=== PATIENT | female | born 1975 | race Caucasian/White ===

== ENCOUNTER 2017-12-08 11:32 | Emergency (ER) | payer MEDICAID ==
[2017-12-08 12:21] LABS: BASOPHILS % (AUTO) 1.2 %; EOSINOPHILS % (AUTO) 0.3 %; HGB - HEMOGLOBIN 8.9 g/dL (12.0-16.0); LYMPHOCYTES % (AUTO) 11.9 %; MEAN CORPUSCULAR HEMOGLOBIN 42.1 pg (27.0-31.0); MEAN CORPUSCULAR HGB CONC 35.1 g/dL (32.0-36.0); MEAN PLATELET VOLUME 8.1 fL (7.9-10.8); MONOCYTES % (AUTO) 4.4 %; NEUTROPHILS % (AUTO) 82.2 %; PLT - PLATELET COUNT 130 10^3/uL (130-450); RED BLOOD COUNT 2.12 10^6/uL (4.20-5.40); RED CELL DISTRIBUTION WIDTH 17.7 % (12.0-15.0); WHITE BLOOD COUNT 9.7 x10^3/uL (4.8-10.8)
[2017-12-08 12:24] LABS: ABNORMAL LYMPHS % (MANUAL) 0 %
[2017-12-08] MEDS ORDERED: MAGNESIUM SULFATE 2 GRAM 2 GM/50 ML BAG IV STA (12:37)
[2017-12-08] MEDS ORDERED: THIAMINE INJ 100 MG, FOLIC ACID INJ 1 MG in SODIUM CHLORIDE 0.9% 100ML 100 ML IV STA (12:37)
[2017-12-08] MEDS ORDERED: MULTIVITAMIN 10 ML in SODIUM CHLORIDE 0.9% 1,000 ML IV STA (12:37)
--- NOTE | 2017-12-08 12:39 | ED Physician Documentation ---
History of Present Illness - Stated complaint Stated Complaint: YELLOW COLORING/ NOT EATING/WEAK - Chief complaint Chief Complaint: General - History obtained from History obtained from: Patient, Friend - History of Present Illness Timing: How many weeks ago (1) Pain level max: 0 Pain level now: 0 Improved by: nothing Worsened by: nothing - Additonal information Additional information: Patient is a 42-year-old female who presents to the emergency department with a complaint of yellowing skin over the past week. She also feels fatigued. States she drinks 1-1/2 glasses of wine a night. States she has been doing this for the last 5 years. She states she is having no pain. States does not see a primary care provider. Denies any history of hepatitis in the past. Denies any abdominal surgeries. Review of Systems Ten Systems: 10 systems reviewed and negative Constitutional: denies: Fever, Chills Ears: denies: Ear pain Nose: denies: Rhinorrhea / runny nose, Congestion Throat: denies: Oral lesions / sores, Sore throat Cardiac: denies: Chest pain / pressure Respiratory: reports: Dyspnea (states is tired easily with walking) GI: denies: Abdominal Pain, Vomiting, Diarrhea Skin: denies: Rash Musculoskeletal: denies: Neck pain, Back pain Neurologic: denies: Headache PD PAST MEDICAL HISTORY - Past Medical History Past Medical History: No - Past Surgical History Past Surgical History: Yes General: Gastric surgery Ortho: Knee replacement - Present Medications Home Medications: Ambulatory Orders Medication Instructions Recorded Confirmed No Known Home Medications [No 12/08/17 12/08/17 Known Home Medications] - Allergies Allergies/Adverse Reactions: Allergies Allergy/AdvReac Type Severity Reaction Status Date / Time amoxicillin Allergy Unknown Verified 12/08/17 11:42 ampicillin Allergy Unknown Verified 12/08/17 11:42 - Social History Does the pt smoke?: Yes Smoking Status: Current every day smoker Does the pt drink ETOH?: Yes ETOH Use: Wine Does the pt have substance abuse?: No - Immunizations Immunizations are current?: Yes PD ED PE NORMAL - Vitals Vital signs reviewed: Yes - General General: Alert and oriented X 3, No acute distress, Other (jaundiced) - HEENT HEENT: Moist mucous membranes - Neck Neck: Supple, no meningeal sign - Cardiac Cardiac: RRR, Strong equal pulses - Respiratory Respiratory: No respiratory distress, Clear bilaterally - Abdomen Abdomen: Other (distended abdomen, soft. ) - Derm Derm: Warm and dry - Extremities Extremities: Other (1+ BLE edema) - Neuro Neuro: Alert and oriented X 3 Results - Vitals Vitals: Vital Signs - 24 hr 12/08/17 12/08/17 12/08/17 11:36 13:07 13:20 Temperature 36 C L Heart Rate 111 H 104 H 108 H Respiratory 20 16 16 Rate Blood Pressure 94/50 L 88/60 L 90/55 L O2 Saturation 95 99 99 12/08/17 12/08/17 13:34 15:11 Temperature Heart Rate 108 H 103 H Respiratory 16 Rate Blood Pressure 95/60 95/51 L O2 Saturation 94 Oxygen O2 Source Room air - Labs Labs: Laboratory Tests 12/08/17 12/08/17 12/08/17 12:10 12:10 12:10 WBC 9.7 RBC 2.12 L Hgb 8.9 L Hct 25.4 L MCV 120.0 H MCH 42.1 H MCHC 35.1 RDW 17.7 H Plt Count 130 MPV 8.1 Neut # (Auto) Not Reportable Lymph # (Auto) Not Reportable Hart # (Auto) Not Reportable Eos # (Auto) Not Reportable Baso # (Auto) Not Reportable Absolute Nucleated RBC Not Reportable Total Counted 100 Band Neuts % (Manual) 3 Reactive Lymphs % (Man) 1 Abnorm Lymph % (Manual) 0 Metamyelocytes % 2 H Myelocytes % 1 H Nucleated RBC % Not Reportable Neutrophils # (Manual) 7.6 H Lymphocytes # (Manual) 1.4 L Monocytes # (Manual) 0.5 Eosinophils # (Manual) 0.0 Basophils # (Manual) 0.0 Platelet Estimate NORMAL (130-450,000) RBC Morph Micro Appear 1+ TARGET CELLS PT INR Sodium 125 L Potassium 3.4 L Chloride 89 L Carbon Dioxide 23 Anion Gap 13.0 BUN 13 Creatinine 0.4 Estimated GFR (MDRD) 173 Glucose 100 Calcium 8.0 L Phosphorus Magnesium Total Bilirubin 24.3 H Direct Bilirubin 9.1 H AST 172 H ALT 90 H Alkaline Phosphatase 193 H Total Protein 5.8 L Albumin 2.0 L Globulin 3.8 Albumin/Globulin Ratio 0.5 L Lipase 44 Acetaminophen Ethyl Alcohol 12/08/17 12/08/17 12/08/17 12:10 12:10 12:10 WBC RBC Hgb Hct MCV MCH MCHC RDW Plt Count MPV Neut # (Auto) Lymph # (Auto) Hart # (Auto) Eos # (Auto) Baso # (Auto) Absolute Nucleated RBC Total Counted Band Neuts % (Manual) Reactive Lymphs % (Man) Abnorm Lymph % (Manual) Metamyelocytes % Myelocytes % Nucleated RBC % Neutrophils # (Manual) Lymphocytes # (Manual) Monocytes # (Manual) Eosinophils # (Manual) Basophils # (Manual) Platelet Estimate RBC Morph Micro Appear PT 17.8 H INR 1.6 H Sodium Potassium Chloride Carbon Dioxide Anion Gap BUN Creatinine Estimated GFR (MDRD) Glucose Calcium Phosphorus 1.6 L Magnesium 2.5 Total Bilirubin Direct Bilirubin AST ALT Alkaline Phosphatase Total Protein Albumin Globulin Albumin/Globulin Ratio Lipase Acetaminophen < 10 L Ethyl Alcohol < 5.0 - Rads (name of study) CT abd/pelvis Radiology: Prelim report reviewed, EMP read contemporaneously, See rad report ( Enlarged, fatty liver. Small to moderate volume ascites. Portal veins are patent. 2. Apparent diffuse colonic wall thickening may reflect nonspecific colitis versus nondistention. 3. Mild peripancreatic stranding could reflect acute pancreatitis or may relate to generalized edema. 4. Nonspecific mild splenomegaly. 5. Other findings as noted above. ) RUQ US Radiology: Prelim report reviewed, EMP read contemporaneously, See rad report ( Gallbladder sludge without gallstones. Thickened gallbladder wall with a negative ultrasound Guadalupe's sign. The wall thickening is nonspecific and could be related to liver disease, ascites, or cholecystitis. 2. Hepatomegaly with steatosis and evidence of chronic liver disease. 3. Ascites. 4. Common bile duct is enlarged at 8.7 mm. ) PD MEDICAL DECISION MAKING - ED course Complexity details: reviewed results, re-evaluated patient, considered differential, d/w patient, d/w quality compliance consultant ED course: 1530 - Dr. Walker ([facility]). Recommends admission, steroids and supportive care. 1548 - D/w hospitalist here, Dr. Casey, who is uncomfortable caring for her in a critical access hospital and recommends transfer to [facility] in [place]. 1600 - Dr. Harris Schmidt, graciously accepts in transfer. (hospitalist at [facility]). Patient is a 42-year-old female with a long history of alcoholism who presents to the emergency department with what appears to be alcoholic hepatitis complicated by hyponatremia and severe jaundice. Her meld score is approximately 30. I discussed the case with GI who recommends admission for steroids and further monitoring. I then discussed the case with our hospitalist who feels that the patient is too complicated for a critical Access Hospital. The patient was then discussed with the hospitalist at [facility] who graciously accepts in transfer. She was given a banana bag and IV fluids in the emergency department. She is stable in the emergency department. Will be transferred to [facility]. This document was made in part using voice recognition software. While efforts are made to proofread this document, sound alike and grammatical errors may occur. - Sepsis Event Vital Signs: Vital Signs - 24 hr 12/08/17 12/08/17 12/08/17 11:36 13:07 13:20 Temperature 36 C L Heart Rate 111 H 104 H 108 H Respiratory 20 16 16 Rate Blood Pressure 94/50 L 88/60 L 90/55 L O2 Saturation 95 99 99 12/08/17 12/08/17 13:34 15:11 Temperature Heart Rate 108 H 103 H Respiratory 16 Rate Blood Pressure 95/60 95/51 L O2 Saturation 94 Oxygen O2 Source Room air Departure - Departure Disposition: 02 Transfer Acute Care Hosp Clinical Impression: Jaundice, Alcoholic cirrhosis of liver with ascites, Hyponatremia, Hyperbilirubinemia Liver failure Qualifiers: Liver failure chronicity: unspecified chronicity Hepatic coma status: without hepatic coma Qualified Code(s): K72.90 - Hepatic failure, unspecified without coma Condition: Stable Discharge Date/Time: 12/08/17 17:54
[2017-12-08 12:41] LABS: ALBUMIN/GLOBULIN RATIO 0.5 (1.0-2.2); BILIRUBIN,TOTAL 24.3 mg/dL (0.2-1.0); CREATININE 0.4 mg/dL (0.4-1.0); TOTAL PROTEIN 5.8 g/dL (6.7-8.2)
[2017-12-08 12:50] LABS: MAGNESIUM 2.5 mg/dL (1.7-2.8); PHOSPHORUS 1.6 mg/dL (2.5-4.6)
[2017-12-08 13:00] LABS: INR 1.6 (0.8-1.2); PT - PROTHROMBIN TIME 17.8 secs (9.9-12.6)
[2017-12-08 13:12] LABS: BAND NEUTROPHILS % (MANUAL) 3 %; LYMPHOCYTES # (MANUAL) 1.4 10^3/uL (1.5-3.5); LYMPHOCYTES % (MANUAL) 13 %; METAMYELOCYTES % (MANUAL) 2 %; MONOCYTES # (MANUAL) 0.5 10^3/uL (0.0-1.0); MYELOCYTES % (MANUAL) 1 %; NEUTROPHILS # (MANUAL) 7.6 10^3/uL (1.5-6.6); NEUTROPHILS % (MANUAL) 75 %
[2017-12-08 13:20] LABS: PLATELET ESTIMATE, MANUAL NORMAL (130-450,000) (NORMAL)
--- NOTE | 2017-12-08 13:37 | Ultrasound Report ---
EXAM: ABDOMEN ULTRASOUND LIMITED, RUQ EXAM DATE: 12/08/2017 01:17 PM. CLINICAL HISTORY: New onset jaundice, RUQ scan please. COMPARISON: None. TECHNIQUE: Real-time scanning was performed with static images obtained. FINDINGS: Liver: The liver parenchyma is diffusely echogenic and dense. The liver is enlarged and measures 28.4 cm in length. The portal vein is not seen. The liver has a lobulated contour. Gallbladder: There is non-shadowing sludge within the gallbladder. The gallbladder wall is thickened at 8 mm. Negative ultrasound Guadalupe's sign. Biliary System: CBD measures 8.7 mm. No intrahepatic or extrahepatic ductal dilatation. Other: There is upper abdominal ascites. The right kidney measures 11.3 cm in length with no hydronep hrosis. IMPRESSION: 1. Gallbladder sludge without gallstones. Thickened gallbladder wall with a negative ultrasound Tunde y's sign. The wall thickening is nonspecific and could be related to liver disease, ascites, or maria elena cystitis. 2. Hepatomegaly with steatosis and evidence of chronic liver disease. 3. Ascites. 4. Common bile duct is enlarged at 8.7 mm. [facility] Referring Provider Line: [phone] SITE ID: [id number]
--- NOTE | 2017-12-08 13:37 | Ultrasound Preliminary Report ---
Exam: US ABDOMEN LIMITED IMPRESSION: 1. Gallbladder sludge without gallstones. Thickened gallbladder wall with a negative ultrasound Tunde y's sign. The wall thickening is nonspecific and could be related to liver disease, ascites, or maria elena cystitis. 2. Hepatomegaly with steatosis and evidence of chronic liver disease. 3. Ascites. 4. Common bile duct is enlarged at 8.7 mm. [facility] SITE ID: [id number]
[2017-12-08] MEDS ORDERED: IOPAMIDOL-300 100 ML VIAL ONE (14:13)
[2017-12-08] MEDS ORDERED: IOPAMIDOL-300 100 ML VIAL IVP ONE (14:52)
--- NOTE | 2017-12-08 15:10 | CT Report ---
EXAM: CT ABDOMEN AND PELVIS EXAM DATE: 12/08/2017 02:53 PM. CLINICAL HISTORY: New onset jaundice, ascites, ? Portal vein flow?. COMPARISONS: Ultrasound abdomen 12/08/2017. TECHNIQUE: Routine helical CT imaging was performed through the abdomen and pelvis. IV contrast: 100 mL Isovue 300. Enteric contrast: No. Reconstructions: Coronal and sagittal. In accordance with CT protocol optimization, one or more of the following dose reduction techniques w ere utilized for this exam: automated exposure control, adjustment of mA and/or KV based on patient s ize, or use of iterative reconstructive technique. FINDINGS: Lung Bases: Small left pleural effusion. Passive left lower lobe atelectasis. Linear scarring or atel ectasis in the lingula. Liver: Moderate hepatomegaly. Diffuse fatty infiltration. No focal liver lesion is identified. Gallbladder/Bile Ducts: Moderate gallbladder distention. No convincing secondary signs of inflammatio n. No gross ductal enlargement. Spleen: Nonspecific mild splenomegaly. There appears to be a conspicuous splenic cleft. Pancreas: No mass or ductal enlargement. There is mild hazy peripancreatic stranding which could refl ect acute pancreatitis. No organized fluid collection. Adrenal Glands: Normal. Kidneys: Normal. No masses or hydronephrosis. Peritoneal Cavity/Bowel: There is small to moderate volume ascites. No free air. Evidence of gastric bypass surgery. No obstruction. There is apparent diffuse colonic wall thickening that may reflect no nspecific colitis versus nondistention. Pelvic Organs: Normal. The bladder and visualized pelvic organs are within normal limits. Vasculature: No aneurysms or other significant abnormality. Celiac artery, SMA, SARAH, mesenteric veins , SMV, portal vein, hepatic veins are patent. No portal venous gas. Bones: No significant abnormality. Other: There is generalized subcutaneous edema. IMPRESSION: 1. Enlarged, fatty liver. Small to moderate volume ascites. Portal veins are patent. 2. Apparent diffuse colonic wall thickening may reflect nonspecific colitis versus nondistention. 3. Mild peripancreatic stranding could reflect acute pancreatitis or may relate to generalized edema. 4. Nonspecific mild splenomegaly. 5. Other findings as noted above. [facility] Referring Provider Line: [phone] SITE ID: [id number]
[2017-12-08 15:12] VITALS: BP 95/51
[2017-12-08] MEDS ORDERED: SODIUM CHLORIDE 0.9% 1,000 ML IV ONE (16:19)
[2017-12-10 15:21] LABS: HEPATITIS A IGM NON-REACTIVE (NON-REACTIVE); HEPATITIS B CORE ANTIBODY IGM NON-REACTIVE (NON-REACTIVE); HEPATITIS B SURFACE ANTIGEN NON-REACTIVE (NON-REACTIVE); HEPATITIS C ANTIBODY NON-REACTIVE (NON-REACTIVE)
== END 2017-12-08 17:54 | disposition short-term general hospital (02) ==
LOC: ED 11:32
DX: R17 Unspecified jaundice (principal); K70.31 Alcoholic cirrhosis of liver with ascites; K72.90 Hepatic failure, unspecified without coma; E87.1 Hypo-osmolality and hyponatremia; E80.6 Other disorders of bilirubin metabolism; Z98.84 Bariatric surgery status; F17.200 Nicotine dependence, unspecified, uncomplicated
CPT/HCPCS: 36415; 74177; 76705; 80053; 80074; 80307; 80320; 82248; 83690; 83735; 84100; 85025; 85610; 96365; 96367; 96368; 99284; 99285; J3411; Q9967; 82247

== ENCOUNTER 2017-12-08 17:28 | Outpatient (CLI) | payer MEDICAID | END 2017-12-08 17:29 | disposition short-term general hospital (02) | LOC: EMS 17:28 | PROVIDERS: ATTEND Surgery | DX: K70.10 Alcoholic hepatitis without ascites (principal); I95.9 Hypotension, unspecified | CPT/HCPCS: A0425; A0426 ==

== ENCOUNTER 2018-01-02 10:12 | Outpatient (CLI) | payer MEDICAID | END 2018-01-02 10:13 | disposition critical access hospital (66) | LOC: EMS 10:12 | PROVIDERS: ATTEND Surgery | DX: R10.9 Unspecified abdominal pain (principal); K92.1 Melena | CPT/HCPCS: A0425; A0427; A0999 ==

== ENCOUNTER 2018-01-02 10:38 | Emergency (ER) | payer MEDICAID ==
--- NOTE | 2018-01-02 11:51 | ED Physician Documentation ---
PD HPI GI BLEED - Stated complaint Stated Complaint: PAIN, BLOOD IN STOOL - Chief complaint Chief Complaint: Abd Pain - History obtained from History obtained from: Patient - History of Present Illness Associated symptoms: BRBPR, Near syncope / syncope, Loss of appetite Contributing factors: Other (alcoholic hepatitis) Similar symptoms before: Diagnosis (hemmorrhoid bleeding) Recently seen: Admitted - Additional information Additional information: 42-year-old female with a recent history of alcoholic hepatitis has been admitted at [facility] in [place] last month after a visit to the emergency department here. She has a very high bilirubin was significantly anemic and she did not require transfusion while she was in the hospital and she did not have scoping done when she was in the hospital. She remains jaundiced she does have significant ascites and lower extremity swelling which she states have worsened in the last week. She is not currently on a diuretic. She is on some lactulose and she has run out of lactulose. She has some fogging of her sensorium. She is living in a home with her 2 sisters and her brother is attempting to put her into a rehab facility. They are all concerned that she will begin drinking again. The patient herself states that she is not drinking at all. Review of Systems Constitutional: denies: Fever Eyes: denies: Decreased vision Ears: denies: Ear pain Nose: denies: Congestion Throat: denies: Sore throat Cardiac: denies: Chest pain / pressure, Palpitations Respiratory: denies: Dyspnea, Cough GI: reports: Abdominal Pain, Nausea, Diarrhea, Bloody / black stool : denies: Dysuria, Frequency Skin: denies: Rash Musculoskeletal: reports: Extremity swelling. denies: Neck pain, Back pain, Extremity pain Neurologic: reports: Generalized weakness, Confused, Altered mental status. denies: Focal weakness, Numbness, Headache, Head injury PD PAST MEDICAL HISTORY - Past Medical History Past Medical History: Yes GI: Hepatitis Other Past Medical History: Liver failure, alcoholic hepatitis. - Past Surgical History Past Surgical History: Yes General: Gastric surgery Ortho: Knee replacement - Present Medications Home Medications: Ambulatory Orders Medication Instructions Recorded Confirmed No Known Home Medications [No 12/08/17 12/08/17 Known Home Medications] - Allergies Allergies/Adverse Reactions: Allergies Allergy/AdvReac Type Severity Reaction Status Date / Time amoxicillin Allergy Unknown Verified 12/08/17 11:42 ampicillin Allergy Unknown Verified 12/08/17 11:42 - Social History Does the pt smoke?: Yes Smoking Status: Current every day smoker Does the pt drink ETOH?: Yes Does the pt have substance abuse?: No - Immunizations Immunizations are current?: Yes PD ED PE NORMAL - Vitals Vital signs reviewed: Yes (tachy) - General General: No acute distress, Other (gaunt appearing jaundiced female who is slow to repond with speech latency and delayed execution of motor commnads. ) - HEENT HEENT: Atraumatic, PERRL, EOMI, Other (marked iterus) - Neck Neck: Supple, no meningeal sign, No bony TTP - Cardiac Cardiac: No murmur, Other (tachy to 110) - Respiratory Respiratory: No respiratory distress, Clear bilaterally - Abdomen Abdomen: Soft, Other (distended and not tender. + fluid wave with ascites that is not tense.) - Rectal Rectal: Other (with Darlene as a manager style the rectal exam reveals inflammed hemmorhoids cream colored stool that is guiac +. ) - Back Back: No CVA TTP, No spinal TTP - Derm Derm: Other (jaundice is significant) - Extremities Extremities: No deformity, Other (bilateral LE edema pitting. ) - Neuro Neuro: physical science professor 2-12 intact, No motor deficit, No sensory deficit, Normal speech Eye Opening: Spontaneous Motor: Obeys Commands Verbal: Confused GCS Score: 14 - Psych Psych: Normal mood, Normal affect Results - Vitals Vitals: Vital Signs - 24 hr 01/02/18 01/02/18 10:39 12:10 Temperature 36.0 C L Heart Rate 104 H 103 H Respiratory 16 20 Rate Blood Pressure 105/68 103/66 O2 Saturation 98 96 Oxygen O2 Source Room air - Labs Labs: Laboratory Tests 01/02/18 01/02/18 01/02/18 11:56 11:56 11:56 WBC 16.1 H RBC 2.30 L Hgb 9.1 L Hct 28.1 L MCV 122.4 H MCH 39.8 H MCHC 32.5 RDW 17.3 H Plt Count 169 MPV 6.9 L Neut # (Auto) 14.7 H Lymph # (Auto) 0.9 L [place] # (Auto) 0.3 Eos # (Auto) 0.0 Baso # (Auto) 0.1 Absolute Nucleated RBC 0.00 Nucleated RBC % 0.0 Manual Slide Review Indicated WBC Morphology Platelet Estimate NORMAL (130-450,000) Platelet Morphology NORMAL APPEARANCE RBC Morph Micro Appear 2+ MACROCYTOSIS PT INR Sodium 133 L Potassium 3.5 Chloride 102 Carbon Dioxide 23 Anion Gap 8.0 BUN 15 Creatinine 0.7 Estimated GFR (MDRD) 91 Glucose 107 H Calcium 7.7 L Total Bilirubin 9.6 H AST 186 H ALT 112 H Alkaline Phosphatase 220 H Ammonia Troponin I < 0.04 Total Protein 5.2 L Albumin 1.8 L Globulin 3.4 Albumin/Globulin Ratio 0.5 L Lipase 39 Ethyl Alcohol < 5.0 01/02/18 01/02/18 11:56 11:56 WBC RBC Hgb Hct MCV MCH MCHC RDW Plt Count MPV Neut # (Auto) Lymph # (Auto) [place] # (Auto) Eos # (Auto) Baso # (Auto) Absolute Nucleated RBC Nucleated RBC % Manual Slide Review WBC Morphology Platelet Estimate Platelet Morphology RBC Morph Micro Appear PT 19.7 H INR 1.8 H Sodium Potassium Chloride Carbon Dioxide Anion Gap BUN Creatinine Estimated GFR (MDRD) Glucose Calcium Total Bilirubin AST ALT Alkaline Phosphatase Ammonia 28.8 Troponin I Total Protein Albumin Globulin Albumin/Globulin Ratio Lipase Ethyl Alcohol PD MEDICAL DECISION MAKING - ED course Complexity details: reviewed old records, reviewed results, re-evaluated patient , considered differential, d/w patient ED course: 42 y/o female with a history of acute alcoholic hepatitis has returned from her initial hospitalization about 3 weeks ago and has been on lactulose and multivits and she has developed increased ascites, peripheral edema and blood per rectum. She recounts that the blood has been bright red and started as soon as she was taking lactulose 3 times per day. On exam she has cream colored stool that is guiac + and she has been out of lactulose since yesterday. Her ammonia level is 28 and her H&H are improved from her last ED visit here as are her bili and LFT's. Her INR is increased from prior. She is given a does of vitamin K IV and a second line is placed. The patient's varacial status is unknown and I have sought transfer to a hospital capable of treating varaceal bleeding and out friends at [facility] in [place] were gracious in accepting her in transfer. Dr. Adrian Zhang requests we administer rocephin IV prior to transfer. - Sepsis Event Vital Signs: Vital Signs - 24 hr 01/02/18 01/02/18 10:39 12:10 Temperature 36.0 C L Heart Rate 104 H 103 H Respiratory 16 20 Rate Blood Pressure 105/68 103/66 O2 Saturation 98 96 Oxygen O2 Source Room air Departure - Departure Disposition: 02 Transfer Acute Care Hosp Clinical Impression: Alcoholic cirrhosis of liver with ascites Liver failure Qualifiers: Liver failure chronicity: acute Hepatic coma status: without hepatic coma Qualified Code(s): K72.00 - Acute and subacute hepatic failure without coma GI bleeding Qualifiers: GI bleed type/associated pathology: unspecified gastrointestinal hemorrhage type Qualified Code(s): K92.2 - Gastrointestinal hemorrhage, unspecified
[2018-01-02 12:05] LABS: BASOPHILS # (AUTO) 0.1 10^3/uL (0.0-0.1); BASOPHILS % (AUTO) 0.7 %; EOSINOPHILS % (AUTO) 0.1 %; HGB - HEMOGLOBIN 9.1 g/dL (12.0-16.0); INR 1.8 (0.8-1.2); LYMPHOCYTES # (AUTO) 0.9 10^3/uL (1.5-3.5); LYMPHOCYTES % (AUTO) 5.8 %; MEAN CORPUSCULAR HEMOGLOBIN 39.8 pg (27.0-31.0); MEAN CORPUSCULAR HGB CONC 32.5 g/dL (32.0-36.0); MEAN CORPUSCULAR VOLUME 122.4 fL (81.0-99.0); MEAN PLATELET VOLUME 6.9 fL (7.9-10.8); MONOCYTES # (AUTO) 0.3 10^3/uL (0.0-1.0); MONOCYTES % (AUTO) 1.8 %; NEUTROPHILS # (AUTO) 14.7 10^3/uL (1.5-6.6); NEUTROPHILS % (AUTO) 91.6 %; PLT - PLATELET COUNT 169 10^3/uL (130-450); PT - PROTHROMBIN TIME 19.7 secs (9.9-12.6); RED CELL DISTRIBUTION WIDTH 17.3 % (12.0-15.0); WHITE BLOOD COUNT 16.1 x10^3/uL (4.8-10.8)
[2018-01-02 12:20] LABS: ALBUMIN 1.8 g/dL (3.2-5.5); ALBUMIN/GLOBULIN RATIO 0.5 (1.0-2.2); ALKALINE PHOSPHATASE 220 IU/L (42-121); ALT ALANINE AMINOTRANSFERASE 112 IU/L (10-60); AST ASPARTATE AMINOTRANSFERASE 186 IU/L (10-42); BILIRUBIN,TOTAL 9.6 mg/dL (0.2-1.0); BUN - BLOOD UREA NITROGEN 15 mg/dL (6-20); CALCIUM 7.7 mg/dL (8.5-10.3); CARBON DIOXIDE - CO2 23 mmol/L (21-32); CHLORIDE 102 mmol/L (101-111); CREATININE 0.7 mg/dL (0.4-1.0); GFR - MDRD 91 (>89); GLUCOSE 107 mg/dL (70-100); LIPASE 39 U/L (22-51); SODIUM 133 mmol/L (135-145); TOTAL PROTEIN 5.2 g/dL (6.7-8.2)
[2018-01-02 12:42] LABS: PLATELET ESTIMATE, MANUAL NORMAL (130-450,000) (NORMAL); PLATELET MORPHOLOGY NORMAL APPEARANCE (NORMAL); RBC MORPHOLOGY (MULTIPLE) 2+ MACROCYTOSIS (NORMAL)
[2018-01-02] MEDS ORDERED: PHYTONADIONE 10 MG/ML AMP IVP STA (12:44)
[2018-01-02] MEDS ORDERED: cefTRIAXone 1 GM in SODIUM CHLORIDE 0.9% MINIBAG 100 ML IV STA (13:01)
[2018-01-02 14:46] VITALS: BP 105/74
== END 2018-01-02 14:39 | disposition short-term general hospital (02) ==
LOC: EDUNIT# → ED 10:38
DX: K70.31 Alcoholic cirrhosis of liver with ascites (principal); K72.00 Acute and subacute hepatic failure without coma; K92.2 Gastrointestinal hemorrhage, unspecified; K70.11 Alcoholic hepatitis with ascites; Z96.659 Presence of unspecified artificial knee joint; F17.200 Nicotine dependence, unspecified, uncomplicated
CPT/HCPCS: 36415; 80053; 80320; 82140; 83690; 84484; 85025; 85610; 96365; 96375; 99284; 99285

== ENCOUNTER 2018-01-08 08:14 | Outpatient (CLI) | payer MEDICAID | END 2018-01-08 08:15 | disposition critical access hospital (66) | LOC: EMS 08:14 | PROVIDERS: ATTEND Surgery | DX: R06.02 Shortness of breath (principal); R14.0 Abdominal distension (gaseous) | CPT/HCPCS: A0425; A0427; A0999 ==

== ENCOUNTER 2018-01-08 08:41 | Inpatient (IN) | payer MEDICAID ==
--- NOTE | 2018-01-08 09:28 | ED Physician Documentation ---
PD HPI DYSPNEA - Stated complaint Stated Complaint: SOA - Chief complaint Chief Complaint: Resp - History obtained from History obtained from: Patient, EMS - History of Present Illness Timing - onset: How many days ago (2) Timing - onset during: Rest Timing - duration: Days (2) Timing - details: Gradual onset, Still present Inciting event(s): Other (has ascities and this has increased in size) Improved by: Rest, Sitting up Worsened by: Exertion, Coughing Associated symptoms: Cough, Bilateral edema Similar symptoms before: Diagnosis (ascities) Recently seen: Admitted - Additional information Additional information: 42-year-old female with a recent diagnosis of alcoholic hepatitis has had acute liver failure and has ascites and jaundice. She was recently seen here in the emergency department diagnosed with a GI bleed and sent to [facility] in [place] for admission. She was released from there 2 days ago. Review of Systems Constitutional: reports: Fatigue, Sweats. denies: Fever Eyes: denies: Decreased vision Ears: denies: Ear pain Nose: denies: Rhinorrhea / runny nose, Congestion Throat: denies: Sore throat Cardiac: denies: Chest pain / pressure, Palpitations Respiratory: reports: Dyspnea, Cough GI: reports: Abdominal Pain, Abdominal Swelling. denies: Constipation, Diarrhea : denies: Dysuria, Frequency Skin: denies: Rash Musculoskeletal: denies: Neck pain, Back pain, Extremity pain Neurologic: reports: Generalized weakness. 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 HEENT: Myringotomy (tubes) - Present Medications Home Medications: Ambulatory Orders Medication Instructions Recorded Confirmed Cholecalciferol (Vitamin D3) 2,000 units PO DAILY 01/08/18 01/08/18 [Vitamin D3] Lactulose 20 gm PO TID 01/08/18 01/08/18 Multivit with Calcium,Iron,Min 01/08/18 [Multiple Vitamins For Women] Pantoprazole [Protonix] 40 mg PO DAILY 01/08/18 01/08/18 - Allergies Allergies/Adverse Reactions: Allergies Allergy/AdvReac Type Severity Reaction Status Date / Time amoxicillin Allergy Unknown Verified 12/08/17 11:42 ampicillin Allergy Unknown Verified 12/08/17 11:42 - Social History Does the pt smoke?: No Smoking Status: Former smoker Does the pt drink ETOH?: Yes Does the pt have substance abuse?: No - Immunizations Immunizations are current?: Yes PD ED PE NORMAL - Vitals Vital signs reviewed: Yes (hypotensive and hypoxic) - General General: Alert and oriented X 3, Well developed/nourished - HEENT HEENT: Atraumatic, PERRL, EOMI, Other (icteric improved from prior exam) - Neck Neck: Supple, no meningeal sign, No bony TTP - Cardiac Cardiac: RRR, No murmur - Respiratory Respiratory: Other (tachy) - Abdomen Abdomen: Soft, Other (There is a fluid wave and the abdomen is not tense. It is distended with ascites. There is a puncture magan on the right lower abdominal wall that is no longer draining. ) - Back Back: No CVA TTP, No spinal TTP - Derm Derm: Normal color, Warm and dry, No rash - Extremities Extremities: No deformity, Other (pitting edema bilaterally ) - Neuro Neuro: Alert and oriented X 3, shot coat tender 2-12 intact, No motor deficit, No sensory deficit, Normal speech Eye Opening: Spontaneous Motor: Obeys Commands Verbal: Oriented GCS Score: 15 - Psych Psych: Normal mood, Normal affect Results - Vitals Vitals: Vital Signs - 24 hr 01/08/18 01/08/18 01/08/18 08:41 08:47 09:33 Temperature 36.0 C L Heart Rate 81 107 H 104 H Respiratory 24 22 23 Rate Blood Pressure 90/49 L 107/63 104/70 O2 Saturation 91 L 97 97 01/08/18 01/08/18 01/08/18 10:00 11:00 11:49 Temperature Heart Rate 109 H 106 H 103 H Respiratory 26 H 26 H 23 Rate Blood Pressure 113/73 126/79 106/75 O2 Saturation 97 98 99 Oxygen O2 Source Room air Oxygen Flow Rate 6 - Labs Labs: Laboratory Tests 01/08/18 01/08/18 01/08/18 09:33 09:33 09:33 WBC 12.0 H RBC 2.27 L Hgb 8.9 L Hct 26.9 L MCV 118.6 H MCH 39.0 H MCHC 32.9 RDW 16.0 H Plt Count 158 MPV 6.9 L Neut # (Auto) 10.7 H Lymph # (Auto) 1.0 L [place] # (Auto) 0.3 Eos # (Auto) 0.0 Baso # (Auto) 0.0 Absolute Nucleated RBC 0.00 Nucleated RBC % 0.0 Manual Slide Review Indicated WBC Morphology NORMAL APPEARANCE Platelet Estimate NORMAL (130-450,000) Platelet Morphology NORMAL APPEARANCE RBC Morph Micro Appear 1+ TARGET CELLS Sodium 131 L Potassium 3.3 L Chloride 98 L Carbon Dioxide 25 Anion Gap 8.0 BUN 12 Creatinine 0.5 Estimated GFR (MDRD) 134 Glucose 98 Calcium 7.7 L Total Bilirubin 6.1 H AST 317 H ALT 127 H Alkaline Phosphatase 293 H B-Natriuretic Peptide 92 Total Protein 4.8 L Albumin 1.8 L Globulin 3.0 Albumin/Globulin Ratio 0.6 L Lipase 95 H - Rads (name of study) 2 veiw chest Radiology: Prelim report reviewed (Impression: Left basilar opacity and probable small left pleural effusion. Infection is not excluded.), EMP read indepedently, See rad report PD MEDICAL DECISION MAKING - ED course Complexity details: reviewed old records, reviewed results, re-evaluated patient , considered differential, d/w patient ED course: 42-year-old female with a recent history of alcoholic hepatitis with liver failure has been hospitalized at [facility] in [place] for a GI bleed which resolved. She is on furosemide and spironolactone as well as lactulose and has improved somewhat from her original presentation. She did have 5 L of ascites drained 2 days ago. She continues to have cough and shortness of breath and on examination today she has rhonchi bibasilar bibasilar and chest x-ray shows infiltrate in the left base. I believe this patient is sick to start and has pneumonia and should be treated as an inpatient in the hospital. - Sepsis Event Vital Signs: Vital Signs - 24 hr 01/08/18 01/08/18 01/08/18 08:41 08:47 09:33 Temperature 36.0 C L Heart Rate 81 107 H 104 H Respiratory 24 22 23 Rate Blood Pressure 90/49 L 107/63 104/70 O2 Saturation 91 L 97 97 01/08/18 01/08/18 01/08/18 10:00 11:00 11:49 Temperature Heart Rate 109 H 106 H 103 H Respiratory 26 H 26 H 23 Rate Blood Pressure 113/73 126/79 106/75 O2 Saturation 97 98 99 Oxygen O2 Source Room air Oxygen Flow Rate 6 Departure - Departure Disposition: 66 [facility] DC/Xfer Clinical Impression: Alcoholic cirrhosis of liver with ascites Pneumonia Qualifiers: Pneumonia type: due to unspecified organism Laterality: left Lung location: lower lobe of lung Qualified Code(s): J18.1 - Lobar pneumonia, unspecified organism
[2018-01-08 09:41] LABS: BASOPHILS % (AUTO) 0.2 %; EOSINOPHILS % (AUTO) 0.3 %; HGB - HEMOGLOBIN 8.9 g/dL (12.0-16.0); MEAN CORPUSCULAR HGB CONC 32.9 g/dL (32.0-36.0); MEAN CORPUSCULAR VOLUME 118.6 fL (81.0-99.0); MEAN PLATELET VOLUME 6.9 fL (7.9-10.8); MONOCYTES # (AUTO) 0.3 10^3/uL (0.0-1.0); MONOCYTES % (AUTO) 2.7 %; NEUTROPHILS # (AUTO) 10.7 10^3/uL (1.5-6.6); NEUTROPHILS % (AUTO) 88.8 %; PLT - PLATELET COUNT 158 10^3/uL (130-450); RED BLOOD COUNT 2.27 10^6/uL (4.20-5.40)
[2018-01-08 09:53] LABS: ALBUMIN 1.8 g/dL (3.2-5.5); ALBUMIN/GLOBULIN RATIO 0.6 (1.0-2.2); BILIRUBIN,TOTAL 6.1 mg/dL (0.2-1.0); CALCIUM 7.7 mg/dL (8.5-10.3); CREATININE 0.5 mg/dL (0.4-1.0); TOTAL PROTEIN 4.8 g/dL (6.7-8.2)
[2018-01-08 10:20] LABS: PLATELET ESTIMATE, MANUAL NORMAL (130-450,000) (NORMAL); PLATELET MORPHOLOGY NORMAL APPEARANCE (NORMAL)
--- NOTE | 2018-01-08 10:37 | XRAY Report ---
Procedure Date: 01/08/2018 Accession Number: [id number] / [id number] Procedure: XR - Chest 2 View X-Ray CPT Code: 90724 FULL RESULT: EXAM: CHEST RADIOGRAPHY EXAM DATE: 01/08/2018 10:26 AM. CLINICAL HISTORY: Bilat rhonchi. COMPARISON: None. TECHNIQUE: 2 views. FINDINGS: Lungs/Pleura: Hazy left basilar opacity. Mild bilateral central reticular opacities. No focal consolidation on the right. No pneumothorax. Probable small left pleural effusion. Mediastinum: Heart and mediastinal contours are unremarkable. Other: None. IMPRESSION: Left basilar opacity and probable small left pleural effusion. Infection is not excluded. RADIA
[2018-01-08] MEDS ORDERED: oxyCODONE 5 MG TABLET PO PRN ×2 (12:33)
[2018-01-08] MEDS ORDERED: MAGNESIUM SULFATE 2 GRAM 2 GM/50 ML BAG IV ONE (12:33)
[2018-01-08] MEDS ORDERED: PROMETHAZINE 25 MG/1 ML VIAL IM PRN (12:33)
[2018-01-08] MEDS ORDERED: PROCHLORPERAZINE 10 MG/2 ML VIAL IVP PRN (12:33)
[2018-01-08] MEDS ORDERED: ZOLPIDEM 5 MG TABLET PO PRN (12:33)
[2018-01-08] MEDS ORDERED: LORazepam 2 MG/ML VIAL IVP PRN (12:33)
[2018-01-08] MEDS ORDERED: THIAMINE INJ 100 MG, FOLIC ACID INJ 1 MG in SODIUM CHLORIDE 0.9% 100ML 100 ML IV SCH (13:00)
[2018-01-08] MEDS ORDERED: MULTIVITAMIN 10 ML in SODIUM CHLORIDE 0.9% 1,000 ML IV SCH (13:00)
[2018-01-08] MEDS: BENZONATATE 100 MG CAPSULE PO PRN ×2 (14:31→20:35)
[2018-01-08] MEDS: guaiFENesin/CODEINE 5 ML UDC PO PRN ×2 (14:31→20:28)
[2018-01-08] MEDS: levoFLOXacin 750 MG/150 ML 750 MG/150 ML BAG IV SCH (14:33)
[2018-01-08] MEDS: ALBUTEROL NEB 2.5 MG/3 ML INH PRN ×2 (14:54→18:40)
[2018-01-08] MEDS ORDERED: POTASSIUM CHLORIDE 20 MEQ TABLET PO ONE (15:18)
--- NOTE | 2018-01-08 15:36 | HISTORY & PHYSICAL EXAMINATION ---
Chief Complaint - Chief Complaint Chief Complaint: Shortness of breath and cough History of Present Illness - Admitted From Admitted From:: Emergency Department - History Obtained From Records Reviewed: Yes History obtained from: Patient and medical records Exam Limitations: None - History of Present Illness HPI Comment/Other: Patient is a 42-year-old female with a past medical history significant for obesity status post gastric bypass surgery, alcohol abuse with recent diagnosis of alcoholic liver cirrhosis with ascites who presented to the emergency department with a chief complaint of shortness of breath and cough. According to the patient she was in her normal state of health until 1 month ago on December 07 when her family noticed that she was jaundiced. She states that she had been drinking pretty heavily for about 15 years although she states that she was only drinking about a box of wine a week. She states that her family forced her to come into the emergency room at that point and she was brought to [facility]. From there she was transferred to [facility] as she had acute liver failure with a bilirubin that was elevated up to 24.7 and ascites on examination. The patient states that she was hospitalized at [facility] from December 07 till December 15 and underwent a paracentesis where she had 5.3 L of fluid removed. She was started on medications including lactulose, Lasix and spironolactone then discharged home. She states that her liver function was improving and therefore they felt she was stable enough to go home. The plan was for her to follow-up with her primary care physician for further referrals and workup. The patient however has been unable to get in with her primary care physician and has not had any referrals to this point. She states that she has been weak and having trouble at home but was otherwise doing better. She states that she stopped drinking and smoking since November. She states that she returned to the emergency room on January 02, 2018 as she was having blood in her stools. She was seen again at [facility] emergency department and given the possibility of possible variceal bleed the patient was again sent to [facility]. There she states that she stopped having any further blood in her stools and was washed till 01/06/2018 but never did she undergo endoscopy or colonoscopy. She states that she was discharged home with Protonix. She states that while she was at [facility] she began developing a cough which continued to worsen over the last week. She states she is also had worsening shortness of breath which initially was occurring with exertion but now is occurring with rest. She denies any chest pain, she denies any fevers or chills. She also admits that she has had increasing distention of her abdomen and increasing lower extremity swelling. She states that she has been compliant with her medications at home. She presented to the emergency room today with worsening shortness of breath and cough. She states the cough is nonproductive. The patient also admits to some nausea last night. Patient denies any headaches, blurred vision, runny nose, sore throat, nasal ingestion, difficulty swallowing, orthopnea, PND, abdominal pain, vomiting, diarrhea, constipation, urinary urgency, urinary frequency, dysuria, joint pain , muscle aches, back pain, neck stiffness, recent unintentional weight loss, changes in her appetite, new skin rashes, hair loss, polydipsia, polyuria, night sweats or any focal neurologic deficits. On presentation to the emergency department the patient was afebrile however she was tachycardic with heart rate in the low 100s. The patient was also borderline hypotensive, tachypneic with respiratory rate of 24 and had an oxygen saturation of 91% on room air. The patient had conversational dyspnea and appeared to be in some respiratory distress. The patient underwent imaging with a chest x-ray which revealed a left basilar opacity with probable small left pleural effusion. The patient's WBC was elevated at 12.0. The patient's hemoglobin was stable at 8.9. The patient's bilirubin was significantly improved from previous at 6.1 and her LFTs were stable. Given the patient's mild hypoxia and significant symptoms of coughing and shortness of breath the patient was admitted to the hospital for healthcare associated pneumonia and given IV antibiotics. 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 She was born in [place] but has moved all over due to her 's job in the [employer]. She lived for some time in [place] than in [place] and then in [place]. She is now from her and is battling him for custody of their children. She was a heavy drinker for at least the past 15 years. She states that she only drank about a box of wine every week but given the severity of her liver failure it was likely more than that. She quit smoking on December 07 along with quitting drinking. She states that she had been smoking about a pack a day for the last 15 years since 2002. She denies any marijuana use or any other illicit drug use. - POLST Patient has POLST: No POLST Status: Full Code Meds/Allgy - Home Medications Home Medications: Ambulatory Orders Medication Instructions Recorded Confirmed Cholecalciferol (Vitamin D3) 2,000 units PO DAILY 01/08/18 01/08/18 [Vitamin D3] Cyanocobalamin (Vitamin B-12) 500 mcg PO DAILY 01/08/18 01/08/18 [Vitamin B-12 (100mcg tab)] Furosemide 20 mg PO DAILY 01/08/18 01/08/18 Lactulose 20 gm PO TID 01/08/18 01/08/18 Multivit with Calcium,Iron,Min 1 tab PO DAILY 01/08/18 01/08/18 [Multiple Vitamins For Women] Pantoprazole [Protonix] 40 mg PO DAILY 01/08/18 01/08/18 Spironolactone 25 mg PO DAILY 01/08/18 01/08/18 - Allergies Allergies/Adverse Reactions: Allergies Allergy/AdvReac Type Severity Reaction Status Date / Time amoxicillin Allergy Unknown Verified 12/08/17 11:42 ampicillin Allergy Unknown Verified 12/08/17 11:42 Review of Systems - Other Findings Other Findings: A comprehensive review of systems was performed the pertinent positives and negatives are stated above in the HPI and the remainder of the review of systems is negative. Exam - Vital Signs Reviewed Vital Signs: Yes Vital Signs: Vital Signs x48h Temp Pulse Pulse Resp BP Pulse Ox 01/08/18 15:27 36.7 C 99 16 96/50 L 96 07/10/18 14:45 109 H 22 01/08/18 13:49 37.1 C 111 H 20 125/56 L 100 - Physical Exam General Appearance: positive: Alert, Mild distress (Tachypnic with conversational dyspnea), Other (Jaundiced appearing) Eyes Bilateral: positive: Normal inspection, PERRL, EOMI, No lid inflammation, Conjunctivae nml, Other (Scleral icterus) ENT: positive: ENT inspection nml, Pharynx nml, Dry mucous membranes. negative : Purulent nasal drainage, Pharyngeal erythema, Oral lesions Neck: positive: Nml inspection, Thyroid nml, No JVD, Trachea midline. negative : Thyromegaly, Lymphadenopathy (R), Lymphadenopathy (L), Stiff neck, Carotid bruit, Tracheal deviation Respiratory: positive: Chest non-tender, Wheezes (Diffuse, scattered), Rhonchi ( Left base and scattered on left side of lung) Cardiovascular: positive: No murmur, No gallop, Tachycardia Peripheral Pulses: positive: 2+ Abdomen: positive: Non-tender, Other (Distented abodomen with positive fluid wave test). negative: Guarding, Rebound Back: positive: Nml inspection. negative: CVA tenderness (R), CVA tenderness (L ) Skin: positive: Warm, Dry, Other (Jaundiced). negative: Cyanosis, Diaphoresis, Pallor, Skin rash Extremities: positive: Non-tender, Full ROM, Nml appearance, Pedal edema (4+ edema) Neurologic/Psychiatric: positive: Oriented x3, CN's nml (2-12), Motor nml, Sensation nml, Mood/affect nml Conclusion/Plan - Problem List (1) HCAP (healthcare-associated pneumonia) Conclusion/Plan: Patient presented with mild hypoxia, shortness of breath, conversational dyspnea , leukocytosis and tachycardia. She has been having dry cough and shortness of breath for the last 3-4 days that has been worsening and now has shortness of breath at rest. Chest x-ray revealed a left base pneumonia. Patient has been hospitalized twice in the last month at [facility] for greater than 48 hours. Therefore she will be treated for a healthcare associated pneumonia. Plan: IV cefepime and Levaquin for coverage of healthcare associated pneumonia IV fluids Supplemental oxygen Albuterol nebs as needed Guaifenesin with codeine as needed for cough Natalysalon Gary (2) Alcoholic cirrhosis of liver with ascites Conclusion/Plan: Patient has a meld score of 24 which is down from 27 when she first presented in November 2017 with alcoholic liver cirrhosis with ascites. The patient's 3 month mortality is 14.6%. She quit drinking alcohol 1 month ago but has not been able to get into her primary care to get any further referrals. According to the patient she has not had an EGD for evaluation for esophageal varices. She did have a recent GI bleed for which she did not undergo any scoping. Patient did have paracentesis done a month ago with 5.3 L removed and now again has developed significant ascites despite being on Lasix and Aldactone at home. Plan: Patient will be continued on home dose of lactulose Patient will be continued on Lasix and Aldactone but we will increase the dose to 40 mg and 50 mg respectively Multivitamin, folate, B12, thiamine daily If patient continues to develop ascites and is having a racing shortness of breath we will need to consider paracentesis while she is hospitalized for therapeutic purposes. Patient will need outpatient referral to gastroenterology and possibly hepatology as she may need a liver transplant in the future when she is 6 months alcohol free. Monitor CMP and INR daily (3) Hypokalemia Conclusion/Plan: Patient does have hypokalemia on presentation with a potassium of 3.3 this is likely secondary to her use of Lasix. We will replace potassium and continue to monitor while patient is hospitalized. (4) Hyponatremia Conclusion/Plan: The patient is hyponatremic with a sodium of 131 on presentation. Likely the patient has hypovolemic hyponatremia as she does appear to be fluid overloaded on examination. Patient will be given Lasix and Aldactone but she will also be given IV fluids and we will continue to monitor for sodium. - Lab Results Lab results reviewed: Yes Fish Bones: 01/08/18 09:33 01/08/18 09:33 Other Lab Results: Laboratory Results WBC 12.0 x10^3/uL (4.8-10.8) H 01/08/18 09:33 RBC 2.27 10^6/uL (4.20-5.40) L 01/08/18 09:33 Hgb 8.9 g/dL (12.0-16.0) L 01/08/18 09:33 Hct 26.9 % (37.0-47.0) L 01/08/18 09:33 MCV 118.6 fL (81.0-99.0) H 01/08/18 09:33 MCH 39.0 pg (27.0-31.0) H 01/08/18 09:33 MCHC 32.9 g/dL (32.0-36.0) 01/08/18 09: RDW 16.0 % (12.0-15.0) H 01/08/18 09:33 Plt Count 158 10^3/uL (130-450) 01/08/18 09: MPV 6.9 fL (7.9-10.8) L 01/08/18 09:33 Neut # (Auto) 10.7 10^3/uL (1.5-6.6) H 01/08/18 09: Lymph # (Auto) 1.0 10^3/uL (1.5-3.5) L 01/08/18 09:33 [place] # (Auto) 0.3 10^3/uL (0.0-1.0) 01/08/18 09: Eos # (Auto) 0.0 10^3/uL (0.0-0.7) 01/08/18 09: Baso # (Auto) 0.0 10^3/uL (0.0-0.1) 01/08/18 09:33 Absolute Nucleated RBC 0.00 x10^3/uL 01/08/18: Nucleated RBC % 0.0 /100WBC 01/08/18 09:33 Manual Slide Review Indicated 01/08/18 09:33 WBC Morphology NORMAL APPEARANCE (NORMAL) 01/08/18 09: Platelet Estimate NORMAL (130-450,000) (NORMAL) 01/08/18 09: Platelet Morphology NORMAL APPEARANCE (NORMAL) 01/08/18 09: RBC Morph Micro Appear 2+ ANISOCYTOSIS (NORMAL) 1+ POIKILOCYTOSIS (NORMAL) 1 + HYPOCHROMASIA (NORMAL) 1+ TARGET CELLS (NORMAL) 01/08/18 09: RBC Morph Micro Appear 2+ ANISOCYTOSIS (NORMAL) 1+ POIKILOCYTOSIS (NORMAL) 1 + HYPOCHROMASIA (NORMAL) 1+ TARGET CELLS (NORMAL) 01/08/18 09:33 RBC Morph Micro Appear 2+ ANISOCYTOSIS (NORMAL) 1+ POIKILOCYTOSIS (NORMAL) 1 + HYPOCHROMASIA (NORMAL) 1+ TARGET CELLS (NORMAL) 01/08/18 09:33 RBC Morph Micro Appear 2+ ANISOCYTOSIS (NORMAL) 1+ POIKILOCYTOSIS (NORMAL) 1 + HYPOCHROMASIA (NORMAL) 1+ TARGET CELLS (NORMAL) 01/08/18 09:33 Sodium 131 mmol/L (135-145) L 01/08/18 09:33 Potassium 3.3 mmol/L (3.5-5.0) L 01/08/18 09:33 Chloride 98 mmol/L (101-111) L 01/08/18 09:33 Carbon Dioxide 25 mmol/L (21-32) 01/08/18 09:33 Anion Gap 8.0 (6-13) 01/08/18 09:33 BUN 12 mg/dL (6-20) 01/08/18 09:33 Creatinine 0.5 mg/dL (0.4-1.0) 01/08/18 09:33 Estimated GFR (MDRD) 134 (>89) 01/08/18 09:33 Glucose 98 mg/dL (70-100) 01/08/18 09:33 Calcium 7.7 mg/dL (8.5-10.3) L 01/08/18 09:33 Total Bilirubin 6.1 mg/dL (0.2-1.0) H 01/08/18 09:33 AST 317 IU/L (10-42) H 01/08/18 09:33 ALT 127 IU/L (10-60) H 01/08/18 09:33 Alkaline Phosphatase 293 IU/L (42-121) H 01/08/18 09:33 B-Natriuretic Peptide 92 pg/mL (5-100) 01/08/18 09:33 Total Protein 4.8 g/dL (6.7-8.2) L 01/08/18 09:33 Albumin 1.8 g/dL (3.2-5.5) L 01/08/18 09:33 Globulin 3.0 g/dL (2.1-4.2) 01/08/18 09:33 Albumin/Globulin Ratio 0.6 (1.0-2.2) L 01/08/18 09:33 Lipase 95 U/L (22-51) H 01/08/18 09:33 Ethyl Alcohol < 5.0 mg/dL 01/08/18 09:33 - Diagnostic Imaging Results Diagnostic Imaging Results: positive: Final report reviewed Core Measures - Anticipated LOS I expect patient to be DC'd or transferred within 96 hours.: Yes - DVT/VTE - Prophylaxis VTE/DVT Prophylaxis med ordered at admit?: Yes
[2018-01-08] MEDS: CEFEPIME 2 GM in SODIUM CHLORIDE 0.9% MINIBAG 100 ML IV SCH ×2 (15:45→21:42)
[2018-01-08] MEDS: SODIUM CHLORIDE FLUSH 0.9% 10 ML SYRINGE IVP SCH (17:11)
[2018-01-08] MEDS: SACCHAROMYCES BOULARDII 250 MG CAPSULE PO SCH (17:11)
[2018-01-08] MEDS: LACTULOSE 10 GM /15 ML UDC PO SCH ×2 (17:11→22:05)
[2018-01-08] MEDS: PANTOPRAZOLE 40 MG TABLET PO SCH (17:11)
[2018-01-08 17:25] LABS: MUDS CUTOFF CONCENTRATIONS CUTOFF CONC BELOW:
[2018-01-08 17:47] LABS: GLUCOSE, URINE (UA) NEGATIVE (NEGATIVE); KETONES,URINE (UA) NEGATIVE (NEGATIVE); LEUKOCYTE ESTERASE, URINE NEGATIVE (NEGATIVE); NITRITE,URINE NEGATIVE (NEGATIVE); OCCULT BLOOD,URINE NEGATIVE (NEGATIVE); PROTEIN,URINE NEGATIVE (NEGATIVE); UROBILINOGEN,URINE 0.2 (NORMAL) E.U./dL (NORMAL)
[2018-01-08 17:49] LABS: BILIRUBIN,URINE MODERATE (NEGATIVE); CLARITY,URINE CLOUDY (CLEAR); ICTOTEST,URINE POSITIVE
[2018-01-08 17:54] LABS: COCAINE SCREEN URINE NEGATIVE (NEGATIVE); METHAMPHETAMINES SCREEN, URINE NEGATIVE (NEGATIVE)
[2018-01-08 17:55] LABS: AMPHETAMINE SCREEN,URINE NEGATIVE (NEGATIVE); BENZODIAZEPINES SCREEN, URINE NEGATIVE (NEGATIVE); METHADONE SCREEN, URINE NEGATIVE (NEGATIVE); OPIATE SCREEN, URINE POSITIVE (NEGATIVE); OXYCODONE SCREEN, URINE NEGATIVE (NEGATIVE); PROPOXYPHENE SCREEN, URINE NEGATIVE (NEGATIVE); TRICYCLIC ANTIDEPRESSANT,URINE NEGATIVE (NEGATIVE)
[2018-01-08] MEDS: predniSONE 20 MG TABLET PO SCH (17:59)
[2018-01-08 18:06] LABS: AMORPHOUS SEDIMENT,UR Few /LPF; BACTERIA,URINE Rare /HPF (None Seen); EPITHELIAL CELLS,UR RARE Transitional /HPF (<= Few); MUCUS,URINE Few Strands; RBC,URINE 0-5 /HPF (0-5); SQUAMOUS EPITHELIAL CELL,UR RARE Squamous (<= Few)
[2018-01-09] MEDS: SODIUM CHLORIDE FLUSH 0.9% 10 ML SYRINGE IVP SCH ×3 (00:03→16:08)
[2018-01-09] MEDS: LEVALBUTEROL 1.25 MG/3 ML NEB INH PRN ×6 (00:30→23:55)
[2018-01-09] MEDS: guaiFENesin/CODEINE 5 ML UDC PO PRN ×2 (02:30→20:26)
[2018-01-09 06:18] LABS: BASOPHILS # (AUTO) 0.1 10^3/uL (0.0-0.1); HGB - HEMOGLOBIN 8.4 g/dL (12.0-16.0); LYMPHOCYTES # (AUTO) 0.7 10^3/uL (1.5-3.5); LYMPHOCYTES % (AUTO) 5.4 %; MEAN CORPUSCULAR HEMOGLOBIN 38.9 pg (27.0-31.0); MEAN CORPUSCULAR HGB CONC 32.6 g/dL (32.0-36.0); MEAN CORPUSCULAR VOLUME 119.4 fL (81.0-99.0); MONOCYTES # (AUTO) 0.3 10^3/uL (0.0-1.0); MONOCYTES % (AUTO) 2.2 %; NEUTROPHILS # (AUTO) 11.1 10^3/uL (1.5-6.6); NEUTROPHILS % (AUTO) 91.4 %; PLT - PLATELET COUNT 155 10^3/uL (130-450); RED BLOOD COUNT 2.17 10^6/uL (4.20-5.40); RED CELL DISTRIBUTION WIDTH 16.1 % (12.0-15.0); WHITE BLOOD COUNT 12.2 x10^3/uL (4.8-10.8)
[2018-01-09 06:27] LABS: ALBUMIN 1.8 g/dL (3.2-5.5); ALBUMIN/GLOBULIN RATIO 0.6 (1.0-2.2); BILIRUBIN,TOTAL 5.1 mg/dL (0.2-1.0); CALCIUM 7.3 mg/dL (8.5-10.3); CREATININE 0.3 mg/dL (0.4-1.0); MAGNESIUM 2.2 mg/dL (1.7-2.8); PHOSPHORUS 2.7 mg/dL (2.5-4.6); TOTAL PROTEIN 4.7 g/dL (6.7-8.2)
[2018-01-09 06:31] LABS: INR 1.8 (0.8-1.2); PT - PROTHROMBIN TIME 19.9 secs (9.9-12.6)
[2018-01-09] MEDS: LACTULOSE 10 GM /15 ML UDC PO SCH (06:31)
[2018-01-09] MEDS: PANTOPRAZOLE 40 MG TABLET PO SCH ×2 (06:32→16:07)
[2018-01-09 06:53] LABS: PLATELET MORPHOLOGY NORMAL APPEARANCE (NORMAL)
[2018-01-09] MEDS: POLYETHYLENE GLYCOL 3350 17 GM PACKET PO SCH (07:20)
[2018-01-09] MEDS: SACCHAROMYCES BOULARDII 250 MG CAPSULE PO SCH ×2 (09:09→16:07)
[2018-01-09] MEDS: THIAMINE 100 MG TABLET PO SCH (09:09)
[2018-01-09] MEDS: PRENATAL VITAMIN TABLET PO SCH (09:09)
[2018-01-09] MEDS: CHOLECALCIFEROL 1,000 UNIT TABLET PO SCH (09:09)
[2018-01-09] MEDS: predniSONE 20 MG TABLET PO SCH (09:09)
[2018-01-09] MEDS: CYANOCOBALAMIN 500 MCG TABLET PO SCH (09:09)
[2018-01-09] MEDS: CEFEPIME 2 GM in SODIUM CHLORIDE 0.9% MINIBAG 100 ML IV SCH ×2 (09:09→20:27)
[2018-01-09] MEDS: POTASSIUM CHLORIDE 20 MEQ TABLET PO SCH (09:09)
[2018-01-09] MEDS: FUROSEMIDE 20 MG TABLET PO SCH (09:09)
[2018-01-09] MEDS: ENOXAPARIN 40 MG/0.4 ML SYRINGE SUBQ SCH (09:10)
[2018-01-09] MEDS: SPIRONOLACTONE 25 MG TABLET PO SCH (09:10)
[2018-01-09] MEDS ORDERED: LACTULOSE 10 GM /15 ML UDC PO PRN (12:47)
[2018-01-09] MEDS: MULTIVITAMIN TABLET PO SCH (13:57)
[2018-01-09] MEDS: levoFLOXacin 750 MG/150 ML 750 MG/150 ML BAG IV SCH (13:57)
--- NOTE | 2018-01-09 16:07 | PROVIDER PROGRESS NOTE ---
Assessment/Plan - Problem List (1) HCAP (healthcare-associated pneumonia) Assessment/Plan: Patient presented with mild hypoxia, shortness of breath, conversational dyspnea , leukocytosis and tachycardia. She has been having dry cough and shortness of breath for the last 3-4 days that has been worsening and now has shortness of breath at rest. Chest x-ray revealed a left base pneumonia. Patient has been hospitalized twice in the last month at [facility] for greater than 48 hours. Therefore she will be treated for a healthcare associated pneumonia. Mild improvement today with decreased cough but patient continues to have hypoxia and shortness of breath with minimal exertion Patient also very weak Plan: Continue IV cefepime and Levaquin for coverage of healthcare associated pneumonia day 2 IV fluids Supplemental oxygen Albuterol nebs as needed Guaifenesin with codeine as needed for cough Azeb Vega (2) Alcoholic cirrhosis of liver with ascites Conclusion/Plan: Patient has a meld score of 25 today which is down from 27 when she first presented in November 2017 with alcoholic liver cirrhosis with ascites. The patient' s 3 month mortality is 19.6%. She quit drinking alcohol 1 month ago but has not been able to get into her primary care to get any further referrals. According to the patient she has not had an EGD for evaluation for esophageal varices. She did have a recent GI bleed for which she did not undergo any scoping. Patient did have paracentesis done a month ago with 5.3 L removed and now again has developed significant ascites despite being on Lasix and Aldactone at home. Plan: Patient will be continued on home dose of lactulose and titrate for 3 BMs Patient will be continued on Lasix and Aldactone at increased dose of 40 mg and 50 mg respectively Patient was placed on steroid taper in November after presenting with alcoholic hepatitis Continue steroid taper with prednisone 30 mg daily for 4 days then prednisone 20 mg daily Multivitamin, folate, B12, thiamine daily PO Will consider paracentesis in the morning given patients persistent ascites and continued SOB as it may give her some relief Patient will need outpatient referral to gastroenterology and possibly hepatology as she may need a liver transplant in the future when she is 6 months alcohol free. Monitor CMP and INR daily (3) Hypokalemia Conclusion/Plan: Resolved with replacement Monitor COntinue daily potassium replacement given patient is on lasix (4) Hyponatremia Conclusion/Plan: The patient is hyponatremic with a sodium of 129 today. Likely the patient has hypervolemic hyponatremia as she does appear to be fluid overloaded on examination. Patient will be given Lasix and Aldactone as she did not improved with IVFs - Current Meds Current Meds: Current Medications Generic Name Dose Route Start Last Admin Trade Name Freq PRN Reason Stop Dose Admin Benzonatate 100 mg 01/08/18 14:16 01/08/18 20:35 Tessalon PO 100 mg TID PRN Administration Cough Cholecalciferol 2,000 unit 01/09/18 09:00 01/09/18 09:09 Vitamin D3 PO 2,000 unit DAILY PERICO Administration Cyanocobalamin 500 mcg 01/09/18 09:00 01/09/18 09:09 Vitamin B-12 PO 500 mcg DAILY PERICO Administration Enoxaparin Sodium 40 mg 01/09/18 09:00 01/09/18 09:10 Lovenox SUBQ 40 mg DAILY PERICO Administration Furosemide 40 mg 01/09/18 09:00 01/09/18 09:09 Lasix PO 40 mg DAILY PERICO Administration Guaifenesin/Codeine Phosphate 5 ml 01/08/18 14:15 01/09/18 02:30 Robitussin Ac PO 5 ml Q6HR PRN Administration Cough Levofloxacin 750 mg in 150 mls @ 100 mls/hr 01/08/18 13:00 01/09/18 13:57 Levaquin 750 Mg/150 Ml IV 100 mls/hr Q24H PERICO Administration Cefepime HCl 2 gm/ Sodium 100 mls @ 200 mls/hr 01/08/18 13:00 01/09/18 11:06 Chloride IV Infused BID PERICO Infusion Levalbuterol HCl 1.25 mg 01/08/18 20:54 01/09/18 12:56 Xopenex INH 1.25 mg Q2H PRN Administration Shortness of Air/Wheezing Multivitamins 1 tab 01/09/18 12:00 01/09/18 13:57 Theragran PO 1 tab DAILYWM PERICO Administration Pantoprazole Sodium 40 mg 01/08/18 16:00 01/09/18 06:32 Protonix PO 40 mg BIDAC PERICO Administration Polyethylene Glycol 17 gm 01/09/18 09:00 01/09/18 07:20 Miralax PO Not Given DAILY PERICO Potassium Chloride 20 meq 01/09/18 08:00 01/09/18 09:09 K-Dur PO 20 meq DAILYWM PERICO Administration Prednisone 30 mg 01/08/18 18:00 01/09/18 09:09 Deltasone PO 30 mg DAILYWM PERICO Administration Multivit/Folic Acid/Iron 1 tab 01/09/18 09:00 01/09/18 09:09 Trinatal Rx 1 PO 1 tab DAILY PERICO Administration Saccharomyces Boulardii 250 mg 01/08/18 17:00 01/09/18 09:09 Florastor PO 250 mg BIDWM PERICO Administration Sodium Chloride 10 ml 01/08/18 17:00 01/09/18 09:10 Normal Saline Flush 0.9% IVP 10 ml 0100,[id number],1700 PERICO Administration Spironolactone 50 mg 01/09/18 09:00 01/09/18 09:10 Aldactone PO 50 mg DAILY PERICO Administration Thiamine HCl 100 mg 01/09/18 09:00 01/09/18 09:09 Vitamin B-1 PO 100 mg DAILY PERICO Administration - Lab Result Lab results reviewed: Yes Fish Bone Diagrams: 01/09/18 06:05 01/09/18 06:05 - Additional Planning Condition/Complexity: Guarded My Orders: My Active Orders 01/08/18 15:13 RT [Nebulizer/MDI Tx.] [RC] .Q4HPRN 01/08/18 18:00 predniSONE [Deltasone] 30 mg PO DAILYWM 01/08/18 20:37 Benzocaine/Menthol [Cepacol] 1 lozenge MM Q2HR PRN 01/09/18 08:00 Potassium Chloride [K-Dur] 20 meq PO DAILYWM 01/09/18 09:00 Cholecalciferol [Vitamin D3] 2,000 unit PO DAILY Cyanocobalamin [Vitamin B-12] 500 mcg PO DAILY Furosemide [Lasix] 40 mg PO DAILY Spironolactone [Aldactone] 50 mg PO DAILY 01/09/18 12:00 Multivitamin [Theragran] 1 tab PO DAILYWM 01/09/18 12:47 Lactulose [Enulose] 20 gm PO TID PRN Plan Discussed with:: Patient Time Spent: 31-60 minutes Subjective - Subjective Patient Reports: Cough, Shortness of Breath, Other (Increasing abdominal distension) Nursing Reports: No Complaints Objective Vital Signs: Vital Signs - 24 hr 01/08/18 01/08/18 01/08/18 15:27 18:40 22:18 Temperature 36.7 C Heart Rate 126 H Heart Rate [ 99 106 H Brachial] Respiratory 16 21 22 Rate Blood Pressure 96/50 L [Right Brachial artery] O2 Saturation 96 100 01/08/18 01/09/18 01/09/18 23:55 00:30 07:49 Temperature 36.7 C 36.6 C Heart Rate 92 Heart Rate [ 96 89 Brachial] Respiratory 16 16 22 Rate Blood Pressure 106/61 110/63 [Right Brachial artery] O2 Saturation 100 97 01/09/18 01/09/18 08:24 12:57 Temperature Heart Rate 95 95 Heart Rate [ Brachial] Respiratory 22 22 Rate Blood Pressure [Right Brachial artery] O2 Saturation Oxygen O2 Source Nasal cannula I&O (Last 24 Hrs): Intake and Output Totals x24h 01/07/18 01/08/18 01/09/18 23:59 23:59 23:59 Intake Total 826.2 0 Output Total 220 Balance 606.2 2069 General: Alert, Oriented x3, Cooperative, Mild distress (coughing, and short of breath) HEENT: Atraumatic, PERRLA, EOMI, Mucous membr. moist/pink Neck: Supple, No JVD, No thyromegaly, +2 carotid pulse wo bruit, No LAD Lymphatic: no adenopathy Neuro: Alert, Non Focal, CN 2-12 Grossly Intact, Oriented Times 3 Cardiovascular: Regular rate, Normal S1, Normal S2, No murmurs Respiratory: Chest non-tender, Wheezes (diffuse, expiratory), Rhonchi (Left base ) Abdomen: Normal bowel sounds, No hepatospenomegaly, Other (Distended with positive fluid wave test) Extremities: No clubbing, No cyanosis, Normal pulses, Other (Bilateral 4+ pitting edema) Skin: No rashes, No breakdown - Results Results: Laboratory Results WBC 12.2 x10^3/uL (4.8-10.8) H 01/09/18 06:05 RBC 2.17 10^6/uL (4.20-5.40) L 01/09/18 06:05 Hgb 8.4 g/dL (12.0-16.0) L 01/09/18 06:05 Hct 25.9 % (37.0-47.0) L 01/09/18 06:05 MCV 119.4 fL (81.0-99.0) H 01/09/18 06:05 MCH 38.9 pg (27.0-31.0) H 01/09/18 06:05 MCHC 32.6 g/dL (32.0-36.0) 01/09/18 06:05 RDW 16.1 % (12.0-15.0) H 01/09/18 06:05 Plt Count 155 10^3/uL (130-450) 01/09/18 06:05 MPV 7.0 fL (7.9-10.8) L 01/09/18 06:05 Neut # (Auto) 11.1 10^3/uL (1.5-6.6) H 01/09/18 06:05 Lymph # (Auto) 0.7 10^3/uL (1.5-3.5) L 01/09/18 06:05 [place] # (Auto) 0.3 10^3/uL (0.0-1.0) 01/09/18 06:05 Eos # (Auto) 0.0 10^3/uL (0.0-0.7) 01/09/18 06:05 Baso # (Auto) 0.1 10^3/uL (0.0-0.1) 01/09/18 06:05 Absolute Nucleated RBC 0.00 x10^3/uL 01/09/18 06:05 Nucleated RBC % 0.0 /100WBC 01/09/18 06:05 Manual Slide Review Indicated 01/09/18 06:05 WBC Morphology NORMAL APPEARANCE (NORMAL) 01/08/18 09:33 Platelet Estimate NORMAL (130-450,000) (NORMAL) 01/08/18 09:33 Platelet Morphology NORMAL APPEARANCE (NORMAL) 01/09/18 06:05 RBC Morph Micro Appear 2+ ANISOCYTOSIS (NORMAL) 1+ POIKILOCYTOSIS (NORMAL) 1 + HYPOCHROMASIA (NORMAL) 1+ TARGET CELLS (NORMAL) 01/08/18 09:33 RBC Morph Micro Appear 2+ ANISOCYTOSIS (NORMAL) 1+ POIKILOCYTOSIS (NORMAL) 1 + HYPOCHROMASIA (NORMAL) 1+ TARGET CELLS (NORMAL) 01/08/18 09:33 RBC Morph Micro Appear 2+ ANISOCYTOSIS (NORMAL) 1+ POIKILOCYTOSIS (NORMAL) 1 + HYPOCHROMASIA (NORMAL) 1+ TARGET CELLS (NORMAL) 01/08/18 09:33 RBC Morph Micro Appear 1+ ANISOCYTOSIS (NORMAL) 3+ MACROCYTOSIS (NORMAL) 1+ HYPOCHROMASIA (NORMAL) 1+ OVALOCYTES (NORMAL) 1+ TEARDROP CELLS (NORMAL) 06:05 RBC Morph Micro Appear 1+ ANISOCYTOSIS (NORMAL) 3+ MACROCYTOSIS (NORMAL) 1+ HYPOCHROMASIA (NORMAL) 1+ OVALOCYTES (NORMAL) 1+ TEARDROP CELLS (NORMAL) 06:05 RBC Morph Micro Appear 1+ ANISOCYTOSIS (NORMAL) 3+ MACROCYTOSIS (NORMAL) 1+ HYPOCHROMASIA (NORMAL) 1+ OVALOCYTES (NORMAL) 1+ TEARDROP CELLS (NORMAL) 06:05 RBC Morph Micro Appear 1+ ANISOCYTOSIS (NORMAL) 3+ MACROCYTOSIS (NORMAL) 1+ HYPOCHROMASIA (NORMAL) 1+ OVALOCYTES (NORMAL) 1+ TEARDROP CELLS (NORMAL) 06:05 RBC Morph Micro Appear 1+ ANISOCYTOSIS (NORMAL) 3+ MACROCYTOSIS (NORMAL) 1+ HYPOCHROMASIA (NORMAL) 1+ OVALOCYTES (NORMAL) 1+ TEARDROP CELLS (NORMAL) 06:05 PT 19.9 secs (9.9-12.6) H 01/09/18 06:05 INR 1.8 (0.8-1.2) H 01/09/18 06:05 Sodium 129 mmol/L (135-145) L 01/09/18 06:05 Potassium 4.1 mmol/L (3.5-5.0) 01/09/18 06:05 Chloride 100 mmol/L (101-111) L 01/09/18 06:05 Carbon Dioxide 22 mmol/L (21-32) 01/09/18 06:05 Anion Gap 7.0 (6-13) 01/09/18 06:05 BUN 13 mg/dL (6-20) 01/09/18 06:05 Creatinine 0.3 mg/dL (0.4-1.0) L 01/09/18 06:05 Estimated GFR (MDRD) 242 (>89) 01/09/18 06:05 Glucose 155 mg/dL (70-100) H 01/09/18 06:05 Calcium 7.3 mg/dL (8.5-10.3) L 01/09/18 06:05 Phosphorus 2.7 mg/dL (2.5-4.6) 01/09/18 06:05 Magnesium 2.2 mg/dL (1.7-2.8) 01/09/18 06:05 Total Bilirubin 5.1 mg/dL (0.2-1.0) H 01/09/18 06:05 AST 225 IU/L (10-42) H 01/09/18 06:05 ALT 113 IU/L (10-60) H 01/09/18 06:05 Alkaline Phosphatase 274 IU/L (42-121) H 01/09/18 06:05 B-Natriuretic Peptide 92 pg/mL (5-100) 01/08/18 09:33 Total Protein 4.7 g/dL (6.7-8.2) L 01/09/18 06:05 Albumin 1.8 g/dL (3.2-5.5) L 01/09/18 06:05 Globulin 2.9 g/dL (2.1-4.2) 01/09/18 06:05 Albumin/Globulin Ratio 0.6 (1.0-2.2) L 01/09/18 06:05 Lipase 95 U/L (22-51) H 01/08/18 09:33 Urine Color BROWN 01/08/18 17:04 Urine Clarity CLOUDY (CLEAR) 01/08/18 17:04 Urine pH 6.0 PH (5.0-7.5) 01/08/18 17:04 Ur Specific [place] >=1.030 (1.002-1.030) H 01/08/18 17:04 Urine Protein NEGATIVE mg/dL (NEGATIVE) 01/08/18 17:04 Urine Glucose (UA) NEGATIVE mg/dL (NEGATIVE) 01/08/18 17:04 Urine Ketones NEGATIVE mg/dL (NEGATIVE) 01/08/18 17:04 Urine Occult Blood NEGATIVE (NEGATIVE) 01/08/18 17:04 Urine Nitrite NEGATIVE (NEGATIVE) 01/08/18 17:04 Urine Bilirubin MODERATE (NEGATIVE) H 01/08/18 17:04 Urine Urobilinogen 0.2 (NORMAL) E.U./dL (NORMAL) 01/08/18 17:04 Ur Leukocyte Esterase NEGATIVE (NEGATIVE) 01/08/18 17:04 Urine RBC 0-5 /HPF (0-5) 01/08/18 17:04 Urine WBC 4-5 /HPF (0-5) 01/08/18 17:04 Ur Epithelial Cells RARE Transitional /HPF (<= Few) 01/08/18 17:04 Ur Squamous Epith Cells RARE Squamous (<= Few) 01/08/18 17:04 Amorphous Sediment Few /LPF 01/08/18 17:04 Urine Bacteria Rare /HPF (None Seen) 01/08/18 17:04 Urine Mucus Few Strands 01/08/18 17:04 Ur Microscopic Review INDICATED 01/08/18 17:04 Urine Culture Comments NOT INDICATED 01/08/18 17:04 Urine Opiates Screen POSITIVE (NEGATIVE) H 01/08/18 17:04 Ur Oxycodone Screen NEGATIVE (NEGATIVE) 01/08/18 17:04 Urine Methadone Screen NEGATIVE (NEGATIVE) 01/08/18 17:04 Ur Propoxyphene Screen NEGATIVE (NEGATIVE) 01/08/18 17:04 Ur Barbiturates Screen NEGATIVE (NEGATIVE) 01/08/18 17:04 Ur Tricyclics Screen NEGATIVE (NEGATIVE) 01/08/18 17:04 Ur Phencyclidine Scrn NEGATIVE (NEGATIVE) 01/08/18 17:04 Ur Amphetamine Screen NEGATIVE (NEGATIVE) 01/08/18 17:04 U Methamphetamines Scrn NEGATIVE (NEGATIVE) 01/08/18 17:04 U Benzodiazepines Scrn NEGATIVE (NEGATIVE) 01/08/18 17:04 Urine Cocaine Screen NEGATIVE (NEGATIVE) 01/08/18 17:04 U Cannabinoids Screen NEGATIVE (NEGATIVE) 01/08/18 17:04 Ethyl Alcohol < 5.0 mg/dL 01/08/18 09:33 ABX Reporting Has patient been on IV antibiotics over the past 48 hours?: No Current Medications - Current Medications Current Medications: Laboratory Results WBC 12.2 x10^3/uL (4.8-10.8) H 01/09/18 06:05 RBC 2.17 10^6/uL (4.20-5.40) L 01/09/18 06:05 Hgb 8.4 g/dL (12.0-16.0) L 01/09/18 06:05 Hct 25.9 % (37.0-47.0) L 01/09/18 06:05 MCV 119.4 fL (81.0-99.0) H 01/09/18 06:05 MCH 38.9 pg (27.0-31.0) H 01/09/18 06:05 MCHC 32.6 g/dL (32.0-36.0) 01/09/18 06:05 RDW 16.1 % (12.0-15.0) H 01/09/18 06:05 Plt Count 155 10^3/uL (130-450) 01/09/18 06:05 MPV 7.0 fL (7.9-10.8) L 01/09/18 06:05 Neut # (Auto) 11.1 10^3/uL (1.5-6.6) H 01/09/18 06:05 Lymph # (Auto) 0.7 10^3/uL (1.5-3.5) L 01/09/18 06:05 [place] # (Auto) 0.3 10^3/uL (0.0-1.0) 01/09/18 06:05 Eos # (Auto) 0.0 10^3/uL (0.0-0.7) 01/09/18 06:05 Baso # (Auto) 0.1 10^3/uL (0.0-0.1) 01/09/18 06:05 Absolute Nucleated RBC 0.00 x10^3/uL 01/09/18 06:05 Nucleated RBC % 0.0 /100WBC 01/09/18 06:05 Manual Slide Review Indicated 01/09/18 06:05 WBC Morphology NORMAL APPEARANCE (NORMAL) 01/08/18 09:33 Platelet Estimate NORMAL (130-450,000) (NORMAL) 01/08/18 09:33 Platelet Morphology NORMAL APPEARANCE (NORMAL) 01/09/18 06:05 RBC Morph Micro Appear 2+ ANISOCYTOSIS (NORMAL) 1+ POIKILOCYTOSIS (NORMAL) 1 + HYPOCHROMASIA (NORMAL) 1+ TARGET CELLS (NORMAL) 01/08/18 09:33 RBC Morph Micro Appear 2+ ANISOCYTOSIS (NORMAL) 1+ POIKILOCYTOSIS (NORMAL) 1 + HYPOCHROMASIA (NORMAL) 1+ TARGET CELLS (NORMAL) 01/08/18 09:33 RBC Morph Micro Appear 2+ ANISOCYTOSIS (NORMAL) 1+ POIKILOCYTOSIS (NORMAL) 1 + HYPOCHROMASIA (NORMAL) 1+ TARGET CELLS (NORMAL) 01/08/18 09:33 RBC Morph Micro Appear 1+ ANISOCYTOSIS (NORMAL) 3+ MACROCYTOSIS (NORMAL) 1+ HYPOCHROMASIA (NORMAL) 1+ OVALOCYTES (NORMAL) 1+ TEARDROP CELLS (NORMAL) 06:05 RBC Morph Micro Appear 1+ ANISOCYTOSIS (NORMAL) 3+ MACROCYTOSIS (NORMAL) 1+ HYPOCHROMASIA (NORMAL) 1+ OVALOCYTES (NORMAL) 1+ TEARDROP CELLS (NORMAL) 06:05 RBC Morph Micro Appear 1+ ANISOCYTOSIS (NORMAL) 3+ MACROCYTOSIS (NORMAL) 1+ HYPOCHROMASIA (NORMAL) 1+ OVALOCYTES (NORMAL) 1+ TEARDROP CELLS (NORMAL) 06:05 RBC Morph Micro Appear 1+ ANISOCYTOSIS (NORMAL) 3+ MACROCYTOSIS (NORMAL) 1+ HYPOCHROMASIA (NORMAL) 1+ OVALOCYTES (NORMAL) 1+ TEARDROP CELLS (NORMAL) 06:05 RBC Morph Micro Appear 1+ ANISOCYTOSIS (NORMAL) 3+ MACROCYTOSIS (NORMAL) 1+ HYPOCHROMASIA (NORMAL) 1+ OVALOCYTES (NORMAL) 1+ TEARDROP CELLS (NORMAL) 06:05 PT 19.9 secs (9.9-12.6) H 01/09/18 06:05 INR 1.8 (0.8-1.2) H 01/09/18 06:05 Sodium 129 mmol/L (135-145) L 01/09/18 06:05 Potassium 4.1 mmol/L (3.5-5.0) 01/09/18 06:05 Chloride 100 mmol/L (101-111) L 01/09/18 06:05 Carbon Dioxide 22 mmol/L (21-32) 01/09/18 06:05 Anion Gap 7.0 (6-13) 01/09/18 06:05 BUN 13 mg/dL (6-20) 01/09/18 06:05 Creatinine 0.3 mg/dL (0.4-1.0) L 01/09/18 06:05 Estimated GFR (MDRD) 242 (>89) 01/09/18 06:05 Glucose 155 mg/dL (70-100) H 01/09/18 06:05 Calcium 7.3 mg/dL (8.5-10.3) L 01/09/18 06:05 Phosphorus 2.7 mg/dL (2.5-4.6) 01/09/18 06:05 Magnesium 2.2 mg/dL (1.7-2.8) 01/09/18 06:05 Total Bilirubin 5.1 mg/dL (0.2-1.0) H 01/09/18 06:05 AST 225 IU/L (10-42) H 01/09/18 06:05 ALT 113 IU/L (10-60) H 01/09/18 06:05 Alkaline Phosphatase 274 IU/L (42-121) H 01/09/18 06:05 B-Natriuretic Peptide 92 pg/mL (5-100) 01/08/18 09:33 Total Protein 4.7 g/dL (6.7-8.2) L 01/09/18 06:05 Albumin 1.8 g/dL (3.2-5.5) L 01/09/18 06:05 Globulin 2.9 g/dL (2.1-4.2) 01/09/18 06:05 Albumin/Globulin Ratio 0.6 (1.0-2.2) L 01/09/18 06:05 Lipase 95 U/L (22-51) H 01/08/18 09:33 Urine Color BROWN 01/08/18 17:04 Urine Clarity CLOUDY (CLEAR) 01/08/18 17:04 Urine pH 6.0 PH (5.0-7.5) 01/08/18 17:04 Ur Specific [place] >=1.030 (1.002-1.030) H 01/08/18 17:04 Urine Protein NEGATIVE mg/dL (NEGATIVE) 01/08/18 17:04 Urine Glucose (UA) NEGATIVE mg/dL (NEGATIVE) 01/08/18 17:04 Urine Ketones NEGATIVE mg/dL (NEGATIVE) 01/08/18 17:04 Urine Occult Blood NEGATIVE (NEGATIVE) 01/08/18 17:04 Urine Nitrite NEGATIVE (NEGATIVE) 01/08/18 17:04 Urine Bilirubin MODERATE (NEGATIVE) H 01/08/18 17:04 Urine Urobilinogen 0.2 (NORMAL) E.U./dL (NORMAL) 01/08/18 17:04 Ur Leukocyte Esterase NEGATIVE (NEGATIVE) 01/08/18 17:04 Urine RBC 0-5 /HPF (0-5) 01/08/18 17:04 Urine WBC 4-5 /HPF (0-5) 01/08/18 17:04 Ur Epithelial Cells RARE Transitional /HPF (<= Few) 01/08/18 17:04 Ur Squamous Epith Cells RARE Squamous (<= Few) 01/08/18 17:04 Amorphous Sediment Few /LPF 01/08/18 17:04 Urine Bacteria Rare /HPF (None Seen) 01/08/18 17:04 Urine Mucus Few Strands 01/08/18 17:04 Ur Microscopic Review INDICATED 01/08/18 17:04 Urine Culture Comments NOT INDICATED 01/08/18 17:04 Urine Opiates Screen POSITIVE (NEGATIVE) H 01/08/18 17:04 Ur Oxycodone Screen NEGATIVE (NEGATIVE) 01/08/18 17:04 Urine Methadone Screen NEGATIVE (NEGATIVE) 01/08/18 17:04 Ur Propoxyphene Screen NEGATIVE (NEGATIVE) 01/08/18 17:04 Ur Barbiturates Screen NEGATIVE (NEGATIVE) 01/08/18 17:04 Ur Tricyclics Screen NEGATIVE (NEGATIVE) 01/08/18 17:04 Ur Phencyclidine Scrn NEGATIVE (NEGATIVE) 01/08/18 17:04 Ur Amphetamine Screen NEGATIVE (NEGATIVE) 01/08/18 17:04 U Methamphetamines Scrn NEGATIVE (NEGATIVE) 01/08/18 17:04 U Benzodiazepines Scrn NEGATIVE (NEGATIVE) 01/08/18 17:04 Urine Cocaine Screen NEGATIVE (NEGATIVE) 01/08/18 17:04 U Cannabinoids Screen NEGATIVE (NEGATIVE) 01/08/18 17:04 Ethyl Alcohol < 5.0 mg/dL 01/08/18 09:33
[2018-01-09] MEDS: BENZONATATE 100 MG CAPSULE PO PRN (22:19)
[2018-01-09] MEDS: BENZOCAINE/MENTHOL LOZENGE MM PRN (22:54)
[2018-01-10] MEDS: SODIUM CHLORIDE FLUSH 0.9% 10 ML SYRINGE IVP SCH ×3 (00:02→16:32)
[2018-01-10] MEDS: SODIUM CHLORIDE FLUSH 0.9% 10 ML SYRINGE IVP PRN (00:02)
[2018-01-10 05:41] LABS: INR 1.7 (0.8-1.2); PT - PROTHROMBIN TIME 18.3 secs (9.9-12.6)
[2018-01-10 05:45] LABS: BASOPHILS % (AUTO) 0.2 %; EOSINOPHILS % (AUTO) 0.1 %; HGB - HEMOGLOBIN 8.2 g/dL (12.0-16.0); LYMPHOCYTES % (AUTO) 7.7 %; MEAN CORPUSCULAR HEMOGLOBIN 38.4 pg (27.0-31.0); MEAN CORPUSCULAR HGB CONC 32.9 g/dL (32.0-36.0); MEAN CORPUSCULAR VOLUME 116.8 fL (81.0-99.0); MEAN PLATELET VOLUME 7.2 fL (7.9-10.8); MONOCYTES % (AUTO) 2.2 %; NEUTROPHILS % (AUTO) 89.8 %; PLT - PLATELET COUNT 160 10^3/uL (130-450); RED BLOOD COUNT 2.15 10^6/uL (4.20-5.40); RED CELL DISTRIBUTION WIDTH 16.4 % (12.0-15.0); WHITE BLOOD COUNT 15.3 x10^3/uL (4.8-10.8)
[2018-01-10 05:46] LABS: LYMPHOCYTES # (AUTO) 1.2 10^3/uL (1.5-3.5); MONOCYTES # (AUTO) 0.3 10^3/uL (0.0-1.0); NEUTROPHILS # (AUTO) 13.8 10^3/uL (1.5-6.6)
[2018-01-10 05:52] LABS: CREATININE 0.5 mg/dL (0.4-1.0)
[2018-01-10 05:53] LABS: ALBUMIN 1.7 g/dL (3.2-5.5); ALBUMIN/GLOBULIN RATIO 0.6 (1.0-2.2); BILIRUBIN,TOTAL 4.4 mg/dL (0.2-1.0); CALCIUM 7.3 mg/dL (8.5-10.3); PHOSPHORUS 2.4 mg/dL (2.5-4.6); TOTAL PROTEIN 4.6 g/dL (6.7-8.2)
[2018-01-10 06:04] LABS: PLATELET ESTIMATE, MANUAL NORMAL (130-450,000) (NORMAL)
[2018-01-10] MEDS: PANTOPRAZOLE 40 MG TABLET PO SCH ×2 (07:27→16:16)
[2018-01-10] MEDS: POTASSIUM CHLORIDE 20 MEQ TABLET PO SCH (08:29)
[2018-01-10] MEDS: predniSONE 20 MG TABLET PO SCH (08:29)
[2018-01-10] MEDS: MULTIVITAMIN TABLET PO SCH (08:29)
[2018-01-10] MEDS: SACCHAROMYCES BOULARDII 250 MG CAPSULE PO SCH ×2 (08:29→16:31)
[2018-01-10] MEDS: NEUTRA-PHOS 250 MG TABLET PO SCH ×3 (08:43→16:31)
[2018-01-10] MEDS: POLYETHYLENE GLYCOL 3350 17 GM PACKET PO SCH (08:46)
[2018-01-10] MEDS ORDERED: LACTULOSE 10 GM /15 ML UDC PO ONE (09:00)
[2018-01-10] MEDS: CHOLECALCIFEROL 1,000 UNIT TABLET PO SCH (10:50)
[2018-01-10] MEDS: SPIRONOLACTONE 25 MG TABLET PO SCH (10:51)
[2018-01-10] MEDS: CYANOCOBALAMIN 500 MCG TABLET PO SCH (10:51)
[2018-01-10] MEDS: FUROSEMIDE 20 MG TABLET PO SCH (10:51)
[2018-01-10] MEDS: PRENATAL VITAMIN TABLET PO SCH (10:52)
[2018-01-10] MEDS: ENOXAPARIN 40 MG/0.4 ML SYRINGE SUBQ SCH (10:52)
[2018-01-10] MEDS: THIAMINE 100 MG TABLET PO SCH (10:52)
[2018-01-10] MEDS: CEFEPIME 2 GM in SODIUM CHLORIDE 0.9% MINIBAG 100 ML IV SCH ×2 (10:57→22:04)
[2018-01-10] MEDS: BENZONATATE 100 MG CAPSULE PO PRN (11:05)
[2018-01-10] MEDS: guaiFENesin/CODEINE 5 ML UDC PO PRN ×3 (11:05→22:46)
--- NOTE | 2018-01-10 11:28 | Ultrasound Report ---
Procedure Date: 01/10/2018 Accession Number: [id number] / [id number] Procedure: US - Abdominal Paracentesis CPT Code: FULL RESULT: EXAM: Abdominal Paracentesis DATE: 01/10/2018 11:05 AM CLINICAL HISTORY: Ascites removal for therapuetic purposes COMPARISON: CT 12/08/2017 FINDINGS: Following obtaining informed consent, a suitable site in the patient's right abdomen was selected with ultrasound. The skin was prepped and draped in the usual sterile fashion. The skin and soft tissues were anesthetized with buffered lidocaine. A Safetycentesis catheter was inserted into the peritoneal cavity, and approximately 3900 mL of fluid was removed without difficulty. The patient tolerated the procedure well. No immediate complications. IMPRESSION: Successful ultrasound-guided paracentesis, yielding approximately 3900 mL of fluid.
[2018-01-10] MEDS: levoFLOXacin 750 MG/150 ML 750 MG/150 ML BAG IV SCH (13:10)
[2018-01-10] MEDS: LACTULOSE 10 GM /15 ML UDC PO SCH ×2 (14:26→22:05)
--- NOTE | 2018-01-10 15:46 | PROVIDER PROGRESS NOTE ---
Assessment/Plan - Problem List (1) HCAP (healthcare-associated pneumonia) Assessment/Plan: Patient presented with mild hypoxia, shortness of breath, conversational dyspnea , leukocytosis and tachycardia. She has been having dry cough and shortness of breath for the last 3-4 days that has been worsening and now has shortness of breath at rest. Chest x-ray revealed a left base pneumonia. Patient has been hospitalized twice in the last month at [facility] for greater than 48 hours. Therefore she will be treated for a healthcare associated pneumonia. Significantly better today Cough and SOB appear to be much improved but she is still very weak On RA WBC did go up to 15.3 but likely secondary to steroids Plan: Continue IV cefepime and Levaquin for coverage of healthcare associated pneumonia day 3 Supplemental oxygen prn Albuterol nebs as needed Guaifenesin with codeine as needed for cough Azeb Vega (2) Alcoholic cirrhosis of liver with ascites Conclusion/Plan: Patient has a meld score of 23 today which is down from 27 when she first presented in November 2017 with alcoholic liver cirrhosis with ascites. The patient' s 3 month mortality is 19.6%. She quit drinking alcohol 1 month ago but has not been able to get into her primary care to get any further referrals. According to the patient she has not had an EGD for evaluation for esophageal varices. She did have a recent GI bleed for which she did not undergo any scoping. Patient did have paracentesis done a month ago with 5.3 L removed and now again has developed significant ascites despite being on Lasix and Aldactone at home. Plan: Patient will be continued on home dose of lactulose and titrate for 3 BMs Patient will be continued on Lasix and Aldactone at increased dose of 40 mg and 50 mg respectively Patient was placed on steroid taper in November after presenting with alcoholic hepatitis Continue steroid taper with prednisone 30 mg daily for 4 days then prednisone 20 mg daily Multivitamin, folate, B12, thiamine daily PO Paracentesis done today with 3.9L removed Patient will need outpatient referral to gastroenterology and possibly hepatology as she may need a liver transplant in the future when she is 6 months alcohol free. Monitor CMP and INR daily (3) Hypokalemia Conclusion/Plan: Resolved with replacement Monitor COntinue daily potassium replacement given patient is on lasix (4) Hyponatremia Conclusion/Plan: The patient is hyponatremic with a sodium of 130 today. Likely the patient has hypervolemic hyponatremia as she does appear to be fluid overloaded on examination. Continue Lasix and Aldactone Improving Dispo: Patient will likely be discharged home tomorrow if she continues to improve - Current Meds Current Meds: Current Medications Generic Name Dose Route Start Last Admin Trade Name Freq PRN Reason Stop Dose Admin Benzonatate 100 mg 01/08/18 14:16 01/10/18 11:05 Tessalon PO 100 mg TID PRN Administration Cough Cholecalciferol 2,000 unit 01/09/18 09:00 01/10/18 10:50 Vitamin D3 PO 2,000 unit DAILY PERICO Administration Cyanocobalamin 500 mcg 01/09/18 09:00 01/10/18 10:51 Vitamin B-12 PO 500 mcg DAILY PERICO Administration Enoxaparin Sodium 40 mg 01/09/18 09:00 01/10/18 10:52 Lovenox SUBQ 40 mg DAILY PERICO Administration Furosemide 40 mg 01/09/18 09:00 01/10/18 10:51 Lasix PO 40 mg DAILY PERICO Administration Guaifenesin/Codeine Phosphate 5 ml 01/08/18 14:15 01/10/18 11:05 Robitussin Ac PO 5 ml Q6HR PRN Administration Cough Levofloxacin 750 mg in 150 mls @ 100 mls/hr 01/08/18 13:00 01/10/18 14:42 Levaquin 750 Mg/150 Ml IV Infused Q24H PERICO Infusion Cefepime HCl 2 gm/ Sodium 100 mls @ 200 mls/hr 01/08/18 13:00 01/10/18 11:33 Chloride IV Infused BID PERICO Infusion Lactulose 20 gm 01/10/18 08:06 01/10/18 14:26 Enulose PO 20 gm TID PERICO Administration Levalbuterol HCl 1.25 mg 01/08/18 20:54 01/09/18 23:55 Xopenex INH 1.25 mg Q2H PRN Administration Shortness of Air/Wheezing Oxycodone HCl 5 mg 01/08/18 12:33 01/10/18 00:02 Roxicodone PO 5 mg Q4HR PRN Administration Pain 5 to 7 Pantoprazole Sodium 40 mg 01/08/18 16:00 01/10/18 07:27 Protonix PO 40 mg BIDAC PERICO Administration Polyethylene Glycol 17 gm 01/09/18 09:00 01/10/18 08:46 Miralax PO Not Given DAILY PERICO Potassium Chloride 20 meq 01/09/18 08:00 01/10/18 08:29 K-Dur PO 20 meq DAILYWM PERICO Administration Prednisone 30 mg 01/08/18 18:00 01/10/18 08:29 Deltasone PO 30 mg DAILYWM PERICO Administration Multivit/Folic Acid/Iron 1 tab 01/09/18 09:00 01/10/18 10:52 Trinatal Rx 1 PO 1 tab DAILY PERICO Administration Saccharomyces Boulardii 250 mg 01/08/18 17:00 01/10/18 08:29 Florastor PO 250 mg BIDWM PERICO Administration Sodium Chloride 10 ml 01/08/18 12:28 01/10/18 00:02 Normal Saline Flush 0.9% IVP 10 ml PRN PRN Administration NEEDED PER PROVIDER ORDERS Sodium Chloride 10 ml 01/08/18 17:00 01/10/18 10:52 Normal Saline Flush 0.9% IVP 10 ml 0100,[id number],1700 PERICO Administration Sodium Phosphate 250 mg 01/10/18 08:00 01/10/18 13:07 K-Phos Neutral PO 250 mg TIDWM PERICO Administration Spironolactone 50 mg 01/09/18 09:00 01/10/18 10:51 Aldactone PO 50 mg DAILY PERICO Administration Thiamine HCl 100 mg 01/09/18 09:00 01/10/18 10:52 Vitamin B-1 PO 100 mg DAILY PERICO Administration Throat Lozenges 1 lozenge 01/08/18 20:37 01/09/18 22:54 Cepacol MM 1 lozenge Q2HR PRN Administration Throat pain - Lab Result Lab results reviewed: Yes Fish Bone Diagrams: 01/10/18 05:15 01/10/18 05:15 - Diagnostic Imaging Results Diagnostic Imaging Results: Final report reviewed - Additional Planning Condition/Complexity: Improved My Orders: My Active Orders 01/10/18 CELL COUNT, BF [BF] Routine CUL, ANAEROBIC (QUEST) [REFLAB] Routine 01/10/18 08:00 Neutra-Phos [K-Phos Neutral] 250 mg PO TIDWM 01/10/18 08:06 Lactulose [Enulose] 20 gm PO TID Plan Discussed with:: Patient Time Spent: 31-60 minutes Subjective - Subjective Patient Reports: Feeling Better, Cough (Improving), Shortness of Breath ( Improving), Other (She underwent paracentesis and feels much more comfortable with her breathing after para) Nursing Reports: No Complaints Objective Vital Signs: Vital Signs - 24 hr 01/09/18 01/09/18 01/09/18 15:57 17:53 20:31 Temperature 36.8 C Heart Rate 94 99 Heart Rate [ 103 H Brachial] Respiratory 18 22 18 Rate Blood Pressure 106/59 L [Right Brachial artery] O2 Saturation 94 01/09/18 01/09/18 01/10/18 23:35 23:55 07:28 Temperature 36.5 C 36.7 C Heart Rate 86 Heart Rate [ 94 96 Brachial] Respiratory 18 18 18 Rate Blood Pressure 113/67 94/58 L [Right Brachial artery] O2 Saturation 96 96 01/10/18 01/10/18 14:00 14:45 Temperature Heart Rate 92 Heart Rate [ 89 Brachial] Respiratory 16 Rate Blood Pressure 94/59 L [Right Brachial artery] O2 Saturation Oxygen O2 Source Room air I&O (Last 24 Hrs): Intake and Output Totals x24h 01/08/18 01/09/18 01/10/18 23:59 23:59 23:59 Intake Total 826.2 2420 950 Output Total 789 749 5379 Balance 606.2 2220 -825 General: Alert, Oriented x3, Cooperative, No acute distress HEENT: Atraumatic, PERRLA, EOMI, Mucous membr. moist/pink Neck: Supple, No JVD, No thyromegaly, +2 carotid pulse wo bruit, No LAD Lymphatic: no adenopathy Neuro: Alert, Non Focal, CN 2-12 Grossly Intact, Oriented Times 3 Cardiovascular: Regular rate, Normal S1, Normal S2, No murmurs Respiratory: Chest non-tender, No respiratory distress, Wheezes, Rales, Rhonchi Abdomen: Normal bowel sounds, Soft, No tenderness, No hepatospenomegaly, Other ( Abdominal distention decreased) Extremities: No clubbing, No cyanosis, Normal pulses, Other (Bilateral 3+ pitting edema improving) Skin: No rashes, No breakdown - Results Results: Laboratory Results WBC 15.3 x10^3/uL (4.8-10.8) H 01/10/18 05:15 RBC 2.15 10^6/uL (4.20-5.40) L 01/10/18 05:15 Hgb 8.2 g/dL (12.0-16.0) L 01/10/18 05:15 Hct 25.1 % (37.0-47.0) L 01/10/18 05:15 MCV 116.8 fL (81.0-99.0) H 01/10/18 05:15 MCH 38.4 pg (27.0-31.0) H 01/10/18 05:15 MCHC 32.9 g/dL (32.0-36.0) 01/10/18 05:15 RDW 16.4 % (12.0-15.0) H 01/10/18 05:15 Plt Count 160 10^3/uL (130-450) 01/10/18 05:15 MPV 7.2 fL (7.9-10.8) L 01/10/18 05:15 Neut # (Auto) 13.8 10^3/uL (1.5-6.6) H 01/10/18 05:15 Lymph # (Auto) 1.2 10^3/uL (1.5-3.5) L 01/10/18 05:15 [place] # (Auto) 0.3 10^3/uL (0.0-1.0) 01/10/18 05:15 Eos # (Auto) 0.0 10^3/uL (0.0-0.7) 01/10/18 05:15 Baso # (Auto) 0.0 10^3/uL (0.0-0.1) 01/10/18 05:15 Absolute Nucleated RBC 0.00 x10^3/uL 01/10/18 05:15 Nucleated RBC % 0.0 /100WBC 01/10/18 05:15 Manual Slide Review Indicated 01/10/18 05:15 WBC Morphology NORMAL APPEARANCE (NORMAL) 01/08/18 09:33 Platelet Estimate NORMAL (130-450,000) (NORMAL) 01/10/18 05:15 Platelet Morphology NORMAL APPEARANCE (NORMAL) 01/09/18 06:05 RBC Morph Micro Appear 2+ ANISOCYTOSIS (NORMAL) 1+ POIKILOCYTOSIS (NORMAL) 1 + HYPOCHROMASIA (NORMAL) 1+ TARGET CELLS (NORMAL) 01/08/18 09:33 RBC Morph Micro Appear 2+ ANISOCYTOSIS (NORMAL) 1+ POIKILOCYTOSIS (NORMAL) 1 + HYPOCHROMASIA (NORMAL) 1+ TARGET CELLS (NORMAL) 01/08/18 09:33 RBC Morph Micro Appear 1+ ANISOCYTOSIS (NORMAL) 3+ MACROCYTOSIS (NORMAL) 1+ HYPOCHROMASIA (NORMAL) 1+ OVALOCYTES (NORMAL) 1+ TEARDROP CELLS (NORMAL) 06:05 RBC Morph Micro Appear 1+ ANISOCYTOSIS (NORMAL) 3+ MACROCYTOSIS (NORMAL) 1+ HYPOCHROMASIA (NORMAL) 1+ OVALOCYTES (NORMAL) 1+ TEARDROP CELLS (NORMAL) 06:05 RBC Morph Micro Appear 1+ ANISOCYTOSIS (NORMAL) 3+ MACROCYTOSIS (NORMAL) 1+ HYPOCHROMASIA (NORMAL) 1+ OVALOCYTES (NORMAL) 1+ TEARDROP CELLS (NORMAL) 06:05 RBC Morph Micro Appear 1+ ANISOCYTOSIS (NORMAL) 3+ MACROCYTOSIS (NORMAL) 1+ HYPOCHROMASIA (NORMAL) 1+ OVALOCYTES (NORMAL) 1+ TEARDROP CELLS (NORMAL) 06:05 RBC Morph Micro Appear 1+ ANISOCYTOSIS (NORMAL) 3+ MACROCYTOSIS (NORMAL) 1+ HYPOCHROMASIA (NORMAL) 1+ OVALOCYTES (NORMAL) 1+ TEARDROP CELLS (NORMAL) 06:05 RBC Morph Micro Appear 1+ ANISOCYTOSIS (NORMAL) 2+ MACROCYTOSIS (NORMAL) 1+ HYPOCHROMASIA (NORMAL) 1+ POLYCHROMASIA (NORMAL) 1+ TEARDROP CELLS (NORMAL) 1 + OVALOCYTES (NORMAL) 01/10/18 05:15 RBC Morph Micro Appear 1+ ANISOCYTOSIS (NORMAL) 2+ MACROCYTOSIS (NORMAL) 1+ HYPOCHROMASIA (NORMAL) 1+ POLYCHROMASIA (NORMAL) 1+ TEARDROP CELLS (NORMAL) 1 + OVALOCYTES (NORMAL) 01/10/18 05:15 RBC Morph Micro Appear 1+ ANISOCYTOSIS (NORMAL) 2+ MACROCYTOSIS (NORMAL) 1+ HYPOCHROMASIA (NORMAL) 1+ POLYCHROMASIA (NORMAL) 1+ TEARDROP CELLS (NORMAL) 1 + OVALOCYTES (NORMAL) 01/10/18 05:15 RBC Morph Micro Appear 1+ ANISOCYTOSIS (NORMAL) 2+ MACROCYTOSIS (NORMAL) 1+ HYPOCHROMASIA (NORMAL) 1+ POLYCHROMASIA (NORMAL) 1+ TEARDROP CELLS (NORMAL) 1 + OVALOCYTES (NORMAL) 01/10/18 05:15 RBC Morph Micro Appear 1+ ANISOCYTOSIS (NORMAL) 2+ MACROCYTOSIS (NORMAL) 1+ HYPOCHROMASIA (NORMAL) 1+ POLYCHROMASIA (NORMAL) 1+ TEARDROP CELLS (NORMAL) 1 + OVALOCYTES (NORMAL) 01/10/18 05:15 RBC Morph Micro Appear 1+ ANISOCYTOSIS (NORMAL) 2+ MACROCYTOSIS (NORMAL) 1+ HYPOCHROMASIA (NORMAL) 1+ POLYCHROMASIA (NORMAL) 1+ TEARDROP CELLS (NORMAL) 1 + OVALOCYTES (NORMAL) 01/10/18 05:15 PT 18.3 secs (9.9-12.6) H 01/10/18 05:15 INR 1.7 (0.8-1.2) H 01/10/18 05:15 Sodium 130 mmol/L (135-145) L 01/10/18 05:15 Potassium 4.1 mmol/L (3.5-5.0) 01/10/18 05:15 Chloride 101 mmol/L (101-111) 01/10/18 05:15 Carbon Dioxide 23 mmol/L (21-32) 01/10/18 05:15 Anion Gap 6.0 (6-13) 01/10/18 05:15 BUN 15 mg/dL (6-20) 01/10/18 05:15 Creatinine 0.5 mg/dL (0.4-1.0) 01/10/18 05:15 Estimated GFR (MDRD) 134 (>89) 01/10/18 05:15 Glucose 126 mg/dL (70-100) H 01/10/18 05:15 Calcium 7.3 mg/dL (8.5-10.3) L 01/10/18 05:15 Phosphorus 2.4 mg/dL (2.5-4.6) L 01/10/18 05:15 Magnesium 2.0 mg/dL (1.7-2.8) 01/10/18 05:15 Total Bilirubin 4.4 mg/dL (0.2-1.0) H 01/10/18 05:15 AST 152 IU/L (10-42) H 01/10/18 05:15 ALT 94 IU/L (10-60) H 01/10/18 05:15 Alkaline Phosphatase 254 IU/L (42-121) H 01/10/18 05:15 B-Natriuretic Peptide 92 pg/mL (5-100) 01/08/18 09:33 Total Protein 4.6 g/dL (6.7-8.2) L 01/10/18 05:15 Albumin 1.7 g/dL (3.2-5.5) L 01/10/18 05:15 Globulin 2.9 g/dL (2.1-4.2) 01/10/18 05:15 Albumin/Globulin Ratio 0.6 (1.0-2.2) L 01/10/18 05:15 Lipase 95 U/L (22-51) H 01/08/18 09:33 Urine Color BROWN 01/08/18 17:04 Urine Clarity CLOUDY (CLEAR) 01/08/18 17:04 Urine pH 6.0 PH (5.0-7.5) 01/08/18 17:04 Ur Specific [place] >=1.030 (1.002-1.030) H 01/08/18 17:04 Urine Protein NEGATIVE mg/dL (NEGATIVE) 01/08/18 17:04 Urine Glucose (UA) NEGATIVE mg/dL (NEGATIVE) 01/08/18 17:04 Urine Ketones NEGATIVE mg/dL (NEGATIVE) 01/08/18 17:04 Urine Occult Blood NEGATIVE (NEGATIVE) 01/08/18 17:04 Urine Nitrite NEGATIVE (NEGATIVE) 01/08/18 17:04 Urine Bilirubin MODERATE (NEGATIVE) H 01/08/18 17:04 Urine Urobilinogen 0.2 (NORMAL) E.U./dL (NORMAL) 01/08/18 17:04 Ur Leukocyte Esterase NEGATIVE (NEGATIVE) 01/08/18 17:04 Urine RBC 0-5 /HPF (0-5) 01/08/18 17:04 Urine WBC 4-5 /HPF (0-5) 01/08/18 17:04 Ur Epithelial Cells RARE Transitional /HPF (<= Few) 01/08/18 17:04 Ur Squamous Epith Cells RARE Squamous (<= Few) 01/08/18 17:04 Amorphous Sediment Few /LPF 01/08/18 17:04 Urine Bacteria Rare /HPF (None Seen) 01/08/18 17:04 Urine Mucus Few Strands 01/08/18 17:04 Ur Microscopic Review INDICATED 01/08/18 17:04 Urine Culture Comments NOT INDICATED 01/08/18 17:04 Urine Opiates Screen POSITIVE (NEGATIVE) H 01/08/18 17:04 Ur Oxycodone Screen NEGATIVE (NEGATIVE) 01/08/18 17:04 Urine Methadone Screen NEGATIVE (NEGATIVE) 01/08/18 17:04 Ur Propoxyphene Screen NEGATIVE (NEGATIVE) 01/08/18 17:04 Ur Barbiturates Screen NEGATIVE (NEGATIVE) 01/08/18 17:04 Ur Tricyclics Screen NEGATIVE (NEGATIVE) 01/08/18 17:04 Ur Phencyclidine Scrn NEGATIVE (NEGATIVE) 01/08/18 17:04 Ur Amphetamine Screen NEGATIVE (NEGATIVE) 01/08/18 17:04 U Methamphetamines Scrn NEGATIVE (NEGATIVE) 01/08/18 17:04 U Benzodiazepines Scrn NEGATIVE (NEGATIVE) 01/08/18 17:04 Urine Cocaine Screen NEGATIVE (NEGATIVE) 01/08/18 17:04 U Cannabinoids Screen NEGATIVE (NEGATIVE) 01/08/18 17:04 Ethyl Alcohol < 5.0 mg/dL 01/08/18 09:33 ABX Reporting Has patient been on IV antibiotics over the past 48 hours?: Yes Current Medications - Current Medications Current Medications: Laboratory Results WBC 15.3 x10^3/uL (4.8-10.8) H 01/10/18 05:15 RBC 2.15 10^6/uL (4.20-5.40) L 01/10/18 05:15 Hgb 8.2 g/dL (12.0-16.0) L 01/10/18 05:15 Hct 25.1 % (37.0-47.0) L 01/10/18 05:15 MCV 116.8 fL (81.0-99.0) H 01/10/18 05:15 MCH 38.4 pg (27.0-31.0) H 01/10/18 05:15 MCHC 32.9 g/dL (32.0-36.0) 01/10/18 05:15 RDW 16.4 % (12.0-15.0) H 01/10/18 05:15 Plt Count 160 10^3/uL (130-450) 01/10/18 05:15 MPV 7.2 fL (7.9-10.8) L 01/10/18 05:15 Neut # (Auto) 13.8 10^3/uL (1.5-6.6) H 01/10/18 05:15 Lymph # (Auto) 1.2 10^3/uL (1.5-3.5) L 01/10/18 05:15 [place] # (Auto) 0.3 10^3/uL (0.0-1.0) 01/10/18 05:15 Eos # (Auto) 0.0 10^3/uL (0.0-0.7) 01/10/18 05:15 Baso # (Auto) 0.0 10^3/uL (0.0-0.1) 01/10/18 05:15 Absolute Nucleated RBC 0.00 x10^3/uL 01/10/18 05:15 Nucleated RBC % 0.0 /100WBC 01/10/18 05:15 Manual Slide Review Indicated 01/10/18 05:15 WBC Morphology NORMAL APPEARANCE (NORMAL) 01/08/18 09:33 Platelet Estimate NORMAL (130-450,000) (NORMAL) 01/10/18 05:15 Platelet Morphology NORMAL APPEARANCE (NORMAL) 01/09/18 06:05 RBC Morph Micro Appear 2+ ANISOCYTOSIS (NORMAL) 1+ POIKILOCYTOSIS (NORMAL) 1 + HYPOCHROMASIA (NORMAL) 1+ TARGET CELLS (NORMAL) 01/08/18 09:33 RBC Morph Micro Appear 2+ ANISOCYTOSIS (NORMAL) 1+ POIKILOCYTOSIS (NORMAL) 1 + HYPOCHROMASIA (NORMAL) 1+ TARGET CELLS (NORMAL) 01/08/18 09:33 RBC Morph Micro Appear 1+ ANISOCYTOSIS (NORMAL) 3+ MACROCYTOSIS (NORMAL) 1+ HYPOCHROMASIA (NORMAL) 1+ OVALOCYTES (NORMAL) 1+ TEARDROP CELLS (NORMAL) 06:05 RBC Morph Micro Appear 1+ ANISOCYTOSIS (NORMAL) 3+ MACROCYTOSIS (NORMAL) 1+ HYPOCHROMASIA (NORMAL) 1+ OVALOCYTES (NORMAL) 1+ TEARDROP CELLS (NORMAL) 06:05 RBC Morph Micro Appear 1+ ANISOCYTOSIS (NORMAL) 3+ MACROCYTOSIS (NORMAL) 1+ HYPOCHROMASIA (NORMAL) 1+ OVALOCYTES (NORMAL) 1+ TEARDROP CELLS (NORMAL) 06:05 RBC Morph Micro Appear 1+ ANISOCYTOSIS (NORMAL) 3+ MACROCYTOSIS (NORMAL) 1+ HYPOCHROMASIA (NORMAL) 1+ OVALOCYTES (NORMAL) 1+ TEARDROP CELLS (NORMAL) 06:05 RBC Morph Micro Appear 1+ ANISOCYTOSIS (NORMAL) 3+ MACROCYTOSIS (NORMAL) 1+ HYPOCHROMASIA (NORMAL) 1+ OVALOCYTES (NORMAL) 1+ TEARDROP CELLS (NORMAL) 06:05 RBC Morph Micro Appear 1+ ANISOCYTOSIS (NORMAL) 2+ MACROCYTOSIS (NORMAL) 1+ HYPOCHROMASIA (NORMAL) 1+ POLYCHROMASIA (NORMAL) 1+ TEARDROP CELLS (NORMAL) 1 + OVALOCYTES (NORMAL) 01/10/18 05:15 RBC Morph Micro Appear 1+ ANISOCYTOSIS (NORMAL) 2+ MACROCYTOSIS (NORMAL) 1+ HYPOCHROMASIA (NORMAL) 1+ POLYCHROMASIA (NORMAL) 1+ TEARDROP CELLS (NORMAL) 1 + OVALOCYTES (NORMAL) 01/10/18 05:15 RBC Morph Micro Appear 1+ ANISOCYTOSIS (NORMAL) 2+ MACROCYTOSIS (NORMAL) 1+ HYPOCHROMASIA (NORMAL) 1+ POLYCHROMASIA (NORMAL) 1+ TEARDROP CELLS (NORMAL) 1 + OVALOCYTES (NORMAL) 01/10/18 05:15 RBC Morph Micro Appear 1+ ANISOCYTOSIS (NORMAL) 2+ MACROCYTOSIS (NORMAL) 1+ HYPOCHROMASIA (NORMAL) 1+ POLYCHROMASIA (NORMAL) 1+ TEARDROP CELLS (NORMAL) 1 + OVALOCYTES (NORMAL) 01/10/18 05:15 RBC Morph Micro Appear 1+ ANISOCYTOSIS (NORMAL) 2+ MACROCYTOSIS (NORMAL) 1+ HYPOCHROMASIA (NORMAL) 1+ POLYCHROMASIA (NORMAL) 1+ TEARDROP CELLS (NORMAL) 1 + OVALOCYTES (NORMAL) 01/10/18 05:15 RBC Morph Micro Appear 1+ ANISOCYTOSIS (NORMAL) 2+ MACROCYTOSIS (NORMAL) 1+ HYPOCHROMASIA (NORMAL) 1+ POLYCHROMASIA (NORMAL) 1+ TEARDROP CELLS (NORMAL) 1 + OVALOCYTES (NORMAL) 01/10/18 05:15 PT 18.3 secs (9.9-12.6) H 01/10/18 05:15 INR 1.7 (0.8-1.2) H 01/10/18 05:15 Sodium 130 mmol/L (135-145) L 01/10/18 05:15 Potassium 4.1 mmol/L (3.5-5.0) 01/10/18 05:15 Chloride 101 mmol/L (101-111) 01/10/18 05:15 Carbon Dioxide 23 mmol/L (21-32) 01/10/18 05:15 Anion Gap 6.0 (6-13) 01/10/18 05:15 BUN 15 mg/dL (6-20) 01/10/18 05:15 Creatinine 0.5 mg/dL (0.4-1.0) 01/10/18 05:15 Estimated GFR (MDRD) 134 (>89) 01/10/18 05:15 Glucose 126 mg/dL (70-100) H 01/10/18 05:15 Calcium 7.3 mg/dL (8.5-10.3) L 01/10/18 05:15 Phosphorus 2.4 mg/dL (2.5-4.6) L 01/10/18 05:15 Magnesium 2.0 mg/dL (1.7-2.8) 01/10/18 05:15 Total Bilirubin 4.4 mg/dL (0.2-1.0) H 01/10/18 05:15 AST 152 IU/L (10-42) H 01/10/18 05:15 ALT 94 IU/L (10-60) H 01/10/18 05:15 Alkaline Phosphatase 254 IU/L (42-121) H 01/10/18 05:15 B-Natriuretic Peptide 92 pg/mL (5-100) 01/08/18 09:33 Total Protein 4.6 g/dL (6.7-8.2) L 01/10/18 05:15 Albumin 1.7 g/dL (3.2-5.5) L 01/10/18 05:15 Globulin 2.9 g/dL (2.1-4.2) 01/10/18 05:15 Albumin/Globulin Ratio 0.6 (1.0-2.2) L 01/10/18 05:15 Lipase 95 U/L (22-51) H 01/08/18 09:33 Urine Color BROWN 01/08/18 17:04 Urine Clarity CLOUDY (CLEAR) 01/08/18 17:04 Urine pH 6.0 PH (5.0-7.5) 01/08/18 17:04 Ur Specific [place] >=1.030 (1.002-1.030) H 01/08/18 17:04 Urine Protein NEGATIVE mg/dL (NEGATIVE) 01/08/18 17:04 Urine Glucose (UA) NEGATIVE mg/dL (NEGATIVE) 01/08/18 17:04 Urine Ketones NEGATIVE mg/dL (NEGATIVE) 01/08/18 17:04 Urine Occult Blood NEGATIVE (NEGATIVE) 01/08/18 17:04 Urine Nitrite NEGATIVE (NEGATIVE) 01/08/18 17:04 Urine Bilirubin MODERATE (NEGATIVE) H 01/08/18 17:04 Urine Urobilinogen 0.2 (NORMAL) E.U./dL (NORMAL) 01/08/18 17:04 Ur Leukocyte Esterase NEGATIVE (NEGATIVE) 01/08/18 17:04 Urine RBC 0-5 /HPF (0-5) 01/08/18 17:04 Urine WBC 4-5 /HPF (0-5) 01/08/18 17:04 Ur Epithelial Cells RARE Transitional /HPF (<= Few) 01/08/18 17:04 Ur Squamous Epith Cells RARE Squamous (<= Few) 01/08/18 17:04 Amorphous Sediment Few /LPF 01/08/18 17:04 Urine Bacteria Rare /HPF (None Seen) 01/08/18 17:04 Urine Mucus Few Strands 01/08/18 17:04 Ur Microscopic Review INDICATED 01/08/18 17:04 Urine Culture Comments NOT INDICATED 01/08/18 17:04 Urine Opiates Screen POSITIVE (NEGATIVE) H 01/08/18 17:04 Ur Oxycodone Screen NEGATIVE (NEGATIVE) 01/08/18 17:04 Urine Methadone Screen NEGATIVE (NEGATIVE) 01/08/18 17:04 Ur Propoxyphene Screen NEGATIVE (NEGATIVE) 01/08/18 17:04 Ur Barbiturates Screen NEGATIVE (NEGATIVE) 01/08/18 17:04 Ur Tricyclics Screen NEGATIVE (NEGATIVE) 01/08/18 17:04 Ur Phencyclidine Scrn NEGATIVE (NEGATIVE) 01/08/18 17:04 Ur Amphetamine Screen NEGATIVE (NEGATIVE) 01/08/18 17:04 U Methamphetamines Scrn NEGATIVE (NEGATIVE) 01/08/18 17:04 U Benzodiazepines Scrn NEGATIVE (NEGATIVE) 01/08/18 17:04 Urine Cocaine Screen NEGATIVE (NEGATIVE) 01/08/18 17:04 U Cannabinoids Screen NEGATIVE (NEGATIVE) 01/08/18 17:04 Ethyl Alcohol < 5.0 mg/dL 01/08/18 09:33
[2018-01-10] MEDS ORDERED: BUFFERED LIDOCAINE 10 ML SYRINGE IU ONE (16:15)
[2018-01-10] MEDS: BENZOCAINE/MENTHOL LOZENGE MM PRN (16:16)
[2018-01-11] MEDS: SODIUM CHLORIDE FLUSH 0.9% 10 ML SYRINGE IVP SCH ×4 (00:27→16:01)
[2018-01-11] MEDS: guaiFENesin/CODEINE 5 ML UDC PO PRN (04:44)
[2018-01-11 05:27] LABS: INR 1.6 (0.8-1.2); PT - PROTHROMBIN TIME 17.3 secs (9.9-12.6)
[2018-01-11 05:29] LABS: BASOPHILS # (AUTO) 0.1 10^3/uL (0.0-0.1); BASOPHILS % (AUTO) 0.5 %; EOSINOPHILS % (AUTO) 0.1 %; LYMPHOCYTES # (AUTO) 1.8 10^3/uL (1.5-3.5); LYMPHOCYTES % (AUTO) 11.4 %; MEAN CORPUSCULAR HEMOGLOBIN 38.8 pg (27.0-31.0); MEAN CORPUSCULAR HGB CONC 33.8 g/dL (32.0-36.0); MEAN CORPUSCULAR VOLUME 114.8 fL (81.0-99.0); MEAN PLATELET VOLUME 7.2 fL (7.9-10.8); MONOCYTES # (AUTO) 0.8 10^3/uL (0.0-1.0); MONOCYTES % (AUTO) 4.8 %; NEUTROPHILS # (AUTO) 13.3 10^3/uL (1.5-6.6); NEUTROPHILS % (AUTO) 83.2 %; PLT - PLATELET COUNT 176 10^3/uL (130-450); RED BLOOD COUNT 2.32 10^6/uL (4.20-5.40); RED CELL DISTRIBUTION WIDTH 16.3 % (12.0-15.0); WHITE BLOOD COUNT 15.9 x10^3/uL (4.8-10.8)
[2018-01-11 05:30] LABS: ALBUMIN 1.9 g/dL (3.2-5.5); ALBUMIN/GLOBULIN RATIO 0.7 (1.0-2.2); BILIRUBIN,TOTAL 4.4 mg/dL (0.2-1.0); CALCIUM 7.5 mg/dL (8.5-10.3); CREATININE 0.4 mg/dL (0.4-1.0); PHOSPHORUS 2.4 mg/dL (2.5-4.6); TOTAL PROTEIN 4.7 g/dL (6.7-8.2)
[2018-01-11] MEDS: LACTULOSE 10 GM /15 ML UDC PO SCH ×3 (06:03→21:17)
[2018-01-11] MEDS: BENZONATATE 100 MG CAPSULE PO PRN ×2 (06:09→19:09)
[2018-01-11] MEDS: PANTOPRAZOLE 40 MG TABLET PO SCH ×2 (06:09→16:01)
[2018-01-11 06:12] LABS: PLATELET ESTIMATE, MANUAL NORMAL (130-450,000) (NORMAL)
[2018-01-11] MEDS: POTASSIUM CHLORIDE 20 MEQ TABLET PO SCH ×2 (08:41→09:33)
[2018-01-11] MEDS: SACCHAROMYCES BOULARDII 250 MG CAPSULE PO SCH ×2 (08:41→17:30)
[2018-01-11] MEDS: CHOLECALCIFEROL 1,000 UNIT TABLET PO SCH (08:41)
[2018-01-11] MEDS: THIAMINE 100 MG TABLET PO SCH (08:41)
[2018-01-11] MEDS: predniSONE 20 MG TABLET PO SCH (08:42)
[2018-01-11] MEDS: FUROSEMIDE 20 MG TABLET PO SCH (08:44)
[2018-01-11] MEDS: SPIRONOLACTONE 25 MG TABLET PO SCH (08:44)
[2018-01-11] MEDS: PRENATAL VITAMIN TABLET PO SCH (08:45)
[2018-01-11] MEDS: CYANOCOBALAMIN 500 MCG TABLET PO SCH (08:45)
[2018-01-11] MEDS: NEUTRA-PHOS 250 MG TABLET PO SCH ×3 (08:45→17:30)
[2018-01-11] MEDS: CEFEPIME 2 GM in SODIUM CHLORIDE 0.9% MINIBAG 100 ML IV SCH ×2 (08:46→20:27)
[2018-01-11] MEDS: ENOXAPARIN 40 MG/0.4 ML SYRINGE SUBQ SCH (09:21)
[2018-01-11] MEDS: POLYETHYLENE GLYCOL 3350 17 GM PACKET PO SCH (09:21)
[2018-01-11] MEDS: guaiFENesin 600 MG TABLET PO SCH ×2 (11:10→20:26)
[2018-01-11] MEDS: levoFLOXacin 750 MG/150 ML 750 MG/150 ML BAG IV SCH (13:33)
--- NOTE | 2018-01-11 17:07 | PROVIDER PROGRESS NOTE ---
Assessment/Plan - Problem List (1) HCAP (healthcare-associated pneumonia) Assessment/Plan: Patient presented with mild hypoxia, shortness of breath, conversational dyspnea , leukocytosis and tachycardia. She has been having dry cough and shortness of breath for the last 3-4 days that has been worsening and now has shortness of breath at rest. Chest x-ray revealed a left base pneumonia. Patient has been hospitalized twice in the last month at [facility] for greater than 48 hours. Therefore she will be treated for a healthcare associated pneumonia. Not feeling as well today as she has worsening cough overnight She is on RA but says her cough and breathing are worse this am WBC continues to go up to 15.9 Plan: Continue IV cefepime and Levaquin for coverage of healthcare associated pneumonia day 4 Supplemental oxygen prn Albuterol nebs as needed Changed to Mucinex BID Azeb Vega Likely needs one more day of IV abx (2) Alcoholic cirrhosis of liver with ascites Conclusion/Plan: Patient has a meld score of 22 today which is down from 27 when she first presented in November 2017 with alcoholic liver cirrhosis with ascites. The patient' s 3 month mortality is 19.6%. She quit drinking alcohol 1 month ago but has not been able to get into her primary care to get any further referrals. According to the patient she has not had an EGD for evaluation for esophageal varices. She did have a recent GI bleed for which she did not undergo any scoping. Patient did have paracentesis done a month ago with 5.3 L removed and now again has developed significant ascites despite being on Lasix and Aldactone at home. Plan: Patient will be continued on home dose of lactulose and titrate for 3 BMs Patient will be continued on Lasix and Aldactone at increased dose of 40 mg and 50 mg respectively Patient was placed on steroid taper in November after presenting with alcoholic hepatitis Continue steroid taper with prednisone 30 mg daily for 4 days then prednisone 20 mg daily Multivitamin, folate, B12, thiamine daily PO Paracentesis done with 3.9L removed Patient will need outpatient referral to gastroenterology and possibly hepatology as she may need a liver transplant in the future when she is 6 months alcohol free. Monitor CMP and INR daily they are stable (3) Hypokalemia Conclusion/Plan: Resolved with replacement Monitor COntinue daily potassium replacement given patient is on lasix (4) Hyponatremia Conclusion/Plan: The patient is hyponatremic with a sodium of 131 today. Likely the patient has hypervolemic hyponatremia as she does appear to be fluid overloaded on examination. Continue Lasix and Aldactone Improving Dispo: Patient will likely be discharged home tomorrow as she worsened today but hopefully with one more day of abx she will be better - Current Meds Current Meds: Current Medications Generic Name Dose Route Start Last Admin Trade Name Freq PRN Reason Stop Dose Admin Benzonatate 100 mg 01/08/18 14:16 01/11/18 06:09 Tessalon PO 100 mg TID PRN Administration Cough Cholecalciferol 2,000 unit 01/09/18 09:00 01/11/18 08:41 Vitamin D3 PO 2,000 unit DAILY PERICO Administration Cyanocobalamin 500 mcg 01/09/18 09:00 01/11/18 08:45 Vitamin B-12 PO 500 mcg DAILY PERICO Administration Enoxaparin Sodium 40 mg 01/09/18 09:00 01/11/18 09:21 Lovenox SUBQ 40 mg DAILY PERICO Administration Furosemide 40 mg 01/09/18 09:00 01/11/18 08:44 Lasix PO 40 mg DAILY PERICO Administration Guaifenesin 600 mg 01/11/18 11:00 01/11/18 11:10 Mucinex PO 600 mg BID PERICO Administration Levofloxacin 750 mg in 150 mls @ 100 mls/hr 01/08/18 13:00 01/11/18 15:04 Levaquin 750 Mg/150 Ml IV Infused Q24H PERICO Infusion Cefepime HCl 2 gm/ Sodium 100 mls @ 200 mls/hr 01/08/18 13:00 01/11/18 09:22 Chloride IV Infused BID PERICO Infusion Lactulose 20 gm 01/10/18 08:06 01/11/18 13:37 Enulose PO 20 gm TID PERICO Administration Levalbuterol HCl 1.25 mg 01/08/18 20:54 01/09/18 23:55 Xopenex INH 1.25 mg Q2H PRN Administration Shortness of Air/Wheezing Oxycodone HCl 5 mg 01/08/18 12:33 01/10/18 00:02 Roxicodone PO 5 mg Q4HR PRN Administration Pain 5 to 7 Pantoprazole Sodium 40 mg 01/08/18 16:00 01/11/18 16:01 Protonix PO 40 mg BIDAC PERICO Administration Polyethylene Glycol 17 gm 01/09/18 09:00 01/11/18 09:21 Miralax PO Not Given DAILY PERICO Potassium Chloride 20 meq 01/09/18 08:00 01/11/18 09:33 K-Dur PO Not Given DAILYWM PERICO Prednisone 30 mg 01/08/18 18:00 01/11/18 08:42 Deltasone PO 30 mg DAILYWM PERICO Administration Multivit/Folic Acid/Iron 1 tab 01/09/18 09:00 01/11/18 08:45 Trinatal Rx 1 PO 1 tab DAILY PERICO Administration Saccharomyces Boulardii 250 mg 01/08/18 17:00 01/11/18 08:41 Florastor PO 250 mg BIDWM PERICO Administration Sodium Chloride 10 ml 01/08/18 12:28 01/10/18 00:02 Normal Saline Flush 0.9% IVP 10 ml PRN PRN Administration NEEDED PER PROVIDER ORDERS Sodium Chloride 10 ml 01/08/18 17:00 01/11/18 16:01 Normal Saline Flush 0.9% IVP 10 ml 0100,0900,1700 PERICO Administration Sodium Phosphate 250 mg 01/10/18 08:00 01/11/18 11:10 K-Phos Neutral PO 250 mg TIDWM PERICO Administration Spironolactone 50 mg 01/09/18 09:00 01/11/18 08:44 Aldactone PO 50 mg DAILY PERICO Administration Thiamine HCl 100 mg 01/09/18 09:00 01/11/18 08:41 Vitamin B-1 PO 100 mg DAILY PERICO Administration Throat Lozenges 1 lozenge 01/08/18 20:37 01/10/18 16:16 Cepacol MM 1 lozenge Q2HR PRN Administration Throat pain - Lab Result Lab results reviewed: Yes Fish Bone Diagrams: 01/11/18 04:50 01/11/18 04:50 - Diagnostic Imaging Results Diagnostic Imaging Results: Final report reviewed - Additional Planning Condition/Complexity: Guarded My Orders: My Active Orders 01/11/18 11:00 guaiFENesin [Mucinex] 600 mg PO BID 01/12/18 09:00 Chest 1 View X-Ray [XR] DAILY Plan Discussed with:: Patient Time Spent: 31-60 minutes Subjective - Subjective Patient Reports: Cough (coughing all night could not sleep), Shortness of Breath (with exertion), Other (No fevers. She had drainage from the paracentesis site throughout the night.) Nursing Reports: No Complaints Objective Vital Signs: Vital Signs - 24 hr 01/10/18 01/10/18 01/11/18 22:30 23:56 04:37 Temperature 36.5 C 36.4 C L Heart Rate 92 Heart Rate [ 87 91 Brachial] Respiratory 20 18 18 Rate Blood Pressure 102/58 L 101/58 L [Right Brachial artery] O2 Saturation 95 93 01/11/18 01/11/18 01/11/18 04:39 08:00 08:05 Temperature 36.7 C Heart Rate 96 108 H Heart Rate [ 102 H Brachial] Respiratory 18 18 20 Rate Blood Pressure 111/64 [Right Brachial artery] O2 Saturation 94 01/11/18 15:17 Temperature 36.7 C Heart Rate Heart Rate [ 74 Brachial] Respiratory 18 Rate Blood Pressure 99/61 [Right Brachial artery] O2 Saturation 97 Oxygen O2 Source Room air I&O (Last 24 Hrs): Intake and Output Totals x24h 01/09/18 01/10/18 01/11/18 23:59 23:59 23:59 Intake Total 2420 1150 1010 Output Total 200 2275 800 Balance 2220 -1125 210 General: Alert, Oriented x3, Cooperative, Other (jaundiced) HEENT: Atraumatic, PERRLA, EOMI, Mucous membr. moist/pink Neck: Supple, No JVD, No thyromegaly, +2 carotid pulse wo bruit, No LAD Lymphatic: no adenopathy Neuro: Alert, Non Focal, CN 2-12 Grossly Intact, Oriented Times 3 Cardiovascular: Regular rate, Normal S1, Normal S2, No murmurs Respiratory: Chest non-tender, Rales (bases), Rhonchi Abdomen: Soft, No tenderness, No hepatospenomegaly, Other (Distended abdomen improved) Extremities: No clubbing, No cyanosis, Normal pulses, Other Skin: No rashes, No breakdown Comments/Notes: jaundiced - Results Results: Laboratory Results WBC 15.9 x10^3/uL (4.8-10.8) H 01/11/18 04:50 RBC 2.32 10^6/uL (4.20-5.40) L 01/11/18 04:50 Hgb 9.0 g/dL (12.0-16.0) L 01/11/18 04:50 Hct 26.6 % (37.0-47.0) L 01/11/18 04:50 MCV 114.8 fL (81.0-99.0) H 01/11/18 04:50 MCH 38.8 pg (27.0-31.0) H 01/11/18 04:50 MCHC 33.8 g/dL (32.0-36.0) 01/11/18 04:50 RDW 16.3 % (12.0-15.0) H 01/11/18 04:50 Plt Count 176 10^3/uL (130-450) 01/11/18 04:50 MPV 7.2 fL (7.9-10.8) L 01/11/18 04:50 Neut # (Auto) 13.3 10^3/uL (1.5-6.6) H 01/11/18 04:50 Lymph # (Auto) 1.8 10^3/uL (1.5-3.5) 01/11/18 04:50 [place] # (Auto) 0.8 10^3/uL (0.0-1.0) 01/11/18 04:50 Eos # (Auto) 0.0 10^3/uL (0.0-0.7) 01/11/18 04:50 Baso # (Auto) 0.1 10^3/uL (0.0-0.1) 01/11/18 04:50 Absolute Nucleated RBC 0.00 x10^3/uL 01/11/18 04:50 Nucleated RBC % 0.0 /100WBC 01/11/18 04:50 Manual Slide Review Indicated 01/11/18 04:50 WBC Morphology NORMAL APPEARANCE (NORMAL) 01/08/18 09:33 Platelet Estimate NORMAL (130-450,000) (NORMAL) 01/11/18 04:50 Platelet Morphology NORMAL APPEARANCE (NORMAL) 01/09/18 06:05 RBC Morph Micro Appear 2+ ANISOCYTOSIS (NORMAL) 1+ POIKILOCYTOSIS (NORMAL) 1 + HYPOCHROMASIA (NORMAL) 1+ TARGET CELLS (NORMAL) 01/08/18 09:33 RBC Morph Micro Appear 1+ ANISOCYTOSIS (NORMAL) 3+ MACROCYTOSIS (NORMAL) 1+ HYPOCHROMASIA (NORMAL) 1+ OVALOCYTES (NORMAL) 1+ TEARDROP CELLS (NORMAL) 06:05 RBC Morph Micro Appear 1+ ANISOCYTOSIS (NORMAL) 3+ MACROCYTOSIS (NORMAL) 1+ HYPOCHROMASIA (NORMAL) 1+ OVALOCYTES (NORMAL) 1+ TEARDROP CELLS (NORMAL) 06:05 RBC Morph Micro Appear 1+ ANISOCYTOSIS (NORMAL) 3+ MACROCYTOSIS (NORMAL) 1+ HYPOCHROMASIA (NORMAL) 1+ OVALOCYTES (NORMAL) 1+ TEARDROP CELLS (NORMAL) 06:05 RBC Morph Micro Appear 1+ ANISOCYTOSIS (NORMAL) 3+ MACROCYTOSIS (NORMAL) 1+ HYPOCHROMASIA (NORMAL) 1+ OVALOCYTES (NORMAL) 1+ TEARDROP CELLS (NORMAL) 06:05 RBC Morph Micro Appear 1+ ANISOCYTOSIS (NORMAL) 3+ MACROCYTOSIS (NORMAL) 1+ HYPOCHROMASIA (NORMAL) 1+ OVALOCYTES (NORMAL) 1+ TEARDROP CELLS (NORMAL) 06:05 RBC Morph Micro Appear 1+ ANISOCYTOSIS (NORMAL) 2+ MACROCYTOSIS (NORMAL) 1+ HYPOCHROMASIA (NORMAL) 1+ POLYCHROMASIA (NORMAL) 1+ TEARDROP CELLS (NORMAL) 1 + OVALOCYTES (NORMAL) 01/10/18 05:15 RBC Morph Micro Appear 1+ ANISOCYTOSIS (NORMAL) 2+ MACROCYTOSIS (NORMAL) 1+ HYPOCHROMASIA (NORMAL) 1+ POLYCHROMASIA (NORMAL) 1+ TEARDROP CELLS (NORMAL) 1 + OVALOCYTES (NORMAL) 01/10/18 05:15 RBC Morph Micro Appear 1+ ANISOCYTOSIS (NORMAL) 2+ MACROCYTOSIS (NORMAL) 1+ HYPOCHROMASIA (NORMAL) 1+ POLYCHROMASIA (NORMAL) 1+ TEARDROP CELLS (NORMAL) 1 + OVALOCYTES (NORMAL) 01/10/18 05:15 RBC Morph Micro Appear 1+ ANISOCYTOSIS (NORMAL) 2+ MACROCYTOSIS (NORMAL) 1+ HYPOCHROMASIA (NORMAL) 1+ POLYCHROMASIA (NORMAL) 1+ TEARDROP CELLS (NORMAL) 1 + OVALOCYTES (NORMAL) 01/10/18 05:15 RBC Morph Micro Appear 1+ ANISOCYTOSIS (NORMAL) 2+ MACROCYTOSIS (NORMAL) 1+ HYPOCHROMASIA (NORMAL) 1+ POLYCHROMASIA (NORMAL) 1+ TEARDROP CELLS (NORMAL) 1 + OVALOCYTES (NORMAL) 01/10/18 05:15 RBC Morph Micro Appear 1+ ANISOCYTOSIS (NORMAL) 2+ MACROCYTOSIS (NORMAL) 1+ HYPOCHROMASIA (NORMAL) 1+ POLYCHROMASIA (NORMAL) 1+ TEARDROP CELLS (NORMAL) 1 + OVALOCYTES (NORMAL) 01/10/18 05:15 RBC Morph Micro Appear 2+ MACROCYTOSIS (NORMAL) 1+ HYPOCHROMASIA (NORMAL) 1+ POLYCHROMASIA (NORMAL) 01/11/18 04:50 RBC Morph Micro Appear 2+ MACROCYTOSIS (NORMAL) 1+ HYPOCHROMASIA (NORMAL) 1+ POLYCHROMASIA (NORMAL) 01/11/18 04:50 RBC Morph Micro Appear 2+ MACROCYTOSIS (NORMAL) 1+ HYPOCHROMASIA (NORMAL) 1+ POLYCHROMASIA (NORMAL) 01/11/18 04:50 PT 17.3 secs (9.9-12.6) H 01/11/18 04:50 INR 1.6 (0.8-1.2) H 01/11/18 04:50 Sodium 131 mmol/L (135-145) L 01/11/18 04:50 Potassium 3.5 mmol/L (3.5-5.0) 01/11/18 04:50 Chloride 100 mmol/L (101-111) L 01/11/18 04:50 Carbon Dioxide 23 mmol/L (21-32) 01/11/18 04:50 Anion Gap 8.0 (6-13) 01/11/18 04:50 BUN 14 mg/dL (6-20) 01/11/18 04:50 Creatinine 0.4 mg/dL (0.4-1.0) 01/11/18 04:50 Estimated GFR (MDRD) 173 (>89) 01/11/18 04:50 Glucose 86 mg/dL (70-100) 01/11/18 04:50 Calcium 7.5 mg/dL (8.5-10.3) L 01/11/18 04:50 Phosphorus 2.4 mg/dL (2.5-4.6) L 01/11/18 04:50 Magnesium 2.0 mg/dL (1.7-2.8) 01/11/18 04:50 Total Bilirubin 4.4 mg/dL (0.2-1.0) H 01/11/18 04:50 AST 190 IU/L (10-42) H 01/11/18 04:50 ALT 100 IU/L (10-60) H 01/11/18 04:50 Alkaline Phosphatase 252 IU/L (42-121) H 01/11/18 04:50 B-Natriuretic Peptide 92 pg/mL (5-100) 01/08/18 09:33 Total Protein 4.7 g/dL (6.7-8.2) L 01/11/18 04:50 Albumin 1.9 g/dL (3.2-5.5) L 01/11/18 04:50 Globulin 2.8 g/dL (2.1-4.2) 01/11/18 04:50 Albumin/Globulin Ratio 0.7 (1.0-2.2) L 01/11/18 04:50 Lipase 95 U/L (22-51) H 01/08/18 09:33 Urine Color BROWN 01/08/18 17:04 Urine Clarity CLOUDY (CLEAR) 01/08/18 17:04 Urine pH 6.0 PH (5.0-7.5) 01/08/18 17:04 Ur Specific [place] >=1.030 (1.002-1.030) H 01/08/18 17:04 Urine Protein NEGATIVE mg/dL (NEGATIVE) 01/08/18 17:04 Urine Glucose (UA) NEGATIVE mg/dL (NEGATIVE) 01/08/18 17:04 Urine Ketones NEGATIVE mg/dL (NEGATIVE) 01/08/18 17:04 Urine Occult Blood NEGATIVE (NEGATIVE) 01/08/18 17:04 Urine Nitrite NEGATIVE (NEGATIVE) 01/08/18 17:04 Urine Bilirubin MODERATE (NEGATIVE) H 01/08/18 17:04 Urine Urobilinogen 0.2 (NORMAL) E.U./dL (NORMAL) 01/08/18 17:04 Ur Leukocyte Esterase NEGATIVE (NEGATIVE) 01/08/18 17:04 Urine RBC 0-5 /HPF (0-5) 01/08/18 17:04 Urine WBC 4-5 /HPF (0-5) 01/08/18 17:04 Ur Epithelial Cells RARE Transitional /HPF (<= Few) 01/08/18 17:04 Ur Squamous Epith Cells RARE Squamous (<= Few) 01/08/18 17:04 Amorphous Sediment Few /LPF 01/08/18 17:04 Urine Bacteria Rare /HPF (None Seen) 01/08/18 17:04 Urine Mucus Few Strands 01/08/18 17:04 Ur Microscopic Review INDICATED 01/08/18 17:04 Urine Culture Comments NOT INDICATED 01/08/18 17:04 Urine Opiates Screen POSITIVE (NEGATIVE) H 01/08/18 17:04 Ur Oxycodone Screen NEGATIVE (NEGATIVE) 01/08/18 17:04 Urine Methadone Screen NEGATIVE (NEGATIVE) 01/08/18 17:04 Ur Propoxyphene Screen NEGATIVE (NEGATIVE) 01/08/18 17:04 Ur Barbiturates Screen NEGATIVE (NEGATIVE) 01/08/18 17:04 Ur Tricyclics Screen NEGATIVE (NEGATIVE) 01/08/18 17:04 Ur Phencyclidine Scrn NEGATIVE (NEGATIVE) 01/08/18 17:04 Ur Amphetamine Screen NEGATIVE (NEGATIVE) 01/08/18 17:04 U Methamphetamines Scrn NEGATIVE (NEGATIVE) 01/08/18 17:04 U Benzodiazepines Scrn NEGATIVE (NEGATIVE) 01/08/18 17:04 Urine Cocaine Screen NEGATIVE (NEGATIVE) 01/08/18 17:04 U Cannabinoids Screen NEGATIVE (NEGATIVE) 01/08/18 17:04 Ethyl Alcohol < 5.0 mg/dL 01/08/18 09:33 ABX Reporting Has patient been on IV antibiotics over the past 48 hours?: Yes Current Medications - Current Medications Current Medications: Active Medications Generic Name Dose Route Start Last Admin Trade Name Freq PRN Reason Stop Dose Admin Benzonatate 100 mg 01/08/18 14:16 01/11/18 06:09 Tessalon PO 100 mg TID PRN Administration Cough Cholecalciferol 2,000 unit 01/09/18 09:00 01/11/18 08:41 Vitamin D3 PO 2,000 unit DAILY PERICO Administration Cyanocobalamin 500 mcg 01/09/18 09:00 01/11/18 08:45 Vitamin B-12 PO 500 mcg DAILY PERICO Administration Enoxaparin Sodium 40 mg 01/09/18 09:00 07/13/18 09:21 Lovenox SUBQ 40 mg DAILY PERICO Administration Furosemide 40 mg 01/09/18 09:00 01/11/18 08:44 Lasix PO 40 mg DAILY PERICO Administration Guaifenesin 600 mg 01/11/18 11:00 01/11/18 11:10 Mucinex PO 600 mg BID PERICO Administration Levofloxacin 750 mg in 150 mls @ 100 mls/hr 01/08/18 13:00 01/11/18 15:04 Levaquin 750 Mg/150 Ml IV Infused Q24H PERICO Infusion Cefepime HCl 2 gm/ Sodium 100 mls @ 200 mls/hr 01/08/18 13:00 01/11/18 09:22 Chloride IV Infused BID PERICO Infusion Lactulose 20 gm 01/10/18 08:06 01/11/18 13:37 Enulose PO 20 gm TID PERICO Administration Levalbuterol HCl 1.25 mg 01/08/18 20:54 01/09/18 23:55 Xopenex INH 1.25 mg Q2H PRN Administration Shortness of Air/Wheezing Ondansetron HCl 4 mg 01/08/18 12:33 Zofran Inj IVP Q6HR PRN Nausea / Vomiting Oxycodone HCl 5 mg 01/08/18 12:33 01/10/18 00:02 Roxicodone PO 5 mg Q4HR PRN Administration Pain 5 to 7 Oxycodone HCl 10 mg 01/08/18 12:33 Roxicodone PO Q4HR PRN Pain 8 to 10 Pantoprazole Sodium 40 mg 01/08/18 16:00 01/11/18 16:01 Protonix PO 40 mg BIDAC [facility] Administration Polyethylene Glycol 17 gm 01/09/18 09:00 01/11/18 09:21 Miralax PO Not Given DAILY [facility] Potassium Chloride 20 meq 01/09/18 08:00 01/11/18 09:33 K-Dur PO Not Given DAILYWM PERICO Prednisone 30 mg 01/08/18 18:00 01/11/18 08:42 Deltasone PO 30 mg DAILYWM [facility] Administration Multivit/Folic Acid/Iron 1 tab 01/09/18 09:00 01/11/18 08:45 Trinatal Rx 1 PO 1 tab DAILY [facility] Administration Prochlorperazine Edisylate 10 mg 01/08/18 12:33 Compazine Inj IVP Q6HR PRN Nausea / Vomiting Promethazine HCl 25 mg 01/08/18 12:33 Phenergan Inj IM Q6HR PRN Nausea / Vomiting Saccharomyces Boulardii 250 mg 01/08/18 17:00 01/11/18 08:41 Florastor PO 250 mg BIDWM PERICO Administration Sodium Chloride 10 ml 01/08/18 12:28 01/10/18 00:02 Normal Saline Flush 0.9% IVP 10 ml PRN PRN Administration NEEDED PER PROVIDER ORDERS Sodium Chloride 10 ml 01/08/18 17:00 01/11/18 16:01 Normal Saline Flush 0.9% IVP 10 ml 0100,0900,1700 PERICO Administration Sodium Phosphate 250 mg 01/10/18 08:00 01/11/18 11:10 K-Phos Neutral PO 250 mg TIDWM PERICO Administration Spironolactone 50 mg 01/09/18 09:00 01/11/18 08:44 Aldactone PO 50 mg DAILY PERICO Administration Thiamine HCl 100 mg 01/09/18 09:00 01/11/18 08:41 Vitamin B-1 PO 100 mg DAILY PERICO Administration Throat Lozenges 1 lozenge 01/08/18 20:37 01/10/18 16:16 Cepacol MM 1 lozenge Q2HR PRN Administration Throat pain Zolpidem Tartrate 5 mg 01/08/18 12:33 Ambien PO QPM PRN Insomnia Cholecalciferol (Vitamin D3) [Vitamin D3] 2,000 units PO DAILY 01/08/18 Cyanocobalamin (Vitamin B-12) [Vitamin B-12 (100mcg tab)] 500 mcg PO DAILY 01/08 Furosemide 20 mg PO DAILY 01/08/18 Lactulose 20 gm PO TID 01/08/18 Multivit with Calcium,Iron,Min [Multiple Vitamins For Women] 1 tab PO DAILY 04/18 Pantoprazole [Protonix] 40 mg PO DAILY 01/08/18 Spironolactone 25 mg PO DAILY 01/08/18
[2018-01-11] MEDS: BENZOCAINE/MENTHOL LOZENGE MM PRN (19:09)
[2018-01-11] MEDS: SODIUM CHLORIDE FLUSH 0.9% 10 ML SYRINGE IVP PRN ×2 (20:27→20:33)
[2018-01-12] MEDS: SODIUM CHLORIDE FLUSH 0.9% 10 ML SYRINGE IVP SCH ×2 (02:01→08:04)
[2018-01-12] MEDS: BENZOCAINE/MENTHOL LOZENGE MM PRN ×2 (02:02→06:47)
[2018-01-12 05:32] LABS: INR 1.6 (0.8-1.2); PT - PROTHROMBIN TIME 17.4 secs (9.9-12.6)
[2018-01-12 05:36] LABS: BASOPHILS % (AUTO) 0.3 %; EOSINOPHILS % (AUTO) 0.1 %; HGB - HEMOGLOBIN 9.6 g/dL (12.0-16.0); LYMPHOCYTES # (AUTO) 1.6 10^3/uL (1.5-3.5); LYMPHOCYTES % (AUTO) 10.1 %; MEAN CORPUSCULAR HEMOGLOBIN 38.5 pg (27.0-31.0); MEAN CORPUSCULAR HGB CONC 33.5 g/dL (32.0-36.0); MEAN PLATELET VOLUME 7.2 fL (7.9-10.8); MONOCYTES # (AUTO) 0.6 10^3/uL (0.0-1.0); MONOCYTES % (AUTO) 3.9 %; NEUTROPHILS # (AUTO) 13.3 10^3/uL (1.5-6.6); NEUTROPHILS % (AUTO) 85.6 %; PLT - PLATELET COUNT 167 10^3/uL (130-450); RED CELL DISTRIBUTION WIDTH 16.6 % (12.0-15.0); WHITE BLOOD COUNT 15.6 x10^3/uL (4.8-10.8)
[2018-01-12 05:41] LABS: ALBUMIN 1.9 g/dL (3.2-5.5); ALBUMIN/GLOBULIN RATIO 0.6 (1.0-2.2); BILIRUBIN,TOTAL 4.6 mg/dL (0.2-1.0); CALCIUM 7.6 mg/dL (8.5-10.3); CREATININE 0.5 mg/dL (0.4-1.0); MAGNESIUM 1.9 mg/dL (1.7-2.8)
[2018-01-12] MEDS: LACTULOSE 10 GM /15 ML UDC PO SCH ×2 (06:44→13:54)
[2018-01-12] MEDS: ONDANSETRON 4 MG/2 ML VIAL IVP PRN ×2 (06:47→13:15)
[2018-01-12] MEDS: SODIUM CHLORIDE FLUSH 0.9% 10 ML SYRINGE IVP PRN (06:47)
[2018-01-12] MEDS: PANTOPRAZOLE 40 MG TABLET PO SCH (06:47)
[2018-01-12 07:00] LABS: PLATELET ESTIMATE, MANUAL NORMAL (130-450,000) (NORMAL)
[2018-01-12] MEDS: CEFEPIME 2 GM in SODIUM CHLORIDE 0.9% MINIBAG 100 ML IV SCH (08:04)
[2018-01-12] MEDS: POTASSIUM CHLOR 10 MEQ/100 ML 10 MEQ/100 ML BAG IV SCH ×5 (08:07→12:07)
[2018-01-12] MEDS ORDERED: SODIUM CHLORIDE 0.9% 1,000 ML IV ONE (08:08)
[2018-01-12] MEDS: SACCHAROMYCES BOULARDII 250 MG CAPSULE PO SCH (08:50)
[2018-01-12] MEDS: PRENATAL VITAMIN TABLET PO SCH (08:51)
[2018-01-12] MEDS: CHOLECALCIFEROL 1,000 UNIT TABLET PO SCH (08:51)
[2018-01-12] MEDS: guaiFENesin 600 MG TABLET PO SCH (08:51)
[2018-01-12] MEDS: POTASSIUM CHLORIDE 20 MEQ TABLET PO SCH (08:51)
[2018-01-12] MEDS: SPIRONOLACTONE 25 MG TABLET PO SCH (08:51)
[2018-01-12] MEDS: CYANOCOBALAMIN 500 MCG TABLET PO SCH (08:51)
[2018-01-12] MEDS: predniSONE 20 MG TABLET PO SCH (08:51)
[2018-01-12] MEDS: POLYETHYLENE GLYCOL 3350 17 GM PACKET PO SCH (08:51)
[2018-01-12] MEDS: NEUTRA-PHOS 250 MG TABLET PO SCH ×2 (08:51→11:49)
[2018-01-12] MEDS: THIAMINE 100 MG TABLET PO SCH (08:51)
[2018-01-12] MEDS: FUROSEMIDE 20 MG TABLET PO SCH (08:57)
[2018-01-12] MEDS: ENOXAPARIN 40 MG/0.4 ML SYRINGE SUBQ SCH (10:10)
--- NOTE | 2018-01-12 11:26 | Discharge Plan ---
Discharge Plan Disposition: Home, Self Care Condition: Fair Prescriptions: Benzonatate [Tessalon] 100 mg PO TID PRN #15 capsule PRN Reason: Cough guaiFENesin [Mucinex] 600 mg PO BID #10 tablet Levofloxacin [Levaquin] 500 mg PO DAILY #7 tablet predniSONE [Deltasone] 20 mg PO DAILYWM #8 tablet Diet: Low Sodium Activity Restrictions: Activity as Tolerated Shower Restrictions: No Driving Restrictions: No Assistance Devices: Walker Weight Bearing: Full Weight Additional Instructions or Follow Up instructions: You presented to emergency department with cough and shortness of breath and was found to have a pneumonia. You were treated with IV antibiotics and appear to have improved. Your repeat chest x-ray shows that your pneumonia has improved and you are no longer requiring any oxygen. In order to complete treatment for your pneumonia we have prescribed you an oral antibiotic that he will take for an additional 7 days. While you were here we also increased her doses of Lasix from 20-40 mg and spironolactone from 25-50 mg please take the higher doses when he returned home. We have also prescribed you prednisone to continue your prednisone taper for your alcoholic hepatitis. You will take 20 mg for the next 5 days and then 10 mg for 6 days to complete her taper. It is extremely important that you get an appointment with your primary care doctor and get a referral for gastroenterology as you do have signs of liver cirrhosis and will likely need a liver transplant in the future. No Smoking: If you smoke, Please STOP! Call for help. Follow-up with: Raquel Garcia ARNP [Credentialed Staff Provider] -
--- NOTE | 2018-01-12 11:33 | XRAY Report ---
Procedure Date: 01/12/2018 Accession Number: [id number] / [id number] Procedure: XR - Chest 1 View X-Ray CPT Code: 40052 FULL RESULT: EXAM: CHEST RADIOGRAPHY EXAM DATE: 01/12/2018 11:23 AM. CLINICAL HISTORY: Follow up on pneumonia. COMPARISON: CHEST 2 VIEW 01/08/2018. TECHNIQUE: 1 view. FINDINGS: Lungs/Pleura: Retrocardiac opacity and small to moderate left pleural effusion appear increased compared to prior. No focal consolidation on the right. No pneumothorax or right pleural effusion. Mediastinum: Borderline enlargement of the cardiac silhouette. Other: None. IMPRESSION: Small to moderate left pleural effusion with associated basilar opacity have radiographically increased compared to prior. No new consolidation. RADIA
--- NOTE | 2018-01-12 11:33 | DISCHARGE SUMMARY ---
Discharge Summary Admit Date: 01/08/18 Discharge Date: 01/12/18 Discharging Provider: Asher Harding MD Primary Care Provider: Raquel Garcia [facility] Code Status: Attempt Resuscitation Condition at Discharge: Fair Discharge Disposition: 01 Home, Self Care - DIAGNOSES Admission Diagnoses: 1. Healthcare associated pneumonia 2. Alcoholic cirrhosis of liver with ascites 3. Hypokalemia 4. Hyponatremia Discharge Diagnoses with Status of Each Condition: 1. Healthcare associated pneumonia: Improving 2. Alcoholic cirrhosis of liver with ascites: Stable 3. Hypokalemia: Stable 4. Hyponatremia: Stable - HPI History of Present Illness: Patient is a 42-year-old female with a past medical history significant for obesity status post gastric bypass surgery, alcohol abuse with recent diagnosis of alcoholic liver cirrhosis with ascites who presented to the emergency department with a chief complaint of shortness of breath and cough. According to the patient she was in her normal state of health until 1 month ago on December 07 when her family noticed that she was jaundiced. She states that she had been drinking pretty heavily for about 15 years although she states that she was only drinking about a box of wine a week. She states that her family forced her to come into the emergency room at that point and she was brought to [facility]. From there she was transferred to [facility] as she had acute liver failure with a bilirubin that was elevated up to 24.7 and ascites on examination. The patient states that she was hospitalized at [facility] from December 07 till December 15 and underwent a paracentesis where she had 5.3 L of fluid removed. She was started on medications including lactulose, Lasix and spironolactone then discharged home. She states that her liver function was improving and therefore they felt she was stable enough to go home. The plan was for her to follow-up with her primary care physician for further referrals and workup. The patient however has been unable to get in with her primary care physician and has not had any referrals to this point. She states that she has been weak and having trouble at home but was otherwise doing better. She states that she stopped drinking and smoking since November. She states that she returned to the emergency room on January 02, 2018 as she was having blood in her stools. She was seen again at [facility] emergency department and given the possibility of possible variceal bleed the patient was again sent to [facility]. There she states that she stopped having any further blood in her stools and was washed till 01/06/2018 but never did she undergo endoscopy or colonoscopy. She states that she was discharged home with Protonix. She states that while she was at [facility] she began developing a cough which continued to worsen over the last week. She states she is also had worsening shortness of breath which initially was occurring with exertion but now is occurring with rest. She denies any chest pain, she denies any fevers or chills. She also admits that she has had increasing distention of her abdomen and increasing lower extremity swelling. She states that she has been compliant with her medications at home. She presented to the emergency room today with worsening shortness of breath and cough. She states the cough is nonproductive. The patient also admits to some nausea last night. Patient denies any headaches, blurred vision, runny nose, sore throat, nasal ingestion, difficulty swallowing, orthopnea, PND, abdominal pain, vomiting, diarrhea, constipation, urinary urgency, urinary frequency, dysuria, joint pain , muscle aches, back pain, neck stiffness, recent unintentional weight loss, changes in her appetite, new skin rashes, hair loss, polydipsia, polyuria, night sweats or any focal neurologic deficits. On presentation to the emergency department the patient was afebrile however she was tachycardic with heart rate in the low 100s. The patient was also borderline hypotensive, tachypneic with respiratory rate of 24 and had an oxygen saturation of 91% on room air. The patient had conversational dyspnea and appeared to be in some respiratory distress. The patient underwent imaging with a chest x-ray which revealed a left basilar opacity with probable small left pleural effusion. The patient's WBC was elevated at 12.0. The patient's hemoglobin was stable at 8.9. The patient's bilirubin was significantly improved from previous at 6.1 and her LFTs were stable. Given the patient's mild hypoxia and significant symptoms of coughing and shortness of breath the patient was admitted to the hospital for healthcare associated pneumonia and given IV antibiotics. - HOSPITAL COURSE Hospital Course: The patient was hospitalized and treated for healthcare associated pneumonia with cefepime and Levaquin IV. She initially required oxygen and was having significant respiratory distress and coughing. The patient was weaned off of oxygen during her hospitalization and had significant improvement in her respiratory distress. By the time of discharge the patient was able to walk in her room without any significant shortness of breath. She also appeared to be comfortable at rest. She did continue to have a hacking cough but otherwise was afebrile with stable vital signs at the time of discharge. During the hospitalization the patient did receive a therapeutic paracentesis and 3.9 L were removed. The patient's Lasix and Aldactone doses were increased to 40 mg and 50 mg respectively. The patient however continued to have lower extremity swelling and appears to be reaccumulating ascites again. 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 The patient's leukocytosis remained stable for 3 days and likely there is some contribution of her steroids to the leukocytosis. The patient's repeat chest x-ray was read by radiologist as being worse however it appears to be stable and given that the patient has clinically improved she is being discharged home. She will be continued on oral antibiotics for 7 additional days with Levaquin. The patient was also given a prescription for Tessalon Perles and for Mucinex to help with her cough. It was stressed to the patient many times during the hospitalization that it is extremely important that she see her primary care physician and get a referral for gastroenterology. It was also explained to her that her mortality is very very high at this time because of her liver disease. At the time of discharge the patient's meld score was 22 giving her a 19.6% chance of mortality in the next 3 months. Although the patient's bilirubin did improve during the hospitalization it seems to have flattened out. The patient will continue a taper of steroids which were started at [facility] and will be taking 20 mg of prednisone for the next 5 days and then 10 mg of prednisone for 6 days before completing the taper. - ALLERGIES Allergies/Adverse Reactions: Allergies Allergy/AdvReac Type Severity Reaction Status Date / Time amoxicillin Allergy Unknown Verified 12/08/17 11:42 ampicillin Allergy Unknown Verified 12/08/17 11:42 - MEDICATIONS Home Medications: Ambulatory Orders Medication Instructions Recorded Confirmed Cholecalciferol (Vitamin D3) 2,000 units PO DAILY 01/08/18 01/08/18 [Vitamin D3] Cyanocobalamin (Vitamin B-12) 500 mcg PO DAILY 01/08/18 01/08/18 [Vitamin B-12 (100mcg tab)] Lactulose 20 gm PO TID 01/08/18 01/08/18 Multivit with Calcium,Iron,Min 1 tab PO DAILY 01/08/18 01/08/18 [Multiple Vitamins For Women] Pantoprazole [Protonix] 40 mg PO DAILY 01/08/18 01/08/18 Benzonatate [Tessalon] 100 mg PO TID PRN #15 capsule 01/12/18 Furosemide 40 mg PO DAILY #0 01/12/18 01/08/18 Levofloxacin [Levaquin] 500 mg PO DAILY #7 tablet 01/12/18 Spironolactone 50 mg PO DAILY #0 01/12/18 01/08/18 guaiFENesin [Mucinex] 600 mg PO BID #10 tablet 01/12/18 predniSONE [Deltasone] 20 mg PO DAILYWM #8 tablet 01/12/18 - PHYSICAL EXAM AT DISCHARGE General Appearance: positive: No acute distress, Alert, Other (Jaundiced) Eyes Bilateral: positive: Normal inspection, PERRL, EOMI, No lid inflammation, Conjunctivae nml, Other (Scleral icterus) ENT: positive: ENT inspection nml, Pharynx nml, Dry mucous membranes. negative : Purulent nasal drainage, Pharyngeal erythema, Oral lesions Neck: positive: Nml inspection, Thyroid nml, No JVD, Trachea midline. negative : Thyromegaly, Lymphadenopathy (R), Lymphadenopathy (L), Stiff neck, Carotid bruit, Tracheal deviation Respiratory: positive: Chest non-tender, No respiratory distress, Rales (bases) , Rhonchi (improving) Cardiovascular: positive: Regular rate & rhythm, No murmur, No gallop Peripheral Pulses: positive: 2+ Abdomen: positive: Non-tender, No organomegaly, Nml bowel sounds, No distention. negative: Guarding, Rebound, Hepatomegaly Back: positive: Nml inspection. negative: CVA tenderness (R), CVA tenderness (L ) Skin: positive: Warm, Other (jaundiced). negative: Diaphoresis, Pallor Extremities: positive: Non-tender, Full ROM, Nml appearance, Pedal edema (4+ bilateral LE edema) Neurologic/Psychiatric: positive: Oriented x3, CN's nml (2-12), Motor nml, Sensation nml, Mood/affect nml - LABS Result Diagrams: 01/12/18 05:05 01/12/18 05:05 Other Lab Results: Laboratory Results WBC 15.6 x10^3/uL (4.8-10.8) H 01/12/18 05:05 RBC 2.50 10^6/uL (4.20-5.40) L 01/12/18 05:05 Hgb 9.6 g/dL (12.0-16.0) L 01/12/18 05:05 Hct 28.8 % (37.0-47.0) L 01/12/18 05:05 MCV 115.0 fL (81.0-99.0) H 01/12/18 05:05 MCH 38.5 pg (27.0-31.0) H 01/12/18 05:05 MCHC 33.5 g/dL (32.0-36.0) 01/12/18 05:05 RDW 16.6 % (12.0-15.0) H 01/12/18 05:05 Plt Count 167 10^3/uL (130-450) 01/12/18 05:05 MPV 7.2 fL (7.9-10.8) L 01/12/18 05:05 Neut # (Auto) 13.3 10^3/uL (1.5-6.6) H 01/12/18 05:05 Lymph # (Auto) 1.6 10^3/uL (1.5-3.5) 01/12/18 05:05 Sac # (Auto) 0.6 10^3/uL (0.0-1.0) 01/12/18 05:05 Eos # (Auto) 0.0 10^3/uL (0.0-0.7) 01/12/18 05:05 Baso # (Auto) 0.0 10^3/uL (0.0-0.1) 01/12/18 05:05 Absolute Nucleated RBC 0.00 x10^3/uL 01/12/18 05:05 Nucleated RBC % 0.0 /100WBC 01/12/18 05:05 Manual Slide Review Indicated 01/12/18 05:05 WBC Morphology NORMAL APPEARANCE (NORMAL) 01/08/18 09:33 Platelet Estimate NORMAL (130-450,000) (NORMAL) 01/12/18 05:05 Platelet Morphology NORMAL APPEARANCE (NORMAL) 01/09/18 06:05 RBC Morph Micro Appear 1+ ANISOCYTOSIS (NORMAL) 3+ MACROCYTOSIS (NORMAL) 1+ HYPOCHROMASIA (NORMAL) 1+ OVALOCYTES (NORMAL) 1+ TEARDROP CELLS (NORMAL) 06:05 RBC Morph Micro Appear 1+ ANISOCYTOSIS (NORMAL) 3+ MACROCYTOSIS (NORMAL) 1+ HYPOCHROMASIA (NORMAL) 1+ OVALOCYTES (NORMAL) 1+ TEARDROP CELLS (NORMAL) 06:05 RBC Morph Micro Appear 1+ ANISOCYTOSIS (NORMAL) 3+ MACROCYTOSIS (NORMAL) 1+ HYPOCHROMASIA (NORMAL) 1+ OVALOCYTES (NORMAL) 1+ TEARDROP CELLS (NORMAL) 06:05 RBC Morph Micro Appear 1+ ANISOCYTOSIS (NORMAL) 3+ MACROCYTOSIS (NORMAL) 1+ HYPOCHROMASIA (NORMAL) 1+ OVALOCYTES (NORMAL) 1+ TEARDROP CELLS (NORMAL) 06:05 RBC Morph Micro Appear 1+ ANISOCYTOSIS (NORMAL) 3+ MACROCYTOSIS (NORMAL) 1+ HYPOCHROMASIA (NORMAL) 1+ OVALOCYTES (NORMAL) 1+ TEARDROP CELLS (NORMAL) 06:05 RBC Morph Micro Appear 1+ ANISOCYTOSIS (NORMAL) 2+ MACROCYTOSIS (NORMAL) 1+ HYPOCHROMASIA (NORMAL) 1+ POLYCHROMASIA (NORMAL) 1+ TEARDROP CELLS (NORMAL) 1 + OVALOCYTES (NORMAL) 01/10/18 05:15 RBC Morph Micro Appear 1+ ANISOCYTOSIS (NORMAL) 2+ MACROCYTOSIS (NORMAL) 1+ HYPOCHROMASIA (NORMAL) 1+ POLYCHROMASIA (NORMAL) 1+ TEARDROP CELLS (NORMAL) 1 + OVALOCYTES (NORMAL) 01/10/18 05:15 RBC Morph Micro Appear 1+ ANISOCYTOSIS (NORMAL) 2+ MACROCYTOSIS (NORMAL) 1+ HYPOCHROMASIA (NORMAL) 1+ POLYCHROMASIA (NORMAL) 1+ TEARDROP CELLS (NORMAL) 1 + OVALOCYTES (NORMAL) 01/10/18 05:15 RBC Morph Micro Appear 1+ ANISOCYTOSIS (NORMAL) 2+ MACROCYTOSIS (NORMAL) 1+ HYPOCHROMASIA (NORMAL) 1+ POLYCHROMASIA (NORMAL) 1+ TEARDROP CELLS (NORMAL) 1 + OVALOCYTES (NORMAL) 01/10/18 05:15 RBC Morph Micro Appear 1+ ANISOCYTOSIS (NORMAL) 2+ MACROCYTOSIS (NORMAL) 1+ HYPOCHROMASIA (NORMAL) 1+ POLYCHROMASIA (NORMAL) 1+ TEARDROP CELLS (NORMAL) 1 + OVALOCYTES (NORMAL) 01/10/18 05:15 RBC Morph Micro Appear 1+ ANISOCYTOSIS (NORMAL) 2+ MACROCYTOSIS (NORMAL) 1+ HYPOCHROMASIA (NORMAL) 1+ POLYCHROMASIA (NORMAL) 1+ TEARDROP CELLS (NORMAL) 1 + OVALOCYTES (NORMAL) 01/10/18 05:15 RBC Morph Micro Appear 2+ MACROCYTOSIS (NORMAL) 1+ HYPOCHROMASIA (NORMAL) 1+ POLYCHROMASIA (NORMAL) 01/11/18 04:50 RBC Morph Micro Appear 2+ MACROCYTOSIS (NORMAL) 1+ HYPOCHROMASIA (NORMAL) 1+ POLYCHROMASIA (NORMAL) 01/11/18 04:50 RBC Morph Micro Appear 2+ MACROCYTOSIS (NORMAL) 1+ HYPOCHROMASIA (NORMAL) 1+ POLYCHROMASIA (NORMAL) 01/11/18 04:50 RBC Morph Micro Appear 2+ MACROCYTOSIS (NORMAL) 1+ HYPOCHROMASIA (NORMAL) 1+ POLYCHROMASIA (NORMAL) 01/12/18 05:05 RBC Morph Micro Appear 2+ MACROCYTOSIS (NORMAL) 1+ HYPOCHROMASIA (NORMAL) 1+ POLYCHROMASIA (NORMAL) 01/12/18 05:05 RBC Morph Micro Appear 2+ MACROCYTOSIS (NORMAL) 1+ HYPOCHROMASIA (NORMAL) 1+ POLYCHROMASIA (NORMAL) 01/12/18 05:05 PT 17.4 secs (9.9-12.6) H 01/12/18 05:05 INR 1.6 (0.8-1.2) H 01/12/18 05:05 Sodium 130 mmol/L (135-145) L 01/12/18 05:05 Potassium 2.8 mmol/L (3.5-5.0) L 01/12/18 05:05 Chloride 98 mmol/L (101-111) L 01/12/18 05:05 Carbon Dioxide 24 mmol/L (21-32) 01/12/18 05:05 Anion Gap 8.0 (6-13) 01/12/18 05:05 BUN 14 mg/dL (6-20) 01/12/18 05:05 Creatinine 0.5 mg/dL (0.4-1.0) 01/12/18 05:05 Estimated GFR (MDRD) 134 (>89) 01/12/18 05:05 Glucose 99 mg/dL (70-100) 01/12/18 05:05 Calcium 7.6 mg/dL (8.5-10.3) L 01/12/18 05:05 Phosphorus 3.0 mg/dL (2.5-4.6) 01/12/18 05:05 Magnesium 1.9 mg/dL (1.7-2.8) 01/12/18 05:05 Total Bilirubin 4.6 mg/dL (0.2-1.0) H 01/12/18 05:05 AST 235 IU/L (10-42) H 01/12/18 05:05 ALT 115 IU/L (10-60) H 01/12/18 05:05 Alkaline Phosphatase 260 IU/L (42-121) H 01/12/18 05:05 B-Natriuretic Peptide 92 pg/mL (5-100) 01/08/18 09:33 Total Protein 5.0 g/dL (6.7-8.2) L 01/12/18 05:05 Albumin 1.9 g/dL (3.2-5.5) L 01/12/18 05:05 Globulin 3.1 g/dL (2.1-4.2) 01/12/18 05:05 Albumin/Globulin Ratio 0.6 (1.0-2.2) L 01/12/18 05:05 Lipase 95 U/L (22-51) H 01/08/18 09:33 Urine Color BROWN 01/08/18 17:04 Urine Clarity CLOUDY (CLEAR) 01/08/18 17:04 Urine pH 6.0 PH (5.0-7.5) 01/08/18 17:04 Ur Specific [place] >=1.030 (1.002-1.030) H 01/08/18 17:04 Urine Protein NEGATIVE mg/dL (NEGATIVE) 01/08/18 17:04 Urine Glucose (UA) NEGATIVE mg/dL (NEGATIVE) 01/08/18 17:04 Urine Ketones NEGATIVE mg/dL (NEGATIVE) 01/08/18 17:04 Urine Occult Blood NEGATIVE (NEGATIVE) 01/08/18 17:04 Urine Nitrite NEGATIVE (NEGATIVE) 01/08/18 17:04 Urine Bilirubin MODERATE (NEGATIVE) H 01/08/18 17:04 Urine Urobilinogen 0.2 (NORMAL) E.U./dL (NORMAL) 01/08/18 17:04 Ur Leukocyte Esterase NEGATIVE (NEGATIVE) 01/08/18 17:04 Urine RBC 0-5 /HPF (0-5) 01/08/18 17:04 Urine WBC 4-5 /HPF (0-5) 01/08/18 17:04 Ur Epithelial Cells RARE Transitional /HPF (<= Few) 01/08/18 17:04 Ur Squamous Epith Cells RARE Squamous (<= Few) 01/08/18 17:04 Amorphous Sediment Few /LPF 01/08/18 17:04 Urine Bacteria Rare /HPF (None Seen) 01/08/18 17:04 Urine Mucus Few Strands 01/08/18 17:04 Ur Microscopic Review INDICATED 01/08/18 17:04 Urine Culture Comments NOT INDICATED 01/08/18 17:04 Urine Opiates Screen POSITIVE (NEGATIVE) H 01/08/18 17:04 Ur Oxycodone Screen NEGATIVE (NEGATIVE) 01/08/18 17:04 Urine Methadone Screen NEGATIVE (NEGATIVE) 01/08/18 17:04 Ur Propoxyphene Screen NEGATIVE (NEGATIVE) 01/08/18 17:04 Ur Barbiturates Screen NEGATIVE (NEGATIVE) 01/08/18 17:04 Ur Tricyclics Screen NEGATIVE (NEGATIVE) 01/08/18 17:04 Ur Phencyclidine Scrn NEGATIVE (NEGATIVE) 01/08/18 17:04 Ur Amphetamine Screen NEGATIVE (NEGATIVE) 01/08/18 17:04 U Methamphetamines Scrn NEGATIVE (NEGATIVE) 01/08/18 17:04 U Benzodiazepines Scrn NEGATIVE (NEGATIVE) 01/08/18 17:04 Urine Cocaine Screen NEGATIVE (NEGATIVE) 01/08/18 17:04 U Cannabinoids Screen NEGATIVE (NEGATIVE) 01/08/18 17:04 Ethyl Alcohol < 5.0 mg/dL 07/10/18 09:33 - DIAGNOSTIC IMAGING Diagnostic Imaging Results: Final report reviewed Diagnostic Imaging Results Comments: Chest x-ray 01/08/2018 Impression: Left basilar opacity and probable small left pleural effusion. Infection is not excluded Chest x-ray 01/12/2018 Impression: Small to moderate left pleural effusion with associated basilar opacity have radiographically increased compared to prior. No new consolidation. Paracentesis ultrasound Impression: Successful ultrasound-guided paracentesis, yielding approximately 3900 mL of fluid - FOLLOW UP Follow Up: The patient was discharged home after being treated for healthcare associated pneumonia with IV antibiotics for 4 days. She is to continue on oral antibiotics with Levaquin for an additional 7 days. She was also prescribed a cough suppressant with Mucinex and Tessalon Perles. The patient will need close follow-up with her primary care physician and a referral to gastroenterology as she has alcoholic hepatitis that appears to have led to liver failure with ascites. The patient will likely need further adjustments on her Lasix and Aldactone doses and will need a surveillance EGD to look for esophageal varices. She was continued on lactulose. The patient will likely need a transplant in the future. - TIME SPENT Time Spent in Discharge (Minutes): 45
[2018-01-12] MEDS: levoFLOXacin 750 MG/150 ML 750 MG/150 ML BAG IV SCH (13:54)
[2018-01-12 15:26] VITALS: BP 123/83
== END 2018-01-12 15:20 | disposition home or self-care (01) | DRG 194 ==
LOC: EDUNIT# → ED 08:41 → MS2 12:33
PROVIDERS: ADMIT Internal Medicine; ATTEND Internal Medicine
PROC: 0W9G3ZZ Drainage of Peritoneal Cavity, Percutaneous Approach (ICD-10-PCS; principal; 2018-01-10)
DX: J18.9 Pneumonia, unspecified organism (principal); E87.1 Hypo-osmolality and hyponatremia; Y95 Nosocomial condition; K70.31 Alcoholic cirrhosis of liver with ascites; F10.11 Alcohol abuse, in remission; E87.6 Hypokalemia; Z98.84 Bariatric surgery status; Z79.52 Long term (current) use of systemic steroids; Z87.891 Personal history of nicotine dependence
CPT/HCPCS: 36415; 49083; 71045; 71046; 80053; 80306; 80320; 81001; 81003; 83690; 83735; 83880; 84100; 85025; 85610; 87086; 94640; 94667; 94668; 99284; 99285

== ENCOUNTER 2018-01-14 21:30 | Outpatient (CLI) | payer MEDICAID | END 2018-01-14 21:31 | disposition short-term general hospital (02) | LOC: EMS 21:30 | PROVIDERS: ATTEND Surgery | DX: R06.00 Dyspnea, unspecified (principal); R60.9 Edema, unspecified | CPT/HCPCS: A0425; A0427; A0999 ==

== ENCOUNTER 2018-01-16 21:36 | Outpatient (CLI) | payer MEDICAID | END 2018-01-16 21:37 | disposition critical access hospital (66) | LOC: EMS 21:36 | PROVIDERS: ATTEND Surgery | DX: R06.02 Shortness of breath (principal); R05 Cough | CPT/HCPCS: A0425; A0427; A0999 ==

== ENCOUNTER 2018-01-16 22:00 | Emergency (ER) | payer MEDICAID ==
[2018-01-16 22:27] LABS: BASOPHILS % (AUTO) 0.4 %; EOSINOPHILS % (AUTO) 0.3 %; HGB - HEMOGLOBIN 9.7 g/dL (12.0-16.0); LYMPHOCYTES % (AUTO) 6.7 %; MEAN CORPUSCULAR HEMOGLOBIN 37.5 pg (27.0-31.0); MEAN CORPUSCULAR HGB CONC 33.3 g/dL (32.0-36.0); MEAN CORPUSCULAR VOLUME 112.7 fL (81.0-99.0); MEAN PLATELET VOLUME 7.4 fL (7.9-10.8); MONOCYTES % (AUTO) 4.9 %; NEUTROPHILS % (AUTO) 87.7 %; PLT - PLATELET COUNT 179 10^3/uL (130-450); RED CELL DISTRIBUTION WIDTH 16.2 % (12.0-15.0)
[2018-01-16 22:28] LABS: INR 1.5 (0.8-1.2); PT - PROTHROMBIN TIME 16.7 secs (9.9-12.6)
[2018-01-16 22:33] LABS: ABNORMAL LYMPHS % (MANUAL) 0 %
[2018-01-16 22:35] LABS: ALBUMIN 2.1 g/dL (3.2-5.5); ALBUMIN/GLOBULIN RATIO 0.6 (1.0-2.2); BILIRUBIN,TOTAL 5.4 mg/dL (0.2-1.0); CREATININE 0.4 mg/dL (0.4-1.0); TOTAL PROTEIN 5.6 g/dL (6.7-8.2)
[2018-01-16 22:44] LABS: BAND NEUTROPHILS % (MANUAL) 3 %; DIFFERENTIAL COMMENT MANUAL DIFFERENTIAL; LYMPHOCYTES # (MANUAL) 0.8 10^3/uL (1.5-3.5); LYMPHOCYTES % (MANUAL) 5 %; MONOCYTES # (MANUAL) 0.2 10^3/uL (0.0-1.0); NEUTROPHILS # (MANUAL) 14.1 10^3/uL (1.5-6.6); NEUTROPHILS % (MANUAL) 91 %; PLATELET ESTIMATE, MANUAL NORMAL (130-450,000) (NORMAL); PLATELET MORPHOLOGY NORMAL APPEARANCE (NORMAL); RBC MORPHOLOGY (MULTIPLE) 4+ MACROCYTOSIS (NORMAL)
--- NOTE | 2018-01-16 23:03 | XRAY Report ---
Procedure Date: 01/16/2018 Accession Number: [id number] / [id number] Procedure: XR - Chest 1 View X-Ray CPT Code: 16362 FULL RESULT: EXAM: CHEST RADIOGRAPHY EXAM DATE: 01/16/2018 10:30 PM. CLINICAL HISTORY: Cough and shortness of breath. COMPARISON: CHEST 1 VIEW 01/12/2018 11:07 AM. TECHNIQUE: 1 view. FINDINGS: Lungs/Pleura: Small lung volumes. Focal left basilar airspace opacity is improved. Trace left pleural effusion. Mediastinum: Rotated. Within exam limitations, heart size is upper normal. Other: None. IMPRESSION: 1. Rotated exam with small lung volumes and borderline heart size. 2. Improved airspace opacity at the left base with trace residual left pleural effusion. RADIA
--- NOTE | 2018-01-16 23:40 | ED Physician Documentation ---
PD HPI DYSPNEA - Stated complaint Stated Complaint: SOA, COUGH - Chief complaint Chief Complaint: Resp - History obtained from History obtained from: Patient, EMS - History of Present Illness Timing - onset: Chronic Timing - onset during: Rest Timing - details: Gradual onset, Now resolved Worsened by: Exertion Similar symptoms before: Work up / diagnostics, Treatment Recently seen: Emergency Dept - Additional information Additional information: Patient is a 42 year old female with a history of cirrhosis secondary to alcohol abuse who called ems for shortness of breath. Patient states that she had the same symptoms yesterday and went to [facility]. A paracentisis was performed and showed no acute infection. patient also has a follow up appointment with her doctor. Upon initial evaluation in the emergency department patient reports that she was starting to feel a bit better already. patient denies fever or chills. Review of Systems Constitutional: denies: Fever, Chills Cardiac: reports: Pedal edema. denies: Chest pain / pressure, Palpitations Respiratory: reports: Dyspnea. denies: Cough, Wheezing GI: reports: Abdominal Pain, Abdominal Swelling. denies: Nausea, Vomiting Skin: denies: Rash Neurologic: denies: Generalized weakness, Focal weakness PD PAST MEDICAL HISTORY - Past Medical History Past Medical History: Yes Respiratory: Pneumonia, Shortness of breath Endocrine/Autoimmune: HyPOthyroidism GI: Hepatitis, Cirrhosis : None HEENT: Chronic vision loss Psych: None Musculoskeletal: None - Past Surgical History Past Surgical History: Yes General: Gastric surgery Ortho: Arthroscopic surgery /SPEECH CORRECTION CONSULTANT: section HEENT: Myringotomy (tubes) - Present Medications Home Medications: Ambulatory Orders Medication Instructions Recorded Confirmed Cholecalciferol (Vitamin D3) 2,000 units PO DAILY 01/08/18 01/08/18 [Vitamin D3] Cyanocobalamin (Vitamin B-12) 500 mcg PO DAILY 01/08/18 01/08/18 [Vitamin B-12 (100mcg tab)] Lactulose 20 gm PO TID 01/08/18 01/08/18 Multivit with Calcium,Iron,Min 1 tab PO DAILY 01/08/18 01/08/18 [Multiple Vitamins For Women] Pantoprazole [Protonix] 40 mg PO DAILY 01/08/18 01/08/18 Benzonatate [Tessalon] 100 mg PO TID PRN #15 capsule 01/12/18 Furosemide 40 mg PO DAILY #0 01/12/18 01/08/18 Levofloxacin [Levaquin] 500 mg PO DAILY #7 tablet 01/12/18 Spironolactone 50 mg PO DAILY #0 01/12/18 01/08/18 guaiFENesin [Mucinex] 600 mg PO BID #10 tablet 01/12/18 predniSONE [Deltasone] 20 mg PO DAILYWM #8 tablet 01/12/18 - Allergies Allergies/Adverse Reactions: Allergies Allergy/AdvReac Type Severity Reaction Status Date / Time amoxicillin Allergy Unknown Verified 01/16/18 22:05 ampicillin Allergy Unknown Verified 01/16/18 22:05 - Social History Does the pt smoke?: No Smoking Status: Never smoker Does the pt drink ETOH?: No Does the pt have substance abuse?: No - Immunizations Immunizations are current?: Yes - POLST Patient has POLST: No POLST Status: Full Code PD ED PE NORMAL - Vitals Vital signs reviewed: Yes - General General: Alert and oriented X 3 - HEENT HEENT: Atraumatic - Cardiac Cardiac: RRR - Abdomen Abdomen: Non distended PD ED PE EXPANDED - HEENT HEENT: Scleral icterus, Dry mucous membranes - Eyes Eyes: Scleral icterus - Derm Derm: Jaundiced - Extremities Extremities: Pedal edema bilateral Results - Vitals Vitals: Vital Signs - 24 hr 01/16/18 01/17/18 22:01 00:07 Temperature 36.1 C L 36.8 C Heart Rate 103 H 106 H Respiratory 20 18 Rate Blood Pressure 119/69 102/64 O2 Saturation 97 97 Oxygen O2 Source Room air - Labs Labs: Laboratory Tests 01/16/18 01/16/18 01/16/18 22:18 22:18 22:18 WBC 15.0 H RBC 2.60 L Hgb 9.7 L Hct 29.3 L MCV 112.7 H MCH 37.5 H MCHC 33.3 RDW 16.2 H Plt Count 179 MPV 7.4 L Neut # (Auto) Not Reportable Lymph # (Auto) Not Reportable [place] # (Auto) Not Reportable Eos # (Auto) Not Reportable Baso # (Auto) Not Reportable Absolute Nucleated RBC Not Reportable Total Counted 100 Band Neuts % (Manual) 3 Abnorm Lymph % (Manual) 0 Nucleated RBC % Not Reportable Neutrophils # (Manual) 14.1 H Lymphocytes # (Manual) 0.8 L Monocytes # (Manual) 0.2 Eosinophils # (Manual) 0.0 Basophils # (Manual) 0.0 Differential Comment MANUAL DIFFERENTIAL Manual Slide Review Indicated WBC Morphology NORMAL APPEARANCE Platelet Estimate NORMAL (130-450,000) Platelet Morphology NORMAL APPEARANCE RBC Morph Micro Appear 4+ MACROCYTOSIS PT 16.7 H INR 1.5 H APTT 29.4 Sodium 129 L Potassium 3.4 L Chloride 96 L Carbon Dioxide 26 Anion Gap 7.0 BUN 14 Creatinine 0.4 Estimated GFR (MDRD) 173 Glucose 129 H Calcium 8.0 L Total Bilirubin 5.4 H AST 172 H ALT 99 H Alkaline Phosphatase 267 H Total Protein 5.6 L Albumin 2.1 L Globulin 3.5 Albumin/Globulin Ratio 0.6 L Lipase 79 H - Rads (name of study) chest x-ray Radiology: Final report received (resolution of infiltrate, small pleural effusion) PD MEDICAL DECISION MAKING - ED course Complexity details: reviewed old records, reviewed results, re-evaluated patient , considered differential, d/w patient ED course: patient was seen and examined at bedside. IV access was gained and labs were drawn. chest x-ray was performed. While the patient is a relatively ill women with liver failure there were no acute worsening or her symptoms. Her blood work and x-ray were actually improved from patient's baseline. Patient had outpatient follow up in the morning. Patient was not hypoxic or septic. Patient required no further inpatient work up and was stable for discharge with outpatient follow up. - Sepsis Event Vital Signs: Vital Signs - 24 hr 01/16/18 01/17/18 22:01 00:07 Temperature 36.1 C L 36.8 C Heart Rate 103 H 106 H Respiratory 20 18 Rate Blood Pressure 119/69 102/64 O2 Saturation 97 97 Oxygen O2 Source Room air Departure - Departure Disposition: Home, Self Care Clinical Impression: Liver failure Condition: Good Instructions: ED Cirrhosis Liver Follow-Up: primary,care tomorrow [Other] - Tomorrow Comments: Your diagnostics today were unchanged from your previous lab values. You are still in liver failure but no acute exacerbations. you should follow up at your appointment tomorrow for further evaluation and care. you may return to the emergency department at any time for new worsening or uncontrollable symptoms. Discharge Date/Time: 01/17/18 00:09
[2018-01-17 00:09] VITALS: BP 102/64
== END 2018-01-17 00:09 | disposition home or self-care (01) ==
LOC: EDUNIT# → ED 22:00
DX: K72.90 Hepatic failure, unspecified without coma (principal); K75.9 Inflammatory liver disease, unspecified; E03.9 Hypothyroidism, unspecified
CPT/HCPCS: 36415; 71045; 80053; 83690; 85025; 85610; 85730; 99282; 99283

== ENCOUNTER 2018-01-21 04:43 | Outpatient (CLI) | payer MEDICAID | END 2018-01-21 04:44 | disposition critical access hospital (66) | LOC: EMS 04:43 | PROVIDERS: ATTEND Surgery | DX: R06.00 Dyspnea, unspecified (principal); R05 Cough | CPT/HCPCS: A0425; A0427; A0999 ==

== ENCOUNTER 2018-01-21 05:06 | Emergency (ER) | payer MEDICAID ==
--- NOTE | 2018-01-21 05:36 | ED Physician Documentation ---
History of Present Illness - Stated complaint Stated Complaint: SOA - Chief complaint Chief Complaint: Resp - History obtained from History obtained from: Patient - Additonal information Additional information: 42-year-old female presents to the emergency department for evaluation of shortness of breath. The patient woke up feeling short of breath, then the patient called EMS. The patient reports having cough associated with the shortness of breath. The patient was given a breathing treatment in route and now feels improved. The patient denies fever, chills or chest pain. The patient was recently diagnosed with liver failure. The patientDenies any specific triggering factor. Symptoms are described as moderate. Review of Systems Constitutional: denies: Fever, Chills Eyes: denies: Discharge Ears: denies: Loss of hearing Nose: denies: Congestion Throat: denies: Dental pain / toothache Cardiac: denies: Chest pain / pressure Respiratory: reports: Dyspnea GI: denies: Nausea, Vomiting : denies: Dysuria Skin: denies: Rash Musculoskeletal: denies: Neck pain Neurologic: denies: Generalized weakness Immunocompromised: denies: Chemotherapy PD PAST MEDICAL HISTORY - Past Medical History Respiratory: Pneumonia, Shortness of breath Endocrine/Autoimmune: HyPOthyroidism GI: Hepatitis, Cirrhosis : None HEENT: Chronic vision loss Psych: None Musculoskeletal: None - Past Surgical History Past Surgical History: Yes General: Gastric surgery Ortho: 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 HEENT: Myringotomy (tubes) - Present Medications Home Medications: Ambulatory Orders Medication Instructions Recorded Confirmed Cholecalciferol (Vitamin D3) 2,000 units PO DAILY 01/08/18 01/08/18 [Vitamin D3] Cyanocobalamin (Vitamin B-12) 500 mcg PO DAILY 01/08/18 01/08/18 [Vitamin B-12 (100mcg tab)] Lactulose 20 gm PO TID 01/08/18 01/08/18 Multivit with Calcium,Iron,Min 1 tab PO DAILY 01/08/18 01/08/18 [Multiple Vitamins For Women] Pantoprazole [Protonix] 40 mg PO DAILY 01/08/18 01/08/18 Benzonatate [Tessalon] 100 mg PO TID PRN #15 capsule 01/12/18 Furosemide 40 mg PO DAILY #0 01/12/18 01/08/18 Levofloxacin [Levaquin] 500 mg PO DAILY #7 tablet 01/12/18 Spironolactone 50 mg PO DAILY #0 01/12/18 01/08/18 guaiFENesin [Mucinex] 600 mg PO BID #10 tablet 01/12/18 predniSONE [Deltasone] 20 mg PO DAILYWM #8 tablet 01/12/18 - Allergies Allergies/Adverse Reactions: Allergies Allergy/AdvReac Type Severity Reaction Status Date / Time amoxicillin Allergy Unknown Verified 01/16/18 22:05 ampicillin Allergy Unknown Verified 01/16/18 22:05 - Social History Does the pt smoke?: No Smoking Status: Never smoker Does the pt drink ETOH?: No Does the pt have substance abuse?: No - Immunizations Immunizations are current?: Yes - POLST Patient has POLST: No POLST Status: Full Code PD ED PE NORMAL - General General: Other (42-year-old female who appears chronically ill and is in a poor state of health. The patient appears to be in no significant distress) - HEENT HEENT: Atraumatic, PERRL, Ears normal - Cardiac Cardiac: RRR - Respiratory Respiratory: No respiratory distress - Abdomen Abdomen: Soft - Derm Derm: Normal color - Neuro Neuro: Alert and oriented X 3, Normal speech - Psych Psych: Normal mood PD ED PE EXPANDED - Cardiac Cardiac: Tachy, Regular Rhythm - Respiratory Respiratory: Rhonchi - Abdomen Abdomen: Other (The patient's abdomen is soft, distended from ascites, no rebound or peritoneal signs) - Extremities Extremities: Pedal edema bilateral Results - Vitals Vitals: Vital Signs - 24 hr 01/21/18 01/21/18 05:12 05:41 Temperature 36.8 C Heart Rate 104 H 90 Respiratory 20 18 Rate Blood Pressure 101/63 O2 Saturation 96 Oxygen O2 Source Room air - EKG (time done) 05:39 Rate: Rate (enter#) Rhythm: NSR Intervals: Normal MN, QRS normal Ischemia: Non specific changes Other comments: Other comments (Sinus rhythm with no acute ischemic changes) Compare to prior EKG: Old EKG unavailable - Labs Labs: Laboratory Tests 01/21/18 01/21/18 01/21/18 05:35 05:35 05:35 WBC 12.5 H RBC 2.53 L Hgb 9.4 L Hct 27.9 L MCV 110.4 H MCH 37.1 H MCHC 33.6 RDW 15.9 H Plt Count 194 MPV 7.4 L Neut # (Auto) 10.0 H Lymph # (Auto) 1.8 [place] # (Auto) 0.5 Eos # (Auto) 0.1 Baso # (Auto) 0.0 Absolute Nucleated RBC 0.00 Nucleated RBC % 0.0 PT INR APTT Sodium 133 L Potassium 3.4 L Chloride 97 L Carbon Dioxide 27 Anion Gap 9.0 BUN 12 Creatinine 0.5 Estimated GFR (MDRD) 134 Glucose 95 Calcium 7.8 L Magnesium 1.6 L Total Bilirubin 4.3 H AST 144 H ALT 82 H Alkaline Phosphatase 228 H Ammonia B-Natriuretic Peptide 62 Total Protein 5.3 L Albumin 2.2 L Globulin 3.1 Albumin/Globulin Ratio 0.7 L Lipase 79 H 01/21/18 01/21/18 05:56 05:56 WBC RBC Hgb Hct MCV MCH MCHC RDW Plt Count MPV Neut # (Auto) Lymph # (Auto) [place] # (Auto) Eos # (Auto) Baso # (Auto) Absolute Nucleated RBC Nucleated RBC % PT 17.3 H INR 1.6 H APTT 28.7 Sodium Potassium Chloride Carbon Dioxide Anion Gap BUN Creatinine Estimated GFR (MDRD) Glucose Calcium Magnesium Total Bilirubin AST ALT Alkaline Phosphatase Ammonia 20.9 B-Natriuretic Peptide Total Protein Albumin Globulin Albumin/Globulin Ratio Lipase - Rads (name of study) CXR Radiology: Final report received, Other (Impression: 1. Borderline heart size with mild pulmonary vascular congestion 2. Mild lateral basilar atelectasis or infiltrate or small pleural effusion) PD MEDICAL DECISION MAKING - ED course ED course: The patient appears much improved on reevaluation, her symptoms are secondary to a combination of excess fluid and reactive airway disease. The patient appears appropriate for discharge home after an increased dose of Lasix. I have advised doubling up her Lasix dose for the next 3 days. The patient is scheduled to see her primary care tomorrow. The patient appears appropriate at this time for discharge and ongoing outpatient management. The patient's lab work appears to be along her baseline levels. There is been no significant changes in her lab work today. I discussed with the patient warning signs and recommended returning to the emergency department immediately for worsening or any concerns - Sepsis Event Vital Signs: Vital Signs - 24 hr 01/21/18 01/21/18 05:12 05:41 Temperature 36.8 C Heart Rate 104 H 90 Respiratory 20 18 Rate Blood Pressure 101/63 O2 Saturation 96 Oxygen O2 Source Room air Departure - Departure Disposition: 01 Home, Self Care Clinical Impression: Volume overload Qualifiers: Hypervolemia type: unspecified Qualified Code(s): E87.70 - Fluid overload, unspecified Dyspnea Qualifiers: Dyspnea type: unspecified Qualified Code(s): R06.00 - Dyspnea, unspecified Condition: Good Instructions: ED Dyspnea Shortness of Breath Follow-Up: Raquel Garcia ARNP [Primary Care Provider] - Tomorrow Comments: Please increase your Lasix to 40 mg twice a day for the next 3 days. Please talk with your primary care physician's cafeteria assistant about increasing your Lasix dose regularly to help Keep your fluid levels down. Please return to the emergency department immediately for worsening or any concerns
[2018-01-21] MEDS: IPRATROPIUM/ALBUTEROL 3 ML NEB INH STA (05:41)
[2018-01-21 05:52] LABS: BASOPHILS % (AUTO) 0.2 %; EOSINOPHILS # (AUTO) 0.1 10^3/uL (0.0-0.7); EOSINOPHILS % (AUTO) 0.8 %; HGB - HEMOGLOBIN 9.4 g/dL (12.0-16.0); LYMPHOCYTES # (AUTO) 1.8 10^3/uL (1.5-3.5); LYMPHOCYTES % (AUTO) 14.6 %; MEAN CORPUSCULAR HEMOGLOBIN 37.1 pg (27.0-31.0); MEAN CORPUSCULAR HGB CONC 33.6 g/dL (32.0-36.0); MEAN CORPUSCULAR VOLUME 110.4 fL (81.0-99.0); MEAN PLATELET VOLUME 7.4 fL (7.9-10.8); MONOCYTES # (AUTO) 0.5 10^3/uL (0.0-1.0); MONOCYTES % (AUTO) 3.9 %; NEUTROPHILS % (AUTO) 80.5 %; PLT - PLATELET COUNT 194 10^3/uL (130-450); RED BLOOD COUNT 2.53 10^6/uL (4.20-5.40); RED CELL DISTRIBUTION WIDTH 15.9 % (12.0-15.0); WHITE BLOOD COUNT 12.5 x10^3/uL (4.8-10.8)
[2018-01-21 05:57] LABS: ALBUMIN 2.2 g/dL (3.2-5.5); ALBUMIN/GLOBULIN RATIO 0.7 (1.0-2.2); BILIRUBIN,TOTAL 4.3 mg/dL (0.2-1.0); CALCIUM 7.8 mg/dL (8.5-10.3); CREATININE 0.5 mg/dL (0.4-1.0); MAGNESIUM 1.6 mg/dL (1.7-2.8); TOTAL PROTEIN 5.3 g/dL (6.7-8.2)
[2018-01-21 06:15] LABS: INR 1.6 (0.8-1.2); PT - PROTHROMBIN TIME 17.3 secs (9.9-12.6)
--- NOTE | 2018-01-21 06:26 | XRAY Report ---
Procedure Date: 01/21/2018 Accession Number: [id number] / [id number] Procedure: XR - Chest 2 View X-Ray CPT Code: 08085 FULL RESULT: EXAM: CHEST RADIOGRAPHY EXAM DATE: 01/21/2018 06:19 AM. CLINICAL HISTORY: Shortness of breath. COMPARISON: 01/16/2018. TECHNIQUE: 2 views. FINDINGS: Lungs/Pleura: Mild pulmonary vascular congestion. Mild left basilar atelectasis or infiltrate and small pleural effusion. No pneumothorax. Mediastinum: Within exam limitations, heart size is upper normal. Other: None. IMPRESSION: 1. Borderline heart size with mild pulmonary vascular congestion. 2. Mild left basilar atelectasis or infiltrate and small left pleural effusion. RADIA
[2018-01-21] MEDS: FUROSEMIDE 40 MG/4 ML VIAL IVP STA (06:33)
[2018-01-21 06:53] VITALS: BP 100/60
== END 2018-01-21 06:56 | disposition home or self-care (01) ==
LOC: EDUNIT# → SUPCPDRO 05:06 → ED 05:06
DX: E87.70 Fluid overload, unspecified (principal); J45.909 Unspecified asthma, uncomplicated; R18.8 Other ascites; K74.60 Unspecified cirrhosis of liver
CPT/HCPCS: 36415; 71046; 80053; 82140; 83690; 83735; 83880; 85025; 85610; 85730; 93005; 94640; 96374; 99283

== ENCOUNTER 2018-01-24 00:38 | Outpatient (CLI) | payer MEDICAID | END 2018-01-24 00:39 | disposition critical access hospital (66) | LOC: EMS 00:38 | PROVIDERS: ATTEND Surgery | DX: R06.00 Dyspnea, unspecified (principal); R05 Cough | CPT/HCPCS: A0425; A0427; A0999 ==

== ENCOUNTER 2018-01-24 01:00 | Emergency (ER) | payer MEDICAID ==
[2018-01-24] MEDS ORDERED: SPIRONOLACTONE 25 MG TABLET PO STA (01:19)
--- NOTE | 2018-01-24 01:21 | ED Physician Documentation ---
History of Present Illness - Stated complaint Stated Complaint: SOA, PEDAL EDEMA - Chief complaint Chief Complaint: Resp - History obtained from History obtained from: Patient, EMS - History of Present Illness Timing: How many days ago (several) Pain level max: 3 Pain level now: 2 - Additonal information Additional information: Patient is a 42-year-old female who presents to the emergency department with increasing shortness of breath for the past several days. States her albuterol inhaler only has 4 puffs left on it. Feels better after nebulizer treatment with EMS. She also has ascites and alcoholic liver disease. Ran out of her Spironolactone a few days ago. States increased swelling to the bilateral lower extremities. No fevers. No vomiting. The shortness of breath is worse with exertion and better with rest. Review of Systems Ten Systems: 10 systems reviewed and negative Constitutional: denies: Fever, Chills Nose: reports: Rhinorrhea / runny nose, Congestion Throat: denies: Sore throat Cardiac: denies: Chest pain / pressure Respiratory: denies: Hemoptysis GI: denies: Vomiting, Diarrhea Skin: denies: Rash Musculoskeletal: denies: Neck pain, Back pain Neurologic: denies: Focal weakness, Numbness, Headache PD PAST MEDICAL HISTORY - Past Medical History Past Medical History: Yes Respiratory: Pneumonia, Shortness of breath Endocrine/Autoimmune: HyPOthyroidism GI: Hepatitis, Cirrhosis : None HEENT: Chronic vision loss Psych: None Musculoskeletal: None - Past Surgical History Past Surgical History: Yes General: Gastric surgery Ortho: 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 HEENT: Myringotomy (tubes) - Present Medications Home Medications: Ambulatory Orders Medication Instructions Recorded Confirmed Cholecalciferol (Vitamin D3) 2,000 units PO DAILY 01/08/18 01/08/18 [Vitamin D3] Cyanocobalamin (Vitamin B-12) 500 mcg PO DAILY 01/08/18 01/08/18 [Vitamin B-12 (100mcg tab)] Lactulose 20 gm PO TID 01/08/18 01/08/18 Multivit with Calcium,Iron,Min 1 tab PO DAILY 01/08/18 01/08/18 [Multiple Vitamins For Women] Pantoprazole [Protonix] 40 mg PO DAILY 01/08/18 01/08/18 Benzonatate [Tessalon] 100 mg PO TID PRN #15 capsule 01/12/18 Furosemide 40 mg PO DAILY #0 01/12/18 01/08/18 Levofloxacin [Levaquin] 500 mg PO DAILY #7 tablet 01/12/18 Spironolactone 50 mg PO DAILY #0 01/12/18 01/08/18 guaiFENesin [Mucinex] 600 mg PO BID #10 tablet 01/12/18 predniSONE [Deltasone] 20 mg PO DAILYWM #8 tablet 01/12/18 Albuterol Sulf [Ventolin Hfa 1 - 2 puffs INH Q4HR PRN #1 inhaler 01/24/18 Inhaler] Spironolactone [Aldactone] 25 mg PO DAILY #30 tablet 01/24/18 predniSONE [Prednisone] 40 mg PO DAILY #10 tablet 01/24/18 - Allergies Allergies/Adverse Reactions: Allergies Allergy/AdvReac Type Severity Reaction Status Date / Time amoxicillin Allergy Unknown Verified 01/24/18 01:11 ampicillin Allergy Unknown Verified 01/24/18 01:11 - Social History Does the pt smoke?: No Smoking Status: Never smoker Does the pt drink ETOH?: Yes Does the pt have substance abuse?: No - Immunizations Immunizations are current?: Yes - POLST Patient has POLST: No POLST Status: Full Code PD ED PE NORMAL - Vitals Vital signs reviewed: Yes - General General: Alert and oriented X 3, No acute distress - HEENT HEENT: PERRL, Ears normal, Moist mucous membranes, Pharynx benign - Neck Neck: Supple, no meningeal sign - Cardiac Cardiac: RRR, Strong equal pulses - Respiratory Respiratory: No respiratory distress, Other (Diminished breath sounds bilaterally) - Abdomen Abdomen: Soft, Non tender, Other (Mild distention, not tense) - Derm Derm: Warm and dry, No rash - Extremities Extremities: Other (1+ bilateral lower extremity edema) - Neuro Neuro: Alert and oriented X 3 - Psych Psych: Normal mood, Normal affect Results - Vitals Vitals: Vital Signs - 24 hr 01/24/18 01/24/18 01/24/18 01:02 02:30 03:20 Temperature 36.4 C L Heart Rate 117 H 123 H 71 Respiratory 20 22 18 Rate Blood Pressure 117/73 116/66 O2 Saturation 100 98 Oxygen O2 Source Room air - Labs Labs: Laboratory Tests 01/24/18 01/24/18 01:50 01:50 WBC 12.0 H RBC 2.55 L Hgb 9.3 L Hct 28.5 L MCV 111.7 H MCH 36.3 H MCHC 32.5 RDW 16.6 H Plt Count 238 MPV 7.0 L Neut # (Auto) 9.1 H Lymph # (Auto) 1.9 [place] # (Auto) 0.5 Eos # (Auto) 0.1 Baso # (Auto) 0.3 H Absolute Nucleated RBC 0.01 Nucleated RBC % 0.1 Manual Slide Review Indicated Platelet Estimate NORMAL (130-450,000) RBC Morph Micro Appear 1+ POLYCHROMASIA Sodium 137 Potassium 3.1 L Chloride 98 L Carbon Dioxide 28 Anion Gap 11.0 BUN 14 Creatinine 0.5 Estimated GFR (MDRD) 134 Glucose 114 H Calcium 8.2 L Total Bilirubin 4.5 H AST 107 H ALT 68 H Alkaline Phosphatase 232 H Total Protein 5.3 L Albumin 2.3 L Globulin 3.0 Albumin/Globulin Ratio 0.8 L Lipase 85 H - Rads (name of study) cxr Radiology: Prelim report reviewed, EMP read contemporaneously, See rad report ( Small lung volumes with borderline heart size and pulmonary vascularity) PD MEDICAL DECISION MAKING - ED course Complexity details: reviewed old records, reviewed results, re-evaluated patient , considered differential, d/w patient ED course: Patient is a 42-year-old female with cirrhosis and ascites. Feels better after nebulizer treatment. Also has COPD. Will place on steroids and refill her inhaler for home. Also given spironolactone here and will refill this for her as well. She is well-appearing, nontoxic. No hypoxia. No respiratory distress. Ambulating well. No evidence of spontaneous bacterial peritonitis. We will have her follow-up with her doctor for scheduled paracentesis. Patient counseled regarding signs and symptoms for which I believe and urgent re- evaluation would be necessary. Patient with good understanding of and agreement to plan and is comfortable going home at this time This document was made in part using voice recognition software. While efforts are made to proofread this document, sound alike and grammatical errors may occur. - Sepsis Event Vital Signs: Vital Signs - 24 hr 01/24/18 01/24/18 01/24/18 01:02 02:30 03:20 Temperature 36.4 C L Heart Rate 117 H 123 H 71 Respiratory 20 22 18 Rate Blood Pressure 117/73 116/66 O2 Saturation 100 98 Oxygen O2 Source Room air Departure - Departure Disposition: 01 Home, Self Care Clinical Impression: COPD with exacerbation Condition: Good Instructions: ED COPD Flare Follow-Up: Raquel Garcia ARNP [Primary Care Provider] - Within 1 week Prescriptions: Albuterol Sulf [Ventolin Hfa Inhaler] 1 - 2 puffs INH Q4HR PRN #1 inhaler PRN Reason: Shortness Of Air/Wheezing predniSONE [Prednisone] 40 mg PO DAILY #10 tablet Spironolactone [Aldactone] 25 mg PO DAILY #30 tablet Comments: Take all medications as prescribed. Return if you worsen. Discharge Date/Time: 01/24/18 04:12
--- NOTE | 2018-01-24 01:53 | XRAY Report ---
Procedure Date: 01/24/2018 Accession Number: [id number] / [id number] Procedure: XR - Chest 2 View X-Ray CPT Code: 80851 FULL RESULT: EXAM: CHEST RADIOGRAPHY EXAM DATE: 01/24/2018 01:45 AM. CLINICAL HISTORY: Cough. COMPARISON: CHEST 2 VIEW 01/21/2018. TECHNIQUE: 2 views. FINDINGS: Lungs/Pleura: Small lung volumes. No alveolar consolidation or pleural effusion seen. Pulmonary vascularity upper normal. No pneumothorax. Mediastinum: Borderline heart size. Other: None. IMPRESSION: 1. Small lung volumes with borderline heart size and pulmonary vascularity. RADIA
[2018-01-24 02:08] LABS: BASOPHILS # (AUTO) 0.3 10^3/uL (0.0-0.1); BASOPHILS % (AUTO) 2.7 %; EOSINOPHILS # (AUTO) 0.1 10^3/uL (0.0-0.7); EOSINOPHILS % (AUTO) 1.1 %; HGB - HEMOGLOBIN 9.3 g/dL (12.0-16.0); LYMPHOCYTES # (AUTO) 1.9 10^3/uL (1.5-3.5); LYMPHOCYTES % (AUTO) 16.1 %; MEAN CORPUSCULAR HEMOGLOBIN 36.3 pg (27.0-31.0); MEAN CORPUSCULAR HGB CONC 32.5 g/dL (32.0-36.0); MEAN CORPUSCULAR VOLUME 111.7 fL (81.0-99.0); MONOCYTES # (AUTO) 0.5 10^3/uL (0.0-1.0); MONOCYTES % (AUTO) 4.5 %; NEUTROPHILS # (AUTO) 9.1 10^3/uL (1.5-6.6); NEUTROPHILS % (AUTO) 75.6 %; PLT - PLATELET COUNT 238 10^3/uL (130-450); RED BLOOD COUNT 2.55 10^6/uL (4.20-5.40); RED CELL DISTRIBUTION WIDTH 16.6 % (12.0-15.0)
[2018-01-24 02:13] LABS: ALBUMIN 2.3 g/dL (3.2-5.5); ALBUMIN/GLOBULIN RATIO 0.8 (1.0-2.2); BILIRUBIN,TOTAL 4.5 mg/dL (0.2-1.0); CALCIUM 8.2 mg/dL (8.5-10.3); CREATININE 0.5 mg/dL (0.4-1.0); TOTAL PROTEIN 5.3 g/dL (6.7-8.2)
[2018-01-24] MEDS ORDERED: IPRATROPIUM/ALBUTEROL 3 ML NEB INH STA (02:21)
[2018-01-24] MEDS ORDERED: DEXAMETHASONE 10 MG/ML VIAL IVP STA (02:21)
[2018-01-24 03:15] LABS: PLATELET ESTIMATE, MANUAL NORMAL (130-450,000) (NORMAL)
[2018-01-24 03:23] VITALS: BP 116/66
== END 2018-01-24 04:12 | disposition home or self-care (01) ==
LOC: EDUNIT# → ED 01:00
DX: J44.1 Chronic obstructive pulmonary disease with (acute) exacerbation (principal); E03.9 Hypothyroidism, unspecified; K70.31 Alcoholic cirrhosis of liver with ascites
CPT/HCPCS: 36415; 71046; 80053; 83690; 85025; 94640; 96374; 99283; 99284; A9270

== ENCOUNTER 2018-01-25 20:06 | Outpatient (CLI) | payer MEDICAID | END 2018-01-25 20:07 | disposition critical access hospital (66) | LOC: EMS 20:06 | PROVIDERS: ATTEND Surgery | DX: R06.02 Shortness of breath (principal); R14.0 Abdominal distension (gaseous) | CPT/HCPCS: A0425; A0429; A0999 ==

== ENCOUNTER 2018-01-25 20:30 | Emergency (ER) | payer MEDICAID ==
--- NOTE | 2018-01-25 20:42 | ED Physician Documentation ---
PD HPI DYSPNEA - Stated complaint Stated Complaint: SOA - History obtained from History obtained from: Patient, EMS - History of Present Illness Timing - onset: Other (42-year-old woman with COPD and alcoholic liver disease presents with shortness of breath and hacking cough is worsening. She was seen yesterday and a chest x-ray was done and clear. Her labs were at her baseline. She feels like is a combination of her ascites pressing up and cough.) Review of Systems Constitutional: denies: Fever, Chills Cardiac: denies: Chest pain / pressure, Palpitations Respiratory: reports: Dyspnea, Cough GI: reports: Abdominal Swelling. 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 HEENT: Myringotomy (tubes) - Present Medications Home Medications: Ambulatory Orders Medication Instructions Recorded Confirmed Cholecalciferol (Vitamin D3) 2,000 units PO DAILY 01/08/18 01/08/18 [Vitamin D3] Cyanocobalamin (Vitamin B-12) 500 mcg PO DAILY 01/08/18 01/08/18 [Vitamin B-12 (100mcg tab)] Lactulose 20 gm PO TID 01/08/18 01/08/18 Multivit with Calcium,Iron,Min 1 tab PO DAILY 01/08/18 01/08/18 [Multiple Vitamins For Women] Pantoprazole [Protonix] 40 mg PO DAILY 01/08/18 01/08/18 Benzonatate [Tessalon] 100 mg PO TID PRN #15 capsule 01/12/18 Furosemide 40 mg PO DAILY #0 01/12/18 01/08/18 Levofloxacin [Levaquin] 500 mg PO DAILY #7 tablet 01/12/18 Spironolactone 50 mg PO DAILY #0 01/12/18 01/08/18 guaiFENesin [Mucinex] 600 mg PO BID #10 tablet 01/12/18 predniSONE [Deltasone] 20 mg PO DAILYWM #8 tablet 01/12/18 Albuterol Sulf [Ventolin Hfa 1 - 2 puffs INH Q4HR PRN #1 inhaler 01/24/18 Inhaler] Spironolactone [Aldactone] 25 mg PO DAILY #30 tablet 01/24/18 predniSONE [Prednisone] 40 mg PO DAILY #10 tablet 01/24/18 Levofloxacin [Levaquin] 500 mg PO DAILY #7 tablet 01/25/18 oxyCODONE [Roxicodone] 5 mg PO Q4-6H PRN #15 tablet 01/25/18 - Allergies Allergies/Adverse Reactions: Allergies Allergy/AdvReac Type Severity Reaction Status Date / Time amoxicillin Allergy Unknown Verified 01/25/18 20:43 ampicillin Allergy Unknown Verified 01/25/18 20:43 - Social History Does the pt smoke?: No Smoking Status: Never smoker Does the pt drink ETOH?: Yes Does the pt have substance abuse?: No - Immunizations Immunizations are current?: Yes - POLST Patient has POLST: No POLST Status: Full Code PD ED PE NORMAL - Vitals Vital signs reviewed: Yes - General General: Alert and oriented X 3, No acute distress, Other (She is tachypneic with a frequent dry cough. Facial muscular wasting.) - HEENT HEENT: PERRL (She is jaundiced) - Neck Neck: Supple, no meningeal sign, No bony TTP - Cardiac Cardiac: RRR, No murmur - Respiratory Respiratory: Other (Tachypneic but relatively clear lung sounds) - Abdomen Abdomen: Non tender, Other (She has tense ascites) - Derm Derm: Normal color, Warm and dry - Extremities Extremities: Other (Significant symmetric pedal edema which she says is at her baseline.) - Neuro Neuro: Alert and oriented X 3, Normal speech Results - Vitals Vitals: Vital Signs - 24 hr 01/25/18 01/25/18 01/25/18 20:41 21:01 21:39 Temperature 37.2 C Heart Rate 113 H 109 H 99 Respiratory 28 H 30 H 21 Rate Blood Pressure 114/75 126/72 O2 Saturation 97 97 01/25/18 21:56 Temperature Heart Rate 103 H Respiratory 17 Rate Blood Pressure O2 Saturation 95 Oxygen O2 Source Room air - Labs Labs: Microbiology 01/25/18 21:05 Body Fluid Culture - Preliminary Ascities Fluid Laboratory Tests 01/25/18 01/25/18 01/25/18 21:05 21:30 21:30 WBC 15.3 H RBC 2.79 L Hgb 10.0 L Hct 30.4 L MCV 108.9 H MCH 35.7 H MCHC 32.8 RDW 16.0 H Plt Count 264 MPV 7.6 L Neut # (Auto) 12.6 H Lymph # (Auto) 1.5 [place] # (Auto) 1.1 H Eos # (Auto) 0.1 Baso # (Auto) 0.1 Absolute Nucleated RBC 0.01 Nucleated RBC % 0.0 PT 16.0 H INR 1.4 H Sodium Potassium Chloride Carbon Dioxide Anion Gap BUN Creatinine Estimated GFR (MDRD) Glucose Calcium Total Bilirubin AST ALT Alkaline Phosphatase Total Protein Albumin Globulin Albumin/Globulin Ratio Lipase Fluid Source PERITONEAL Fluid Color YELLOW Fluid Clarity CLEAR Fluid WBC 35 Fluid RBC < 1000 01/25/18 21:30 WBC RBC Hgb Hct MCV MCH MCHC RDW Plt Count MPV Neut # (Auto) Lymph # (Auto) [place] # (Auto) Eos # (Auto) Baso # (Auto) Absolute Nucleated RBC Nucleated RBC % PT INR Sodium 131 L Potassium 3.7 Chloride 95 L Carbon Dioxide 27 Anion Gap 9.0 BUN 15 Creatinine 0.6 Estimated GFR (MDRD) 109 Glucose 118 H Calcium 8.2 L Total Bilirubin 4.7 H AST 99 H ALT 69 H Alkaline Phosphatase 220 H Total Protein 5.7 L Albumin 2.3 L Globulin 3.4 Albumin/Globulin Ratio 0.7 L Lipase 68 H Fluid Source Fluid Color Fluid Clarity Fluid WBC Fluid RBC Procedures - Paracentesis Preparation: Consent obtained, Ultrasound guidance, Sterile prep and drape, Local anesthesia (10ml lidocaine 1%with epi) Location: RLQ Technique: Z-tract, Catheter over needle Fluid: Cloudy, Sent for gram stain, Sent for culture, Volume - enter cc (3000ml) Aftercare: Fluid leak - comment, Other (She was having a lot of pain and spasming, she was also still coughing a lot and she did not tolerate it very well and it was aborted after 3 L.) PD MEDICAL DECISION MAKING - ED course ED course: This is a 42-year-old woman with alcoholic liver disease and ascites and also COPD presents with frequent cough and shortness of breath which is probably multifactorial from the ascites which is tense and COPD exacerbation. She had a chest x-ray negative yesterday. After the administration of some pain medication and her breathing treatment and a paracentesis which was without evidence of SBP she was feeling much better and much more comfortable. We will add antibiotics to her regimen as well as some oxycodone. Note that antibiotic choices difficult between beta-lactam allergy, the contraindication between liver disease and Zithromax and doxycycline and levofloxacin is what is left. - Sepsis Event Vital Signs: Vital Signs - 24 hr 01/25/18 01/25/18 01/25/18 20:41 21:01 21:39 Temperature 37.2 C Heart Rate 113 H 109 H 99 Respiratory 28 H 30 H 21 Rate Blood Pressure 114/75 126/72 O2 Saturation 97 97 01/25/18 21:56 Temperature Heart Rate 103 H Respiratory 17 Rate Blood Pressure O2 Saturation 95 Oxygen O2 Source Room air Departure - Departure Disposition: 01 Home, Self Care Clinical Impression: Bronchitis, COPD with exacerbation, Dyspnea, Alcoholic cirrhosis of liver with ascites Condition: Good Record reviewed to determine appropriate education?: Yes Instructions: COPD Dc, Cirrhosis Liver Dc Prescriptions: Levofloxacin [Levaquin] 500 mg PO DAILY #7 tablet oxyCODONE [Roxicodone] 5 mg PO Q4-6H PRN #15 tablet PRN Reason: Pain Comments: Continue the steroids the Dr. aVlverde prescribed yesterday and we are adding antibiotics and pain medication which should help with the cough as well. Return if worse or if new symptoms develop, follow-up with your physician early next week.
[2018-01-25] MEDS ORDERED: LIDOCAINE 1%-EPI 1:100000 30 ML MDV ONE (21:02)
[2018-01-25] MEDS ORDERED: IPRATROPIUM/ALBUTEROL 3 ML NEB INH STA (21:13)
[2018-01-25] MEDS ORDERED: HYDROmorphone 2 MG/ML VIAL IVP STA (21:13)
[2018-01-25 21:35] LABS: BASOPHILS # (AUTO) 0.1 10^3/uL (0.0-0.1); BASOPHILS % (AUTO) 0.4 %; EOSINOPHILS # (AUTO) 0.1 10^3/uL (0.0-0.7); EOSINOPHILS % (AUTO) 0.4 %; LYMPHOCYTES # (AUTO) 1.5 10^3/uL (1.5-3.5); LYMPHOCYTES % (AUTO) 9.9 %; MEAN CORPUSCULAR HEMOGLOBIN 35.7 pg (27.0-31.0); MEAN CORPUSCULAR HGB CONC 32.8 g/dL (32.0-36.0); MEAN CORPUSCULAR VOLUME 108.9 fL (81.0-99.0); MEAN PLATELET VOLUME 7.6 fL (7.9-10.8); MONOCYTES # (AUTO) 1.1 10^3/uL (0.0-1.0); MONOCYTES % (AUTO) 7.1 %; NEUTROPHILS # (AUTO) 12.6 10^3/uL (1.5-6.6); NEUTROPHILS % (AUTO) 82.2 %; PLT - PLATELET COUNT 264 10^3/uL (130-450); RED BLOOD COUNT 2.79 10^6/uL (4.20-5.40); WHITE BLOOD COUNT 15.3 x10^3/uL (4.8-10.8)
[2018-01-25 21:41] LABS: INR 1.4 (0.8-1.2)
[2018-01-25 21:46] LABS: BF COLOR YELLOW; BF SOURCE PERITONEAL; CC,BF RBC < 1000 /mm^3
[2018-01-25 21:58] LABS: ALBUMIN 2.3 g/dL (3.2-5.5); ALBUMIN/GLOBULIN RATIO 0.7 (1.0-2.2); BILIRUBIN,TOTAL 4.7 mg/dL (0.2-1.0); CALCIUM 8.2 mg/dL (8.5-10.3); CREATININE 0.6 mg/dL (0.4-1.0); TOTAL PROTEIN 5.7 g/dL (6.7-8.2)
[2018-01-25] MEDS ORDERED: ONDANSETRON 4 MG/2 ML VIAL IVP STA (21:58)
[2018-01-25] MEDS ORDERED: levoFLOXacin 250 MG TABLET PO STA (22:00)
[2018-01-25] MEDS ORDERED: oxyCODONE 5 MG TABLET PO STA (22:03)
[2018-01-25 22:10] LABS: LYMPHOCYTES %,BODY FLUID 6
[2018-01-25 22:11] LABS: MACROPHAGES %,BODY FLUID 24 %; MESOTHELIAL %, BF 23 %; MONOCYTES %,BODY FLUID 44 %
[2018-01-26 06:14] VITALS: BP 96/67
== END 2018-01-26 06:14 | disposition home or self-care (01) ==
LOC: EDUNIT# → ED 20:30
DX: J44.1 Chronic obstructive pulmonary disease with (acute) exacerbation (principal); J40 Bronchitis, not specified as acute or chronic; K70.31 Alcoholic cirrhosis of liver with ascites; E03.9 Hypothyroidism, unspecified
CPT/HCPCS: 36415; 49082; 80053; 83690; 85025; 85610; 87070; 87205; 89051; 94640; 96374; 96375; 99284; A9270; J1170

== ENCOUNTER 2018-01-29 15:02 | Outpatient (CLI) | payer MEDICAID ==
[2018-01-29 19:12] LABS: ALBUMIN 2.3 g/dL (3.2-5.5); CALCIUM 8.1 mg/dL (8.5-10.3); CREATININE 0.6 mg/dL (0.4-1.0); PHOSPHORUS 3.8 mg/dL (2.5-4.6)
== END 2018-01-29 15:03 | disposition home or self-care (01) ==
LOC: LAB.N 15:02
PROVIDERS: ATTEND Internal Medicine Gastroenterology
DX: K70.31 Alcoholic cirrhosis of liver with ascites (principal)
CPT/HCPCS: 36415; 80069

== ENCOUNTER 2018-02-02 23:46 | Outpatient (CLI) | payer MEDICAID | END 2018-02-02 23:47 | disposition critical access hospital (66) | LOC: EMS 23:46 | PROVIDERS: ATTEND Surgery | DX: R53.1 Weakness (principal); R11.2 Nausea with vomiting, unspecified; R21 Rash and other nonspecific skin eruption | CPT/HCPCS: A0425; A0427; A0999 ==

== ENCOUNTER 2018-02-03 00:10 | Inpatient (IN) | payer MEDICAID ==
[2018-02-03 00:36] LABS: BASOPHILS # (AUTO) 0.1 10^3/uL (0.0-0.1); BASOPHILS % (AUTO) 0.6 %; EOSINOPHILS # (AUTO) 0.1 10^3/uL (0.0-0.7); HGB - HEMOGLOBIN 10.1 g/dL (12.0-16.0); LYMPHOCYTES # (AUTO) 1.2 10^3/uL (1.5-3.5); LYMPHOCYTES % (AUTO) 10.4 %; MEAN CORPUSCULAR HEMOGLOBIN 35.9 pg (27.0-31.0); MEAN CORPUSCULAR HGB CONC 34.3 g/dL (32.0-36.0); MEAN CORPUSCULAR VOLUME 104.6 fL (81.0-99.0); MEAN PLATELET VOLUME 6.8 fL (7.9-10.8); MONOCYTES # (AUTO) 0.7 10^3/uL (0.0-1.0); MONOCYTES % (AUTO) 5.9 %; NEUTROPHILS # (AUTO) 9.4 10^3/uL (1.5-6.6); NEUTROPHILS % (AUTO) 82.1 %; PLT - PLATELET COUNT 163 10^3/uL (130-450); RED BLOOD COUNT 2.81 10^6/uL (4.20-5.40); RED CELL DISTRIBUTION WIDTH 16.6 % (12.0-15.0); WHITE BLOOD COUNT 11.5 x10^3/uL (4.8-10.8)
--- NOTE | 2018-02-03 00:36 | ED Physician Documentation ---
History of Present Illness - Stated complaint Stated Complaint: WEAKNESS - Chief complaint Chief Complaint: Wound - History obtained from History obtained from: Patient - Additonal information Additional information: 42-year-old female with multiple medical problems presents the emergency department with generalized weakness and feeling generally unwell. The patient' s symptoms have progressively worsened. Tonight the patient fell much worse than normal. Symptoms are described as moderate. No triggering factors. The patient reports taking all her medications as prescribed. The patient denies fever, cough, shortness of breath, abdominal pain or chest pain. No triggering factors. No relieving factors. No other associated symptoms. Review of Systems Constitutional: reports: Fatigue. denies: Fever Eyes: denies: Discharge Ears: denies: Ear pain Nose: denies: Congestion Throat: denies: Sore throat Cardiac: denies: Chest pain / pressure Respiratory: denies: Dyspnea GI: denies: Abdominal Pain Skin: denies: Laceration (s) Musculoskeletal: denies: Back pain Neurologic: reports: Generalized weakness. 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 HEENT: Myringotomy (tubes) - Present Medications Home Medications: Ambulatory Orders Medication Instructions Recorded Confirmed Cholecalciferol (Vitamin D3) 2,000 units PO DAILY 01/08/18 01/08/18 [Vitamin D3] Cyanocobalamin (Vitamin B-12) 500 mcg PO DAILY 01/08/18 01/08/18 [Vitamin B-12 (100mcg tab)] Lactulose 20 gm PO TID 01/08/18 01/08/18 Multivit with Calcium,Iron,Min 1 tab PO DAILY 01/08/18 01/08/18 [Multiple Vitamins For Women] Pantoprazole [Protonix] 40 mg PO DAILY 01/08/18 01/08/18 Benzonatate [Tessalon] 100 mg PO TID PRN #15 capsule 01/12/18 Furosemide 40 mg PO DAILY #0 01/12/18 01/08/18 Levofloxacin [Levaquin] 500 mg PO DAILY #7 tablet 01/12/18 Spironolactone 50 mg PO DAILY #0 18 01/08/18 guaiFENesin [Mucinex] 600 mg PO BID #10 tablet 01/12/18 predniSONE [Deltasone] 20 mg PO DAILYWM #8 tablet 01/12/18 Albuterol Sulf [Ventolin Hfa 1 - 2 puffs INH Q4HR PRN #1 inhaler 01/24/18 Inhaler] Spironolactone [Aldactone] 25 mg PO DAILY #30 tablet 01/24/18 predniSONE [Prednisone] 40 mg PO DAILY #10 tablet 01/24/18 Levofloxacin [Levaquin] 500 mg PO DAILY #7 tablet 01/25/18 oxyCODONE [Roxicodone] 5 mg PO Q4-6H PRN #15 tablet 01/25/18 - Allergies Allergies/Adverse Reactions: Allergies Allergy/AdvReac Type Severity Reaction Status Date / Time amoxicillin Allergy Unknown Verified 02/03/18 00:25 ampicillin Allergy Unknown Verified 02/03/18 00:25 - Social History Does the pt smoke?: No Smoking Status: Never smoker Does the pt drink ETOH?: Yes Does the pt have substance abuse?: No - Immunizations Immunizations are current?: Yes - POLST Patient has POLST: No POLST Status: Full Code PD ED PE NORMAL - General General: Other (42-year-old chronically ill-appearing female who appears to be in no significant distress) - HEENT HEENT: Atraumatic, PERRL, EOMI, Other (The patient has scleral icterus) - Neck Neck: Supple, no meningeal sign - Cardiac Cardiac: Strong equal pulses, Other (The patient has tachycardia with a regular rhythm) - Respiratory Respiratory: No respiratory distress - Abdomen Abdomen: Soft, Non tender, Other (The patient has abdominal distention from ascites but her abdomen is soft and nontender without rebound tenderness) - Extremities Extremities: No deformity, Other (Bilateral edema in the lower extremities) - Neuro Neuro: Alert and oriented X 3, Normal speech - Psych Psych: Normal affect Results - Vitals Vitals: Vital Signs - 24 hr 02/03/18 02/03/18 00:10 01:31 Temperature 36.8 C Heart Rate 112 H 112 H Respiratory 19 23 Rate Blood Pressure 99/58 L 99/66 O2 Saturation 97 97 Oxygen O2 Source Room air - EKG (time done) 00:31 Rate: Rate (enter#) Rhythm: Sinus tachycardia Intervals: Normal DE, QRS normal Ischemia: Non specific changes - Labs Labs: Laboratory Tests 02/03/18 02/03/18 02/03/18 00:29 00:29 00:29 WBC 11.5 H RBC 2.81 L Hgb 10.1 L Hct 29.4 L MCV 104.6 H MCH 35.9 H MCHC 34.3 RDW 16.6 H Plt Count 163 MPV 6.8 L Neut # (Auto) 9.4 H Lymph # (Auto) 1.2 L [place] # (Auto) 0.7 Eos # (Auto) 0.1 Baso # (Auto) 0.1 Absolute Nucleated RBC 0.00 Nucleated RBC % 0.0 PT 20.9 H INR 1.9 H APTT 31.3 Sodium 129 L Potassium 2.3 L* Chloride 90 L Carbon Dioxide 29 Anion Gap 10.0 BUN 11 Creatinine 0.5 Estimated GFR (MDRD) 134 Glucose 103 H Calcium 7.4 L Magnesium 1.9 Total Bilirubin 4.8 H AST 82 H ALT 50 Alkaline Phosphatase 183 H Ammonia Total Creatine Kinase 15 L Troponin I B-Natriuretic Peptide Total Protein 4.8 L Albumin 2.0 L Globulin 2.8 Albumin/Globulin Ratio 0.7 L Lipase 42 Salicylates Acetaminophen Ethyl Alcohol < 5.0 02/03/18 02/03/18 02/03/18 00:29 00:29 00:29 WBC RBC Hgb Hct MCV MCH MCHC RDW Plt Count MPV Neut # (Auto) Lymph # (Auto) [place] # (Auto) Eos # (Auto) Baso # (Auto) Absolute Nucleated RBC Nucleated RBC % PT INR APTT Sodium Potassium Chloride Carbon Dioxide Anion Gap BUN Creatinine Estimated GFR (MDRD) Glucose Calcium Magnesium Total Bilirubin AST ALT Alkaline Phosphatase Ammonia 20.0 Total Creatine Kinase Troponin I < 0.04 B-Natriuretic Peptide 38 Total Protein Albumin Globulin Albumin/Globulin Ratio Lipase Salicylates Acetaminophen Ethyl Alcohol 02/03/18 00:29 WBC RBC Hgb Hct MCV MCH MCHC RDW Plt Count MPV Neut # (Auto) Lymph # (Auto) [place] # (Auto) Eos # (Auto) Baso # (Auto) Absolute Nucleated RBC Nucleated RBC % PT INR APTT Sodium Potassium Chloride Carbon Dioxide Anion Gap BUN Creatinine Estimated GFR (MDRD) Glucose Calcium Magnesium Total Bilirubin AST ALT Alkaline Phosphatase Ammonia Total Creatine Kinase Troponin I B-Natriuretic Peptide Total Protein Albumin Globulin Albumin/Globulin Ratio Lipase Salicylates < 6.0 Acetaminophen < 10 L Ethyl Alcohol PD MEDICAL DECISION MAKING - ED course ED course: The patient has acute hypokalemia which appears to be secondary from her normal medications. The patient will require admission to the hospital for ongoing management. The findings and plan were discussed the patient who understands and agrees to the plan. The case was discussed with the hospitalist Dr. Dotosn who accepts the patient onto her service - Sepsis Event Vital Signs: Vital Signs - 24 hr 02/03/18 02/03/18 00:10 01:31 Temperature 36.8 C Heart Rate 112 H 112 H Respiratory 19 23 Rate Blood Pressure 99/58 L 99/66 O2 Saturation 97 97 Oxygen O2 Source Room air Departure - Departure Disposition: [facility] DC/Xfer Clinical Impression: Hypokalemia, Hyponatremia, Weakness Cirrhosis of liver Qualifiers: Hepatic cirrhosis type: alcoholic cirrhosis Ascites presence: with ascites Qualified Code(s): K70.31 - Alcoholic cirrhosis of liver with ascites Condition: Good
[2018-02-03 00:41] LABS: INR 1.9 (0.8-1.2); PT - PROTHROMBIN TIME 20.9 secs (9.9-12.6)
[2018-02-03 00:56] LABS: SALICYLATE < 6.0 mg/dL
[2018-02-03 00:58] LABS: ACETAMINOPHEN < 10 ug/mL (10-30); ALBUMIN/GLOBULIN RATIO 0.7 (1.0-2.2); ALKALINE PHOSPHATASE 183 IU/L (42-121); ALT ALANINE AMINOTRANSFERASE 50 IU/L (10-60); AST ASPARTATE AMINOTRANSFERASE 82 IU/L (10-42); BILIRUBIN,TOTAL 4.8 mg/dL (0.2-1.0); BUN - BLOOD UREA NITROGEN 11 mg/dL (6-20); CALCIUM 7.4 mg/dL (8.5-10.3); CARBON DIOXIDE - CO2 29 mmol/L (21-32); CHLORIDE 90 mmol/L (101-111); CK- CREATINE KINASE 15 IU/L (22-269); CREATININE 0.5 mg/dL (0.4-1.0); GFR - MDRD 134 (>89); GLUCOSE 103 mg/dL (70-100); LIPASE 42 U/L (22-51); MAGNESIUM 1.9 mg/dL (1.7-2.8); SODIUM 129 mmol/L (135-145); TOTAL PROTEIN 4.8 g/dL (6.7-8.2)
[2018-02-03] MEDS ORDERED: POTASSIUM CHLOR 20 MEQ/100 ML 20 MEQ/100 ML BAG IV ONE (01:04)
[2018-02-03] MEDS ORDERED: POTASSIUM CHLORIDE 20 MEQ TABLET PO STA (01:04)
[2018-02-03] MEDS ORDERED: POTASSIUM CHLOR 10 MEQ/100 ML 10 MEQ/100 ML BAG IV ONE (01:18)
--- NOTE | 2018-02-03 01:31 | XRAY Report ---
Procedure Date: 02/03/2018 Accession Number: [id number] / [id number] Procedure: XR - Chest 2 View X-Ray CPT Code: 17754 FULL RESULT: EXAM: CHEST RADIOGRAPHY EXAM DATE: 02/03/2018 01:14 AM. CLINICAL HISTORY: Weakness. COMPARISON: CHEST 2 VIEW 01/24/2018. TECHNIQUE: 2 views. FINDINGS: Lungs/Pleura: Pulmonary vascular congestion. No focal infiltrate, effusion, or pneumothorax. Mediastinum: Borderline cardiomegaly. Other: None. IMPRESSION: New pulmonary vascular congestion, compatible with mild congestive failure. No focal infiltrate. RADIA
[2018-02-03] MEDS ORDERED: SODIUM CHLORIDE FLUSH 0.9% 10 ML SYRINGE IVP PRN ×2 (01:40→02:57)
[2018-02-03] MEDS ORDERED: ONDANSETRON 4 MG/2 ML VIAL IVP PRN (02:57)
[2018-02-03] MEDS ORDERED: ALBUTEROL SULF INH PRN (03:01)
[2018-02-03] MEDS ORDERED: ALBUTEROL 6.7 GM INHALER INH PRN (03:21)
[2018-02-03] MEDS: diphenhydrAMINE 25 MG CAPSULE PO PRN ×2 (03:25→16:27)
[2018-02-03] MEDS: BENZONATATE 100 MG CAPSULE PO PRN ×3 (03:25→21:16)
[2018-02-03] MEDS: SODIUM CHLORIDE 0.9% 1,000 ML IV SCH ×2 (04:50→14:30)
[2018-02-03] MEDS: POTASSIUM CHLOR 10 MEQ/100 ML 10 MEQ/100 ML BAG IV SCH ×4 (04:50→11:15)
[2018-02-03 04:59] LABS: BASOPHILS # (AUTO) 0.2 10^3/uL (0.0-0.1); BASOPHILS % (AUTO) 1.1 %; EOSINOPHILS # (AUTO) 0.1 10^3/uL (0.0-0.7); EOSINOPHILS % (AUTO) 1.1 %; HGB - HEMOGLOBIN 9.5 g/dL (12.0-16.0); LYMPHOCYTES # (AUTO) 1.4 10^3/uL (1.5-3.5); LYMPHOCYTES % (AUTO) 9.9 %; MEAN CORPUSCULAR HEMOGLOBIN 34.6 pg (27.0-31.0); MEAN CORPUSCULAR HGB CONC 32.8 g/dL (32.0-36.0); MEAN CORPUSCULAR VOLUME 105.6 fL (81.0-99.0); MEAN PLATELET VOLUME 7.1 fL (7.9-10.8); MONOCYTES # (AUTO) 0.6 10^3/uL (0.0-1.0); MONOCYTES % (AUTO) 4.5 %; NEUTROPHILS # (AUTO) 11.6 10^3/uL (1.5-6.6); NEUTROPHILS % (AUTO) 83.4 %; PLT - PLATELET COUNT 153 10^3/uL (130-450); RED BLOOD COUNT 2.74 10^6/uL (4.20-5.40); RED CELL DISTRIBUTION WIDTH 16.4 % (12.0-15.0); WHITE BLOOD COUNT 13.9 x10^3/uL (4.8-10.8)
[2018-02-03 05:10] LABS: ALBUMIN/GLOBULIN RATIO 0.8 (1.0-2.2); BILIRUBIN,TOTAL 4.5 mg/dL (0.2-1.0); CALCIUM 7.2 mg/dL (8.5-10.3); CREATININE 0.6 mg/dL (0.4-1.0); MAGNESIUM 1.7 mg/dL (1.7-2.8); TOTAL PROTEIN 4.4 g/dL (6.7-8.2)
[2018-02-03] MEDS ORDERED: LACTULOSE 10 GM/15 ML BOTTLE PO SCH (06:00)
[2018-02-03] MEDS: guaiFENesin 600 MG TABLET PO PRN ×2 (07:33→21:16)
[2018-02-03] MEDS ORDERED: ALBUTEROL NEB 2.5 MG/3 ML INH PRN (08:01)
--- NOTE | 2018-02-03 08:39 | HISTORY & PHYSICAL EXAMINATION ---
DATE OF SERVICE: 02/03/2018 Physician: Francy Dotson MD HISTORY OF PRESENT ILLNESS: This is a 42-year-old white female with a history of alcoholic cirrhosis, admission here 3 weeks ago for healthcare-associated pneumonia and she was sent home with Levaquin and prednisone. History of hypokalemia at that admission. She was to be followed up with a staff combat information center officer and states that she has called to make an appointment, but there has been no return call yet. The patient has been abstinent from alcohol since that time and compliant with her medications including Lasix and spironolactone. The patient states that for about a week she has had a pruritic rash that her 9-year-old daughter was putting [id number] lotion on, and in the last 2 days, she has gotten very weak and feels "crummy". For these complaints, she came to the emergency room. She was found to have a potassium of 2.3 and is being admitted for telemetry and potassium replacement and treatment of the diffuse pruritic rash. PAST MEDICAL HISTORY: Alcoholic cirrhosis; alcohol abuse but recent abstinence since the last admission 3 weeks ago; healthcare-associated pneumonia admission 3 weeks ago. ALLERGIES 1. AMOXICILLIN. 2. AMPICILLIN. 3. She thinks she is now also allergic to either the LEVAQUIN or the OXYCODONE with this new rash. MEDICATIONS 1. Prednisone 40 mg or 20 mg daily, not clear which dose 2. Oxycodone p.r.n. pain. 3. Mucinex 600 mg b.i.d. p.r.n. cough. 4. Aldactone 50 mg daily. 5. Protonix 40 mg daily. 6. Multivitamin daily. 7. Lactulose 20 mg t.i.d. 8. Lasix 40 mg daily. 9. B12 daily. 10. Vitamin D3 daily. 11. Tessalon Perles b.i.d. 12. Ventolin inhaler p.r.n. SOCIAL HISTORY: The patient is a smoker. She is a recent ex-alcohol abuser. No illicit drug use. FAMILY HISTORY: No inherited diseases. REVIEW OF SYSTEMS: Comprehensive review of systems was performed and any pertinent positives are above, the rest are negative. PHYSICAL EXAMINATION GENERAL: White female who is in no distress. VITAL SIGNS: Blood pressure 100/60, heart rate 112 in sinus tachycardia, afebrile, room air saturation 97%. HEENT: Exam reveals mild scleral icterus. Oral mucosa moist. NECK: Without JVD or carotid bruits. CHEST: Clear, increased AP diameter. HEART: Sounds normal. No murmur. ABDOMEN: Distended, but soft. Positive fluid wave. Liver edge is not palpable. Decreased bowel sounds. Non-tender. SKIN: Extremities and skin of the abdomen have a maculopapular red rash that is pruritic. EXTREMITIES: There is no edema of the legs. NEUROLOGIC: Intact. No asterixis. No nystagmus. LABORATORY DATA: Sodium 129, potassium 2.3, BUN 11, creatinine 0.5, calcium 7.4 , magnesium 1.9, bilirubin 4.8, AST 82, ALT 50. Ammonia level normal at 20. Troponin not detectable. BNP normal at 38. Albumin low at 2. INR elevated at 1.9. White blood count 11.5 with a left shift, hemoglobin 10.1 with MCV elevated at 104, platelet count normal at 163. Serum toxicology showed no salicylates, no Tylenol and no alcohol in her blood stream. EKG: Sinus tachycardia, long QT interval. CHEST X-RAY: No active disease. IMPRESSION/DIAGNOSES 1. Hypokalemia, severe, likely from her Lasix and spironolactone use. 2. Alcoholic cirrhosis with ascites, and evidence of liver dysfunction with high MCV, high INR. 3. Hyponatremia. 4. Rash, possible drug allergy. PLAN Admit the patient on telemetry. Replace potassium orally and IV. Follow her potassium closely every 6 or 12 hours. Also, start an IV of normal saline for the low sodium, at rate TKO because of the need for continued diuresis of the ascites. Obtain daily weights. Follow her electrolytes. Follow her I's and O' s. Continue her prednisone, lactulose, vitamins and continue the oral doses of her spironolactone and Lasix. Start Benadryl p.o. and calamine lotion topically for the rash. No oxycodone will be used and currently she has completed her course of the antibiotics. Deep venous thrombosis prophylaxis: Sequential compression devices; however, she is also "auto-anticoagulated" from the liver disease and high INR. CODE STATUS: FULL CODE. ATTESTATION: The patient is expected to be discharged or transferred to another facility within 96 hours: Yes. TD: 02/03/2018 03:26 BARBY
[2018-02-03] MEDS ORDERED: SPIRONOLACTONE 25 MG TABLET PO SCH (09:00)
[2018-02-03] MEDS ORDERED: CYANOCOBALAMIN PO SCH (09:00)
[2018-02-03] MEDS ORDERED: POTASSIUM CHLORIDE 20 MEQ TABLET PO SCH (09:00)
[2018-02-03] MEDS ORDERED: NON FORMULARY MED (Cholecalciferol (Vitamin D3) [Vitamin D3] 2,000 UNITS) PO SCH (09:00)
[2018-02-03] MEDS ORDERED: MULTIVIT WITH CALCIUM IRON MIN PO SCH (09:00)
[2018-02-03] MEDS: SODIUM CHLORIDE FLUSH 0.9% 10 ML SYRINGE IVP SCH ×4 (09:17→16:27)
[2018-02-03] MEDS: CHOLECALCIFEROL 1,000 UNIT TABLET PO SCH (10:11)
[2018-02-03] MEDS: POTASSIUM CHLORIDE 20 MEQ TABLET PO SCH ×3 (10:12→21:16)
[2018-02-03] MEDS: CYANOCOBALAMIN 500 MCG TABLET PO SCH (10:14)
[2018-02-03] MEDS: FAMOTIDINE 20 MG TABLET PO SCH ×2 (10:14→21:16)
[2018-02-03] MEDS: MULTIVITAMIN W/MINERALS TABLET PO SCH ×2 (10:14→10:35)
[2018-02-03] MEDS: predniSONE 20 MG TABLET PO SCH (10:14)
[2018-02-03] MEDS: FUROSEMIDE 20 MG TABLET PO SCH (10:14)
[2018-02-03] MEDS: POLYETHYLENE GLYCOL 3350 17 GM PACKET PO SCH (10:24)
[2018-02-03 10:51] LABS: MUDS CUTOFF CONCENTRATIONS CUTOFF CONC BELOW:
[2018-02-03 10:56] LABS: GLUCOSE, URINE (UA) NEGATIVE (NEGATIVE); KETONES,URINE (UA) NEGATIVE (NEGATIVE); LEUKOCYTE ESTERASE, URINE NEGATIVE (NEGATIVE); NITRITE,URINE NEGATIVE (NEGATIVE); OCCULT BLOOD,URINE NEGATIVE (NEGATIVE); PROTEIN,URINE NEGATIVE (NEGATIVE); UROBILINOGEN,URINE 2 E.U./dL (NORMAL)
[2018-02-03 10:59] LABS: BILIRUBIN,URINE MODERATE (NEGATIVE); CLARITY,URINE HAZY (CLEAR); ICTOTEST,URINE POSITIVE
[2018-02-03 11:12] LABS: RBC,URINE 0-5 /HPF (0-5); SQUAMOUS EPITHELIAL CELL,UR MANY Squamous (<= Few)
[2018-02-03 11:13] LABS: AMPHETAMINE SCREEN,URINE NEGATIVE (NEGATIVE); BACTERIA,URINE Few /HPF (None Seen); BENZODIAZEPINES SCREEN, URINE NEGATIVE (NEGATIVE); CASTS, URINE 0-2 Hyaline Casts /LPF; COCAINE SCREEN URINE NEGATIVE (NEGATIVE); METHADONE SCREEN, URINE NEGATIVE (NEGATIVE); METHAMPHETAMINES SCREEN, URINE NEGATIVE (NEGATIVE); MUCUS,URINE Marked Strands; OPIATE SCREEN, URINE NEGATIVE (NEGATIVE); TRICYCLIC ANTIDEPRESSANT,URINE NEGATIVE (NEGATIVE)
[2018-02-03 11:14] LABS: OXYCODONE SCREEN, URINE POSITIVE (NEGATIVE); PROPOXYPHENE SCREEN, URINE NEGATIVE (NEGATIVE)
[2018-02-03] MEDS: LACTULOSE 10 GM /15 ML UDC PO SCH ×2 (13:36→18:02)
[2018-02-03] MEDS: LEVOTHYROXINE 112 MCG TABLET PO SCH (14:21)
[2018-02-03] MEDS: CALAMINE/ZINC OXIDE 177 ML BOTTLE TOP PRN (16:27)
[2018-02-03] MEDS ORDERED: BENZOCAINE/MENTHOL LOZENGE MM PRN (16:28)
[2018-02-03 17:18] LABS: CREATININE 0.5 mg/dL (0.4-1.0)
[2018-02-03] MEDS: SPIRONOLACTONE 25 MG TABLET PO SCH (21:16)
[2018-02-04] MEDS: diphenhydrAMINE 25 MG CAPSULE PO PRN ×2 (00:36→08:09)
[2018-02-04] MEDS: guaiFENesin/CODEINE 5 ML UDC PO SCH ×3 (00:36→12:55)
[2018-02-04] MEDS: SODIUM CHLORIDE FLUSH 0.9% 10 ML SYRINGE IVP SCH ×4 (00:36→10:05)
[2018-02-04 06:20] LABS: BASOPHILS # (AUTO) 0.1 10^3/uL (0.0-0.1); BASOPHILS % (AUTO) 0.9 %; EOSINOPHILS # (AUTO) 0.2 10^3/uL (0.0-0.7); EOSINOPHILS % (AUTO) 1.3 %; HGB - HEMOGLOBIN 8.7 g/dL (12.0-16.0); LYMPHOCYTES # (AUTO) 1.6 10^3/uL (1.5-3.5); LYMPHOCYTES % (AUTO) 11.4 %; MEAN CORPUSCULAR HEMOGLOBIN 34.9 pg (27.0-31.0); MEAN CORPUSCULAR HGB CONC 33.4 g/dL (32.0-36.0); MEAN CORPUSCULAR VOLUME 104.3 fL (81.0-99.0); MONOCYTES # (AUTO) 0.7 10^3/uL (0.0-1.0); MONOCYTES % (AUTO) 5.1 %; NEUTROPHILS # (AUTO) 11.1 10^3/uL (1.5-6.6); NEUTROPHILS % (AUTO) 81.3 %; PLT - PLATELET COUNT 150 10^3/uL (130-450); RED CELL DISTRIBUTION WIDTH 16.8 % (12.0-15.0); WHITE BLOOD COUNT 13.7 x10^3/uL (4.8-10.8)
[2018-02-04 06:34] LABS: ALBUMIN/GLOBULIN RATIO 0.8 (1.0-2.2); BILIRUBIN,TOTAL 3.4 mg/dL (0.2-1.0); CALCIUM 7.3 mg/dL (8.5-10.3); CREATININE 0.5 mg/dL (0.4-1.0); TOTAL PROTEIN 4.4 g/dL (6.7-8.2)
[2018-02-04] MEDS: LEVOTHYROXINE 112 MCG TABLET PO SCH (06:52)
[2018-02-04] MEDS: LACTULOSE 10 GM /15 ML UDC PO SCH ×2 (06:52→07:02)
[2018-02-04] MEDS: POTASSIUM CHLORIDE 20 MEQ TABLET PO SCH (06:52)
[2018-02-04] MEDS: FAMOTIDINE 20 MG TABLET PO SCH (08:07)
[2018-02-04] MEDS: CYANOCOBALAMIN 500 MCG TABLET PO SCH ×2 (08:07→08:08)
[2018-02-04] MEDS: FUROSEMIDE 20 MG TABLET PO SCH (08:08)
[2018-02-04] MEDS: CHOLECALCIFEROL 1,000 UNIT TABLET PO SCH (08:09)
[2018-02-04] MEDS: predniSONE 20 MG TABLET PO SCH (08:09)
[2018-02-04] MEDS ORDERED: ALBUTEROL 6.7 GM INHALER INH PRN (09:00)
[2018-02-04] MEDS: POLYETHYLENE GLYCOL 3350 17 GM PACKET PO SCH (10:04)
[2018-02-04] MEDS: MULTIVITAMIN W/MINERALS TABLET PO SCH (10:04)
[2018-02-04] MEDS: SPIRONOLACTONE 25 MG TABLET PO SCH (10:05)
[2018-02-04] MEDS: BENZONATATE 100 MG CAPSULE PO PRN (10:11)
[2018-02-04 12:25] VITALS: BP 104/65
--- NOTE | 2018-02-04 12:35 | Discharge Plan ---
Discharge Plan Disposition: 01 Home, Self Care Condition: Good Diet: Low Sodium Activity Restrictions: Activity as Tolerated Shower Restrictions: No Driving Restrictions: No Weight Bearing: Full Weight Instruction Topics: Hypokalemia Dc Additional Instructions or Follow Up instructions: You were admitted with low blood potassium levels. You were given replacement, and this normalized nicely. Your ammonia blood levels became more elevated, and this is likely due to you not taking your lactulose. Please continue to take your lactulose and your spironolactone, since this will further prevent your potassium from going too low. Please go to your scheduled appointment tomorrow, Sunday. No Smoking: If you smoke, Please STOP! Call for help. Follow-up with: Raquel Garcia ARNP [Primary Care Provider] -
--- NOTE | 2018-02-04 12:36 | DISCHARGE SUMMARY ---
Discharge Summary Admit Date: 02/03/18 Discharge Date: 02/04/18 Discharging Provider: BENTLEY Peralta Primary Care Provider: Raquel Kahn Code Status: Attempt Resuscitation Condition at Discharge: Good Discharge Disposition: 01 Home, Self Care - DIAGNOSES Admission Diagnoses: Hypokalemia (E87.6) Alcoholic cirrhosis of liver with ascites (K70.31) Hypo-osmolality and hyponatremia (E87.1) Rash and other nonspecific skin eruption (R21) Discharge Diagnoses with Status of Each Condition: Hypokalemia (E87.6) resolved, K+ blood serum level was 4.2 upon discharge. Alcoholic cirrhosis of liver with ascites (K70.31) amonia levels were ok on admit at 20, peaked at 84.8, and was 39.7 at discharge. Hyponatremia (E87.1) improved, with a sodium level of 129 upon discharge. Rash (R21) improved, care to continue. - HPI History of Present Illness: Alix Joseph is an ill appearing 42-year old jaundice female with a past medical history of liver cirrhosis, recurrent pneumonia, and a chronic cough. She is thought to be abstinent from alcohol for the past 3 months, and is compliant with her lasix and spironolactone. She states that for about a week she has been suffering from a full body puritic rash that her 9-year old daughter has been rubbing over the counter cream a few times per day. She states that in the past 2 days, she has been feeling "crummy" with complaints of generalized weakness and has body aches. The patient denies fever, cough, shortness of breath, abdominal pain or chest pain. No triggering factors. No relieving factors. No other associated symptoms. Lab results show severe hypokalemia, with a potassium of 2.3. She is also found to be tachycardic with a heart rate of 112. She will be admitted for potassium replacement, lab monitoring, telemetry, and symptom relief for her rash. - HOSPITAL COURSE Hospital Course: The patient had her primary problem of hypokalemia resolve and was noted to have a blood serum potassium of 4.2 upon discharge. Disposition: The patient was anxious to return home and was medically stable at the time of discharge. She was taken via private car. - ALLERGIES Allergies/Adverse Reactions: Allergies Allergy/AdvReac Type Severity Reaction Status Date / Time amoxicillin Allergy Unknown Verified 02/05/18 23:52 ampicillin Allergy Unknown Verified 02/05/18 23:52 oxycodone Allergy Rash Verified 02/06/18 22:14 - MEDICATIONS Home Medications: Ambulatory Orders Medication Instructions Recorded Confirmed Cyanocobalamin (Vitamin B-12) 500 mcg PO DAILY 01/08/18 02/06/18 [Vitamin B-12 (100mcg tab)] Pantoprazole [Protonix] 40 mg PO QDAC 01/08/18 02/06/18 Furosemide 40 mg PO DAILY #0 01/12/18 02/06/18 Benzonatate 100 - 200 mg PO TID PRN 02/03/18 02/06/18 Levothyroxine Sodium 112 mcg PO QDAC 02/03/18 02/06/18 Multivitamin W/Minerals [Theragran 1 tab PO DAILY 02/03/18 02/06/18 M] Spironolactone 50 mg PO BID MDD 3 refills 02/03/18 02/06/18 Albuterol Sulf [Ventolin Hfa 1 - 2 puffs INH Q6HR PRN 02/06/18 02/06/18 Inhaler] hydrOXYzine PAMOATE [Vistaril] 25 mg PO Q8HR PRN #10 capsule MDD 02/06/18 10 tablets only predniSONE [Prednisone] 40 mg PO DAILY #10 tablet MDD 10 02/06/18 02/06/18 tablets only Lactulose 30 ml PO TID MDD hold 3rd dose if 02/07/18 02/07/18 >3 BMs - PHYSICAL EXAM AT DISCHARGE General Appearance: positive: No acute distress, Alert Eyes Bilateral: positive: Other (scleral icterus, dry bilaterally) ENT: positive: Pharyngeal erythema, Dry mucous membranes Neck: positive: Thyroid nml, Trachea midline, Lymphadenopathy (R), Lymphadenopathy (L) Respiratory: positive: Chest non-tender, Wheezes, Rhonchi Cardiovascular: positive: Regular rate & rhythm, No gallop, Systolic murmur, Decreased pulse(s) Peripheral Pulses: positive: 1+ Abdomen: positive: Tenderness, Guarding, Rebound, Hepatomegaly, Abnml bowel sounds, Other (firm) Back: positive: Nml inspection Skin: positive: Dry, Diaphoresis, Pallor, Skin rash, Other (jaundice,mild) Extremities: positive: Pedal edema, Joint swelling Neurologic/Psychiatric: positive: Oriented x3, CN's nml (2-12), Motor nml, Weakness, Sensory loss, Depressed mood/affect Reflexes: Bicep (R): 2+, Bicep (L): 2+ - LABS Result Diagrams: 02/04/18 05:53 02/04/18 05:53 - FOLLOW UP Follow Up: Disposition: Home, Self Care Condition: Good Diet: Low Sodium Activity Restrictions: Activity as Tolerated Shower Restrictions: No Driving Restrictions: No Weight Bearing: Full Weight Instruction Topics: Hypokalemia Dc Additional Instructions or Follow Up instructions: You were admitted with low blood potassium levels. You were given replacement, and this normalized nicely. Your ammonia blood levels became more elevated, and this is likely due to you not taking your lactulose. Please continue to take your lactulose and your spironolactone, since this will further prevent your potassium from going too low. Please go to your scheduled appointment tomorrow, Sunday. - TIME SPENT Time Spent in Discharge (Minutes): 50
[2018-02-04] MEDS: CALAMINE/ZINC OXIDE 177 ML BOTTLE TOP PRN (13:13)
== END 2018-02-04 14:20 | disposition home or self-care (01) | DRG 641 ==
LOC: EDUNIT# → ED 00:10 → SUPCPDRO 00:10 → MS3 01:40
PROVIDERS: ADMIT Internal Medicine; ATTEND Nurse Practitioner
DX: E87.6 Hypokalemia (principal); R21 Rash and other nonspecific skin eruption; Z72.0 Tobacco use; E87.1 Hypo-osmolality and hyponatremia; K70.31 Alcoholic cirrhosis of liver with ascites
CPT/HCPCS: 36415; 71046; 80048; 80053; 80306; 80307; 80320; 80329; 81001; 81003; 82140; 82150; 82550; 83690; 83735; 83880; 84132; 84484; 85025; 85610; 85730; 87086; 93005; 93306; 96374; 99284; 99285

== ENCOUNTER 2018-02-05 23:15 | Outpatient (CLI) | payer MEDICAID | END 2018-02-05 23:16 | disposition critical access hospital (66) | LOC: EMS 23:15 | PROVIDERS: ATTEND Surgery | DX: R05 Cough (principal); R06.00 Dyspnea, unspecified; R53.1 Weakness | CPT/HCPCS: A0425; A0429; A0999 ==

== ENCOUNTER 2018-02-05 23:36 | Emergency (ER) | payer MEDICAID ==
[2018-02-06] MEDS ORDERED: SODIUM CHLORIDE 0.9% 1,000 ML IV ONE (00:37)
[2018-02-06 00:53] LABS: BASOPHILS % (AUTO) 0.4 %; EOSINOPHILS # (AUTO) 0.1 10^3/uL (0.0-0.7); HGB - HEMOGLOBIN 9.1 g/dL (12.0-16.0); LYMPHOCYTES # (AUTO) 1.1 10^3/uL (1.5-3.5); LYMPHOCYTES % (AUTO) 8.4 %; MEAN CORPUSCULAR HEMOGLOBIN 34.5 pg (27.0-31.0); MEAN CORPUSCULAR HGB CONC 33.2 g/dL (32.0-36.0); MEAN CORPUSCULAR VOLUME 103.8 fL (81.0-99.0); MEAN PLATELET VOLUME 7.1 fL (7.9-10.8); MONOCYTES # (AUTO) 0.6 10^3/uL (0.0-1.0); MONOCYTES % (AUTO) 4.7 %; NEUTROPHILS # (AUTO) 10.7 10^3/uL (1.5-6.6); NEUTROPHILS % (AUTO) 85.5 %; PLT - PLATELET COUNT 167 10^3/uL (130-450); RED BLOOD COUNT 2.64 10^6/uL (4.20-5.40); RED CELL DISTRIBUTION WIDTH 17.1 % (12.0-15.0); WHITE BLOOD COUNT 12.5 x10^3/uL (4.8-10.8)
[2018-02-06 00:55] LABS: ALBUMIN 1.9 g/dL (3.2-5.5); ALBUMIN/GLOBULIN RATIO 0.7 (1.0-2.2); BILIRUBIN,TOTAL 3.8 mg/dL (0.2-1.0); CALCIUM 7.7 mg/dL (8.5-10.3); CREATININE 0.6 mg/dL (0.4-1.0); TOTAL PROTEIN 4.6 g/dL (6.7-8.2)
--- NOTE | 2018-02-06 02:58 | ED Physician Documentation ---
PD HPI DYSPNEA - Stated complaint Stated Complaint: SOA WITH COUGH - Chief complaint Chief Complaint: Resp - History obtained from History obtained from: Patient - History of Present Illness Timing - onset: Enter time (22:00), Today Timing - onset during: Rest Timing - details: Gradual onset Pain level max: 0 Pain level now: 0 Improved by: O2 Worsened by: Exertion Associated symptoms: Cough, Wheezing, Bilateral edema. No: Fever, Chest pain / discomfort Similar symptoms before: Diagnosis (COPD) Recently seen: Emergency Dept, Admitted - Additional information Additional information: multiple ED visits past few weeks including admission to hospital, discharged less than 36 hours ago. she presents to ED at this time c/o dyspnea and cough, worsening since 10 PM. Review of Systems Constitutional: reports: Reviewed and negative Cardiac: reports: Reviewed and negative Respiratory: reports: Dyspnea, Cough, Wheezing. denies: Hemoptysis GI: reports: Abdominal Swelling. denies: Abdominal Pain, Nausea, Vomiting : denies: Dysuria, Frequency Skin: reports: Rash (face, BLE, chest) Neurologic: reports: Generalized weakness. denies: Focal weakness, Numbness, Headache PD PAST MEDICAL HISTORY - Past Medical History Respiratory: COPD, Pneumonia, Shortness of breath Neuro: None Endocrine/Autoimmune: HyPOthyroidism GI: Hepatitis, Cirrhosis : None HEENT: Chronic vision loss Psych: None Musculoskeletal: None - Past Surgical History Past Surgical History: Yes General: Gastric surgery Ortho: Arthroscopic surgery /HORTICULTURAL SPECIALTY GROWER INSIDE: section HEENT: Myringotomy (tubes) - Present Medications Home Medications: Ambulatory Orders Medication Instructions Recorded Confirmed Cyanocobalamin (Vitamin B-12) 500 mcg PO DAILY 01/08/18 02/06/18 [Vitamin B-12 (100mcg tab)] Pantoprazole [Protonix] 40 mg PO QDAC 01/08/18 02/06/18 Furosemide 40 mg PO DAILY #0 01/12/18 02/06/18 Benzonatate 100 - 200 mg PO TID PRN 02/03/18 02/06/18 Levothyroxine Sodium 112 mcg PO QDAC 02/03/18 02/06/18 Multivitamin W/Minerals [Theragran 1 tab PO DAILY 02/03/18 02/06/18 M] Spironolactone 50 mg PO BID MDD 3 refills 02/03/18 02/06/18 Albuterol Sulf [Ventolin Hfa 1 - 2 puffs INH Q6HR PRN 02/06/18 02/06/18 Inhaler] hydrOXYzine PAMOATE [Vistaril] 25 mg PO Q8HR PRN #10 capsule MDD 02/06/18 10 tablets only predniSONE [Prednisone] 40 mg PO DAILY #10 tablet MDD 10 02/06/18 02/06/18 tablets only - Allergies Allergies/Adverse Reactions: Allergies Allergy/AdvReac Type Severity Reaction Status Date / Time amoxicillin Allergy Unknown Verified 02/05/18 23:52 ampicillin Allergy Unknown Verified 02/05/18 23:52 oxycodone Allergy Rash Verified 02/06/18 22:14 - Social History Does the pt smoke?: No Smoking Status: Never smoker Does the pt drink ETOH?: Yes Does the pt have substance abuse?: No - Immunizations Immunizations are current?: Yes - POLST Patient has POLST: No POLST Status: Full Code PD ED PE NORMAL - Vitals Vital signs reviewed: Yes - General General: Alert and oriented X 3, No acute distress, Well developed/nourished - HEENT HEENT: PERRL, EOMI, Moist mucous membranes, Other (icteric sclera) - Neck Neck: Supple, no meningeal sign - Cardiac Cardiac: RRR, No murmur - Respiratory Respiratory: No respiratory distress, Other (bilateral rhonchi, significantly worse on right ) - Abdomen Abdomen: Soft, Non tender - Back Back: No CVA TTP - Neuro Neuro: Alert and oriented X 3 PD ED PE EXPANDED - Abdomen Abdomen: Distended - Derm Derm: Jaundiced, Rash (erythematous maculopapular exanthem face, BLE, upper chest) - Extremities Extremities: Pedal edema bilateral Results - Vitals Vitals: Vital Signs - 24 hr 02/06/18 08:00 Heart Rate 106 H Respiratory 14 Rate Blood Pressure 91/70 O2 Saturation 99 Oxygen O2 Source Room air - Labs Labs: Laboratory Tests 02/06/18 02/06/18 02/06/18 00:30 00:30 03:45 WBC 12.5 H RBC 2.64 L Hgb 9.1 L Hct 27.4 L MCV 103.8 H MCH 34.5 H MCHC 33.2 RDW 17.1 H Plt Count 167 MPV 7.1 L Neut # (Auto) 10.7 H Lymph # (Auto) 1.1 L Weber # (Auto) 0.6 Eos # (Auto) 0.1 Baso # (Auto) 0.0 Absolute Nucleated RBC 0.00 Nucleated RBC % 0.0 Sodium 131 L Potassium 3.4 L Chloride 96 L Carbon Dioxide 27 Anion Gap 8.0 BUN 16 Creatinine 0.6 Estimated GFR (MDRD) 109 Glucose 96 Calcium 7.7 L Total Bilirubin 3.8 H AST 80 H ALT 44 Alkaline Phosphatase 184 H Ammonia 26.8 B-Natriuretic Peptide Total Protein 4.6 L Albumin 1.9 L Globulin 2.7 Albumin/Globulin Ratio 0.7 L Lipase 82 H 02/06/18 03:45 WBC RBC Hgb Hct MCV MCH MCHC RDW Plt Count MPV Neut # (Auto) Lymph # (Auto) Weber # (Auto) Eos # (Auto) Baso # (Auto) Absolute Nucleated RBC Nucleated RBC % Sodium Potassium Chloride Carbon Dioxide Anion Gap BUN Creatinine Estimated GFR (MDRD) Glucose Calcium Total Bilirubin AST ALT Alkaline Phosphatase Ammonia B-Natriuretic Peptide 62 Total Protein Albumin Globulin Albumin/Globulin Ratio Lipase - Rads (name of study) chest xray Radiology: Prelim report reviewed, See rad report PD MEDICAL DECISION MAKING - ED course Complexity details: reviewed results, re-evaluated patient, considered differential, d/w patient ED course: reevaluation after duoneb ans decadron IV, patient is asleep and in NAD, easily awoken, reports feeling much better and lung auscultation reveals good breath sounds equal bilaterally with resolution of rhonchi. - Sepsis Event Vital Signs: Vital Signs - 24 hr 02/06/18 08:00 Heart Rate 106 H Respiratory 14 Rate Blood Pressure 91/70 O2 Saturation 99 Oxygen O2 Source Room air Departure - Departure Disposition: 01 Home, Self Care Clinical Impression: Moderate COPD (chronic obstructive pulmonary disease), COPD with exacerbation Condition: Good Instructions: ED COPD Flare Follow-Up: Raquel Garcia ARNP [Primary Care Provider] - Prescriptions: hydrOXYzine PAMOATE [Vistaril] 25 mg PO Q8HR PRN #10 capsule MDD 10 tablets only PRN Reason: Itching predniSONE [Prednisone] 40 mg PO DAILY #10 tablet MDD 10 tablets only Discharge Date/Time: 02/06/18 08:15
[2018-02-06] MEDS ORDERED: DEXAMETHASONE 10 MG/ML VIAL IVP STA (03:36)
[2018-02-06] MEDS ORDERED: IPRATROPIUM/ALBUTEROL 3 ML NEB INH STA (03:36)
[2018-02-06] MEDS ORDERED: CHERRY SYRUP 10 ML UDC PO ONE (03:42)
--- NOTE | 2018-02-06 04:51 | XRAY Report ---
Procedure Date: 02/06/2018 Accession Number: [id number] / [id number] Procedure: XR - Chest 2 View X-Ray CPT Code: 10283 FULL RESULT: EXAM: CHEST RADIOGRAPHY EXAM DATE: 02/06/2018 04:29 AM. CLINICAL HISTORY: Dyspnea. COMPARISON: CHEST 2 VIEW 02/03/2018. TECHNIQUE: 2 views. FINDINGS: Lungs/Pleura: Small lung volumes. Increased hazy bilateral pulmonary opacities. Possible small left pleural effusion. No pneumothorax. Mediastinum: Heart size upper normal. Other: None. IMPRESSION: 1. Borderline cardiomegaly with worsening bilateral pulmonary edema or infiltrate. 2. Possible small left pleural effusion. RADIA
[2018-02-06 08:02] VITALS: BP 91/70
== END 2018-02-06 08:15 | disposition home or self-care (01) ==
LOC: EDUNIT# → SUPCPDRO 23:36 → ED 23:36
DX: J44.1 Chronic obstructive pulmonary disease with (acute) exacerbation (principal); E03.9 Hypothyroidism, unspecified
CPT/HCPCS: 36415; 71046; 80053; 82140; 83690; 83880; 85025; 94640; 94664; 96361; 96374; 99284; A9270

== ENCOUNTER 2018-02-06 14:30 | Outpatient (CLI) | payer MEDICAID ==
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
== END 2018-02-06 14:31 | disposition home or self-care (01) ==
LOC: PC 14:30
PROVIDERS: ATTEND Nurse Practitioner
DX: Z51.5 Encounter for palliative care (principal); K70.30 Alcoholic cirrhosis of liver without ascites; K72.90 Hepatic failure, unspecified without coma; E87.6 Hypokalemia; Z87.891 Personal history of nicotine dependence; K70.10 Alcoholic hepatitis without ascites; R05 Cough; Z91.14 Patient's other noncompliance with medication regimen
CPT/HCPCS: 99345

== ENCOUNTER 2018-02-15 11:15 | Outpatient (CLI) | payer MEDICAID ==
[2018-02-15 10:48] LABS: BASOPHILS % (AUTO) 0.4 %; EOSINOPHILS # (AUTO) 0.1 10^3/uL (0.0-0.7); EOSINOPHILS % (AUTO) 1.1 %; HGB - HEMOGLOBIN 9.6 g/dL (12.0-16.0); LYMPHOCYTES # (AUTO) 1.2 10^3/uL (1.5-3.5); LYMPHOCYTES % (AUTO) 12.6 %; MEAN CORPUSCULAR HEMOGLOBIN 33.4 pg (27.0-31.0); MEAN CORPUSCULAR HGB CONC 33.6 g/dL (32.0-36.0); MEAN CORPUSCULAR VOLUME 99.2 fL (81.0-99.0); MEAN PLATELET VOLUME 7.1 fL (7.9-10.8); MONOCYTES # (AUTO) 0.5 10^3/uL (0.0-1.0); MONOCYTES % (AUTO) 5.4 %; NEUTROPHILS # (AUTO) 7.6 10^3/uL (1.5-6.6); NEUTROPHILS % (AUTO) 80.5 %; PLT - PLATELET COUNT 196 10^3/uL (130-450); RED BLOOD COUNT 2.87 10^6/uL (4.20-5.40); RED CELL DISTRIBUTION WIDTH 17.3 % (12.0-15.0); WHITE BLOOD COUNT 9.5 x10^3/uL (4.8-10.8)
[2018-02-15 14:11] LABS: ALBUMIN/GLOBULIN RATIO 0.8 (1.0-2.2); BILIRUBIN,TOTAL 2.8 mg/dL (0.2-1.0); CALCIUM 7.6 mg/dL (8.5-10.3); CREATININE 0.7 mg/dL (0.4-1.0); TOTAL PROTEIN 4.6 g/dL (6.7-8.2)
== END 2018-02-15 11:16 | disposition home or self-care (01) ==
LOC: LAB.R 11:15
PROVIDERS: ATTEND Family Medicine
DX: K72.90 Hepatic failure, unspecified without coma (principal); E03.9 Hypothyroidism, unspecified
CPT/HCPCS: 80053; 82140; 84443; 85025

== ENCOUNTER 2018-02-16 00:05 | Outpatient (CLI) | payer MEDICAID | END 2018-02-16 00:06 | disposition critical access hospital (66) | LOC: EMS 00:05 | PROVIDERS: ATTEND Surgery | DX: R06.02 Shortness of breath (principal); R51 Headache | CPT/HCPCS: A0425; A0429; A0999 ==

== ENCOUNTER 2018-02-16 00:29 | Emergency (ER) | payer MEDICAID ==
[2018-02-16 01:02] LABS: INR 1.7 (0.8-1.2); PT - PROTHROMBIN TIME 19.1 secs (9.9-12.6)
[2018-02-16 01:06] LABS: BASOPHILS # (AUTO) 0.1 10^3/uL (0.0-0.1); BASOPHILS % (AUTO) 0.7 %; EOSINOPHILS # (AUTO) 0.2 10^3/uL (0.0-0.7); EOSINOPHILS % (AUTO) 1.7 %; HGB - HEMOGLOBIN 9.4 g/dL (12.0-16.0); LYMPHOCYTES # (AUTO) 1.2 10^3/uL (1.5-3.5); LYMPHOCYTES % (AUTO) 11.7 %; MEAN CORPUSCULAR HEMOGLOBIN 33.8 pg (27.0-31.0); MEAN CORPUSCULAR HGB CONC 34.2 g/dL (32.0-36.0); MEAN CORPUSCULAR VOLUME 98.8 fL (81.0-99.0); MEAN PLATELET VOLUME 6.5 fL (7.9-10.8); MONOCYTES # (AUTO) 0.5 10^3/uL (0.0-1.0); MONOCYTES % (AUTO) 4.3 %; NEUTROPHILS # (AUTO) 8.7 10^3/uL (1.5-6.6); NEUTROPHILS % (AUTO) 81.6 %; PLT - PLATELET COUNT 200 10^3/uL (130-450); RED BLOOD COUNT 2.78 10^6/uL (4.20-5.40); RED CELL DISTRIBUTION WIDTH 17.6 % (12.0-15.0); WHITE BLOOD COUNT 10.6 x10^3/uL (4.8-10.8)
[2018-02-16] MEDS ORDERED: SODIUM CHLORIDE 0.9% 500 ML IV ONE (01:10)
[2018-02-16 01:11] LABS: ALBUMIN 2.2 g/dL (3.2-5.5); ALBUMIN/GLOBULIN RATIO 0.9 (1.0-2.2); BILIRUBIN,TOTAL 2.6 mg/dL (0.2-1.0); CALCIUM 7.7 mg/dL (8.5-10.3); CREATININE 0.7 mg/dL (0.4-1.0); TOTAL PROTEIN 4.7 g/dL (6.7-8.2)
--- NOTE | 2018-02-16 02:20 | ED Physician Documentation ---
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 patient states that it has been going on for a number of days but seemed even worse tonight. patient was admitted about a month ago with pneumonia and hypokalemia. During that admission patient was found to have an EF of about 65-70 percent. Patient is on fluid restriction. Patient is not on a transplant list at this point but does have a follow up appointment on sunday or sunday Review of Systems Constitutional: reports: Chills, Fatigue. denies: Fever Eyes: denies: Decreased vision Ears: denies: Ear pain Cardiac: denies: Chest pain / pressure Respiratory: denies: Dyspnea, Cough GI: reports: Abdominal Pain, Abdominal Swelling. denies: Nausea, Vomiting, Constipation, Diarrhea : denies: Dysuria, Frequency Skin: denies: Rash, Lesions Musculoskeletal: reports: Extremity pain, Extremity swelling Neurologic: reports: Generalized weakness. 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 HEENT: Myringotomy (tubes) - Present Medications Home Medications: Ambulatory Orders Medication Instructions Recorded Confirmed Cyanocobalamin (Vitamin B-12) 500 mcg PO DAILY 01/08/18 02/06/18 [Vitamin B-12 (100mcg tab)] Pantoprazole [Protonix] 40 mg PO QDAC 01/08/18 02/06/18 Furosemide 40 mg PO DAILY #0 01/12/18 02/06/18 Benzonatate 100 - 200 mg PO TID PRN 02/03/18 02/06/18 Levothyroxine Sodium 112 mcg PO QDAC 02/03/18 02/06/18 Multivitamin W/Minerals [Theragran 1 tab PO DAILY 02/03/18 02/06/18 M] Spironolactone 50 mg PO BID MDD 3 refills 02/03/18 02/06/18 Albuterol Sulf [Ventolin Hfa 1 - 2 puffs INH Q6HR PRN 02/06/18 02/06/18 Inhaler] hydrOXYzine PAMOATE [Vistaril] 25 mg PO Q8HR PRN #10 capsule MDD 02/06/18 10 tablets only predniSONE [Prednisone] 40 mg PO DAILY #10 tablet MDD 10 02/06/18 02/06/18 tablets only Lactulose 30 ml PO TID MDD hold 3rd dose if 02/07/18 02/07/18 >3 BMs - Allergies Allergies/Adverse Reactions: Allergies Allergy/AdvReac Type Severity Reaction Status Date / Time amoxicillin Allergy Unknown Verified 02/16/18 00:43 ampicillin Allergy Unknown Verified 02/16/18 00:43 oxycodone Allergy Rash Verified 02/16/18 00:43 - Social History Does the pt smoke?: No Smoking Status: Never smoker Does the pt drink ETOH?: Yes Does the pt have substance abuse?: No - Immunizations Immunizations are current?: Yes - POLST Patient has POLST: Yes POLST Status: Full Code PD ED PE NORMAL - Vitals Vital signs reviewed: Yes - General General: Alert and oriented X 3 - HEENT HEENT: Atraumatic - Neck Neck: No JVD - Respiratory Respiratory: No respiratory distress - Neuro Neuro: Alert and oriented X 3, No motor deficit, Normal speech Eye Opening: Spontaneous Motor: Obeys Commands Verbal: Oriented GCS Score: 15 PD ED PE EXPANDED - HEENT HEENT: Dry mucous membranes - Cardiac Cardiac: Tachy - Abdomen Abdomen: Hyperactive BS, Distended, Tender to palpation - Extremities Extremities: Pedal edema bilateral (plus IV bilateral pitting edema) Results - Vitals Vitals: Vital Signs - 24 hr 02/16/18 02/16/18 02/16/18 00:30 02:09 02:49 Temperature 37.3 C 37.1 C Heart Rate 123 H 117 H 119 H Respiratory 14 29 H Rate Blood Pressure 107/73 106/63 99/71 O2 Saturation 98 94 91 L 02/16/18 02/16/18 02/16/18 04:37 04:38 05:12 Temperature Heart Rate 114 H 112 H 110 H Respiratory 30 H 34 H 30 H Rate Blood Pressure 102/67 102/67 102/69 O2 Saturation 93 92 94 02/16/18 02/16/18 02/16/18 06:05 06:10 06:14 Temperature Heart Rate 110 H Respiratory 30 H Rate Blood Pressure 100/64 O2 Saturation 94 90 L 97 02/16/18 07:11 Temperature 36.6 C Heart Rate 110 H Respiratory 36 H Rate Blood Pressure 107/72 O2 Saturation 97 Oxygen O2 Source Nasal cannula Oxygen Flow Rate 2 - EKG (time done) 0045 Rate: Rate (enter#) (119) Rhythm: Sinus tachycardia [place]: Normal Intervals: Normal ND QRS: Normal - Labs Labs: Laboratory Tests 02/16/18 02/16/18 02/16/18 00:50 00:50 00:50 WBC 10.6 RBC 2.78 L Hgb 9.4 L Hct 27.5 L MCV 98.8 MCH 33.8 H MCHC 34.2 RDW 17.6 H Plt Count 200 MPV 6.5 L Neut # (Auto) 8.7 H Lymph # (Auto) 1.2 L [place] # (Auto) 0.5 Eos # (Auto) 0.2 Baso # (Auto) 0.1 Absolute Nucleated RBC 0.00 Nucleated RBC % 0.0 PT 19.1 H INR 1.7 H APTT 29.3 Sodium 131 L Potassium 3.4 L Chloride 99 L Carbon Dioxide 23 Anion Gap 9.0 BUN 14 Creatinine 0.7 Estimated GFR (MDRD) 91 Glucose 108 H Lactic Acid Calcium 7.7 L Total Bilirubin 2.6 H AST 79 H ALT 41 Alkaline Phosphatase 187 H Ammonia Lactate Dehydrogenase Troponin I B-Natriuretic Peptide Total Protein 4.7 L Albumin 2.2 L Globulin 2.5 Albumin/Globulin Ratio 0.9 L Lipase 69 H 02/16/18 02/16/18 02/16/18 00:50 00:50 00:50 WBC RBC Hgb Hct MCV MCH MCHC RDW Plt Count MPV Neut # (Auto) Lymph # (Auto) [place] # (Auto) Eos # (Auto) Baso # (Auto) Absolute Nucleated RBC Nucleated RBC % PT INR APTT Sodium Potassium Chloride Carbon Dioxide Anion Gap BUN Creatinine Estimated GFR (MDRD) Glucose Lactic Acid 2.8 H Calcium Total Bilirubin AST ALT Alkaline Phosphatase Ammonia Lactate Dehydrogenase Troponin I < 0.04 B-Natriuretic Peptide 42 Total Protein Albumin Globulin Albumin/Globulin Ratio Lipase 02/16/18 02/16/18 02/16/18 00:50 01:04 03:58 WBC RBC Hgb Hct MCV MCH MCHC RDW Plt Count MPV Neut # (Auto) Lymph # (Auto) [place] # (Auto) Eos # (Auto) Baso # (Auto) Absolute Nucleated RBC Nucleated RBC % PT INR APTT Sodium Potassium Chloride Carbon Dioxide Anion Gap BUN Creatinine Estimated GFR (MDRD) Glucose Lactic Acid 1.9 Calcium Total Bilirubin AST ALT Alkaline Phosphatase Ammonia 33.1 Lactate Dehydrogenase 260 H Troponin I B-Natriuretic Peptide Total Protein Albumin Globulin Albumin/Globulin Ratio Lipase PD MEDICAL DECISION MAKING - ED course Complexity details: reviewed old records, reviewed results, re-evaluated patient , considered differential, d/w patient ED course: Patient was seen and examined at bedside. IV access was gained and labs were drawn. Patient's previous records were reviewed and patient was found to have normal ejection fracture but did appear dehydrated. patient was treated with 500ml fluid bolus. Patient's abdomen was viewed under ultrasound and while there was significant ascites there was not a large pocket of fluid without bowel nearby. This was discussed with the patient and she stated that she would rather wait until her follow up appointment. Patient's lab values, albeit abnormal were improved compared to her previous visits. patient required no further inpatient work up at this time and was stable for discharge with close outpatient follow up. - Sepsis Event Vital Signs: Vital Signs - 24 hr 02/16/18 02/16/18 02/16/18 00:30 02:09 02:49 Temperature 37.3 C 37.1 C Heart Rate 123 H 117 H 119 H Respiratory 14 29 H Rate Blood Pressure 107/73 106/63 99/71 O2 Saturation 98 94 91 L 02/16/18 02/16/18 02/16/18 04:37 04:38 05:12 Temperature Heart Rate 114 H 112 H 110 H Respiratory 30 H 34 H 30 H Rate Blood Pressure 102/67 102/67 102/69 O2 Saturation 93 92 94 02/16/18 02/16/18 02/16/18 06:05 06:10 06:14 Temperature Heart Rate 110 H Respiratory 30 H Rate Blood Pressure 100/64 O2 Saturation 94 90 L 97 02/16/18 07:11 Temperature 36.6 C Heart Rate 110 H Respiratory 36 H Rate Blood Pressure 107/72 O2 Saturation 97 Oxygen O2 Source Nasal cannula Oxygen Flow Rate 2 Departure - Departure Disposition: 01 Home, Self Care Clinical Impression: Liver failure, Alcoholic cirrhosis of liver with ascites Condition: Good Instructions: Cirrhosis Liver Dc Follow-Up: Raquel Garcia ARNP [Primary Care Provider] - Within 3 Days Comments: Your diagnostics today were actually improved when compared to your previous visit. It is important that you continue with your medications you have been prescribed. you will ultimately need to have your abdomen drained. You should follow up with your doctors on sunday and discuss your transplant status. You may return to the emergency department at any time for new, worsening or uncontrollable symptoms. Discharge Date/Time: 02/16/18 07:47
[2018-02-16 07:12] VITALS: BP 107/72
== END 2018-02-16 07:47 | disposition home or self-care (01) ==
LOC: EDUNIT# → ED 00:29 → SUPCPDRO 00:29 → ED 07:47
DX: K72.90 Hepatic failure, unspecified without coma (principal); K70.31 Alcoholic cirrhosis of liver with ascites; R00.0 Tachycardia, unspecified; E03.9 Hypothyroidism, unspecified
CPT/HCPCS: 36415; 80053; 82140; 83605; 83615; 83690; 83880; 84484; 85025; 85610; 85730; 93005; 96360; 99284; 99285

== ENCOUNTER 2018-02-18 11:56 | Outpatient (CLI) | payer MEDICAID | END 2018-02-18 11:57 | disposition critical access hospital (66) | LOC: EMS 11:56 | PROVIDERS: ATTEND Surgery | DX: R06.00 Dyspnea, unspecified (principal); R14.0 Abdominal distension (gaseous) | CPT/HCPCS: A0425; A0429; A0999 ==

== ENCOUNTER 2018-02-18 12:22 | Inpatient (IN) | payer MEDICAID ==
--- NOTE | 2018-02-18 12:56 | ED Physician Documentation ---
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 HEENT: Myringotomy (tubes) - Present Medications Home Medications: Ambulatory Orders Medication Instructions Recorded Confirmed Cyanocobalamin (Vitamin B-12) 500 mcg PO DAILY 01/08/18 02/06/18 [Vitamin B-12 (100mcg tab)] Pantoprazole [Protonix] 40 mg PO QDAC 01/08/18 02/06/18 Furosemide 40 mg PO DAILY #0 01/12/18 02/06/18 Benzonatate 100 - 200 mg PO TID PRN 02/03/18 02/06/18 Levothyroxine Sodium 112 mcg PO QDAC 02/03/18 02/06/18 Multivitamin W/Minerals [Theragran 1 tab PO DAILY 02/03/18 02/06/18 M] Spironolactone 50 mg PO BID MDD 3 refills 02/03/18 02/06/18 Albuterol Sulf [Ventolin Hfa 1 - 2 puffs INH Q6HR PRN 02/06/18 02/06/18 Inhaler] hydrOXYzine PAMOATE [Vistaril] 25 mg PO Q8HR PRN #10 capsule MDD 02/06/18 10 tablets only predniSONE [Prednisone] 40 mg PO DAILY #10 tablet MDD 10 02/06/18 02/06/18 tablets only Lactulose 30 ml PO TID MDD hold 3rd dose if 02/07/18 02/07/18 >3 BMs Potassium Chloride 20 meq PO DAILY 02/18/18 02/18/18 - Allergies Allergies/Adverse Reactions: Allergies Allergy/AdvReac Type Severity Reaction Status Date / Time amoxicillin Allergy Unknown Verified 02/16/18 00:43 ampicillin Allergy Unknown Verified 02/16/18 00:43 oxycodone Allergy Rash Verified 02/16/18 00:43 - Social History Does the pt smoke?: No Smoking Status: Never smoker Does the pt drink ETOH?: Yes Does the pt have substance abuse?: No - Immunizations Immunizations are current?: Yes - POLST Patient has POLST: Yes POLST Status: Full Code Results - Vitals Vitals: Vital Signs - 24 hr 02/18/18 12:24 Temperature 37.1 C Heart Rate 117 H Respiratory 20 Rate Blood Pressure 94/67 O2 Saturation 88 L Oxygen O2 Source Room air Oxygen Flow Rate 4 PD MEDICAL DECISION MAKING - Sepsis Event Vital Signs: Vital Signs - 24 hr 02/18/18 12:24 Temperature 37.1 C Heart Rate 117 H Respiratory 20 Rate Blood Pressure 94/67 O2 Saturation 88 L Oxygen O2 Source Room air Oxygen Flow Rate 4
[2018-02-18 13:03] LABS: BASOPHILS % (AUTO) 0.3 %; EOSINOPHILS # (AUTO) 0.1 10^3/uL (0.0-0.7); EOSINOPHILS % (AUTO) 0.9 %; HGB - HEMOGLOBIN 10.1 g/dL (12.0-16.0); MEAN CORPUSCULAR HEMOGLOBIN 33.1 pg (27.0-31.0); MEAN CORPUSCULAR HGB CONC 34.7 g/dL (32.0-36.0); MEAN CORPUSCULAR VOLUME 95.6 fL (81.0-99.0); MEAN PLATELET VOLUME 6.5 fL (7.9-10.8); MONOCYTES # (AUTO) 0.4 10^3/uL (0.0-1.0); MONOCYTES % (AUTO) 4.2 %; NEUTROPHILS # (AUTO) 9.1 10^3/uL (1.5-6.6); NEUTROPHILS % (AUTO) 85.6 %; PLT - PLATELET COUNT 224 10^3/uL (130-450); RED BLOOD COUNT 3.04 10^6/uL (4.20-5.40); RED CELL DISTRIBUTION WIDTH 17.5 % (12.0-15.0); WHITE BLOOD COUNT 10.7 x10^3/uL (4.8-10.8)
[2018-02-18 13:08] LABS: INR 1.8 (0.8-1.2); PT - PROTHROMBIN TIME 20.4 secs (9.9-12.6)
[2018-02-18 13:09] LABS: ALBUMIN/GLOBULIN RATIO 0.7 (1.0-2.2); BILIRUBIN,TOTAL 4.3 mg/dL (0.2-1.0); CALCIUM 7.6 mg/dL (8.5-10.3); CREATININE 0.6 mg/dL (0.4-1.0); TOTAL PROTEIN 4.7 g/dL (6.7-8.2)
[2018-02-18] MEDS ORDERED: ONDANSETRON 4 MG/2 ML VIAL IVP STA (13:23)
[2018-02-18] MEDS ORDERED: FUROSEMIDE 40 MG/4 ML VIAL IVP STA (13:23)
--- NOTE | 2018-02-18 13:30 | ED Physician Documentation ---
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 She states she ran out of her medications at home has been having increasing dyspnea over the past few days. She states she started feeling unwell last night and had trouble getting out of bed this morning. She does use oxygen at home. She sees her fire patroller next month. Denies any fevers. Has had nausea but no vomiting. Also states that she has a headache. States she feels very thirsty. Review of Systems Ten Systems: 10 systems reviewed and negative Constitutional: denies: Fever, Chills Ears: denies: Ear pain Nose: denies: Rhinorrhea / runny nose, Congestion Throat: denies: Sore throat Cardiac: denies: Chest pain / pressure Respiratory: reports: Dyspnea. 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 HEENT: Myringotomy (tubes) - Present Medications Home Medications: Ambulatory Orders Medication Instructions Recorded Confirmed Cyanocobalamin (Vitamin B-12) 500 mcg PO DAILY 01/08/18 02/18/18 [Vitamin B-12 (100mcg tab)] Pantoprazole [Protonix] 40 mg PO QDAC 01/08/18 02/18/18 Furosemide 40 mg PO DAILY #0 01/12/18 02/18/18 Benzonatate 100 - 200 mg PO TID PRN 02/03/18 02/18/18 Levothyroxine Sodium 112 mcg PO QDAC 02/03/18 02/18/18 Multivitamin W/Minerals [Theragran 1 tab PO DAILY 02/03/18 02/18/18 M] Spironolactone 50 mg PO BID 02/03/18 02/18/18 Albuterol Sulf [Ventolin Hfa 1 - 2 puffs INH Q6HR PRN 02/06/18 02/18/18 Inhaler] Lactulose 30 ml PO TID MDD hold 3rd dose if 02/07/18 02/18/18 >3 BMs Cholecalciferol (Vitamin D3) 2,000 unit PO DAILY 02/18/18 02/18/18 [Vitamin D] Potassium Chloride 20 meq PO DAILY 02/18/18 02/18/18 - Allergies Allergies/Adverse Reactions: Allergies Allergy/AdvReac Type Severity Reaction Status Date / Time amoxicillin Allergy Unknown Verified 02/16/18 00:43 ampicillin Allergy Unknown Verified 02/16/18 00:43 oxycodone Allergy Rash Verified 02/16/18 00:43 - Social History Does the pt smoke?: No Smoking Status: Never smoker Does the pt drink ETOH?: Yes Does the pt have substance abuse?: No - Immunizations Immunizations are current?: Yes - POLST Patient has POLST: Yes POLST Status: Full Code PD ED PE NORMAL - Vitals Vital signs reviewed: Yes - General General: Alert and oriented X 3, Other (patient is in no distress) - HEENT HEENT: PERRL, Moist mucous membranes, Other (mild jaundice) - Neck Neck: Supple, no meningeal sign - Cardiac Cardiac: RRR - Respiratory Respiratory: No respiratory distress, Clear bilaterally - Abdomen Abdomen: Soft, Non tender, Other (moderate distention, soft. no tenderness. no peritoneal signs) - Derm Derm: Warm and dry - Extremities Extremities: Other (3+ B pitting edema) - Neuro Neuro: Alert and oriented X 3 - Psych Psych: Normal mood, Normal affect Results - Vitals Vitals: Vital Signs - 24 hr 02/18/18 02/18/18 12:24 13:30 Temperature 37.1 C Heart Rate 117 H 112 H Respiratory 20 31 H Rate Blood Pressure 94/67 106/72 O2 Saturation 88 L 97 Oxygen O2 Source Nasal cannula Oxygen Flow Rate 4 - Labs Labs: Laboratory Tests 02/18/18 02/18/18 02/18/18 12:45 12:45 12:45 WBC 10.7 RBC 3.04 L Hgb 10.1 L Hct 29.0 L MCV 95.6 MCH 33.1 H MCHC 34.7 RDW 17.5 H Plt Count 224 MPV 6.5 L Neut # (Auto) 9.1 H Lymph # (Auto) 1.0 L [place] # (Auto) 0.4 Eos # (Auto) 0.1 Baso # (Auto) 0.0 Absolute Nucleated RBC 0.00 Nucleated RBC % 0.0 PT 20.4 H INR 1.8 H APTT 30.1 Sodium 131 L Potassium 3.3 L Chloride 96 L Carbon Dioxide 26 Anion Gap 9.0 BUN 16 Creatinine 0.6 Estimated GFR (MDRD) 109 Glucose 78 Calcium 7.6 L Magnesium Total Bilirubin 4.3 H AST 80 H ALT 30 Alkaline Phosphatase 189 H Total Protein 4.7 L Albumin 2.0 L Globulin 2.7 Albumin/Globulin Ratio 0.7 L Lipase 49 02/18/18 12:45 WBC RBC Hgb Hct MCV MCH MCHC RDW Plt Count MPV Neut # (Auto) Lymph # (Auto) [place] # (Auto) Eos # (Auto) Baso # (Auto) Absolute Nucleated RBC Nucleated RBC % PT INR APTT Sodium Potassium Chloride Carbon Dioxide Anion Gap BUN Creatinine Estimated GFR (MDRD) Glucose Calcium Magnesium 1.8 Total Bilirubin AST ALT Alkaline Phosphatase Total Protein Albumin Globulin Albumin/Globulin Ratio Lipase - Rads (name of study) cxr Radiology: Prelim report reviewed, EMP read contemporaneously, See rad report ( Patchy increased density diffusely throughout both lungs with left pleural effusion and basilar airspace disease. Findings may be on the basis of fluid overload/congestive heart failure and/or infection. ) PD MEDICAL DECISION MAKING - ED course Complexity details: reviewed old records, reviewed results, re-evaluated patient , considered differential, d/w patient, d/w medical record consultant ED course: Patient is a 42-year-old female with end-stage liver disease who has not been taking her diuretics as prescribed. Now has generalized anasarca, diffuse pulmonary edema and hypoxia. Will restart on diuretics. We will see how she diuresis and then it will need to be determined if she needs a paracentesis or not. No evidence of infection at this time. Discussed the case with Dr. Traylor, hospitalist who accepts. This document was made in part using voice recognition software. While efforts are made to proofread this document, sound alike and grammatical errors may occur. - Sepsis Event Vital Signs: Vital Signs - 24 hr 02/18/18 02/18/18 12:24 13:30 Temperature 37.1 C Heart Rate 117 H 112 H Respiratory 20 31 H Rate Blood Pressure 94/67 106/72 O2 Saturation 88 L 97 Oxygen O2 Source Nasal cannula Oxygen Flow Rate 4 Departure - Departure Disposition: 66 [facility] DC/Xfer Clinical Impression: Hypoxia, Anasarca Pulmonary edema Qualifiers: Chronicity: acute Qualified Code(s): J81.0 - Acute pulmonary edema Condition: Stable Discharge Date/Time: 02/18/18 15:04
--- NOTE | 2018-02-18 13:50 | XRAY Report ---
Procedure Date: 02/18/2018 Accession Number: [id number] / [id number] Procedure: XR - Chest 1 View X-Ray CPT Code: 76800 FULL RESULT: EXAM: CHEST RADIOGRAPHY EXAM DATE: 02/18/2018 01:41 PM. CLINICAL HISTORY: Dyspnea. COMPARISON: 02/06/2018 TECHNIQUE: 1 view. FINDINGS: Lungs/Pleura: Left pleural effusion and basilar airspace disease. Patchy increased density diffusely throughout both lungs. Findings may be on the basis of fluid overload/congestive heart failure and/or infection. No pneumothorax. Mediastinum: Heart size accentuated by the AP portable technique. Other: None. IMPRESSION: Patchy increased density diffusely throughout both lungs with left pleural effusion and basilar airspace disease. Findings may be on the basis of fluid overload/congestive heart failure and/or infection. RADIA
[2018-02-18] MEDS ORDERED: BENZONATATE 100 MG CAPSULE PO PRN (14:26)
[2018-02-18] MEDS ORDERED: THIAMINE 100 MG TABLET PO STA (14:30)
[2018-02-18] MEDS ORDERED: ALBUTEROL NEB 2.5 MG/3 ML INH PRN (14:59)
[2018-02-18] MEDS ORDERED: HYDROmorphone 2 MG/ML VIAL IVP PRN (15:08)
[2018-02-18] MEDS ORDERED: LACTULOSE 10 GM/15 ML BOTTLE PO SCH (17:00)
[2018-02-18] MEDS: ALBUTEROL NEB 2.5 MG/3 ML INH PRN (18:30)
--- NOTE | 2018-02-18 18:54 | HISTORY & PHYSICAL EXAMINATION ---
DATE OF SERVICE: 02/18/2018 Physician: Francy Dotson MD HISTORY OF PRESENT ILLNESS: This is a 42-year-old white female with a history of COPD, hypothyroidism on Synthroid, and chronic alcoholic cirrhosis of the liver with ascites, hyperbilirubinemia, need for prior paracentesis. She also had a community-acquired pneumonia several months ago. The patient presents with shortness of breath and severe swelling, which started after running out of her medications 3 days ago. She states that the "pharmacy did not have them prepared" for her after she had "run out." In the emergency room, she was found to have anasarca, pulmonary edema, elevated bilirubin, and is being admitted for restarting of medications and needing significant diuresis. PAST MEDICAL HISTORY: End-stage liver disease with alcoholic cirrhosis, hypothyroidism, COPD and recent ex-smoker, prior alcohol abuse, recent ex- alcoholic. ALLERGIES 1. AMOXICILLIN. 2. AMPICILLIN. 3. OXYCODONE. MEDICATIONS Currently none but she was supposed to be on: 1. Vitamin D3 2000 units daily. 2. Vitamin B12 500 mcg daily. 3. Lactulose 30 mg t.i.d. or at least b.i.d. 4. Ventolin inhaler 2 puffs every 6 hours p.r.n. 5. Tessalon Perles p.r.n. cough. 6. Lasix 40 mg daily. 7. Levothyroxine 112 mcg daily. 8. Multivitamin daily. 9. Protonix 40 mg daily. 10. Spironolactone 50 mg b.i.d. 11. Potassium 20 mEq daily. FAMILY HISTORY: No inherited diseases. SOCIAL HISTORY: She is an ex-alcoholic who quit drinking alcohol 2 months ago and smoking cigarettes 2 months ago. She lives with 9-year-old daughter and a teenage son. There is no history of illicit drug use. REVIEW OF SYSTEMS: A comprehensive review of systems was performed and the pertinent positives are in the HPI. The rest is negative. PHYSICAL EXAMINATION GENERAL: Middle-aged white female who appears in no distress. She is smiling. VITAL SIGNS: Blood pressure 96/64, pulse of 110 in sinus tachycardia, afebrile , room air saturation 88%, and on O2 at 4 liters it is 97%. HEENT: Positive edema of the skin over the lower mandible. She has scleral icterus. Her oral mucosa is moist. She has good dentition versus dentures in place. NECK: Without JVD in the vertical position. No carotid bruits. CHEST: Diminished breath sounds at both bases. No rales. No wheezes are heard. HEART: Heart sounds normal. No murmur. PMI not palpable. No gallop. ABDOMEN: Distended, soft, nontender. There is a fluid wave. There is palpable liver tip 2 fingers below the right costal margin. EXTREMITIES: Legs show 4+ edema to the thighs. She has varicose veins and mottling of both legs versus spider veins. NEUROLOGIC: Intact. Oriented to person, place, and time. There is no asterixis. LABORATORY DATA: Sodium 131, potassium 3.3, BUN 16, creatinine 0.6, magnesium 1.8, AST 80, ALT 30, bilirubin 4.3, alkaline phosphatase 189. Ammonia level 17.5 (normal is 7-35). Albumin level 2.0. INR 1.8. Normal white count at 10.7 with a left shift of 9.1 neutrophils, hemoglobin 10.1 with an MCV of 95, platelet count normal at 224. Chest x-ray: Patchy density diffusely consistent with pulmonary edema and there is a left pleural effusion. No EKG was done. IMPRESSION/DIAGNOSES 1. Anasarca. 2. Pulmonary edema with desaturation. 3. Noncompliance with medications. 4. Hyponatremia. 5. Hypokalemia. 6. Alcoholic cirrhosis of the liver with ascites. 7. Hypothyroidism. 8. Chronic obstructive pulmonary disease with desaturation but no wheezing. PLAN: Admit the patient on telemetry because of the tachycardia. Start IV Lasix plus start her oral spironolactone, oral potassium replacement. Begin fluid restriction to treat the volume overload and hyponatremia. She tells me that her produce manager put her on a very strict fluid restriction of 1000 mL per day. Continue with her hypothyroidism medicine. Continue with her inhaler. Xopenex should be used to cause less tachycardia. Follow daily weights, I's and O's, daily electrolytes, magnesium, BUN, creatinine, liver tests, bilirubin, and CBC. CODE STATUS: FULL CODE. DEEP VENOUS THROMBOSIS PROPHYLAXIS: Foot pumps. She is already "auto anticoagulated" with the high INR because of her liver dysfunction. ATTESTATION: The patient is expected to be discharged or transferred to another facility within 96 hours: Yes. TD: 02/18/2018 17:20 BARBY
[2018-02-18] MEDS: SODIUM CHLORIDE FLUSH 0.9% 10 ML SYRINGE IVP SCH ×2 (20:26→23:41)
[2018-02-18] MEDS: ONDANSETRON 4 MG/2 ML VIAL IVP PRN (20:26)
[2018-02-18] MEDS: KETOROLAC 15 MG/ML VIAL IVP PRN (20:26)
[2018-02-18] MEDS: SPIRONOLACTONE 25 MG TABLET PO SCH (20:27)
[2018-02-18 20:33] LABS: MUDS CUTOFF CONCENTRATIONS CUTOFF CONC BELOW:
[2018-02-18 20:51] LABS: AMPHETAMINE SCREEN,URINE NEGATIVE (NEGATIVE); BENZODIAZEPINES SCREEN, URINE NEGATIVE (NEGATIVE); COCAINE SCREEN URINE NEGATIVE (NEGATIVE); METHADONE SCREEN, URINE NEGATIVE (NEGATIVE); METHAMPHETAMINES SCREEN, URINE NEGATIVE (NEGATIVE); OPIATE SCREEN, URINE NEGATIVE (NEGATIVE); OXYCODONE SCREEN, URINE NEGATIVE (NEGATIVE); PROPOXYPHENE SCREEN, URINE NEGATIVE (NEGATIVE); TRICYCLIC ANTIDEPRESSANT,URINE NEGATIVE (NEGATIVE)
[2018-02-19] MEDS: diphenhydrAMINE 25 MG CAPSULE PO PRN ×2 (00:56→14:42)
[2018-02-19 05:41] LABS: BASOPHILS # (AUTO) 0.1 10^3/uL (0.0-0.1); BASOPHILS % (AUTO) 1.1 %; EOSINOPHILS # (AUTO) 0.2 10^3/uL (0.0-0.7); HGB - HEMOGLOBIN 9.9 g/dL (12.0-16.0); LYMPHOCYTES # (AUTO) 0.9 10^3/uL (1.5-3.5); LYMPHOCYTES % (AUTO) 7.8 %; MEAN CORPUSCULAR HEMOGLOBIN 32.6 pg (27.0-31.0); MEAN CORPUSCULAR HGB CONC 33.1 g/dL (32.0-36.0); MEAN CORPUSCULAR VOLUME 98.5 fL (81.0-99.0); MEAN PLATELET VOLUME 6.7 fL (7.9-10.8); MONOCYTES # (AUTO) 0.3 10^3/uL (0.0-1.0); MONOCYTES % (AUTO) 2.4 %; NEUTROPHILS # (AUTO) 9.6 10^3/uL (1.5-6.6); NEUTROPHILS % (AUTO) 86.7 %; PLT - PLATELET COUNT 201 10^3/uL (130-450); RED BLOOD COUNT 3.05 10^6/uL (4.20-5.40); RED CELL DISTRIBUTION WIDTH 17.7 % (12.0-15.0); WHITE BLOOD COUNT 11.1 x10^3/uL (4.8-10.8)
[2018-02-19 05:51] LABS: ALBUMIN 1.9 g/dL (3.2-5.5); ALBUMIN/GLOBULIN RATIO 0.8 (1.0-2.2); BILIRUBIN,TOTAL 3.2 mg/dL (0.2-1.0); CALCIUM 7.5 mg/dL (8.5-10.3); CREATININE 0.7 mg/dL (0.4-1.0); TOTAL PROTEIN 4.3 g/dL (6.7-8.2)
[2018-02-19 06:03] LABS: % IRON SATURATION 13 % (20-50); IRON 22 ug/dL (28-170); TOTAL IRON BINDING CAPACITY 164 ug/dL (250-450); TRANSFERRIN 117 mg/dL (192-382)
[2018-02-19] MEDS: LEVOTHYROXINE 112 MCG TABLET PO SCH (06:08)
[2018-02-19] MEDS: ALBUTEROL NEB 2.5 MG/3 ML INH PRN ×2 (06:52→21:00)
[2018-02-19] MEDS ORDERED: FUROSEMIDE 40 MG/4 ML VIAL IVP SCH (08:00)
[2018-02-19] MEDS ORDERED: FUROSEMIDE 20 MG TABLET PO SCH (09:00)
[2018-02-19] MEDS ORDERED: POTASSIUM CHLORIDE 20 MEQ TABLET PO SCH (09:00)
--- NOTE | 2018-02-19 09:35 | XRAY Report ---
Procedure Date: 02/19/2018 Accession Number: [id number] / [id number] Procedure: XR - Chest 1 View X-Ray CPT Code: 08563 FULL RESULT: EXAM: CHEST RADIOGRAPHY EXAM DATE: 02/19/2018 07:54 AM. CLINICAL HISTORY: Presented with fluid overload v pneumonia. Short of breath COMPARISON: 02/18/2018. TECHNIQUE: 1 view. FINDINGS: Lungs/Pleura: Patchy bilateral diffuse airspace disease persists. Decreased left CP angle fluid without obvious residual effusion. No pneumothorax. Mediastinum: Heart size accentuated by the AP portable technique. Other: None. IMPRESSION: Bilateral diffuse infiltrates similar to the preceding day. Resolved left pleural effusion. RADIA
[2018-02-19] MEDS: FUROSEMIDE 40 MG/4 ML VIAL IVP SCH ×2 (09:50→14:40)
[2018-02-19] MEDS: LACTULOSE 10 GM /15 ML UDC PO SCH ×2 (09:50→19:18)
[2018-02-19] MEDS: SODIUM CHLORIDE FLUSH 0.9% 10 ML SYRINGE IVP SCH ×3 (09:50→23:55)
[2018-02-19] MEDS: FERROUS SULFATE 325 MG TABLET PO SCH (09:51)
[2018-02-19] MEDS: rifAXIMin 550 MG TABLET PO SCH ×3 (10:35→22:07)
[2018-02-19] MEDS: CHOLECALCIFEROL 1,000 UNIT TABLET PO SCH (10:36)
[2018-02-19] MEDS: MULTIVITAMIN W/MINERALS TABLET PO SCH (10:36)
[2018-02-19] MEDS: CYANOCOBALAMIN 500 MCG TABLET PO SCH (10:36)
[2018-02-19] MEDS: SPIRONOLACTONE 25 MG TABLET PO SCH ×2 (10:37→22:06)
[2018-02-19] MEDS: POLYETHYLENE GLYCOL 3350 17 GM PACKET PO SCH (10:37)
[2018-02-19] MEDS: FAMOTIDINE 20 MG TABLET PO SCH (10:37)
[2018-02-19] MEDS: KETOROLAC 15 MG/ML VIAL IVP PRN ×2 (10:48→22:15)
--- NOTE | 2018-02-19 12:21 | PROVIDER PROGRESS NOTE ---
Assessment/Plan - Problem List (1) Anasarca Assessment/Plan: Secondary to non compliance with medication as patient stopped taking her lasix and aldactone Restarted aldactone and started on IV lasix with fluid restriction Improving Continues to have edema but improved Will get paracentesis today (2) Pulmonary edema Qualifiers: Chronicity: acute Qualified Code(s): J81.0 - Acute pulmonary edema Assessment/Plan: Secondary to non compliance with medication and fluid overload secondary to liver failure with cirrhosis Patient has increased hypoxia on presentation CXR shows pulm edema Given IV lasix IMproving CXR this am Continue IV lasix (3) Non compliance w medication regimen Assessment/Plan: Patient counselled about need for compliance with medications She seems to understand and is willing to take lasix and aldactone She needs to show ability to be complaint in order to get transplant of her liver (4) Hypoxia Assessment/Plan: Secondary to pulmonary edema in setting of long standing COPD Patient requiring 4L of O2 Patient given IV lasix with improvement in CXR this am Wean O2 Continue IV lasix and PO aldactone (5) Hypokalemia Assessment/Plan: Improving with K replacement COntinue daily K as patient is on lasix K is 3.4 today MOnitor daily (6) Hyponatremia Assessment/Plan: Patient has hypervolemic hyponatremia Na improved from 131 to 133 today Improving with IV lasix and fluid restriction Continue treatment and monitor Na (7) Alcoholic cirrhosis of liver with ascites Assessment/Plan: Patients MELD score is 20 which gives her a 3 month mortality of 19.6% She has history of ascites and encephalopathy Continue lactulose and start rifaximin for encephalopathy Continue lasix and aldactone for ascites Paracentesis today Patient needs further outpatient follow up and eventual transplant (8) Moderate COPD (chronic obstructive pulmonary disease) Assessment/Plan: Patient has history of COPD and has quit smoking Does not appear to be in exacerbation Place on duonebs prn Supplemental O2 - Current Meds Current Meds: Current Medications Generic Name Dose Route Start Last Admin Trade Name Freq PRN Reason Stop Dose Admin Albuterol 2.5 mg 02/18/18 18:23 02/19/18 06:52 INH 2.5 mg RTQ4H PRN Administration Shortness of Air/Wheezing Cholecalciferol 2,000 unit 02/19/18 09:00 02/19/18 10:36 Vitamin D3 PO 2,000 unit DAILY PERICO Administration Cyanocobalamin 500 mcg 02/19/18 09:00 02/19/18 10:36 Vitamin B-12 PO 500 mcg DAILY PERICO Administration Diphenhydramine HCl 25 mg 02/19/18 00:46 02/19/18 00:56 Benadryl PO 25 mg Q4HR PRN Administration Allergy Symptoms Famotidine 20 mg 02/19/18 09:00 02/19/18 10:37 Pepcid PO 20 mg DAILY PERICO Administration Ferrous Sulfate 325 mg 02/19/18 08:00 02/19/18 09:51 Feosol PO 325 mg DAILYWM PERICO Administration Furosemide 40 mg 02/19/18 09:00 02/19/18 09:50 Lasix Inj 40 Mg Vial IVP 40 mg 0900,1400 PERICO Administration Ketorolac Tromethamine 15 mg 02/18/18 15:09 02/19/18 10:48 Toradol Inj (15mg) IVP 02/23/18 15:08 15 mg Q6HR PRN Administration PAIN Lactulose 20 gm 02/18/18 17:21 02/19/18 09:50 Enulose PO 20 gm BIDWM PERICO Administration Levothyroxine Sodium 112 mcg 02/19/18 07:00 02/19/18 06:08 Synthroid PO 112 mcg QDAC PERICO Administration Multivitamins/Minerals 1 tab 02/19/18 09:00 02/19/18 10:36 Theragran M PO 1 tab DAILY PERICO Administration Ondansetron HCl 4 mg 02/18/18 14:22 02/18/18 20:26 Zofran Inj IVP 4 mg Q6HR PRN Administration Nausea / Vomiting Polyethylene Glycol 17 gm 02/19/18 09:00 02/19/18 10:37 Miralax PO Not Given DAILY PERICO Potassium Chloride 20 meq 02/19/18 09:00 02/19/18 10:37 K-Dur PO 20 meq DAILY PERICO Administration Rifaximin 550 mg 02/19/18 08:00 02/19/18 10:50 Xifaxan PO Not Given BID PERICO Sodium Chloride 10 ml 02/18/18 17:00 02/19/18 09:50 Normal Saline Flush 0.9% IVP 10 ml 0100,0900,1700 PERICO Administration Spironolactone 50 mg 02/18/18 21:00 02/19/18 10:37 Aldactone PO 50 mg BID PERICO Administration - Lab Result Lab results reviewed: Yes Fish Bone Diagrams: 02/19/18 05:31 02/19/18 05:31 - Diagnostic Imaging Results Diagnostic Imaging Results: Final report reviewed - Additional Planning Condition/Complexity: Guarded My Orders: My Active Orders 02/19/18 CELL COUNT, BF [BF] Urgent CUL, ANAEROBIC (QUEST) [REFLAB] Urgent 02/19/18 08:00 Ferrous Sulfate [Feosol] 325 mg PO DAILYWM rifAXIMin [Xifaxan] 550 mg PO BID 02/19/18 09:00 FUROSEMIDE INJ 40mg VIAL [LASIX INJ 40 mg VIAL] 40 mg IVP 0900,1400 02/19/18 09:11 NPO [DIET] Abdominal Paracentesis [US] Routine 02/20/18 05:00 PT WITH INR [COAG] DAILYLAB 02/21/18 05:00 PT WITH INR [COAG] DAILYLAB 02/22/18 05:00 PT WITH INR [COAG] DAILYLAB Plan Discussed with:: Patient Time Spent: 31-60 minutes Subjective - Subjective Patient Reports: Feeling Better, Fatigue, Shortness of Breath (With exertion), Other (Improved upper and lower extremity swelling, continues to have abdominal distention.) Nursing Reports: No Complaints Objective Vital Signs: Vital Signs - 24 hr 02/18/18 02/18/18 02/18/18 15:25 18:33 19:31 Temperature 37 C 37.0 C Heart Rate 104 H Heart Rate [ 110 H 113 H Monitoring electrodes] Respiratory 20 22 20 Rate Blood Pressure 96/64 91/56 L [Left Brachial artery] Blood Pressure [Right Brachial artery] O2 Saturation 96 96 02/19/18 02/19/18 02/19/18 01:00 05:00 06:55 Temperature 36.8 C 37.6 C H Heart Rate 121 H Heart Rate [ 108 H 109 H Monitoring electrodes] Respiratory 18 18 20 Rate Blood Pressure 90/49 L [Left Brachial artery] Blood Pressure 93/54 L [Right Brachial artery] O2 Saturation 93 94 02/19/18 08:22 Temperature 35.9 C L Heart Rate Heart Rate [ 118 H Monitoring electrodes] Respiratory 38 H Rate Blood Pressure [Left Brachial artery] Blood Pressure 100/59 L [Right Brachial artery] O2 Saturation 94 Oxygen O2 Source Nasal cannula I&O (Last 24 Hrs): Intake and Output Totals x24h 02/17/18 02/18/18 02/19/18 23:59 23:59 23:59 Intake Total 120 Output Total 550 450 Balance -550 -330 General: Alert, Oriented x3, Cooperative, No acute distress HEENT: Atraumatic, PERRLA, EOMI, Mucous membr. moist/pink Neck: Supple, No JVD, No thyromegaly, +2 carotid pulse wo bruit, No LAD Lymphatic: no adenopathy Neuro: Alert, Non Focal, CN 2-12 Grossly Intact, Oriented Times 3 Cardiovascular: Normal S1, Normal S2, Other (tachycardia) Respiratory: Chest non-tender, Wheezes (scattered, scarce), Rales (Bases bilaterally), Other (Decreased breath sounds bilaterally) Abdomen: Normal bowel sounds, Other (Distended with postive fluid wave testing) Extremities: No clubbing, No cyanosis, Normal pulses, Other (Bilateral 4+ pitting edema of LEs) Skin: No rashes, No breakdown Comments/Notes: Mild jaundice - Results Results: Laboratory Results WBC 11.1 x10^3/uL (4.8-10.8) H 02/19/18 05:31 RBC 3.05 10^6/uL (4.20-5.40) L 02/19/18 05:31 Hgb 9.9 g/dL (12.0-16.0) L 02/19/18 05:31 Hct 30.0 % (37.0-47.0) L 02/19/18 05:31 MCV 98.5 fL (81.0-99.0) 02/19/18 05:31 MCH 32.6 pg (27.0-31.0) H 02/19/18 05:31 MCHC 33.1 g/dL (32.0-36.0) 02/19/18 05:31 RDW 17.7 % (12.0-15.0) H 02/19/18 05:31 Plt Count 201 10^3/uL (130-450) 02/19/18 05:31 MPV 6.7 fL (7.9-10.8) L 02/19/18 05:31 Neut # (Auto) 9.6 10^3/uL (1.5-6.6) H 02/19/18 05:31 Lymph # (Auto) 0.9 10^3/uL (1.5-3.5) L 02/19/18 05:31 Cross # (Auto) 0.3 10^3/uL (0.0-1.0) 02/19/18 05:31 Eos # (Auto) 0.2 10^3/uL (0.0-0.7) 02/19/18 05:31 Baso # (Auto) 0.1 10^3/uL (0.0-0.1) 02/19/18 05:31 Absolute Nucleated RBC 0.00 x10^3/uL 02/19/18 05:31 Nucleated RBC % 0.0 /100WBC 02/19/18 05:31 PT 20.4 secs (9.9-12.6) H 02/18/18 12:45 INR 1.8 (0.8-1.2) H 02/18/18 12:45 APTT 30.1 secs (24.9-33.3) 02/18/18 12:45 Sodium 133 mmol/L (135-145) L 02/19/18 05:31 Potassium 3.4 mmol/L (3.5-5.0) L 02/19/18 05:31 Chloride 100 mmol/L (101-111) L 02/19/18 05:31 Carbon Dioxide 27 mmol/L (21-32) 02/19/18 05:31 Anion Gap 6.0 (6-13) 02/19/18 05:31 BUN 18 mg/dL (6-20) 02/19/18 05:31 Creatinine 0.7 mg/dL (0.4-1.0) 02/19/18 05:31 Estimated GFR (MDRD) 91 (>89) 02/19/18 05:31 Glucose 94 mg/dL (70-100) 02/19/18 05:31 Calcium 7.5 mg/dL (8.5-10.3) L 02/19/18 05:31 Magnesium 1.8 mg/dL (1.7-2.8) 02/18/18 12:45 Iron 22 ug/dL (28-170) L 02/19/18 05:31 TIBC 164 ug/dL (250-450) L 02/19/18 05:31 % Saturation 13 % (20-50) L 02/19/18 05:31 Transferrin 117 mg/dL (192-382) L 02/19/18 05:31 Total Bilirubin 3.2 mg/dL (0.2-1.0) H 02/19/18 05:31 AST 79 IU/L (10-42) H 02/19/18 05:31 ALT 27 IU/L (10-60) 02/19/18 05:31 Alkaline Phosphatase 185 IU/L (42-121) H 02/19/18 05:31 Ammonia 35.5 umol/L (7-35) H 02/19/18 05:31 Total Protein 4.3 g/dL (6.7-8.2) L 02/19/18 05:31 Albumin 1.9 g/dL (3.2-5.5) L 02/19/18 05:31 Globulin 2.4 g/dL (2.1-4.2) 02/19/18 05:31 Albumin/Globulin Ratio 0.8 (1.0-2.2) L 02/19/18 05:31 Lipase 49 U/L (22-51) 02/18/18 12:45 TSH 3.03 uIU/mL (0.34-5.60) 02/19/18 05:31 Urine Opiates Screen NEGATIVE (NEGATIVE) 02/18/18 20:25 Ur Oxycodone Screen NEGATIVE (NEGATIVE) 02/18/18 20:25 Urine Methadone Screen NEGATIVE (NEGATIVE) 02/18/18 20:25 Ur Propoxyphene Screen NEGATIVE (NEGATIVE) 02/18/18 20:25 Ur Barbiturates Screen NEGATIVE (NEGATIVE) 02/18/18 20:25 Ur Tricyclics Screen NEGATIVE (NEGATIVE) 02/18/18 20:25 Ur Phencyclidine Scrn NEGATIVE (NEGATIVE) 02/18/18 20:25 Ur Amphetamine Screen NEGATIVE (NEGATIVE) 02/18/18 20:25 U Methamphetamines Scrn NEGATIVE (NEGATIVE) 02/18/18 20:25 U Benzodiazepines Scrn NEGATIVE (NEGATIVE) 02/18/18 20:25 Urine Cocaine Screen NEGATIVE (NEGATIVE) 02/18/18 20:25 U Cannabinoids Screen NEGATIVE (NEGATIVE) 02/18/18 20:25 - Procedures Procedures: Procedures DRAINAGE OF PERITONEAL CAVITY, PERCUTANEOUS APPROACH (01/08/18) ABX Reporting Has patient been on IV antibiotics over the past 48 hours?: No Current Medications - Current Medications Current Medications: Active Medications Generic Name Dose Route Start Last Admin Trade Name Freq PRN Reason Stop Dose Admin Albuterol 2.5 mg 02/18/18 18:23 02/19/18 06:52 INH 2.5 mg RTQ4H PRN Administration Shortness of Air/Wheezing Albuterol/Ipratropium 3 ml 02/19/18 12:31 Duoneb INH RTQID PRN Shortness of Air/Wheezing Benzonatate 100 mg 02/18/18 14:26 Tessalon PO TID PRN Cough Cholecalciferol 2,000 unit 02/19/18 09:00 02/19/18 10:36 Vitamin D3 PO 2,000 unit DAILY PERICO Administration Cyanocobalamin 500 mcg 02/19/18 09:00 02/19/18 10:36 Vitamin B-12 PO 500 mcg DAILY PERICO Administration Diphenhydramine HCl 25 mg 02/19/18 00:46 02/19/18 00:56 Benadryl PO 25 mg Q4HR PRN Administration Allergy Symptoms Famotidine 20 mg 02/19/18 09:00 02/19/18 10:37 Pepcid PO 20 mg DAILY PERICO Administration Ferrous Sulfate 325 mg 02/19/18 08:00 02/19/18 09:51 Feosol PO 325 mg DAILYWM PERICO Administration Furosemide 40 mg 02/19/18 09:00 02/19/18 09:50 Lasix Inj 40 Mg Vial IVP 40 mg 0900,1400 PERICO Administration Ketorolac Tromethamine 15 mg 02/18/18 15:09 02/19/18 10:48 Toradol Inj (15mg) IVP 02/23/18 15:08 15 mg Q6HR PRN Administration PAIN Lactulose 20 gm 02/18/18 17:21 02/19/18 09:50 Enulose PO 20 gm BIDWM PERICO Administration Levothyroxine Sodium 112 mcg 02/19/18 07:00 02/19/18 06:08 Synthroid PO 112 mcg QDAC PERICO Administration Multivitamins/Minerals 1 tab 02/19/18 09:00 02/19/18 10:36 Theragran M PO 1 tab DAILY PERICO Administration Ondansetron HCl 4 mg 02/18/18 14:22 02/18/18 20:26 Zofran Inj IVP 4 mg Q6HR PRN Administration Nausea / Vomiting Polyethylene Glycol 17 gm 02/19/18 09:00 02/19/18 10:37 Miralax PO Not Given DAILY PERICO Potassium Chloride 20 meq 02/19/18 09:00 02/19/18 10:37 K-Dur PO 20 meq DAILY PERICO Administration Rifaximin 550 mg 02/19/18 08:00 02/19/18 10:50 Xifaxan PO Not Given BID PERICO Sodium Chloride 10 ml 02/18/18 14:22 Normal Saline Flush 0.9% IVP PRN PRN NEEDED PER PROVIDER ORDERS Sodium Chloride 10 ml 02/18/18 17:00 02/19/18 09:50 Normal Saline Flush 0.9% IVP 10 ml 0100,0900,1700 PERICO Administration Spironolactone 50 mg 02/18/18 21:00 02/19/18 10:37 Aldactone PO 50 mg BID PERICO Administration Cyanocobalamin (Vitamin B-12) [Vitamin B-12 (100mcg tab)] 500 mcg PO DAILY 01/08 Pantoprazole [Protonix] 40 mg PO QDAC 01/08/18 Benzonatate 100 - 200 mg PO TID PRN 02/03/18 Levothyroxine Sodium 112 mcg PO QDAC 02/03/18 Multivitamin W/Minerals [Theragran M] 1 tab PO DAILY 02/03/18 Spironolactone 50 mg PO BID 02/03/18 Albuterol Sulf [Ventolin Hfa Inhaler] 1 - 2 puffs INH Q6HR PRN 02/06/18 Lactulose 30 ml PO TID MDD hold 3rd dose if >3 BMs 02/07/18 Cholecalciferol (Vitamin D3) [Vitamin D] 2,000 unit PO DAILY 02/18/18 Potassium Chloride 20 meq PO DAILY 02/18/18
[2018-02-19] MEDS ORDERED: IPRATROPIUM/ALBUTEROL 3 ML NEB INH PRN (12:31)
[2018-02-19] MEDS: IPRATROPIUM/ALBUTEROL 3 ML NEB INH PRN (13:23)
[2018-02-19] MEDS: SODIUM CHLORIDE FLUSH 0.9% 10 ML SYRINGE IVP PRN (22:15)
[2018-02-20] MEDS: KETOROLAC 15 MG/ML VIAL IVP PRN ×2 (04:33→13:19)
[2018-02-20] MEDS: SODIUM CHLORIDE FLUSH 0.9% 10 ML SYRINGE IVP PRN ×2 (04:33→04:37)
[2018-02-20 05:25] LABS: BASOPHILS # (AUTO) 0.1 10^3/uL (0.0-0.1); BASOPHILS % (AUTO) 1.3 %; EOSINOPHILS # (AUTO) 0.2 10^3/uL (0.0-0.7); EOSINOPHILS % (AUTO) 1.6 %; HGB - HEMOGLOBIN 9.6 g/dL (12.0-16.0); INR 2.3 (0.8-1.2); LYMPHOCYTES # (AUTO) 1.1 10^3/uL (1.5-3.5); MEAN CORPUSCULAR HEMOGLOBIN 33.1 pg (27.0-31.0); MEAN CORPUSCULAR HGB CONC 33.8 g/dL (32.0-36.0); MEAN CORPUSCULAR VOLUME 97.9 fL (81.0-99.0); MEAN PLATELET VOLUME 6.9 fL (7.9-10.8); MONOCYTES # (AUTO) 0.3 10^3/uL (0.0-1.0); MONOCYTES % (AUTO) 3.2 %; NEUTROPHILS # (AUTO) 8.6 10^3/uL (1.5-6.6); NEUTROPHILS % (AUTO) 82.9 %; PLT - PLATELET COUNT 194 10^3/uL (130-450); PT - PROTHROMBIN TIME 24.7 secs (9.9-12.6); RED CELL DISTRIBUTION WIDTH 17.8 % (12.0-15.0); WHITE BLOOD COUNT 10.3 x10^3/uL (4.8-10.8)
[2018-02-20 05:33] LABS: ALBUMIN 1.8 g/dL (3.2-5.5); ALBUMIN/GLOBULIN RATIO 0.8 (1.0-2.2); BILIRUBIN,TOTAL 2.7 mg/dL (0.2-1.0); CALCIUM 7.5 mg/dL (8.5-10.3); CREATININE 0.6 mg/dL (0.4-1.0); TOTAL PROTEIN 4.2 g/dL (6.7-8.2)
[2018-02-20] MEDS: LEVOTHYROXINE 112 MCG TABLET PO SCH (07:15)
[2018-02-20] MEDS: POLYETHYLENE GLYCOL 3350 17 GM PACKET PO SCH (09:04)
[2018-02-20] MEDS: CHOLECALCIFEROL 1,000 UNIT TABLET PO SCH (10:18)
[2018-02-20] MEDS: POTASSIUM CHLORIDE 20 MEQ TABLET PO SCH ×2 (10:19→21:01)
[2018-02-20] MEDS: FAMOTIDINE 20 MG TABLET PO SCH (10:19)
[2018-02-20] MEDS: FERROUS SULFATE 325 MG TABLET PO SCH (10:20)
[2018-02-20] MEDS: CYANOCOBALAMIN 500 MCG TABLET PO SCH (10:20)
[2018-02-20] MEDS: MULTIVITAMIN W/MINERALS TABLET PO SCH (10:20)
[2018-02-20] MEDS: rifAXIMin 550 MG TABLET PO SCH ×2 (10:21→21:01)
[2018-02-20] MEDS: FUROSEMIDE 40 MG/4 ML VIAL IVP SCH ×2 (10:22→15:04)
[2018-02-20] MEDS: SODIUM CHLORIDE FLUSH 0.9% 10 ML SYRINGE IVP SCH ×2 (10:22→16:44)
[2018-02-20] MEDS: LACTULOSE 10 GM /15 ML UDC PO SCH ×2 (10:25→19:02)
[2018-02-20] MEDS: THIAMINE 100 MG TABLET PO SCH (15:04)
[2018-02-20] MEDS: ONDANSETRON 4 MG/2 ML VIAL IVP PRN (16:43)
--- NOTE | 2018-02-20 17:15 | Ultrasound Report ---
Procedure Date: 02/20/2018 Accession Number: [id number] / [id number] Procedure: US - Abdominal Paracentesis CPT Code: FULL RESULT: EXAM: ULTRASOUND-GUIDED PARACENTESIS EXAM DATE: 02/20/2018 04:51 PM. CLINICAL HISTORY: Ascites, shortness of breath, fluid overload. COMPARISON: 01/10/2018. TECHNIQUE: Risks, benefits, and alternatives to the procedure were discussed with the patient. All questions answered. Written and verbal consent obtained. Patient was placed in the supine position and the skin overlying the right lower quadrant ascites marked with sonographic guidance. The skin was sterilely prepped and draped, and 1% buffered lidocaine was used for local anesthesia. A Safe-T- Centesis catheter was advanced into the peritoneal ascites and fluid aspirated. Upon completion, the catheter was removed. FINDINGS: A total of 6300 mL of fluid was removed without immediate complication. Patient tolerated procedure well. IMPRESSION: Ultrasound-guided paracentesis without immediate complications. [facility]
[2018-02-20] MEDS ORDERED: SODIUM CHLORIDE 0.9% 500 ML IV ONE (17:30)
[2018-02-20] MEDS: ALBUMIN 25% 12.5 GM/50 ML VIAL IV SCH (17:35)
--- NOTE | 2018-02-20 17:55 | PROVIDER PROGRESS NOTE ---
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 (2) Pulmonary edema Qualifiers: Chronicity: acute Qualified Code(s): J81.0 - Acute pulmonary edema Assessment/Plan: Secondary to non compliance with medication and fluid overload secondary to liver failure with cirrhosis Patient had increased hypoxia on presentation CXR showed pulm edema Given IV lasix IMproving CXR Continue IV lasix Down to 2L of O2 but still hypoxic (3) Non compliance w medication regimen Assessment/Plan: Patient counselled about need for compliance with medications She seems to understand and is willing to take lasix and aldactone She needs to show ability to be complaint in order to get transplant of her liver (4) Hypoxia Assessment/Plan: Secondary to pulmonary edema in setting of long standing COPD Patient requiring 2L of O2 Patient given IV lasix with improvement in CXR Weaning O2 Continue IV lasix and PO aldactone (5) Hypokalemia Assessment/Plan: Worse this am with K down to 3.2 Increase K replacement to 40 mEq BID MOnitor daily (6) Hyponatremia Assessment/Plan: Patient has hypervolemic hyponatremia Na improved from 131 to 133 and stable Improving with IV lasix and fluid restriction Continue treatment and monitor Na (7) Alcoholic cirrhosis of liver with ascites Assessment/Plan: Patients MELD score is 23 which gives her a 3 month mortality of 19.6% She has history of ascites and encephalopathy Continue lactulose and rifaximin for encephalopathy Continue lasix and aldactone for ascites Paracentesis performed today with over 6L removed Patient hypotensive post paracentesis with dizziness Will give albumin 25% 12.5 grams x 4 doses 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 Patient needs further outpatient follow up and eventual transplant (8) Moderate COPD (chronic obstructive pulmonary disease) Assessment/Plan: Patient has history of COPD and has quit smoking Does not appear to be in exacerbation Place on duonebs prn Supplemental O2 - Current Meds Current Meds: Current Medications Generic Name Dose Route Start Last Admin Trade Name Freq PRN Reason Stop Dose Admin Albuterol 2.5 mg 02/18/18 18:23 02/19/18 21:00 INH 2.5 mg RTQ4H PRN Administration Shortness of Air/Wheezing Cholecalciferol 2,000 unit 02/19/18 09:00 02/20/18 10:18 Vitamin D3 PO 2,000 unit DAILY PERICO Administration Cyanocobalamin 500 mcg 02/19/18 09:00 02/20/18 10:20 Vitamin B-12 PO 500 mcg DAILY PERICO Administration Diphenhydramine HCl 25 mg 02/19/18 00:46 02/19/18 14:42 Benadryl PO 25 mg Q4HR PRN Administration Allergy Symptoms Famotidine 20 mg 02/19/18 09:00 02/20/18 10:19 Pepcid PO 20 mg DAILY PERICO Administration Ferrous Sulfate 325 mg 02/19/18 08:00 02/20/18 10:20 Feosol PO 325 mg DAILYWM PERICO Administration Furosemide 40 mg 02/19/18 09:00 02/20/18 15:04 Lasix Inj 40 Mg Vial IVP 40 mg 0900,1400 PERICO Administration Albumin Human 12.5 gm in 50 mls @ 50 mls/hr 02/20/18 18:00 02/20/18 17:35 Albuminar-25 IV 02/21/18 12:59 50 mls/hr Q6H PERICO Administration Ketorolac Tromethamine 15 mg 02/18/18 15:09 02/20/18 13:19 Toradol Inj (15mg) IVP 02/23/18 15:08 15 mg Q6HR PRN Administration PAIN Lactulose 20 gm 02/18/18 17:21 02/20/18 10:25 Enulose PO Not Given BIDWM [facility] Levothyroxine Sodium 112 mcg 02/19/18 07:00 02/20/18 07:15 Synthroid PO 112 mcg QDAC [facility] Administration Multivitamins/Minerals 1 tab 02/19/18 09:00 02/20/18 10:20 Theragran M PO 1 tab DAILY PERICO Administration Ondansetron HCl 4 mg 02/18/18 14:22 02/20/18 16:43 Zofran Inj IVP 4 mg Q6HR PRN Administration Nausea / Vomiting Polyethylene Glycol 17 gm 02/19/18 09:00 02/20/18 09:04 Miralax PO Not Given DAILY PERICO Potassium Chloride 40 meq 02/20/18 09:00 02/20/18 10:19 K-Dur PO 40 meq BID PERICO Administration Rifaximin 550 mg 02/19/18 08:00 02/20/18 10:21 Xifaxan PO 550 mg BID PERICO Administration Sodium Chloride 10 ml 02/18/18 14:22 02/20/18 04:37 Normal Saline Flush 0.9% IVP 10 ml PRN PRN Administration NEEDED PER PROVIDER ORDERS Sodium Chloride 10 ml 02/18/18 17:00 02/20/18 16:44 Normal Saline Flush 0.9% IVP Not Given 0100,0900,1700 PERICO Spironolactone 50 mg 02/19/18 21:23 02/19/18 22:06 Aldactone PO 50 mg BID PERICO Administration Thiamine HCl 100 mg 02/20/18 13:00 02/20/18 15:04 Vitamin B-1 PO 100 mg DAILY PERICO Administration - Lab Result Lab results reviewed: Yes Fish Bone Diagrams: 02/20/18 05:00 02/20/18 05:00 - Diagnostic Imaging Results Diagnostic Imaging Results: Final report reviewed - Additional Planning Condition/Complexity: Guarded My Orders: My Active Orders 02/20/18 09:00 Potassium Chloride [K-Dur] 40 meq PO BID 02/20/18 10:26 Transfuse Fresh Frozen Plasma [RC] .ONCE 02/20/18 11:05 FRESH FROZEN PLASMA Stat TYPE AND SCREEN Stat 02/20/18 13:00 Thiamine [Vitamin B-1] 100 mg PO DAILY 02/20/18 17:30 Sodium Chloride 0.9% [Normal Saline 0.9%] 500 ml IV ONCE 02/20/18 18:00 Albumin 25% [Albuminar-25] 12.5 gm in 50 ml IV Q6H 02/20/18 Dinner Low Sodium Diet [DIET] 02/21/18 05:00 PT WITH INR [COAG] DAILYLAB 02/22/18 05:00 PT WITH INR [COAG] DAILYLAB Plan Discussed with:: Patient Time Spent: 31-60 minutes Subjective - Subjective Patient Reports: Dizzines (After paracentesis), Shortness of Breath (Improved), Other (Continues to have swelling but it is improving.) Nursing Reports: Other (Hypotensive) Objective Vital Signs: Vital Signs - 24 hr 02/19/18 02/19/18 02/20/18 20:49 21:00 01:00 Temperature 36.9 C 36.9 C Heart Rate 106 H Heart Rate [ 118 H 125 H Monitoring electrodes] Respiratory 22 20 18 Rate Blood Pressure Blood Pressure 93/57 L 79/51 L [Right Brachial artery] O2 Saturation 95 94 02/20/18 02/20/18 02/20/18 01:03 05:00 08:21 Temperature 35.7 C L 37.0 C 36.6 C Heart Rate 102 H Heart Rate [ 106 H 107 H Monitoring electrodes] Respiratory 34 H 16 36 H Rate Blood Pressure 95/58 L Blood Pressure 89/54 L 92/53 L [Right Brachial artery] O2 Saturation 91 L 92 02/20/18 02/20/18 02/20/18 12:07 12:37 12:48 Temperature 36.6 C 35.7 C L 35.7 C L Heart Rate 109 H 107 H Heart Rate [ 102 H Monitoring electrodes] Respiratory 34 H 32 H 32 H Rate Blood Pressure 98/62 93/57 L Blood Pressure 100/64 [Right Brachial artery] O2 Saturation 95 02/20/18 02/20/18 02/20/18 13:09 13:21 13:28 Temperature 35.7 C L 35.7 C L 35.7 C L Heart Rate 102 H 101 H 97 Heart Rate [ Monitoring electrodes] Respiratory 36 H 36 H 34 H Rate Blood Pressure 93/55 L 90/64 94/63 Blood Pressure [Right Brachial artery] O2 Saturation 02/20/18 02/20/18 02/20/18 13:35 14:31 14:46 Temperature 35.7 C L 35.9 C L 35.9 C L Heart Rate 100 103 H 102 H Heart Rate [ Monitoring electrodes] Respiratory 28 H 30 H 30 H Rate Blood Pressure 94/48 L 88/58 L 93/56 L Blood Pressure [Right Brachial artery] O2 Saturation 02/20/18 02/20/18 02/20/18 15:01 15:57 16:30 Temperature 36.0 C L 37.0 C Heart Rate 103 H Heart Rate [ 107 H 107 H Monitoring electrodes] Respiratory 30 H 28 H Rate Blood Pressure 92/56 L Blood Pressure 99/55 L 78/45 L [Right Brachial artery] O2 Saturation 95 0802/20/18 02/20/18 16:40 17:00 17:30 Temperature Heart Rate Heart Rate [ 103 H 120 H Monitoring electrodes] Respiratory Rate Blood Pressure Blood Pressure 86/45 L 83/43 L 77/39 L [Right Brachial artery] O2 Saturation Oxygen O2 Source Nasal cannula I&O (Last 24 Hrs): Intake and Output Totals x24h 02/18/18 02/19/18 02/20/18 23:59 23:59 23:59 Intake Total 370 703 Output Total 550 600 Balance -550 -230 703 General: Alert, Oriented x3, Cooperative, No acute distress HEENT: Atraumatic, PERRLA, EOMI, Mucous membr. moist/pink Neck: Supple, No JVD, No thyromegaly, +2 carotid pulse wo bruit, No LAD Lymphatic: no adenopathy Neuro: Alert, Non Focal, CN 2-12 Grossly Intact, Oriented Times 3 Cardiovascular: Normal S1, Normal S2, No murmurs, Other (Tachycardic) Respiratory: Chest non-tender, Rales (Bases), Other (Tachypnic) Abdomen: Normal bowel sounds, No tenderness, No hepatospenomegaly, Other ( Distended, taunt) Extremities: No clubbing, No cyanosis, No edema, Normal pulses Skin: No rashes, No breakdown - Results Results: Laboratory Results WBC 10.3 x10^3/uL (4.8-10.8) 02/20/18 05:00 RBC 2.90 10^6/uL (4.20-5.40) L 02/20/18 05:00 Hgb 9.6 g/dL (12.0-16.0) L 02/20/18 05:00 Hct 28.4 % (37.0-47.0) L 02/20/18 05:00 MCV 97.9 fL (81.0-99.0) 02/20/18 05:00 MCH 33.1 pg (27.0-31.0) H 02/20/18 05:00 MCHC 33.8 g/dL (32.0-36.0) 02/20/18 05:00 RDW 17.8 % (12.0-15.0) H 02/20/18 05:00 Plt Count 194 10^3/uL (130-450) 02/20/18 05:00 MPV 6.9 fL (7.9-10.8) L 02/20/18 05:00 Neut # (Auto) 8.6 10^3/uL (1.5-6.6) H 02/20/18 05:00 Lymph # (Auto) 1.1 10^3/uL (1.5-3.5) L 02/20/18 05:00 [place] # (Auto) 0.3 10^3/uL (0.0-1.0) 02/20/18 05:00 Eos # (Auto) 0.2 10^3/uL (0.0-0.7) 02/20/18 05:00 Baso # (Auto) 0.1 10^3/uL (0.0-0.1) 02/20/18 05:00 Absolute Nucleated RBC 0.01 x10^3/uL 02/20/18 05:00 Nucleated RBC % 0.0 /100WBC 02/20/18 05:00 PT 24.7 secs (9.9-12.6) H 02/20/18 05:00 INR 2.3 (0.8-1.2) H 02/20/18 05:00 Whole Blood INR 1.6 (0.8-1.2) H 02/20/18 14:30 APTT 30.1 secs (24.9-33.3) 02/18/18 12:45 Sodium 133 mmol/L (135-145) L 02/20/18 05:00 Potassium 3.2 mmol/L (3.5-5.0) L 02/20/18 05:00 Chloride 99 mmol/L (101-111) L 02/20/18 05:00 Carbon Dioxide 27 mmol/L (21-32) 02/20/18 05:00 Anion Gap 7.0 (6-13) 02/20/18 05:00 BUN 20 mg/dL (6-20) 02/20/18 05:00 Creatinine 0.6 mg/dL (0.4-1.0) 02/20/18 05:00 Estimated GFR (MDRD) 109 (>89) 02/20/18 05:00 Glucose 96 mg/dL (70-100) 02/20/18 05:00 Calcium 7.5 mg/dL (8.5-10.3) L 02/20/18 05:00 Magnesium 1.8 mg/dL (1.7-2.8) 02/18/18 12:45 Iron 22 ug/dL (28-170) L 02/19/18 05:31 TIBC 164 ug/dL (250-450) L 02/19/18 05:31 % Saturation 13 % (20-50) L 02/19/18 05:31 Transferrin 117 mg/dL (192-382) L 02/19/18 05:31 Total Bilirubin 2.7 mg/dL (0.2-1.0) H 02/20/18 05:00 AST 80 IU/L (10-42) H 02/20/18 05:00 ALT 27 IU/L (10-60) 02/20/18 05:00 Alkaline Phosphatase 173 IU/L (42-121) H 02/20/18 05:00 Ammonia 34.2 umol/L (7-35) 02/20/18 05:00 Total Protein 4.2 g/dL (6.7-8.2) L 02/20/18 05:00 Albumin 1.8 g/dL (3.2-5.5) L 02/20/18 05:00 Globulin 2.4 g/dL (2.1-4.2) 02/20/18 05:00 Albumin/Globulin Ratio 0.8 (1.0-2.2) L 02/20/18 05:00 Lipase 49 U/L (22-51) 02/18/18 12:45 TSH 3.03 uIU/mL (0.34-5.60) 02/19/18 05:31 Urine Opiates Screen NEGATIVE (NEGATIVE) 02/18/18 20:25 Ur Oxycodone Screen NEGATIVE (NEGATIVE) 02/18/18 20:25 Urine Methadone Screen NEGATIVE (NEGATIVE) 02/18/18 20:25 Ur Propoxyphene Screen NEGATIVE (NEGATIVE) 02/18/18 20:25 Ur Barbiturates Screen NEGATIVE (NEGATIVE) 02/18/18 20:25 Ur Tricyclics Screen NEGATIVE (NEGATIVE) 02/18/18 20:25 Ur Phencyclidine Scrn NEGATIVE (NEGATIVE) 02/18/18 20:25 Ur Amphetamine Screen NEGATIVE (NEGATIVE) 02/18/18 20:25 U Methamphetamines Scrn NEGATIVE (NEGATIVE) 02/18/18 20:25 U Benzodiazepines Scrn NEGATIVE (NEGATIVE) 02/18/18 20:25 Urine Cocaine Screen NEGATIVE (NEGATIVE) 02/18/18 20:25 U Cannabinoids Screen NEGATIVE (NEGATIVE) 02/18/18 20:25 Blood Type O POSITIVE 02/20/18 11:05 Blood Type Recheck O POSITIVE 02/20/18 05:00 Antibody Screen NEGATIVE 02/20/18 11:05 - Procedures Procedures: Procedures DRAINAGE OF PERITONEAL CAVITY, PERCUTANEOUS APPROACH (01/08/18) ABX Reporting Has patient been on IV antibiotics over the past 48 hours?: No Current Medications - Current Medications Current Medications: Laboratory Results WBC 10.3 x10^3/uL (4.8-10.8) 02/20/18 05:00 RBC 2.90 10^6/uL (4.20-5.40) L 02/20/18 05:00 Hgb 9.6 g/dL (12.0-16.0) L 02/20/18 05:00 Hct 28.4 % (37.0-47.0) L 02/20/18 05:00 MCV 97.9 fL (81.0-99.0) 02/20/18 05:00 MCH 33.1 pg (27.0-31.0) H 02/20/18 05:00 MCHC 33.8 g/dL (32.0-36.0) 02/20/18 05:00 RDW 17.8 % (12.0-15.0) H 02/20/18 05:00 Plt Count 194 10^3/uL (130-450) 02/20/18 05:00 MPV 6.9 fL (7.9-10.8) L 02/20/18 05:00 Neut # (Auto) 8.6 10^3/uL (1.5-6.6) H 02/20/18 05:00 Lymph # (Auto) 1.1 10^3/uL (1.5-3.5) L 02/20/18 05:00 [place] # (Auto) 0.3 10^3/uL (0.0-1.0) 02/20/18 05:00 Eos # (Auto) 0.2 10^3/uL (0.0-0.7) 02/20/18 05:00 Baso # (Auto) 0.1 10^3/uL (0.0-0.1) 02/20/18 05:00 Absolute Nucleated RBC 0.01 x10^3/uL 02/20/18 05:00 Nucleated RBC % 0.0 /100WBC 02/20/18 05:00 PT 24.7 secs (9.9-12.6) H 02/20/18 05:00 INR 2.3 (0.8-1.2) H 02/20/18 05:00 Whole Blood INR 1.6 (0.8-1.2) H 02/20/18 14:30 APTT 30.1 secs (24.9-33.3) 02/18/18 12:45 Sodium 133 mmol/L (135-145) L 02/20/18 05:00 Potassium 3.2 mmol/L (3.5-5.0) L 02/20/18 05:00 Chloride 99 mmol/L (101-111) L 02/20/18 05:00 Carbon Dioxide 27 mmol/L (21-32) 02/20/18 05:00 Anion Gap 7.0 (6-13) 02/20/18 05:00 BUN 20 mg/dL (6-20) 02/20/18 05:00 Creatinine 0.6 mg/dL (0.4-1.0) 02/20/18 05:00 Estimated GFR (MDRD) 109 (>89) 02/20/18 05:00 Glucose 96 mg/dL (70-100) 02/20/18 05:00 Calcium 7.5 mg/dL (8.5-10.3) L 02/20/18 05:00 Magnesium 1.8 mg/dL (1.7-2.8) 02/18/18 12:45 Iron 22 ug/dL (28-170) L 02/19/18 05:31 TIBC 164 ug/dL (250-450) L 02/19/18 05:31 % Saturation 13 % (20-50) L 02/19/18 05:31 Transferrin 117 mg/dL (192-382) L 02/19/18 05:31 Total Bilirubin 2.7 mg/dL (0.2-1.0) H 02/20/18 05:00 AST 80 IU/L (10-42) H 02/20/18 05:00 ALT 27 IU/L (10-60) 02/20/18 05:00 Alkaline Phosphatase 173 IU/L (42-121) H 02/20/18 05:00 Ammonia 34.2 umol/L (7-35) 02/20/18 05:00 Total Protein 4.2 g/dL (6.7-8.2) L 02/20/18 05:00 Albumin 1.8 g/dL (3.2-5.5) L 02/20/18 05:00 Globulin 2.4 g/dL (2.1-4.2) 02/20/18 05:00 Albumin/Globulin Ratio 0.8 (1.0-2.2) L 02/20/18 05:00 Lipase 49 U/L (22-51) 02/18/18 12:45 TSH 3.03 uIU/mL (0.34-5.60) 02/19/18 05:31 Urine Opiates Screen NEGATIVE (NEGATIVE) 02/18/18 20:25 Ur Oxycodone Screen NEGATIVE (NEGATIVE) 02/18/18 20:25 Urine Methadone Screen NEGATIVE (NEGATIVE) 02/18/18 20:25 Ur Propoxyphene Screen NEGATIVE (NEGATIVE) 02/18/18 20:25 Ur Barbiturates Screen NEGATIVE (NEGATIVE) 02/18/18 20:25 Ur Tricyclics Screen NEGATIVE (NEGATIVE) 02/18/18 20:25 Ur Phencyclidine Scrn NEGATIVE (NEGATIVE) 02/18/18 20:25 Ur Amphetamine Screen NEGATIVE (NEGATIVE) 02/18/18 20:25 U Methamphetamines Scrn NEGATIVE (NEGATIVE) 02/18/18 20:25 U Benzodiazepines Scrn NEGATIVE (NEGATIVE) 02/18/18 20:25 Urine Cocaine Screen NEGATIVE (NEGATIVE) 02/18/18 20:25 U Cannabinoids Screen NEGATIVE (NEGATIVE) 02/18/18 20:25 Blood Type O POSITIVE 02/20/18 11:05 Blood Type Recheck O POSITIVE 02/20/18 05:00 Antibody Screen NEGATIVE 02/20/18 11:05
[2018-02-20 18:37] LABS: CC,BF RBC 114 /mm^3
[2018-02-20 18:52] LABS: BF COLOR YELLOW; BF SOURCE PERITONEAL
[2018-02-20] MEDS ORDERED: BUFFERED LIDOCAINE 10 ML SYRINGE IU ONE (19:15)
[2018-02-20] MEDS: SPIRONOLACTONE 25 MG TABLET PO SCH (20:26)
[2018-02-21] MEDS: ALBUMIN 25% 12.5 GM/50 ML VIAL IV SCH ×3 (00:18→12:43)
[2018-02-21] MEDS: SODIUM CHLORIDE FLUSH 0.9% 10 ML SYRINGE IVP PRN ×4 (03:25→23:13)
[2018-02-21] MEDS: KETOROLAC 15 MG/ML VIAL IVP PRN ×3 (03:25→23:12)
[2018-02-21] MEDS: SODIUM CHLORIDE FLUSH 0.9% 10 ML SYRINGE IVP SCH ×3 (05:07→16:58)
[2018-02-21 05:39] LABS: BASOPHILS # (AUTO) 0.1 10^3/uL (0.0-0.1); BASOPHILS % (AUTO) 1.2 %; EOSINOPHILS # (AUTO) 0.1 10^3/uL (0.0-0.7); EOSINOPHILS % (AUTO) 2.2 %; LYMPHOCYTES # (AUTO) 0.9 10^3/uL (1.5-3.5); LYMPHOCYTES % (AUTO) 14.1 %; MEAN CORPUSCULAR HEMOGLOBIN 32.7 pg (27.0-31.0); MEAN CORPUSCULAR HGB CONC 33.5 g/dL (32.0-36.0); MEAN CORPUSCULAR VOLUME 97.8 fL (81.0-99.0); MONOCYTES # (AUTO) 0.2 10^3/uL (0.0-1.0); MONOCYTES % (AUTO) 3.8 %; NEUTROPHILS # (AUTO) 5.1 10^3/uL (1.5-6.6); NEUTROPHILS % (AUTO) 78.7 %; PLT - PLATELET COUNT 142 10^3/uL (130-450); RED BLOOD COUNT 2.46 10^6/uL (4.20-5.40); RED CELL DISTRIBUTION WIDTH 17.6 % (12.0-15.0); WHITE BLOOD COUNT 6.5 x10^3/uL (4.8-10.8)
[2018-02-21 05:46] LABS: PT - PROTHROMBIN TIME 22.1 secs (9.9-12.6)
[2018-02-21 05:50] LABS: ALBUMIN 2.1 g/dL (3.2-5.5); ALBUMIN/GLOBULIN RATIO 1.1 (1.0-2.2); BILIRUBIN,TOTAL 2.4 mg/dL (0.2-1.0); CALCIUM 7.5 mg/dL (8.5-10.3); CREATININE 0.5 mg/dL (0.4-1.0); TOTAL PROTEIN 4.1 g/dL (6.7-8.2)
[2018-02-21] MEDS: LEVOTHYROXINE 112 MCG TABLET PO SCH (06:25)
[2018-02-21] MEDS: POLYETHYLENE GLYCOL 3350 17 GM PACKET PO SCH (07:54)
[2018-02-21] MEDS: FAMOTIDINE 20 MG TABLET PO SCH (09:15)
[2018-02-21] MEDS: CYANOCOBALAMIN 500 MCG TABLET PO SCH (09:15)
[2018-02-21] MEDS: LACTULOSE 10 GM /15 ML UDC PO SCH ×2 (09:15→16:58)
[2018-02-21] MEDS: THIAMINE 100 MG TABLET PO SCH (09:15)
[2018-02-21] MEDS: CHOLECALCIFEROL 1,000 UNIT TABLET PO SCH (09:15)
[2018-02-21] MEDS: rifAXIMin 550 MG TABLET PO SCH ×2 (09:16→20:54)
[2018-02-21] MEDS: POTASSIUM CHLORIDE 20 MEQ TABLET PO SCH ×2 (09:16→20:54)
[2018-02-21] MEDS: FUROSEMIDE 40 MG/4 ML VIAL IVP SCH ×2 (09:16→13:49)
[2018-02-21] MEDS: MULTIVITAMIN W/MINERALS TABLET PO SCH (09:16)
[2018-02-21] MEDS: FERROUS SULFATE 325 MG TABLET PO SCH (09:16)
[2018-02-21] MEDS: SPIRONOLACTONE 25 MG TABLET PO SCH ×2 (09:25→20:54)
[2018-02-21] MEDS: ALBUTEROL NEB 2.5 MG/3 ML INH PRN ×2 (10:23→21:39)
--- NOTE | 2018-02-21 13:12 | PROVIDER PROGRESS NOTE ---
Assessment/Plan - Problem List (1) Anasarca Assessment/Plan: Secondary to non compliance with medication as patient stopped taking her lasix and aldactone Restarted aldactone and started on IV lasix with fluid restriction and Na restriction Improving but continues to be hypoxic LE edema is much improved Paracentesis performed yesterday with 6.3 L removed Patient continues to be hypotensive post paracentesis with dizziness Continue albumin 25% 12.5 grams x 4 doses Monitor demurrage agent and BP closely Will need to hold lasix and aldactone today Will increase fluid restriction from 1L to 2L (2) Pulmonary edema Qualifiers: Chronicity: acute Qualified Code(s): J81.0 - Acute pulmonary edema Assessment/Plan: Secondary to non compliance with medication and fluid overload secondary to liver failure with cirrhosis Patient had increased hypoxia on presentation CXR showed pulm edema Given IV lasix IMproving CXR HOlding lasix and aldactone today secondary to hypotension On 3L of O2 (3) Non compliance w medication regimen Assessment/Plan: Patient counselled about need for compliance with medications She seems to understand and is willing to take lasix and aldactone She needs to show ability to be complaint in order to get transplant of her liver (4) Hypoxia Assessment/Plan: Secondary to pulmonary edema in setting of long standing COPD Patient requiring 3L of O2 Patient given IV lasix with improvement in CXR Weaning O2 Holding IV lasix and PO aldactone secondary to hypotension (5) Hypokalemia Assessment/Plan: Resolved (6) Hyponatremia Assessment/Plan: Patient has hypervolemic hyponatremia Na improved from 131 to 134 and stable Improving with IV lasix and fluid restriction Continue treatment and monitor Na (7) Alcoholic cirrhosis of liver with ascites Assessment/Plan: Patients MELD score is 20 which gives her a 3 month mortality of 19.6% She has history of ascites and encephalopathy Continue lactulose and rifaximin for encephalopathy Holding lasix and aldactone for ascites as she is hypotensive after paracentesis Paracentesis performed with 6.3 L removed Patient hypotensive post paracentesis with dizziness Continue albumin 25% 12.5 grams x 4 doses Monitor demurrage agent and BP closely Patient needs further outpatient follow up and eventual transplant (8) Moderate COPD (chronic obstructive pulmonary disease) Assessment/Plan: Patient has history of COPD and has quit smoking Does not appear to be in exacerbation Placed on duonebs prn Supplemental O2 - Current Meds Current Meds: Current Medications Generic Name Dose Route Start Last Admin Trade Name Freq PRN Reason Stop Dose Admin Albuterol 2.5 mg 02/18/18 18:23 02/21/18 10:23 INH 2.5 mg RTQ4H PRN Administration Shortness of Air/Wheezing Cholecalciferol 2,000 unit 02/19/18 09:00 02/21/18 09:15 Vitamin D3 PO 2,000 unit DAILY PERICO Administration Cyanocobalamin 500 mcg 02/19/18 09:00 02/21/18 09:15 Vitamin B-12 PO 500 mcg DAILY PERICO Administration Diphenhydramine HCl 25 mg 02/19/18 00:46 02/19/18 14:42 Benadryl PO 25 mg Q4HR PRN Administration Allergy Symptoms Famotidine 20 mg 02/19/18 09:00 02/21/18 09:15 Pepcid PO 20 mg DAILY PERICO Administration Ferrous Sulfate 325 mg 02/19/18 08:00 02/21/18 09:16 Feosol PO 325 mg DAILYWM PERICO Administration Furosemide 40 mg 02/19/18 09:00 02/21/18 09:16 Lasix Inj 40 Mg Vial IVP 40 mg 0900,1400 PERICO Administration Ketorolac Tromethamine 15 mg 02/18/18 15:09 02/21/18 10:27 Toradol Inj (15mg) IVP 02/23/18 15:08 15 mg Q6HR PRN Administration PAIN Lactulose 20 gm 02/18/18 17:21 02/21/18 09:15 Enulose PO 20 gm BIDWM PERICO Administration Levothyroxine Sodium 112 mcg 02/19/18 07:00 02/21/18 06:25 Synthroid PO 112 mcg QDAC PERICO Administration Multivitamins/Minerals 1 tab 02/19/18 09:00 02/21/18 09:16 Theragran M PO 1 tab DAILY PERICO Administration Ondansetron HCl 4 mg 02/18/18 14:22 02/20/18 16:43 Zofran Inj IVP 4 mg Q6HR PRN Administration Nausea / Vomiting Polyethylene Glycol 17 gm 02/19/18 09:00 02/21/18 07:54 Miralax PO Not Given DAILY PERICO Potassium Chloride 40 meq 02/20/18 09:00 02/21/18 09:16 K-Dur PO 40 meq BID PERICO Administration Rifaximin 550 mg 02/19/18 08:00 02/21/18 09:16 Xifaxan PO 550 mg BID PERICO Administration Sodium Chloride 10 ml 02/18/18 14:22 02/21/18 09:16 Normal Saline Flush 0.9% IVP 10 ml PRN PRN Administration NEEDED PER PROVIDER ORDERS Sodium Chloride 10 ml 02/18/18 17:00 02/21/18 07:31 Normal Saline Flush 0.9% IVP 10 ml 0100,0900,1700 PERICO Administration Spironolactone 50 mg 02/19/18 21:23 02/21/18 09:25 Aldactone PO Not Given BID PERICO Thiamine HCl 100 mg 02/20/18 13:00 02/21/18 09:15 Vitamin B-1 PO 100 mg DAILY PERICO Administration - Lab Result Lab results reviewed: Yes Fish Bone Diagrams: 02/21/18 05:24 02/21/18 05:24 - Diagnostic Imaging Results Diagnostic Imaging Results: Final report reviewed - Additional Planning Condition/Complexity: Guarded My Orders: My Active Orders 02/20/18 13:00 Thiamine [Vitamin B-1] 100 mg PO DAILY 02/20/18 18:15 CUL, ANAEROBIC (QUEST) [REFLAB] Urgent 02/21/18 Lunch Low Sodium Diet [DIET] 02/22/18 05:00 PT WITH INR [COAG] DAILYLAB Plan Discussed with:: Patient Time Spent: 31-60 minutes Subjective - Subjective Patient Reports: Dizzines (With sitting up in bed or standing), Shortness of Breath (Improved), Other (Lower extremity swelling and abdominal distension improved) Nursing Reports: No Complaints Objective Vital Signs: Vital Signs - 24 hr 02/20/18 02/20/18 02/20/18 13:21 13:28 13:35 Temperature 35.7 C L 35.7 C L 35.7 C L Heart Rate 101 H 97 100 Heart Rate [ Brachial] Heart Rate [ Monitoring electrodes] Respiratory 36 H 34 H 28 H Rate Blood Pressure 90/64 94/63 94/48 L Blood Pressure [Left Brachial artery] Blood Pressure [Right Brachial artery] O2 Saturation 02/20/18 02/20/18 02/20/18 14:31 14:46 15:01 Temperature 35.9 C L 35.9 C L 36.0 C L Heart Rate 103 H 102 H 103 H Heart Rate [ Brachial] Heart Rate [ Monitoring electrodes] Respiratory 30 H 30 H 30 H Rate Blood Pressure 88/58 L 93/56 L 92/56 L Blood Pressure [Left Brachial artery] Blood Pressure [Right Brachial artery] O2 Saturation 02/20/18 02/20/18 02/20/18 15:57 16:30 16:40 Temperature 37.0 C Heart Rate Heart Rate [ Brachial] Heart Rate [ 107 H 107 H Monitoring electrodes] Respiratory 28 H Rate Blood Pressure Blood Pressure [Left Brachial artery] Blood Pressure 99/55 L 78/45 L 86/45 L [Right Brachial artery] O2 Saturation 95 02/20/18 02/20/18 02/20/18 17:00 17:30 17:35 Temperature Heart Rate Heart Rate [ Brachial] Heart Rate [ 103 H 120 H 117 H Monitoring electrodes] Respiratory Rate Blood Pressure Blood Pressure [Left Brachial artery] Blood Pressure 83/43 L 77/39 L 70/51 L [Right Brachial artery] O2 Saturation 02/20/18 02/20/18 02/20/18 17:49 18:30 18:38 Temperature Heart Rate Heart Rate [ Brachial] Heart Rate [ 120 H 107 H Monitoring electrodes] Respiratory Rate Blood Pressure Blood Pressure [Left Brachial artery] Blood Pressure 77/39 L 81/40 L 82/52 L [Right Brachial artery] O2 Saturation 02/20/18 02/20/18 02/21/18 20:13 21:25 00:30 Temperature 36.6 C 36.8 C Heart Rate 101 H Heart Rate [ 107 H Brachial] Heart Rate [ 100 Monitoring electrodes] Respiratory 20 20 16 Rate Blood Pressure Blood Pressure 84/44 L [Left Brachial artery] Blood Pressure 77/30 L [Right Brachial artery] O2 Saturation 94 93 02/21/18 02/21/18 02/21/18 03:59 08:12 10:25 Temperature 36.0 C L 36.7 C Heart Rate 110 H Heart Rate [ 112 H 100 Brachial] Heart Rate [ Monitoring electrodes] Respiratory 18 20 28 H Rate Blood Pressure Blood Pressure 83/49 L [Left Brachial artery] Blood Pressure 83/48 L [Right Brachial artery] O2 Saturation 94 93 02/21/18 12:48 Temperature 36.6 C Heart Rate Heart Rate [ 112 H Brachial] Heart Rate [ Monitoring electrodes] Respiratory 24 Rate Blood Pressure Blood Pressure [Left Brachial artery] Blood Pressure 81/48 L [Right Brachial artery] O2 Saturation 95 Oxygen O2 Source Nasal cannula I&O (Last 24 Hrs): Intake and Output Totals x24h 02/19/18 02/20/18 02/21/18 23:59 23:59 23:59 Intake Total 370 1421 600 Output Total 600 250 Balance -230 1421 350 General: Alert, Oriented x3, Cooperative, No acute distress HEENT: Atraumatic, PERRLA, EOMI, Other (Mucus membranes dry) Neck: Supple, No JVD, No thyromegaly, +2 carotid pulse wo bruit Lymphatic: no adenopathy Neuro: Alert, Non Focal, CN 2-12 Grossly Intact, Oriented Times 3 Cardiovascular: No murmurs, Other (Tachycardic) Respiratory: Chest non-tender, No respiratory distress, Rales (Bases) Abdomen: Normal bowel sounds, Other (Distension is improved) Extremities: No clubbing, No cyanosis, Normal pulses, Other (Bilateral LE edema improving) Skin: No rashes, No breakdown - Results Results: Laboratory Results WBC 6.5 x10^3/uL (4.8-10.8) 02/21/18 05:24 RBC 2.46 10^6/uL (4.20-5.40) L 02/21/18 05:24 Hgb 8.0 g/dL (12.0-16.0) L 02/21/18 05:24 Hct 24.0 % (37.0-47.0) L 02/21/18 05:24 MCV 97.8 fL (81.0-99.0) 02/21/18 05:24 MCH 32.7 pg (27.0-31.0) H 02/21/18 05:24 MCHC 33.5 g/dL (32.0-36.0) 02/21/18 05:24 RDW 17.6 % (12.0-15.0) H 02/21/18 05:24 Plt Count 142 10^3/uL (130-450) 02/21/18 05:24 MPV 7.0 fL (7.9-10.8) L 02/21/18 05:24 Neut # (Auto) 5.1 10^3/uL (1.5-6.6) 02/21/18 05:24 Lymph # (Auto) 0.9 10^3/uL (1.5-3.5) L 02/21/18 05:24 [place] # (Auto) 0.2 10^3/uL (0.0-1.0) 02/21/18 05:24 Eos # (Auto) 0.1 10^3/uL (0.0-0.7) 02/21/18 05:24 Baso # (Auto) 0.1 10^3/uL (0.0-0.1) 02/21/18 05:24 Absolute Nucleated RBC 0.00 x10^3/uL 02/21/18 05:24 Nucleated RBC % 0.0 /100WBC 02/21/18 05:24 PT 22.1 secs (9.9-12.6) H 02/21/18 05:24 INR 2.0 (0.8-1.2) H 02/21/18 05:24 Whole Blood INR 1.6 (0.8-1.2) H 02/20/18 14:30 APTT 30.1 secs (24.9-33.3) 02/18/18 12:45 Sodium 134 mmol/L (135-145) L 02/21/18 05:24 Potassium 4.0 mmol/L (3.5-5.0) 02/21/18 05:24 Chloride 101 mmol/L (101-111) 02/21/18 05:24 Carbon Dioxide 26 mmol/L (21-32) 02/21/18 05:24 Anion Gap 7.0 (6-13) 02/21/18 05:24 BUN 18 mg/dL (6-20) 02/21/18 05:24 Creatinine 0.5 mg/dL (0.4-1.0) 02/21/18 05:24 Estimated GFR (MDRD) 134 (>89) 02/21/18 05:24 Glucose 100 mg/dL (70-100) 02/21/18 05:24 Calcium 7.5 mg/dL (8.5-10.3) L 02/21/18 05:24 Magnesium 1.8 mg/dL (1.7-2.8) 02/18/18 12:45 Iron 22 ug/dL (28-170) L 02/19/18 05:31 TIBC 164 ug/dL (250-450) L 02/19/18 05:31 % Saturation 13 % (20-50) L 02/19/18 05:31 Transferrin 117 mg/dL (192-382) L 02/19/18 05:31 Total Bilirubin 2.4 mg/dL (0.2-1.0) H 02/21/18 05:24 AST 63 IU/L (10-42) H 02/21/18 05:24 ALT 21 IU/L (10-60) 02/21/18 05:24 Alkaline Phosphatase 126 IU/L (42-121) H 02/21/18 05:24 Ammonia 40.1 umol/L (7-35) H 02/21/18 05:24 Total Protein 4.1 g/dL (6.7-8.2) L 02/21/18 05:24 Albumin 2.1 g/dL (3.2-5.5) L 02/21/18 05:24 Globulin 2.0 g/dL (2.1-4.2) L 02/21/18 05:24 Albumin/Globulin Ratio 1.1 (1.0-2.2) 02/21/18 05:24 Lipase 49 U/L (22-51) 02/18/18 12:45 TSH 3.03 uIU/mL (0.34-5.60) 02/19/18 05:31 Fluid Source PERITONEAL 02/19/18 18:10 Fluid Color YELLOW 02/19/18 18:10 Fluid Clarity CLEAR 02/19/18 18:10 Fluid WBC 48 /mm^3 02/19/18 18:10 Fluid RBC 114 /mm^3 02/19/18 18:10 Fluid Neutrophils % 12.0 % 02/19/18 18:10 Fluid Lymphocytes % 13.0 02/19/18 18:10 Fluid Monocytes % 8.0 % 02/19/18 18:10 Fluid Macrophages % 53.0 % 02/19/18 18:10 Fld Mesothelial Cell % 14.0 % 02/19/18 18:10 Urine Opiates Screen NEGATIVE (NEGATIVE) 02/18/18 20:25 Ur Oxycodone Screen NEGATIVE (NEGATIVE) 02/18/18 20:25 Urine Methadone Screen NEGATIVE (NEGATIVE) 02/18/18 20:25 Ur Propoxyphene Screen NEGATIVE (NEGATIVE) 02/18/18 20:25 Ur Barbiturates Screen NEGATIVE (NEGATIVE) 02/18/18 20:25 Ur Tricyclics Screen NEGATIVE (NEGATIVE) 02/18/18 20:25 Ur Phencyclidine Scrn NEGATIVE (NEGATIVE) 02/18/18 20:25 Ur Amphetamine Screen NEGATIVE (NEGATIVE) 02/18/18 20:25 U Methamphetamines Scrn NEGATIVE (NEGATIVE) 02/18/18 20:25 U Benzodiazepines Scrn NEGATIVE (NEGATIVE) 02/18/18 20:25 Urine Cocaine Screen NEGATIVE (NEGATIVE) 02/18/18 20:25 U Cannabinoids Screen NEGATIVE (NEGATIVE) 02/18/18 20:25 Blood Type O POSITIVE 02/20/18 11:05 Blood Type Recheck O POSITIVE 02/20/18 05:00 Antibody Screen NEGATIVE 02/20/18 11:05 - Procedures Procedures: Procedures DRAINAGE OF PERITONEAL CAVITY, PERCUTANEOUS APPROACH (01/08/18) ABX Reporting Has patient been on IV antibiotics over the past 48 hours?: No Current Medications - Current Medications Current Medications: Active Medications Generic Name Dose Route Start Last Admin Trade Name Freq PRN Reason Stop Dose Admin Albuterol 2.5 mg 02/18/18 18:23 02/21/18 10:23 INH 2.5 mg RTQ4H PRN Administration Shortness of Air/Wheezing Albuterol/Ipratropium 3 ml 02/19/18 14:00 Duoneb INH RTQID PRN Shortness of Air/Wheezing Benzonatate 100 mg 02/18/18 14:26 Tessalon PO TID PRN Cough Cholecalciferol 2,000 unit 02/19/18 09:00 02/21/18 09:15 Vitamin D3 PO 2,000 unit DAILY PERICO Administration Cyanocobalamin 500 mcg 02/19/18 09:00 02/21/18 09:15 Vitamin B-12 PO 500 mcg DAILY PERICO Administration Diphenhydramine HCl 25 mg 02/19/18 00:46 02/19/18 14:42 Benadryl PO 25 mg Q4HR PRN Administration Allergy Symptoms Famotidine 20 mg 02/19/18 09:00 02/21/18 09:15 Pepcid PO 20 mg DAILY PERICO Administration Ferrous Sulfate 325 mg 02/19/18 08:00 02/21/18 09:16 Feosol PO 325 mg DAILYWM PERICO Administration Furosemide 40 mg 02/19/18 09:00 02/21/18 13:49 Lasix Inj 40 Mg Vial IVP Not Given 0900,1400 [facility] Ketorolac Tromethamine 15 mg 02/18/18 15:09 02/21/18 10:27 Toradol Inj (15mg) IVP 02/23/18 15:08 15 mg Q6HR PRN Administration PAIN Lactulose 20 gm 02/18/18 17:21 02/21/18 09:15 Enulose PO 20 gm BIDWM PERICO Administration Levothyroxine Sodium 112 mcg 02/19/18 07:00 02/21/18 06:25 Synthroid PO 112 mcg QDAC PERICO Administration Multivitamins/Minerals 1 tab 02/19/18 09:00 02/21/18 09:16 Theragran M PO 1 tab DAILY PERICO Administration Ondansetron HCl 4 mg 02/18/18 14:22 02/20/18 16:43 Zofran Inj IVP 4 mg Q6HR PRN Administration Nausea / Vomiting Polyethylene Glycol 17 gm 02/19/18 09:00 02/21/18 07:54 Miralax PO Not Given DAILY PERICO Potassium Chloride 40 meq 02/20/18 09:00 02/21/18 09:16 K-Dur PO 40 meq BID PERICO Administration Rifaximin 550 mg 02/19/18 08:00 02/21/18 09:16 Xifaxan PO 550 mg BID PERICO Administration Sodium Chloride 10 ml 02/18/18 14:22 02/21/18 09:16 Normal Saline Flush 0.9% IVP 10 ml PRN PRN Administration NEEDED PER PROVIDER ORDERS Sodium Chloride 10 ml 02/18/18 17:00 02/21/18 07:31 Normal Saline Flush 0.9% IVP 10 ml 0100,0900,1700 PERICO Administration Spironolactone 50 mg 02/19/18 21:23 02/21/18 09:25 Aldactone PO Not Given BID PERICO Thiamine HCl 100 mg 02/20/18 13:00 02/21/18 09:15 Vitamin B-1 PO 100 mg DAILY PERICO Administration Cyanocobalamin (Vitamin B-12) [Vitamin B-12 (100mcg tab)] 500 mcg PO DAILY 01/08 Pantoprazole [Protonix] 40 mg PO QDAC 01/08/18 Benzonatate 100 - 200 mg PO TID PRN 02/03/18 Levothyroxine Sodium 112 mcg PO QDAC 02/03/18 Multivitamin W/Minerals [Theragran M] 1 tab PO DAILY 02/03/18 Spironolactone 50 mg PO BID 02/03/18 Albuterol Sulf [Ventolin Hfa Inhaler] 1 - 2 puffs INH Q6HR PRN 02/06/18 Lactulose 30 ml PO TID MDD hold 3rd dose if >3 BMs 02/07/18 Cholecalciferol (Vitamin D3) [Vitamin D] 2,000 unit PO DAILY 02/18/18 Potassium Chloride 20 meq PO DAILY 02/18/18
[2018-02-22] MEDS: diphenhydrAMINE 25 MG CAPSULE PO PRN (00:33)
[2018-02-22] MEDS: SODIUM CHLORIDE FLUSH 0.9% 10 ML SYRINGE IVP SCH ×4 (00:35→23:19)
[2018-02-22] MEDS: SODIUM CHLORIDE FLUSH 0.9% 10 ML SYRINGE IVP PRN ×6 (00:35→13:51)
[2018-02-22] MEDS: KETOROLAC 15 MG/ML VIAL IVP PRN (05:33)
[2018-02-22 06:32] LABS: BASOPHILS # (AUTO) 0.1 10^3/uL (0.0-0.1); BASOPHILS % (AUTO) 1.1 %; EOSINOPHILS # (AUTO) 0.1 10^3/uL (0.0-0.7); EOSINOPHILS % (AUTO) 1.7 %; HGB - HEMOGLOBIN 8.9 g/dL (12.0-16.0); LYMPHOCYTES # (AUTO) 1.1 10^3/uL (1.5-3.5); LYMPHOCYTES % (AUTO) 15.3 %; MEAN CORPUSCULAR HEMOGLOBIN 32.9 pg (27.0-31.0); MEAN CORPUSCULAR HGB CONC 33.2 g/dL (32.0-36.0); MEAN CORPUSCULAR VOLUME 99.3 fL (81.0-99.0); MEAN PLATELET VOLUME 7.3 fL (7.9-10.8); MONOCYTES # (AUTO) 0.3 10^3/uL (0.0-1.0); NEUTROPHILS # (AUTO) 5.7 10^3/uL (1.5-6.6); NEUTROPHILS % (AUTO) 77.9 %; PLT - PLATELET COUNT 145 10^3/uL (130-450); RED BLOOD COUNT 2.69 10^6/uL (4.20-5.40); RED CELL DISTRIBUTION WIDTH 18.1 % (12.0-15.0); WHITE BLOOD COUNT 7.3 x10^3/uL (4.8-10.8)
[2018-02-22 06:41] LABS: INR 2.4 (0.8-1.2); PT - PROTHROMBIN TIME 25.9 secs (9.9-12.6)
[2018-02-22 06:46] LABS: ALBUMIN 2.2 g/dL (3.2-5.5); ALBUMIN/GLOBULIN RATIO 1.2 (1.0-2.2); BILIRUBIN,TOTAL 2.7 mg/dL (0.2-1.0); CALCIUM 7.5 mg/dL (8.5-10.3); CREATININE 0.7 mg/dL (0.4-1.0); TOTAL PROTEIN 4.1 g/dL (6.7-8.2)
[2018-02-22] MEDS: LEVOTHYROXINE 112 MCG TABLET PO SCH (07:30)
[2018-02-22] MEDS ORDERED: SODIUM CHLORIDE 0.9% 500 ML IV ONE ×2 (07:43→15:00)
[2018-02-22] MEDS: LACTULOSE 10 GM /15 ML UDC PO SCH (08:40)
[2018-02-22] MEDS: POTASSIUM CHLORIDE 20 MEQ TABLET PO SCH ×2 (08:40→21:41)
[2018-02-22] MEDS: THIAMINE 100 MG TABLET PO SCH (08:41)
[2018-02-22] MEDS: rifAXIMin 550 MG TABLET PO SCH ×2 (08:41→21:41)
[2018-02-22] MEDS: FAMOTIDINE 20 MG TABLET PO SCH (08:41)
[2018-02-22] MEDS: CYANOCOBALAMIN 500 MCG TABLET PO SCH (08:41)
[2018-02-22] MEDS: MULTIVITAMIN W/MINERALS TABLET PO SCH (08:41)
[2018-02-22] MEDS: SPIRONOLACTONE 25 MG TABLET PO SCH ×2 (08:41→08:54)
[2018-02-22] MEDS: FERROUS SULFATE 325 MG TABLET PO SCH (08:41)
[2018-02-22] MEDS: FUROSEMIDE 40 MG/4 ML VIAL IVP SCH (08:41)
[2018-02-22] MEDS: CHOLECALCIFEROL 1,000 UNIT TABLET PO SCH (08:41)
[2018-02-22] MEDS: POLYETHYLENE GLYCOL 3350 17 GM PACKET PO SCH (08:42)
[2018-02-22] MEDS: IPRATROPIUM/ALBUTEROL 3 ML NEB INH PRN ×2 (09:42→20:04)
[2018-02-22] MEDS: ALBUMIN 25% 12.5 GM/50 ML VIAL IV SCH ×4 (10:29→21:41)
[2018-02-22] MEDS: LACTULOSE 10 GM/15 ML BOTTLE PO SCH ×2 (12:20→17:30)
[2018-02-22] MEDS: ONDANSETRON 4 MG/2 ML VIAL IVP PRN (12:28)
--- NOTE | 2018-02-22 12:57 | PROVIDER PROGRESS NOTE ---
Assessment/Plan - Problem List (1) Hypotension Assessment/Plan: Patient continues to have persistent hypotension since her large volume paracentesis of 6.3 L Patient has been given albumin 50 grams, lasix and aldactone were held yesterday but patients SBP continues to be in the 70s This morning patient appears drowsy and is complaining of pleuritic chest pain Will continue to hold lasix and aldactone Give IVF and another 50 grams of lasix Given that she is having hypotension and chest pain will also get a CXR to look for possible pneumonia She had an echo less than a month ago that showed a normal EF We expect her to be relatively hypotensive secondary to splanchnic dilatation from her cirrhosis but this is more than normal Will order a troponin and lactic acid Patient had no evidence of SBP on peritoneal fluid analysis Monitor closely (2) Anasarca Assessment/Plan: Secondary to non compliance with medication as patient stopped taking her lasix and aldactone Restarted aldactone and started on IV lasix with fluid restriction and Na restriction Improving but continues to be hypoxic LE edema is much improved but pulmonary edema persists Paracentesis performed with 6.3 L removed Patient continues to be hypotensive post paracentesis with lethargy Given albumin 25% 12.5 grams x 4 doses will give 4 more doses Monitor physician relations manager and BP closely Continue to hold lasix and aldactone Give IV fluid (3) Pulmonary edema Qualifiers: Chronicity: acute Qualified Code(s): J81.0 - Acute pulmonary edema Assessment/Plan: Secondary to non compliance with medication and fluid overload secondary to liver failure with cirrhosis Patient had increased hypoxia on presentation CXR continues to show pulmonary edema Given IV lasix but secondary to hypotension need to hold lasix HOlding lasix and aldactone secondary to hypotension On 3L of O2 Continues to be hypotensive (4) Non compliance w medication regimen Assessment/Plan: Patient counselled about need for compliance with medications She seems to understand and is willing to take lasix and aldactone She needs to show ability to be complaint in order to get transplant of her liver (5) Hypoxia Assessment/Plan: Secondary to pulmonary edema in setting of long standing COPD Patient requiring 3L of O2 Patient given IV lasix Weaning O2 Holding IV lasix and PO aldactone secondary to hypotension (6) Hypokalemia Assessment/Plan: Resolved (7) Hyponatremia Assessment/Plan: Patient has hypervolemic hyponatremia Na improved from 131 to 134 and stable Improved with IV lasix and fluid restriction Continue treatment and monitor Na (8) Alcoholic cirrhosis of liver with ascites Assessment/Plan: Patients MELD score is 20 which gives her a 3 month mortality of 19.6% She has history of ascites and encephalopathy Increase lactulose today as patient more lethargic today and continue rifaximin for encephalopathy Holding lasix and aldactone for ascites as she is hypotensive after paracentesis Paracentesis performed with 6.3 L removed Patient hypotensive post paracentesis with dizziness and lethargy Given albumin 25% 12.5 grams x 4 doses will give 4 more doses Monitor physician relations manager and BP closely Patient needs further outpatient follow up and eventual transplant (9) Moderate COPD (chronic obstructive pulmonary disease) Assessment/Plan: Patient has history of COPD and has quit smoking Does not appear to be in exacerbation Placed on duonebs prn Supplemental O2 Given hypotension patient will need further work up for infection and other possible causes and will likely need 1-2 more days in the hospital. - Current Meds Current Meds: Current Medications Generic Name Dose Route Start Last Admin Trade Name Freq PRN Reason Stop Dose Admin Albuterol 2.5 mg 02/18/18 18:23 02/21/18 21:39 INH 2.5 mg RTQ4H PRN Administration Shortness of Air/Wheezing Albuterol/Ipratropium 3 ml 02/19/18 14:00 02/22/18 09:42 Duoneb INH 3 ml RTQID PRN Administration Shortness of Air/Wheezing Cholecalciferol 2,000 unit 02/19/18 09:00 02/22/18 08:41 Vitamin D3 PO 2,000 unit DAILY PERICO Administration Cyanocobalamin 500 mcg 02/19/18 09:00 02/22/18 08:41 Vitamin B-12 PO 500 mcg DAILY PERICO Administration Diphenhydramine HCl 25 mg 02/19/18 00:46 02/22/18 00:33 Benadryl PO 25 mg Q4HR PRN Administration Allergy Symptoms Famotidine 20 mg 02/19/18 09:00 02/22/18 08:41 Pepcid PO 20 mg DAILY PERICO Administration Ferrous Sulfate 325 mg 02/19/18 08:00 02/22/18 08:41 Feosol PO 325 mg DAILYWM PERICO Administration Albumin Human 12.5 gm in 50 mls @ 50 mls/hr 02/22/18 10:00 02/22/18 11:29 Albuminar-25 IV 02/22/18 22:59 Infused Q4H PERICO Infusion Ketorolac Tromethamine 15 mg 02/18/18 15:09 02/22/18 05:33 Toradol Inj (15mg) IVP 02/23/18 15:08 15 mg Q6HR PRN Administration PAIN Lactulose 30 gm 02/22/18 12:00 02/22/18 12:20 Lactulose PO 30 gm TIDWM PERICO Administration Levothyroxine Sodium 112 mcg 02/19/18 07:00 02/22/18 07:30 Synthroid PO 112 mcg QDAC PERICO Administration Multivitamins/Minerals 1 tab 02/19/18 09:00 02/22/18 08:41 Theragran M PO 1 tab DAILY PERICO Administration Ondansetron HCl 4 mg 02/18/18 14:22 02/22/18 12:28 Zofran Inj IVP 4 mg Q6HR PRN Administration Nausea / Vomiting Polyethylene Glycol 17 gm 02/19/18 09:00 02/22/18 08:42 Miralax PO Not Given DAILY PERICO Potassium Chloride 40 meq 02/20/18 09:00 02/22/18 08:40 K-Dur PO 40 meq BID PERICO Administration Rifaximin 550 mg 02/19/18 08:00 02/22/18 08:41 Xifaxan PO 550 mg BID PERICO Administration Sodium Chloride 10 ml 02/18/18 14:22 02/22/18 12:28 Normal Saline Flush 0.9% IVP 10 ml PRN PRN Administration NEEDED PER PROVIDER ORDERS Sodium Chloride 10 ml 02/18/18 17:00 02/22/18 08:41 Normal Saline Flush 0.9% IVP 10 ml 0100,0900,1700 PERICO Administration Thiamine HCl 100 mg 02/20/18 13:00 02/22/18 08:41 Vitamin B-1 PO 100 mg DAILY PERICO Administration - Lab Result Lab results reviewed: Yes Fish Bone Diagrams: 02/22/18 06:12 02/22/18 06:12 - Diagnostic Imaging Results Diagnostic Imaging Results: Final report reviewed - Additional Planning Condition/Complexity: Guarded My Orders: My Active Orders 02/22/18 10:00 Albumin 25% [Albuminar-25] 12.5 gm in 50 ml IV Q4H 02/22/18 12:00 Lactulose 30 gm PO TIDWM 02/22/18 12:19 Chest 1 View X-Ray [XR] Routine 02/23/18 05:00 AMMONIA [CHEM] DAILYLAB BNP - B-NATRIURETIC PEPTIDE [IAI] DAILYLAB CBC - COMP BLD CT W/AUTO DIFF [HEME] DAILYLAB CMP, RFLX TO IONIZED CA IF [CHEM] DAILYLAB LACTIC ACID, VENOUS [CHEM] DAILYLAB MAGNESIUM [CHEM] DAILYLAB PHOSPHORUS [CHEM] DAILYLAB PT WITH INR [COAG] DAILYLAB 02/24/18 05:00 AMMONIA [CHEM] DAILYLAB BNP - B-NATRIURETIC PEPTIDE [IAI] DAILYLAB CBC - COMP BLD CT W/AUTO DIFF [HEME] DAILYLAB CMP, RFLX TO IONIZED CA IF [CHEM] DAILYLAB PT WITH INR [COAG] DAILYLAB 02/25/18 05:00 AMMONIA [CHEM] DAILYLAB BNP - B-NATRIURETIC PEPTIDE [IAI] DAILYLAB CBC - COMP BLD CT W/AUTO DIFF [HEME] DAILYLAB CMP, RFLX TO IONIZED CA IF [CHEM] DAILYLAB PT WITH INR [COAG] DAILYLAB Plan Discussed with:: Patient Time Spent: 31-60 minutes Subjective - Subjective Patient Reports: Other (Drowsy. States she does not feel well. Complaining of chest pain. She denies abdominal pain.) Nursing Reports: No Complaints Objective Vital Signs: Vital Signs - 24 hr 02/21/18 02/21/18 02/21/18 12:48 16:54 21:21 Temperature 36.6 C 36.8 C 37.3 C Heart Rate Heart Rate [ 112 H 103 H 105 H Brachial] Respiratory 24 18 16 Rate Blood Pressure 81/48 L 83/48 L 104/66 [Right Brachial artery] O2 Saturation 95 92 93 02/21/18 02/21/18 02/22/18 21:41 23:19 04:58 Temperature 37.3 C 36.9 C Heart Rate 124 H Heart Rate [ 132 H 104 H Brachial] Respiratory 20 16 16 Rate Blood Pressure 90/53 L 79/49 L [Right Brachial artery] O2 Saturation 92 96 02/22/18 02/22/18 02/22/18 05:31 07:34 08:36 Temperature 36.6 C Heart Rate Heart Rate [ 96 102 H Brachial] Respiratory 24 Rate Blood Pressure 80/47 L 76/44 L 78/43 L [Right Brachial artery] O2 Saturation 95 02/22/18 02/22/18 09:44 12:13 Temperature 36.8 C Heart Rate 108 H Heart Rate [ 103 H Brachial] Respiratory 20 22 Rate Blood Pressure 78/48 L [Right Brachial artery] O2 Saturation 96 Oxygen O2 Source Nasal cannula I&O (Last 24 Hrs): Intake and Output Totals x24h 02/20/18 02/21/18 02/22/18 23:59 23:59 23:59 Intake Total 1421 970 910 Output Total 450 Balance 1421 520 910 General: Cooperative, Other (Drowsy) HEENT: Atraumatic, PERRLA, EOMI, Other (Dry mucus membranes) Neck: Supple, No JVD, No thyromegaly, No LAD Lymphatic: no adenopathy Neuro: Alert, Non Focal, CN 2-12 Grossly Intact, Oriented Times 3, Other (Drowsy ) Cardiovascular: No murmurs, Other (Tachycardic) Respiratory: Rales (Bilateral bases), Other (shallow breathing) Abdomen: Normal bowel sounds, Soft, No tenderness, Other (Distended) Extremities: No clubbing, No cyanosis, Normal pulses, Other (LE edema is much improved) Skin: No rashes, No breakdown - Results Results: Laboratory Results WBC 7.3 x10^3/uL (4.8-10.8) 02/22/18 06:12 RBC 2.69 10^6/uL (4.20-5.40) L 02/22/18 06:12 Hgb 8.9 g/dL (12.0-16.0) L 02/22/18 06:12 Hct 26.8 % (37.0-47.0) L 02/22/18 06:12 MCV 99.3 fL (81.0-99.0) H 02/22/18 06:12 MCH 32.9 pg (27.0-31.0) H 02/22/18 06:12 MCHC 33.2 g/dL (32.0-36.0) 02/22/18 06:12 RDW 18.1 % (12.0-15.0) H 02/22/18 06:12 Plt Count 145 10^3/uL (130-450) 02/22/18 06:12 MPV 7.3 fL (7.9-10.8) L 02/22/18 06:12 Neut # (Auto) 5.7 10^3/uL (1.5-6.6) 02/22/18 06:12 Lymph # (Auto) 1.1 10^3/uL (1.5-3.5) L 02/22/18 06:12 Glascock # (Auto) 0.3 10^3/uL (0.0-1.0) 02/22/18 06:12 Eos # (Auto) 0.1 10^3/uL (0.0-0.7) 02/22/18 06:12 Baso # (Auto) 0.1 10^3/uL (0.0-0.1) 02/22/18 06:12 Absolute Nucleated RBC 0.00 x10^3/uL 02/22/18 06:12 Nucleated RBC % 0.0 /100WBC 02/22/18 06:12 PT 25.9 secs (9.9-12.6) H 02/22/18 06:12 INR 2.4 (0.8-1.2) H 02/22/18 06:12 Whole Blood INR 1.6 (0.8-1.2) H 02/20/18 14:30 APTT 30.1 secs (24.9-33.3) 02/18/18 12:45 Sodium 134 mmol/L (135-145) L 02/22/18 06:12 Potassium 4.7 mmol/L (3.5-5.0) 02/22/18 06:12 Chloride 104 mmol/L (101-111) 02/22/18 06:12 Carbon Dioxide 22 mmol/L (21-32) 02/22/18 06:12 Anion Gap 8.0 (6-13) 02/22/18 06:12 BUN 20 mg/dL (6-20) 02/22/18 06:12 Creatinine 0.7 mg/dL (0.4-1.0) 02/22/18 06:12 Estimated GFR (MDRD) 91 (>89) 02/22/18 06:12 Glucose 140 mg/dL (70-100) H 02/22/18 06:12 Calcium 7.5 mg/dL (8.5-10.3) L 02/22/18 06:12 Magnesium 1.8 mg/dL (1.7-2.8) 02/18/18 12:45 Iron 22 ug/dL (28-170) L 02/19/18 05:31 TIBC 164 ug/dL (250-450) L 02/19/18 05:31 % Saturation 13 % (20-50) L 02/19/18 05:31 Transferrin 117 mg/dL (192-382) L 02/19/18 05:31 Total Bilirubin 2.7 mg/dL (0.2-1.0) H 02/22/18 06:12 AST 81 IU/L (10-42) H 02/22/18 06:12 ALT 21 IU/L (10-60) 02/22/18 06:12 Alkaline Phosphatase 132 IU/L (42-121) H 02/22/18 06:12 Ammonia 43.6 umol/L (7-35) H 02/22/18 06:12 Total Protein 4.1 g/dL (6.7-8.2) L 02/22/18 06:12 Albumin 2.2 g/dL (3.2-5.5) L 02/22/18 06:12 Globulin 1.9 g/dL (2.1-4.2) L 02/22/18 06:12 Albumin/Globulin Ratio 1.2 (1.0-2.2) 02/22/18 06:12 Lipase 49 U/L (22-51) 02/18/18 12:45 TSH 3.03 uIU/mL (0.34-5.60) 02/19/18 05:31 Fluid Source PERITONEAL 02/19/18 18:10 Fluid Color YELLOW 02/19/18 18:10 Fluid Clarity CLEAR 02/19/18 18:10 Fluid WBC 48 /mm^3 02/19/18 18:10 Fluid RBC 114 /mm^3 02/19/18 18:10 Fluid Neutrophils % 12.0 % 02/19/18 18:10 Fluid Lymphocytes % 13.0 02/19/18 18:10 Fluid Monocytes % 8.0 % 02/19/18 18:10 Fluid Macrophages % 53.0 % 02/19/18 18:10 Fld Mesothelial Cell % 14.0 % 02/19/18 18:10 Urine Opiates Screen NEGATIVE (NEGATIVE) 02/18/18 20:25 Ur Oxycodone Screen NEGATIVE (NEGATIVE) 02/18/18 20:25 Urine Methadone Screen NEGATIVE (NEGATIVE) 02/18/18 20:25 Ur Propoxyphene Screen NEGATIVE (NEGATIVE) 02/18/18 20:25 Ur Barbiturates Screen NEGATIVE (NEGATIVE) 02/18/18 20:25 Ur Tricyclics Screen NEGATIVE (NEGATIVE) 02/18/18 20:25 Ur Phencyclidine Scrn NEGATIVE (NEGATIVE) 02/18/18 20:25 Ur Amphetamine Screen NEGATIVE (NEGATIVE) 02/18/18 20:25 U Methamphetamines Scrn NEGATIVE (NEGATIVE) 02/18/18 20:25 U Benzodiazepines Scrn NEGATIVE (NEGATIVE) 02/18/18 20:25 Urine Cocaine Screen NEGATIVE (NEGATIVE) 02/18/18 20:25 U Cannabinoids Screen NEGATIVE (NEGATIVE) 02/18/18 20:25 Blood Type O POSITIVE 02/20/18 11:05 Blood Type Recheck O POSITIVE 02/20/18 05:00 Antibody Screen NEGATIVE 02/20/18 11:05 - Procedures Procedures: Procedures DRAINAGE OF PERITONEAL CAVITY, PERCUTANEOUS APPROACH (01/08/18) ABX Reporting Has patient been on IV antibiotics over the past 48 hours?: No Current Medications - Current Medications Current Medications: Active Medications Generic Name Dose Route Start Last Admin Trade Name Freq PRN Reason Stop Dose Admin Albuterol 2.5 mg 02/18/18 18:23 02/21/18 21:39 INH 2.5 mg RTQ4H PRN Administration Shortness of Air/Wheezing Albuterol/Ipratropium 3 ml 02/19/18 14:00 02/22/18 09:42 Duoneb INH 3 ml RTQID PRN Administration Shortness of Air/Wheezing Benzonatate 100 mg 02/18/18 14:26 Tessalon PO TID PRN Cough Cholecalciferol 2,000 unit 02/19/18 09:00 02/22/18 08:41 Vitamin D3 PO 2,000 unit DAILY PERICO Administration Cyanocobalamin 500 mcg 02/19/18 09:00 02/22/18 08:41 Vitamin B-12 PO 500 mcg DAILY PERICO Administration Diphenhydramine HCl 25 mg 02/19/18 00:46 02/22/18 00:33 Benadryl PO 25 mg Q4HR PRN Administration Allergy Symptoms Famotidine 20 mg 02/19/18 09:00 02/22/18 08:41 Pepcid PO 20 mg DAILY PERICO Administration Ferrous Sulfate 325 mg 02/19/18 08:00 02/22/18 08:41 Feosol PO 325 mg DAILYWM PERICO Administration Albumin Human 12.5 gm in 50 mls @ 50 mls/hr 02/22/18 10:00 02/22/18 17:30 Albuminar-25 IV 02/22/18 22:59 50 mls/hr Q4H PERICO Administration Ketorolac Tromethamine 15 mg 02/18/18 15:09 02/22/18 05:33 Toradol Inj (15mg) IVP 02/23/18 15:08 15 mg Q6HR PRN Administration PAIN Lactulose 30 gm 02/22/18 12:00 02/22/18 17:30 Lactulose PO 30 gm TIDWM PERICO Administration Levothyroxine Sodium 112 mcg 02/19/18 07:00 02/22/18 07:30 Synthroid PO 112 mcg QDAC PERICO Administration Multivitamins/Minerals 1 tab 02/19/18 09:00 02/22/18 08:41 Theragran M PO 1 tab DAILY PERICO Administration Ondansetron HCl 4 mg 02/18/18 14:22 02/22/18 12:28 Zofran Inj IVP 4 mg Q6HR PRN Administration Nausea / Vomiting Polyethylene Glycol 17 gm 02/19/18 09:00 02/22/18 08:42 Miralax PO Not Given DAILY PERICO Potassium Chloride 40 meq 02/20/18 09:00 02/22/18 08:40 K-Dur PO 40 meq BID PERICO Administration Rifaximin 550 mg 02/19/18 08:00 02/22/18 08:41 Xifaxan PO 550 mg BID PERICO Administration Sodium Chloride 10 ml 02/18/18 14:22 02/22/18 13:51 Normal Saline Flush 0.9% IVP 10 ml PRN PRN Administration NEEDED PER PROVIDER ORDERS Sodium Chloride 10 ml 02/18/18 17:00 02/22/18 16:37 Normal Saline Flush 0.9% IVP 10 ml 0100,0900,1700 PERICO Administration Thiamine HCl 100 mg 02/20/18 13:00 02/22/18 08:41 Vitamin B-1 PO 100 mg DAILY PERICO Administration Cyanocobalamin (Vitamin B-12) [Vitamin B-12 (100mcg tab)] 500 mcg PO DAILY 01/08 Pantoprazole [Protonix] 40 mg PO QDAC 01/08/18 Benzonatate 100 - 200 mg PO TID PRN 02/03/18 Levothyroxine Sodium 112 mcg PO QDAC 02/03/18 Multivitamin W/Minerals [Theragran M] 1 tab PO DAILY 02/03/18 Spironolactone 50 mg PO BID 02/03/18 Albuterol Sulf [Ventolin Hfa Inhaler] 1 - 2 puffs INH Q6HR PRN 02/06/18 Lactulose 30 ml PO TID MDD hold 3rd dose if >3 BMs 02/07/18 Cholecalciferol (Vitamin D3) [Vitamin D] 2,000 unit PO DAILY 02/18/18 Potassium Chloride 20 meq PO DAILY 02/18/18
--- NOTE | 2018-02-22 13:41 | XRAY Report ---
Reason: Chest pain, hypoxia Procedure Date: 02/22/2018 Accession Number: [id number] / [id number] Procedure: XR - Chest 1 View X-Ray CPT Code: 04369 FULL RESULT: EXAM: CHEST RADIOGRAPHY, PORTABLE ONE VIEW EXAM DATE: 02/22/2018 12:51 PM. CLINICAL HISTORY: Reassessment of 42-year-old female with pulmonary edema, secondary to liver failure with cirrhosis. Patient noncompliant with medication. COMPARISON: Chest 1 view 02/19/2018 7:43 AM. TECHNIQUE: 1229 hour AP upright portable view. FINDINGS: Lungs/Pleura: Extensive bilateral infiltrates consistent with ongoing pulmonary edema, similar to recent prior study. No pleural effusion or pneumothorax. Mediastinum: Heart size normal considering inspiratory effort. Pulmonary vasculature is difficult to evaluate. No gross adenopathy. Other: Trachea is midline. Osseous structures are unremarkable. IMPRESSION: Extensive bilateral infiltrates most consistent with pulmonary edema, similar to study of 3 days ago. No substantial pleural effusion. RADIA
[2018-02-22] MEDS ORDERED: IOPAMIDOL-300 100 ML VIAL ONE (15:41)
[2018-02-22] MEDS ORDERED: IOPAMIDOL-300 100 ML VIAL IVP ONE ×2 (16:14)
--- NOTE | 2018-02-22 20:36 | CT Report ---
Reason: Hypoxia, hypotension, tachycardia, elevated lactic Procedure Date: 02/22/2018 Accession Number: [id number] / [id number] Procedure: CT - Chest Angio (PE) CPT Code: FULL RESULT: EXAM: CT ANGIOGRAM CHEST EXAM DATE: 02/22/2018 04:11 PM. CLINICAL HISTORY: Tachycardia and chest pain. COMPARISON: None. TECHNIQUE: Routine helical imaging was performed through the chest in the pulmonary arterial phase. IV Contrast: Isovue 300 80 mL. Reconstructions: Coronal 3-D MIP reconstructions.Sagittal and coronal. In accordance with CT protocol optimization, one or more of the following dose reduction techniques were utilized for this exam: automated exposure control, adjustment of mA and/or KV based on patient size, or use of iterative reconstructive technique. FINDINGS: Pulmonary Arteries: Diagnostic quality: Adequate through the segmental arteries. No evidence for acute or chronic pulmonary emboli. RV/LV is within normal limits. There is no interventricular septal bowing. There is no reflux of contrast material in the IVC. Lungs/Pleura: Small left pleural effusion. No pneumothorax. Diffuse groundglass opacities are present throughout both lungs. No endobronchial lesion noted. Mediastinum: Normal. No cardiac enlargement or adenopathy. Thoracic Aorta: Unremarkable. Upper Abdomen: Low density upper abdominal ascites noted. Patient is status post gastric bypass procedure. Distal anastomosis is not seen. Small hiatal hernia. Other: Thyroid gland is absent or atrophic. Moderate subcutaneous soft tissue edema is noted in the lower thoracic and upper abdominal chest wall. IMPRESSION: 1. Normal pulmonary CT angiogram. No pulmonary emboli. 2. Small left pleural effusion. Mild dependent atelectasis. Diffuse groundglass opacities throughout both lungs suspicious for edema. No pneumothorax. 3. Fatty liver. Upper abdominal ascites. Status post gastric bypass procedure. Small incidental paraesophageal hernia. RADIA
[2018-02-22] MEDS ORDERED: ACETAMINOPHEN 500 MG TABLET PO PRN (21:52)
[2018-02-22] MEDS ORDERED: KETOROLAC 15 MG/ML VIAL IVP SCH (22:00)
[2018-02-22] MEDS: cefTRIAXone 1 GM in SODIUM CHLORIDE 0.9% MINIBAG 100 ML IV SCH (22:37)
[2018-02-23 05:16] LABS: BASOPHILS # (AUTO) 0.1 10^3/uL (0.0-0.1); BASOPHILS % (AUTO) 1.1 %; EOSINOPHILS # (AUTO) 0.2 10^3/uL (0.0-0.7); HGB - HEMOGLOBIN 8.5 g/dL (12.0-16.0); LYMPHOCYTES # (AUTO) 1.1 10^3/uL (1.5-3.5); LYMPHOCYTES % (AUTO) 15.7 %; MEAN CORPUSCULAR HEMOGLOBIN 32.5 pg (27.0-31.0); MEAN CORPUSCULAR HGB CONC 32.7 g/dL (32.0-36.0); MEAN CORPUSCULAR VOLUME 99.3 fL (81.0-99.0); MEAN PLATELET VOLUME 7.7 fL (7.9-10.8); MONOCYTES # (AUTO) 0.4 10^3/uL (0.0-1.0); NEUTROPHILS # (AUTO) 5.3 10^3/uL (1.5-6.6); NEUTROPHILS % (AUTO) 75.2 %; PLT - PLATELET COUNT 152 10^3/uL (130-450); RED BLOOD COUNT 2.62 10^6/uL (4.20-5.40); RED CELL DISTRIBUTION WIDTH 17.9 % (12.0-15.0); WHITE BLOOD COUNT 7.1 x10^3/uL (4.8-10.8)
[2018-02-23 05:27] LABS: ALBUMIN 2.4 g/dL (3.2-5.5); ALBUMIN/GLOBULIN RATIO 1.5 (1.0-2.2); ALKALINE PHOSPHATASE 126 IU/L (42-121); ALT ALANINE AMINOTRANSFERASE 21 IU/L (10-60); AST ASPARTATE AMINOTRANSFERASE 79 IU/L (10-42); BILIRUBIN,TOTAL 2.5 mg/dL (0.2-1.0); BUN - BLOOD UREA NITROGEN 19 mg/dL (6-20); CALCIUM 7.7 mg/dL (8.5-10.3); CARBON DIOXIDE - CO2 23 mmol/L (21-32); CHLORIDE 106 mmol/L (101-111); CREATININE 0.6 mg/dL (0.4-1.0); GFR - MDRD 109 (>89); GLUCOSE 87 mg/dL (70-100); MAGNESIUM 1.8 mg/dL (1.7-2.8); PHOSPHORUS 2.9 mg/dL (2.5-4.6); SODIUM 135 mmol/L (135-145)
[2018-02-23 05:46] LABS: VBG PH 7.45 (7.31-7.41)
[2018-02-23 05:52] LABS: INR 2.3 (0.8-1.2)
[2018-02-23] MEDS: LEVOTHYROXINE 112 MCG TABLET PO SCH (06:12)
[2018-02-23] MEDS: FERROUS SULFATE 325 MG TABLET PO SCH (08:19)
[2018-02-23] MEDS: LACTULOSE 10 GM/15 ML BOTTLE PO SCH ×3 (08:20→16:41)
[2018-02-23] MEDS: POTASSIUM CHLORIDE 20 MEQ TABLET PO SCH (08:20)
[2018-02-23] MEDS: rifAXIMin 550 MG TABLET PO SCH ×2 (08:20→20:06)
[2018-02-23] MEDS: cefTRIAXone 1 GM in SODIUM CHLORIDE 0.9% MINIBAG 100 ML IV SCH (08:20)
[2018-02-23] MEDS: THIAMINE 100 MG TABLET PO SCH (08:20)
[2018-02-23] MEDS: CYANOCOBALAMIN 500 MCG TABLET PO SCH (08:21)
[2018-02-23] MEDS: FAMOTIDINE 20 MG TABLET PO SCH (08:21)
[2018-02-23] MEDS: CHOLECALCIFEROL 1,000 UNIT TABLET PO SCH (08:21)
[2018-02-23] MEDS: MULTIVITAMIN W/MINERALS TABLET PO SCH (08:21)
[2018-02-23] MEDS: POLYETHYLENE GLYCOL 3350 17 GM PACKET PO SCH (08:22)
[2018-02-23] MEDS: SODIUM CHLORIDE FLUSH 0.9% 10 ML SYRINGE IVP SCH ×2 (08:22→16:41)
[2018-02-23] MEDS: diphenhydrAMINE 25 MG CAPSULE PO PRN (11:15)
[2018-02-23] MEDS: IPRATROPIUM/ALBUTEROL 3 ML NEB INH PRN ×2 (11:30→19:14)
[2018-02-23] MEDS: SODIUM CHLORIDE FLUSH 0.9% 10 ML SYRINGE IVP PRN ×2 (12:21→14:42)
[2018-02-23] MEDS: FUROSEMIDE 20 MG/2 ML VIAL IVP SCH ×3 (12:21→16:54)
--- NOTE | 2018-02-23 12:29 | PROVIDER PROGRESS NOTE ---
Assessment/Plan - Problem List (1) Severe sepsis Assessment/Plan: Patient had persistent hypotension for the last two days and yesterday was found to have an elevated lactic acid of 3.1, she spiked a fever of 38.4, was tachycardic 110, tachypnic with RR of 30. CXR and CTA of lungs showed pulmonary edema but no evidence of pneumonia Blood cultures are pending Peritoneal fluid cx is negative from 02/19/18 UA is pending MRSA PCR negative LIkely source is SBP given that patient had paracentesis a few days ago Started on Ceftriaxone last night as most likely source of infection is still SBP despite negative paracentesis We will wait on blood cx and urine cx and monitor for any more fevers lactate is now normal (2) Hypotension Assessment/Plan: Started after her large volume paracentesis of 6.3 L Patient has been given albumin 100 grams, IVFs, lasix and aldactone were held Likely secondary to severe sepsis and large volume paracentesis She had an echo less than a month ago that showed a normal EF We expect her to be relatively hypotensive secondary to splanchnic dilatation from her cirrhosis but this was more than normal Improving Will restart IV lasix today given pulmonary edema (3) Anasarca Assessment/Plan: Secondary to non compliance with medication as patient stopped taking her lasix and aldactone Restarted aldactone and started on IV lasix with fluid restriction and Na restriction Improving but continues to be hypoxic LE edema is much improved but pulmonary edema persists We will restart IV lasix today as BP is improved (4) Pulmonary edema Qualifiers: Chronicity: acute Qualified Code(s): J81.0 - Acute pulmonary edema Assessment/Plan: Secondary to non compliance with medication and fluid overload secondary to liver failure with cirrhosis Patient had increased hypoxia on presentation CXR continues to show pulmonary edema and CTA lungs also shows pulmonary edema Echo done last month showed normal EF On 2L of O2 Restart lasix IV today (5) Non compliance w medication regimen Assessment/Plan: Patient counselled about need for compliance with medications She seems to understand and is willing to take lasix and aldactone She needs to show ability to be complaint in order to get transplant of her liver (6) Hypoxia Assessment/Plan: Secondary to pulmonary edema in setting of long standing COPD Patient requiring 2L of O2 Restart IV lasix Weaning O2 (7) Hyperkalemia Assessment/Plan: K elevated at 5.3 likely secondary to supplemental K and holding lasix Will stop potassium Give lasix (8) Hyponatremia Assessment/Plan: Resolved (9) Alcoholic cirrhosis of liver with ascites Assessment/Plan: Patients MELD score is 20 which gives her a 3 month mortality of 19.6% She has history of ascites and encephalopathy Increased lactulose yesterday as patient was more lethargic and continued rifaximin for encephalopathy Patient improved today and ammonia is improved Paracentesis performed with 6.3 L removed Patient needs further outpatient follow up and eventual transplant (10) Moderate COPD (chronic obstructive pulmonary disease) Assessment/Plan: Patient has history of COPD and has quit smoking Does not appear to be in exacerbation Placed on duonebs prn Supplemental O2 Patient will likely need 2-3 more days of hospitalization secondary to unforeseen course as she developed severe sepsis. - Current Meds Current Meds: Current Medications Generic Name Dose Route Start Last Admin Trade Name Freq PRN Reason Stop Dose Admin Acetaminophen 500 mg 02/22/18 21:52 02/22/18 22:37 Tylenol PO 500 mg Q4HR PRN Administration Pain or Fever > 38C (100.4F) Albuterol 2.5 mg 02/18/18 18:23 02/21/18 21:39 INH 2.5 mg RTQ4H PRN Administration Shortness of Air/Wheezing Albuterol/Ipratropium 3 ml 02/19/18 14:00 02/23/18 11:30 Duoneb INH 3 ml RTQID PRN Administration Shortness of Air/Wheezing Cholecalciferol 2,000 unit 02/19/18 09:00 02/23/18 08:21 Vitamin D3 PO 2,000 unit DAILY PERICO Administration Cyanocobalamin 500 mcg 02/19/18 09:00 02/23/18 08:21 Vitamin B-12 PO 500 mcg DAILY PERICO Administration Diphenhydramine HCl 25 mg 02/19/18 00:46 02/23/18 11:15 Benadryl PO 25 mg Q4HR PRN Administration Allergy Symptoms Famotidine 20 mg 02/19/18 09:00 02/23/18 08:21 Pepcid PO 20 mg DAILY PERICO Administration Ferrous Sulfate 325 mg 02/19/18 08:00 02/23/18 08:19 Feosol PO 325 mg DAILYWM PERICO Administration Ceftriaxone Sodium 1 gm/ 100 mls @ 200 mls/hr 02/22/18 22:00 02/23/18 09:05 Sodium Chloride IV Infused DAILY PERICO Infusion Ketorolac Tromethamine 15 mg 02/18/18 15:09 02/22/18 05:33 Toradol Inj (15mg) IVP 02/23/18 15:08 15 mg Q6HR PRN Administration PAIN Lactulose 30 gm 02/22/18 12:00 02/23/18 11:57 Lactulose PO 30 gm TIDWM PERICO Administration Levothyroxine Sodium 112 mcg 02/19/18 07:00 02/23/18 06:12 Synthroid PO 112 mcg QDAC PERICO Administration Multivitamins/Minerals 1 tab 02/19/18 09:00 02/23/18 08:21 Theragran M PO 1 tab DAILY PERICO Administration Ondansetron HCl 4 mg 02/18/18 14:22 02/22/18 12:28 Zofran Inj IVP 4 mg Q6HR PRN Administration Nausea / Vomiting Polyethylene Glycol 17 gm 02/19/18 09:00 02/23/18 08:22 Miralax PO Not Given DAILY PERICO Rifaximin 550 mg 02/19/18 08:00 02/23/18 08:20 Xifaxan PO 550 mg BID PERICO Administration Sodium Chloride 10 ml 02/18/18 14:22 02/22/18 13:51 Normal Saline Flush 0.9% IVP 10 ml PRN PRN Administration NEEDED PER PROVIDER ORDERS Sodium Chloride 10 ml 02/18/18 17:00 02/23/18 08:22 Normal Saline Flush 0.9% IVP 10 ml 0100,0900,1700 PERICO Administration Thiamine HCl 100 mg 02/20/18 13:00 02/23/18 08:20 Vitamin B-1 PO 100 mg DAILY PERICO Administration - Lab Result Lab results reviewed: Yes Fish Bone Diagrams: 02/23/18 05:00 02/23/18 05:00 - Diagnostic Imaging Results Diagnostic Imaging Results: Final report reviewed - Additional Planning Condition/Complexity: Guarded My Orders: My Active Orders 02/22/18 12:00 Lactulose 30 gm PO TIDWM 02/22/18 19:00 Blood Culture [CULTURE, BLOOD #1] [] Urgent 02/22/18 19:45 Blood Culture [CULTURE, BLOOD #2] [] Urgent 02/23/18 UA, MICROSCOPIC & CULT IF [URIN] Urgent 02/23/18 08:07 LACTIC ACID, VENOUS [CHEM] Stat 02/23/18 12:00 FUROSEMIDE INJ 20mg VIAL [LASIX INJ 20mg VIAL] 20 mg IVP BIDDIURETIC 02/24/18 05:00 AMMONIA [CHEM] DAILYLAB BNP - B-NATRIURETIC PEPTIDE [IAI] DAILYLAB CBC - COMP BLD CT W/AUTO DIFF [HEME] DAILYLAB CMP, RFLX TO IONIZED CA IF [CHEM] DAILYLAB PT WITH INR [COAG] DAILYLAB 02/25/18 05:00 AMMONIA [CHEM] DAILYLAB BNP - B-NATRIURETIC PEPTIDE [IAI] DAILYLAB CBC - COMP BLD CT W/AUTO DIFF [HEME] DAILYLAB CMP, RFLX TO IONIZED CA IF [CHEM] DAILYLAB PT WITH INR [COAG] DAILYLAB Plan Discussed with:: Patient Time Spent: 31-60 minutes Subjective - Subjective Patient Reports: Dizzines (Improving), Fatigue, Fever (Overnight), Other (Feels as if she is swelling up again both in her abdomen and legs) Nursing Reports: No Complaints Objective Vital Signs: Vital Signs - 24 hr 02/22/18 02/22/18 02/22/18 12:13 16:21 20:07 Temperature 36.8 C 36.8 C Heart Rate 110 H Heart Rate [ 103 H 101 H Brachial] Respiratory 22 35 H 20 Rate Blood Pressure [Left Brachial artery] Blood Pressure 78/48 L 85/48 L [Right Brachial artery] O2 Saturation 96 97 02/22/18 02/22/18 02/22/18 20:39 21:40 22:46 Temperature 38.4 C H 38.2 C H 37.4 C Heart Rate Heart Rate [ 119 H Brachial] Respiratory 30 H Rate Blood Pressure [Left Brachial artery] Blood Pressure 88/46 L [Right Brachial artery] O2 Saturation 94 02/23/18 02/23/18 02/23/18 00:05 00:08 04:49 Temperature 36.9 C Heart Rate Heart Rate [ 118 H 103 H Brachial] Respiratory 16 16 Rate Blood Pressure [Left Brachial artery] Blood Pressure 79/43 L 83/43 L 81/40 L [Right Brachial artery] O2 Saturation 93 93 02/23/18 02/23/18 02/23/18 08:35 11:14 11:32 Temperature 36.7 C Heart Rate 122 H Heart Rate [ 105 H Brachial] Respiratory 28 H 20 Rate Blood Pressure 83/49 L [Left Brachial artery] Blood Pressure 97/51 L [Right Brachial artery] O2 Saturation 95 Oxygen O2 Source Nasal cannula I&O (Last 24 Hrs): Intake and Output Totals x24h 02/21/18 02/22/18 02/23/18 23:59 23:59 23:59 Intake Total 970 1979 690 Output Total 450 Balance 520 1979 690 General: Alert, Oriented x3, Mild distress (Looks very weak and fatigued, tachypnic), Other (Sick appearing, mildly jaundiced.) HEENT: Atraumatic, PERRLA, EOMI, Mucous membr. moist/pink Neck: Supple, No JVD, No thyromegaly, +2 carotid pulse wo bruit Neuro: Alert, Non Focal, CN 2-12 Grossly Intact, Oriented Times 3 Cardiovascular: Normal S1, Normal S2, No murmurs, Other (Tachycardia) Respiratory: Chest non-tender, Other (Tachypnic, bilateral crackles) Abdomen: Normal bowel sounds, Soft, Other (Distended) Extremities: No clubbing, No cyanosis, Normal pulses, Other (Bilateral LE edema) Skin: No rashes, No breakdown - Results Results: Laboratory Results WBC 7.1 x10^3/uL (4.8-10.8) 02/23/18 05:00 RBC 2.62 10^6/uL (4.20-5.40) L 02/23/18 05:00 Hgb 8.5 g/dL (12.0-16.0) L 02/23/18 05:00 Hct 26.0 % (37.0-47.0) L 02/23/18 05:00 MCV 99.3 fL (81.0-99.0) H 02/23/18 05:00 MCH 32.5 pg (27.0-31.0) H 02/23/18 05:00 MCHC 32.7 g/dL (32.0-36.0) 02/23/18 05:00 RDW 17.9 % (12.0-15.0) H 02/23/18 05:00 Plt Count 152 10^3/uL (130-450) 02/23/18 05:00 MPV 7.7 fL (7.9-10.8) L 02/23/18 05:00 Neut # (Auto) 5.3 10^3/uL (1.5-6.6) 02/23/18 05:00 Lymph # (Auto) 1.1 10^3/uL (1.5-3.5) L 02/23/18 05:00 [place] # (Auto) 0.4 10^3/uL (0.0-1.0) 02/23/18 05:00 Eos # (Auto) 0.2 10^3/uL (0.0-0.7) 02/23/18 05:00 Baso # (Auto) 0.1 10^3/uL (0.0-0.1) 02/23/18 05:00 Absolute Nucleated RBC 0.00 x10^3/uL 02/23/18 05:00 Nucleated RBC % 0.0 /100WBC 02/23/18 05:00 PT 25.0 secs (9.9-12.6) H 02/23/18 05:00 INR 2.3 (0.8-1.2) H 02/23/18 05:00 Whole Blood INR 1.6 (0.8-1.2) H 02/20/18 14:30 APTT 30.1 secs (24.9-33.3) 02/18/18 12:45 VBG pH 7.450 (7.31-7.41) H 02/23/18 05:00 Ionized Calcium 1.07 mmol/L (1.15-1.33) L 02/23/18 05:00 Sodium 135 mmol/L (135-145) 02/23/18 05:00 Potassium 5.3 mmol/L (3.5-5.0) H 02/23/18 05:00 Chloride 106 mmol/L (101-111) 02/23/18 05:00 Carbon Dioxide 23 mmol/L (21-32) 02/23/18 05:00 Anion Gap 6.0 (6-13) 02/23/18 05:00 BUN 19 mg/dL (6-20) 02/23/18 05:00 Creatinine 0.6 mg/dL (0.4-1.0) 02/23/18 05:00 Estimated GFR (MDRD) 109 (>89) 02/23/18 05:00 Glucose 87 mg/dL (70-100) 02/23/18 05:00 Lactic Acid 2.0 mmol/L (0.5-2.2) 02/23/18 05:00 Calcium 7.7 mg/dL (8.5-10.3) L 02/23/18 05:00 Ionized Calcium YES 02/23/18 05:00 Phosphorus 2.9 mg/dL (2.5-4.6) 02/23/18 05:00 Magnesium 1.8 mg/dL (1.7-2.8) 02/23/18 05:00 Iron 22 ug/dL (28-170) L 02/19/18 05:31 TIBC 164 ug/dL (250-450) L 02/19/18 05:31 % Saturation 13 % (20-50) L 02/19/18 05:31 Transferrin 117 mg/dL (192-382) L 02/19/18 05:31 Total Bilirubin 2.5 mg/dL (0.2-1.0) H 02/23/18 05:00 AST 79 IU/L (10-42) H 02/23/18 05:00 ALT 21 IU/L (10-60) 02/23/18 05:00 Alkaline Phosphatase 126 IU/L (42-121) H 02/23/18 05:00 Ammonia 28.9 umol/L (7-35) 02/23/18 05:00 Troponin I < 0.04 ng/mL (<0.49) 02/22/18 14:29 B-Natriuretic Peptide 56 pg/mL (5-100) 02/23/18 05:00 Total Protein 4.0 g/dL (6.7-8.2) L 02/23/18 05:00 Albumin 2.4 g/dL (3.2-5.5) L 02/23/18 05:00 Globulin 1.6 g/dL (2.1-4.2) L 02/23/18 05:00 Albumin/Globulin Ratio 1.5 (1.0-2.2) 02/23/18 05:00 Lipase 49 U/L (22-51) 02/18/18 12:45 TSH 3.03 uIU/mL (0.34-5.60) 02/19/18 05:31 Fluid Source PERITONEAL 02/19/18 18:10 Fluid Color YELLOW 02/19/18 18:10 Fluid Clarity CLEAR 02/19/18 18:10 Fluid WBC 48 /mm^3 02/19/18 18:10 Fluid RBC 114 /mm^3 02/19/18 18:10 Fluid Neutrophils % 12.0 % 02/19/18 18:10 Fluid Lymphocytes % 13.0 02/19/18 18:10 Fluid Monocytes % 8.0 % 02/19/18 18:10 Fluid Macrophages % 53.0 % 02/19/18 18:10 Fld Mesothelial Cell % 14.0 % 02/19/18 18:10 Urine Opiates Screen NEGATIVE (NEGATIVE) 02/18/18 20:25 Ur Oxycodone Screen NEGATIVE (NEGATIVE) 02/18/18 20:25 Urine Methadone Screen NEGATIVE (NEGATIVE) 02/18/18 20:25 Ur Propoxyphene Screen NEGATIVE (NEGATIVE) 02/18/18 20:25 Ur Barbiturates Screen NEGATIVE (NEGATIVE) 02/18/18 20:25 Ur Tricyclics Screen NEGATIVE (NEGATIVE) 02/18/18 20:25 Ur Phencyclidine Scrn NEGATIVE (NEGATIVE) 02/18/18 20:25 Ur Amphetamine Screen NEGATIVE (NEGATIVE) 02/18/18 20:25 U Methamphetamines Scrn NEGATIVE (NEGATIVE) 02/18/18 20:25 U Benzodiazepines Scrn NEGATIVE (NEGATIVE) 02/18/18 20:25 Urine Cocaine Screen NEGATIVE (NEGATIVE) 02/18/18 20:25 U Cannabinoids Screen NEGATIVE (NEGATIVE) 02/18/18 20:25 Blood Type O POSITIVE 02/20/18 11:05 Blood Type Recheck O POSITIVE 02/20/18 05:00 Antibody Screen NEGATIVE 02/20/18 11:05 - Procedures Procedures: Procedures DRAINAGE OF PERITONEAL CAVITY, PERCUTANEOUS APPROACH (01/08/18) ABX Reporting Has patient been on IV antibiotics over the past 48 hours?: No Current Medications - Current Medications Current Medications: Active Medications Generic Name Dose Route Start Last Admin Trade Name Freq PRN Reason Stop Dose Admin Acetaminophen 500 mg 02/22/18 21:52 02/22/18 22:37 Tylenol PO 500 mg Q4HR PRN Administration Pain or Fever > 38C (100.4F) Albuterol 2.5 mg 02/18/18 18:23 02/21/18 21:39 INH 2.5 mg RTQ4H PRN Administration Shortness of Air/Wheezing Albuterol/Ipratropium 3 ml 02/19/18 14:00 02/23/18 11:30 Duoneb INH 3 ml RTQID PRN Administration Shortness of Air/Wheezing Benzonatate 100 mg 02/18/18 14:26 Tessalon PO TID PRN Cough Cholecalciferol 2,000 unit 02/19/18 09:00 02/23/18 08:21 Vitamin D3 PO 2,000 unit DAILY PERICO Administration Cyanocobalamin 500 mcg 02/19/18 09:00 02/23/18 08:21 Vitamin B-12 PO 500 mcg DAILY PERICO Administration Diphenhydramine HCl 25 mg 02/19/18 00:46 02/23/18 11:15 Benadryl PO 25 mg Q4HR PRN Administration Allergy Symptoms Famotidine 20 mg 02/19/18 09:00 02/23/18 08:21 Pepcid PO 20 mg DAILY PERICO Administration Ferrous Sulfate 325 mg 02/19/18 08:00 02/23/18 08:19 Feosol PO 325 mg DAILYWM PERICO Administration Furosemide 20 mg 02/23/18 12:00 02/23/18 12:21 Lasix Inj 20mg Vial IVP 20 mg BIDDIURETIC PERICO Administration Ceftriaxone Sodium 1 gm/ 100 mls @ 200 mls/hr 02/22/18 22:00 02/23/18 09:05 Sodium Chloride IV Infused DAILY PERICO Infusion Ketorolac Tromethamine 15 mg 02/18/18 15:09 02/22/18 05:33 Toradol Inj (15mg) IVP 02/23/18 15:08 15 mg Q6HR PRN Administration PAIN Lactulose 30 gm 02/22/18 12:00 02/23/18 11:57 Lactulose PO 30 gm TIDWM PERICO Administration Levothyroxine Sodium 112 mcg 02/19/18 07:00 02/23/18 06:12 Synthroid PO 112 mcg QDAC PERICO Administration Multivitamins/Minerals 1 tab 02/19/18 09:00 02/23/18 08:21 Theragran M PO 1 tab DAILY PERICO Administration Ondansetron HCl 4 mg 02/18/18 14:22 08/24/18 12:28 Zofran Inj IVP 4 mg Q6HR PRN Administration Nausea / Vomiting Polyethylene Glycol 17 gm 02/19/18 09:00 02/23/18 08:22 Miralax PO Not Given DAILY PERICO Rifaximin 550 mg 02/19/18 08:00 02/23/18 08:20 Xifaxan PO 550 mg BID PERICO Administration Sodium Chloride 10 ml 02/18/18 14:22 02/23/18 12:21 Normal Saline Flush 0.9% IVP 10 ml PRN PRN Administration NEEDED PER PROVIDER ORDERS Sodium Chloride 10 ml 02/18/18 17:00 02/23/18 08:22 Normal Saline Flush 0.9% IVP 10 ml 0100,0900,1700 PERICO Administration Thiamine HCl 100 mg 02/20/18 13:00 02/23/18 08:20 Vitamin B-1 PO 100 mg DAILY PERICO Administration Cyanocobalamin (Vitamin B-12) [Vitamin B-12 (100mcg tab)] 500 mcg PO DAILY 01/08 Pantoprazole [Protonix] 40 mg PO QDAC 01/08/18 Benzonatate 100 - 200 mg PO TID PRN 02/03/18 Levothyroxine Sodium 112 mcg PO QDAC 02/03/18 Multivitamin W/Minerals [Theragran M] 1 tab PO DAILY 02/03/18 Spironolactone 50 mg PO BID 02/03/18 Albuterol Sulf [Ventolin Hfa Inhaler] 1 - 2 puffs INH Q6HR PRN 02/06/18 Lactulose 30 ml PO TID MDD hold 3rd dose if >3 BMs 02/07/18 Cholecalciferol (Vitamin D3) [Vitamin D] 2,000 unit PO DAILY 02/18/18 Potassium Chloride 20 meq PO DAILY 02/18/18
[2018-02-23] MEDS: KETOROLAC 15 MG/ML VIAL IVP PRN (14:42)
[2018-02-24] MEDS: SODIUM CHLORIDE FLUSH 0.9% 10 ML SYRINGE IVP SCH ×3 (00:33→16:37)
[2018-02-24 02:47] LABS: GLUCOSE, URINE (UA) NEGATIVE (NEGATIVE); KETONES,URINE (UA) NEGATIVE (NEGATIVE); LEUKOCYTE ESTERASE, URINE MODERATE (NEGATIVE); NITRITE,URINE NEGATIVE (NEGATIVE); OCCULT BLOOD,URINE TRACE-LYSE (NEGATIVE); PH,URINE 5.5 PH (5.0-7.5); PROTEIN,URINE TRACE mg/dL (NEGATIVE); UROBILINOGEN,URINE 0.2 (NORMAL) E.U./dL (NORMAL)
[2018-02-24 03:11] LABS: BACTERIA,URINE None Seen /HPF (None Seen); BILIRUBIN,URINE NEGATIVE (NEGATIVE); CLARITY,URINE SL. CLOUDY (CLEAR); ICTOTEST,URINE NEGATIVE; MUCUS,URINE Marked Strands; RBC,URINE 0-5 /HPF (0-5); SQUAMOUS EPITHELIAL CELL,UR MANY Squamous (<= Few)
[2018-02-24 04:59] LABS: BASOPHILS # (AUTO) 0.2 10^3/uL (0.0-0.1); BASOPHILS % (AUTO) 2.3 %; EOSINOPHILS # (AUTO) 0.2 10^3/uL (0.0-0.7); EOSINOPHILS % (AUTO) 3.2 %; HGB - HEMOGLOBIN 8.8 g/dL (12.0-16.0); LYMPHOCYTES # (AUTO) 1.1 10^3/uL (1.5-3.5); LYMPHOCYTES % (AUTO) 13.8 %; MEAN CORPUSCULAR HEMOGLOBIN 32.4 pg (27.0-31.0); MEAN CORPUSCULAR HGB CONC 32.8 g/dL (32.0-36.0); MEAN CORPUSCULAR VOLUME 98.8 fL (81.0-99.0); MEAN PLATELET VOLUME 7.8 fL (7.9-10.8); MONOCYTES # (AUTO) 0.2 10^3/uL (0.0-1.0); MONOCYTES % (AUTO) 3.1 %; NEUTROPHILS # (AUTO) 5.9 10^3/uL (1.5-6.6); NEUTROPHILS % (AUTO) 77.6 %; PLT - PLATELET COUNT 163 10^3/uL (130-450); RED BLOOD COUNT 2.73 10^6/uL (4.20-5.40); RED CELL DISTRIBUTION WIDTH 17.7 % (12.0-15.0); WHITE BLOOD COUNT 7.6 x10^3/uL (4.8-10.8)
[2018-02-24 05:05] LABS: INR 2.1 (0.8-1.2); PT - PROTHROMBIN TIME 23.5 secs (9.9-12.6)
[2018-02-24 05:14] LABS: ALBUMIN 2.1 g/dL (3.2-5.5); ALBUMIN/GLOBULIN RATIO 1.2 (1.0-2.2); ALKALINE PHOSPHATASE 155 IU/L (42-121); ALT ALANINE AMINOTRANSFERASE 21 IU/L (10-60); AST ASPARTATE AMINOTRANSFERASE 85 IU/L (10-42); BILIRUBIN,TOTAL 1.9 mg/dL (0.2-1.0); BUN - BLOOD UREA NITROGEN 20 mg/dL (6-20); CALCIUM 7.6 mg/dL (8.5-10.3); CARBON DIOXIDE - CO2 20 mmol/L (21-32); CHLORIDE 105 mmol/L (101-111); CREATININE 0.6 mg/dL (0.4-1.0); GFR - MDRD 109 (>89); GLUCOSE 165 mg/dL (70-100); SODIUM 133 mmol/L (135-145); TOTAL PROTEIN 3.9 g/dL (6.7-8.2)
[2018-02-24 05:31] LABS: VBG PH 7.354 (7.31-7.41)
[2018-02-24] MEDS: LEVOTHYROXINE 112 MCG TABLET PO SCH (06:17)
[2018-02-24] MEDS: FERROUS SULFATE 325 MG TABLET PO SCH (08:07)
[2018-02-24] MEDS: LACTULOSE 10 GM/15 ML BOTTLE PO SCH ×3 (08:07→16:35)
[2018-02-24] MEDS: cefTRIAXone 1 GM in SODIUM CHLORIDE 0.9% MINIBAG 100 ML IV SCH (08:55)
[2018-02-24] MEDS: KETOROLAC 15 MG/ML VIAL IVP PRN ×2 (08:58→16:36)
[2018-02-24] MEDS: CHOLECALCIFEROL 1,000 UNIT TABLET PO SCH (09:15)
[2018-02-24] MEDS: MULTIVITAMIN W/MINERALS TABLET PO SCH (09:15)
[2018-02-24] MEDS: FAMOTIDINE 20 MG TABLET PO SCH (09:15)
[2018-02-24] MEDS: THIAMINE 100 MG TABLET PO SCH (09:15)
[2018-02-24] MEDS: SODIUM CHLORIDE FLUSH 0.9% 10 ML SYRINGE IVP PRN (09:16)
[2018-02-24] MEDS: CYANOCOBALAMIN 500 MCG TABLET PO SCH (09:16)
[2018-02-24] MEDS: POLYETHYLENE GLYCOL 3350 17 GM PACKET PO SCH (09:16)
[2018-02-24] MEDS: rifAXIMin 550 MG TABLET PO SCH ×2 (09:16→20:31)
[2018-02-24] MEDS ORDERED: IOPAMIDOL-300 100 ML VIAL ONE (09:18)
[2018-02-24] MEDS: FUROSEMIDE 20 MG/2 ML VIAL IVP SCH ×2 (10:48→12:37)
[2018-02-24] MEDS ORDERED: IOPAMIDOL-300 100 ML VIAL IVP ONE (11:10)
--- NOTE | 2018-02-24 14:27 | CT Report ---
Reason: Abdominal pain, hypotension, recent paracentesis Procedure Date: 02/24/2018 Accession Number: [id number] / [id number] Procedure: CT - Abdomen/Pelvis W/ CPT Code: FULL RESULT: EXAM: CT ABDOMEN AND PELVIS EXAM DATE: 02/24/2018 11:12 AM. CLINICAL HISTORY: Abdominal pain. Recent paracentesis. COMPARISONS: CHEST ANGIO 02/22/2018 ABDOMINAL PARACENTESIS 02/20/2018 CT abdomen and pelvis 12/08/2017. TECHNIQUE: Routine helical CT imaging was performed through the abdomen and pelvis. IV contrast: 100 cc [id number]. Enteric contrast: No. Reconstructions: Coronal and sagittal. In accordance with CT protocol optimization, one or more of the following dose reduction techniques were utilized for this exam: automated exposure control, adjustment of mA and/or KV based on patient size, or use of iterative reconstructive technique. FINDINGS: Lung Bases: Bibasilar reticular opacities and small left pleural effusion, similar to the prior CT. Liver: Substantially decreased size and increased attenuation compared to 12/08/2017. No evidence of significant abnormality on the current study. Gallbladder/Bile Ducts: Probable sludge or noncalcified gallstones. Diffuse gallbladder wall thickening may be secondary to volume status. No biliary dilatation. Spleen: Normal. Pancreas: Normal. Adrenal Glands: Normal. Kidneys: Within normal limits. Peritoneal Cavity/Bowel: Small to moderate ascites, somewhat increased compared to the prior CT. No pneumoperitoneum. No bowel obstruction. The colon is decompressed; diffuse colonic wall thickening is likely secondary to volume status. 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 The appendix is not definitely visualized. Pelvic Organs: The urinary bladder is decompressed. Presumed sterilization devices in place; otherwise the visualized pelvic organs are unremarkable. Vasculature: Narrowing of the SVC at the level of the diaphragm, secondary to extrinsic compression, not significantly changed compared to prior. Mild aortic atherosclerosis without aneurysm. The portal and splenic veins are patent. There may be small varices in the right posterior abdomen. Bones: No significant abnormality. Other: Anasarca. IMPRESSION: 1. Small to moderate ascites. 2. Significantly improved size and appearance of the liver compared to 12/08/2017. 3. 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 4. No definite findings to explain acute abdominal pain. RADIA
--- NOTE | 2018-02-24 15:21 | PROVIDER PROGRESS NOTE ---
Assessment/Plan - Problem List (1) Severe sepsis Assessment/Plan: Patient had persistent hypotension for two days and was found to have an elevated lactic acid of 3.1, she spiked a fever of 38.4, was tachycardic 110, tachypnic with RR of 30. CXR and CTA of lungs showed pulmonary edema but no evidence of pneumonia Today she was having increasing abdominal pain and tenderness therefore a CT of her abdomen was performed with no acute findings to explain the pain Blood cultures are negative Peritoneal fluid cx is negative from 02/19/18 UA is negative MRSA PCR negative LIkely source is SBP given that patient had paracentesis a few days ago Continue Ceftriaxone as most likely source of infection is still SBP despite negative paracentesis She has had no fevers since starting ceftriaxone therefore we will continue treatment for SBP for 7 days regardless of cultures lactate is now normal BP is still low (2) Hypotension Assessment/Plan: Started after her large volume paracentesis of 6.3 L Patient has been given albumin 100 grams, IVFs, lasix and aldactone were held Likely secondary to severe sepsis and large volume paracentesis She had an echo less than a month ago that showed a normal EF We expect her to be relatively hypotensive secondary to splanchnic dilatation from her cirrhosis but this is more than normal Hypotensive again today after improved pressure yesterday therefore will need to hold lasix today Continue to monitor closely (3) Anasarca Assessment/Plan: Secondary to non compliance with medication as patient stopped taking her lasix and aldactone Restarted aldactone and started on IV lasix with fluid restriction and Na restriction Improved but continues to be hypoxic LE edema is much improved but pulmonary edema persists Will have to hold lasix and aldactone secondary to hypotension (4) Pulmonary edema Qualifiers: Chronicity: acute Qualified Code(s): J81.0 - Acute pulmonary edema Assessment/Plan: Secondary to non compliance with medication and fluid overload secondary to liver failure with cirrhosis Patient had increased hypoxia on presentation CXR continues to show pulmonary edema and CTA lungs also shows pulmonary edema Echo done last month showed normal EF On 2L of O2 Will hold lasix today given hypotension (5) Non compliance w medication regimen Assessment/Plan: Patient counselled about need for compliance with medications She seems to understand and is willing to take lasix and aldactone She needs to show ability to be complaint in order to get transplant of her liver (6) Hypoxia Assessment/Plan: Secondary to pulmonary edema in setting of long standing COPD Patient requiring 2L of O2 Hold lasix secondary to hypotension Weaning O2 but may need home O2 at discharge (7) Hyperkalemia Assessment/Plan: Resolved (8) Hyponatremia Assessment/Plan: Stable - hypervolemic hyponatremia (9) Alcoholic cirrhosis of liver with ascites Assessment/Plan: Patients MELD score is 20 which gives her a 3 month mortality of 19.6% She has history of ascites and encephalopathy On lactulose and rifaximin for hepatic encephalopathy she appears stable Paracentesis performed with 6.3 L removed Patient needs further outpatient follow up and eventual transplant (10) Moderate COPD (chronic obstructive pulmonary disease) Assessment/Plan: Patient has history of COPD and has quit smoking Does not appear to be in exacerbation Placed on duonebs prn Supplemental O2 Patient may need 1-2 days more in the hospital - Current Meds Current Meds: Current Medications Generic Name Dose Route Start Last Admin Trade Name Freq PRN Reason Stop Dose Admin Acetaminophen 500 mg 02/22/18 21:52 02/22/18 22:37 Tylenol PO 500 mg Q4HR PRN Administration Pain or Fever > 38C (100.4F) Albuterol 2.5 mg 02/18/18 18:23 02/21/18 21:39 INH 2.5 mg RTQ4H PRN Administration Shortness of Air/Wheezing Albuterol/Ipratropium 3 ml 02/19/18 14:00 02/23/18 19:14 Duoneb INH 3 ml RTQID PRN Administration Shortness of Air/Wheezing Cholecalciferol 2,000 unit 02/19/18 09:00 02/24/18 09:15 Vitamin D3 PO 2,000 unit DAILY PERICO Administration Cyanocobalamin 500 mcg 02/19/18 09:00 02/24/18 09:16 Vitamin B-12 PO 500 mcg DAILY PERICO Administration Diphenhydramine HCl 25 mg 02/19/18 00:46 02/23/18 11:15 Benadryl PO 25 mg Q4HR PRN Administration Allergy Symptoms Famotidine 20 mg 02/19/18 09:00 02/24/18 09:15 Pepcid PO 20 mg DAILY PERICO Administration Ferrous Sulfate 325 mg 02/19/18 08:00 02/24/18 08:07 Feosol PO 325 mg DAILYWM PERICO Administration Furosemide 20 mg 02/23/18 12:00 02/24/18 12:37 Lasix Inj 20mg Vial IVP Not Given BIDDIURETIC PERICO Ceftriaxone Sodium 1 gm/ 100 mls @ 200 mls/hr 02/22/18 22:00 02/24/18 09:25 Sodium Chloride IV Infused DAILY PERICO Infusion Ketorolac Tromethamine 15 mg 02/24/18 04:05 02/24/18 08:58 Toradol Inj (15mg) IVP 03/01/18 04:04 15 mg Q6HR PRN Administration PAIN Lactulose 30 gm 02/22/18 12:00 02/24/18 12:38 Lactulose PO 30 gm TIDWM PERICO Administration Levothyroxine Sodium 112 mcg 02/19/18 07:00 02/24/18 06:17 Synthroid PO 112 mcg QDAC PERICO Administration Multivitamins/Minerals 1 tab 02/19/18 09:00 02/24/18 09:15 Theragran M PO 1 tab DAILY PERICO Administration Ondansetron HCl 4 mg 02/18/18 14:22 02/22/18 12:28 Zofran Inj IVP 4 mg Q6HR PRN Administration Nausea / Vomiting Polyethylene Glycol 17 gm 02/19/18 09:00 02/24/18 09:16 Miralax PO Not Given DAILY PERICO Rifaximin 550 mg 02/19/18 08:00 02/24/18 09:16 Xifaxan PO 550 mg BID PERICO Administration Sodium Chloride 10 ml 02/18/18 14:22 02/24/18 09:16 Normal Saline Flush 0.9% IVP 20 ml PRN PRN Administration NEEDED PER PROVIDER ORDERS Sodium Chloride 10 ml 02/18/18 17:00 02/24/18 09:16 Normal Saline Flush 0.9% IVP 10 ml 0100,[id number],1700 PERICO Administration Thiamine HCl 100 mg 02/20/18 13:00 02/24/18 09:15 Vitamin B-1 PO 100 mg DAILY PERICO Administration - Lab Result Lab results reviewed: Yes Fish Bone Diagrams: 02/24/18 04:45 02/24/18 04:45 - Diagnostic Imaging Results Diagnostic Imaging Results: Final report reviewed - Additional Planning Condition/Complexity: Guarded My Orders: My Active Orders 02/25/18 05:00 AMMONIA [CHEM] DAILYLAB BNP - B-NATRIURETIC PEPTIDE [IAI] DAILYLAB CBC - COMP BLD CT W/AUTO DIFF [HEME] DAILYLAB CMP, RFLX TO IONIZED CA IF [CHEM] DAILYLAB PT WITH INR [COAG] DAILYLAB Plan Discussed with:: Patient Time Spent: 31-60 minutes Subjective - Subjective Patient Reports: Abdominal Pain (Severe this am, no new diarrhea or vomiting), Dizzines (Improved), Other (No fevers overnight.) Nursing Reports: No Complaints Objective Vital Signs: Vital Signs - 24 hr 02/23/18 02/23/18 02/23/18 15:52 17:49 19:15 Temperature 36.7 C Heart Rate 107 H Heart Rate [ Brachial] Heart Rate [ 124 H Monitoring electrodes] Respiratory 20 20 Rate Blood Pressure 77/42 L [Left Brachial artery] Blood Pressure 88/50 L [Right Brachial artery] O2 Saturation 94 02/23/18 02/23/18 02/24/18 20:29 23:54 03:15 Temperature 36.3 C L 36.6 C 36.8 C Heart Rate Heart Rate [ 111 H 108 H 102 H Brachial] Heart Rate [ Monitoring electrodes] Respiratory 20 18 18 Rate Blood Pressure [Left Brachial artery] Blood Pressure 80/47 L 85/43 L 83/44 L [Right Brachial artery] O2 Saturation 94 93 98 02/24/18 02/24/18 02/24/18 08:11 08:22 12:54 Temperature 37.2 C 36.6 C Heart Rate Heart Rate [ 110 H 109 H Brachial] Heart Rate [ Monitoring electrodes] Respiratory 18 30 H Rate Blood Pressure 78/42 L [Left Brachial artery] Blood Pressure 85/45 L [Right Brachial artery] O2 Saturation 97 99 Oxygen O2 Source Nasal cannula I&O (Last 24 Hrs): Intake and Output Totals x24h 02/22/18 02/23/18 02/24/18 23:59 23:59 23:59 Intake Total 1979 1620 840 Balance 1979 1620 840 General: Alert, Oriented x3, Cooperative, Moderate distress (Abdominal pain) HEENT: Atraumatic, PERRLA, EOMI, Mucous membr. moist/pink Neck: Supple, No JVD, No thyromegaly, +2 carotid pulse wo bruit, No LAD Lymphatic: no adenopathy Neuro: Alert, Non Focal, CN 2-12 Grossly Intact, Oriented Times 3 Cardiovascular: Normal S1, Normal S2, No murmurs, Other (Tachycardic) Respiratory: Chest non-tender, Wheezes (Scattered), Rales (Bases), Other ( tachypnic) Abdomen: Soft, No hepatospenomegaly, Other (Diffuse tenderness with voluntary guarding) Extremities: No clubbing, No cyanosis, Normal pulses, Other (Mild LE edema) Skin: No rashes, No breakdown - Results Results: Laboratory Results WBC 7.6 x10^3/uL (4.8-10.8) 02/24/18 04:45 RBC 2.73 10^6/uL (4.20-5.40) L 02/24/18 04:45 Hgb 8.8 g/dL (12.0-16.0) L 02/24/18 04:45 Hct 26.9 % (37.0-47.0) L 02/24/18 04:45 MCV 98.8 fL (81.0-99.0) 02/24/18 04:45 MCH 32.4 pg (27.0-31.0) H 02/24/18 04:45 MCHC 32.8 g/dL (32.0-36.0) 02/24/18 04:45 RDW 17.7 % (12.0-15.0) H 02/24/18 04:45 Plt Count 163 10^3/uL (130-450) 02/24/18 04:45 MPV 7.8 fL (7.9-10.8) L 02/24/18 04:45 Neut # (Auto) 5.9 10^3/uL (1.5-6.6) 02/24/18 04:45 Lymph # (Auto) 1.1 10^3/uL (1.5-3.5) L 02/24/18 04:45 [place]ee # (Auto) 0.2 10^3/uL (0.0-1.0) 02/24/18 04:45 Eos # (Auto) 0.2 10^3/uL (0.0-0.7) 02/24/18 04:45 Baso # (Auto) 0.2 10^3/uL (0.0-0.1) H 02/24/18 04:45 Absolute Nucleated RBC 0.00 x10^3/uL 02/24/18 04:45 Nucleated RBC % 0.0 /100WBC 02/24/18 04:45 PT 23.5 secs (9.9-12.6) H 02/24/18 04:45 INR 2.1 (0.8-1.2) H 02/24/18 04:45 Whole Blood INR 1.6 (0.8-1.2) H 02/20/18 14:30 APTT 30.1 secs (24.9-33.3) 02/18/18 12:45 VBG pH 7.354 (7.31-7.41) 02/24/18 04:45 Ionized Calcium 1.12 mmol/L (1.15-1.33) L 02/24/18 04:45 Sodium 133 mmol/L (135-145) L 02/24/18 04:45 Potassium 4.6 mmol/L (3.5-5.0) 02/24/18 04:45 Chloride 105 mmol/L (101-111) 02/24/18 04:45 Carbon Dioxide 20 mmol/L (21-32) L 02/24/18 04:45 Anion Gap 8.0 (6-13) 02/24/18 04:45 BUN 20 mg/dL (6-20) 02/24/18 04:45 Creatinine 0.6 mg/dL (0.4-1.0) 02/24/18 04:45 Estimated GFR (MDRD) 109 (>89) 02/24/18 04:45 Glucose 165 mg/dL (70-100) H 02/24/18 04:45 Lactic Acid 2.0 mmol/L (0.5-2.2) 02/23/18 05:00 Calcium 7.6 mg/dL (8.5-10.3) L 02/24/18 04:45 Ionized Calcium YES 02/24/18 04:45 Phosphorus 2.9 mg/dL (2.5-4.6) 02/23/18 05:00 Magnesium 1.8 mg/dL (1.7-2.8) 02/23/18 05:00 Iron 22 ug/dL (28-170) L 02/19/18 05:31 TIBC 164 ug/dL (250-450) L 02/19/18 05:31 % Saturation 13 % (20-50) L 02/19/18 05:31 Transferrin 117 mg/dL (192-382) L 02/19/18 05:31 Total Bilirubin 1.9 mg/dL (0.2-1.0) H 02/24/18 04:45 AST 85 IU/L (10-42) H 02/24/18 04:45 ALT 21 IU/L (10-60) 02/24/18 04:45 Alkaline Phosphatase 155 IU/L (42-121) H 02/24/18 04:45 Ammonia 43.8 umol/L (7-35) H 02/24/18 04:45 Troponin I < 0.04 ng/mL (<0.49) 02/22/18 14:29 B-Natriuretic Peptide 30 pg/mL (5-100) 02/24/18 04:45 Total Protein 3.9 g/dL (6.7-8.2) L 02/24/18 04:45 Albumin 2.1 g/dL (3.2-5.5) L 02/24/18 04:45 Globulin 1.8 g/dL (2.1-4.2) L 02/24/18 04:45 Albumin/Globulin Ratio 1.2 (1.0-2.2) 02/24/18 04:45 Lipase 49 U/L (22-51) 02/18/18 12:45 TSH 3.03 uIU/mL (0.34-5.60) 02/19/18 05:31 Urine Color ORANGE 02/24/18 02:42 Urine Clarity SL. CLOUDY (CLEAR) 02/24/18 02:42 Urine pH 5.5 PH (5.0-7.5) 02/24/18 02:42 Ur Specific Orion 1.025 (1.002-1.030) 02/24/18 02:42 Urine Protein TRACE mg/dL (NEGATIVE) 02/24/18 02:42 Urine Glucose (UA) NEGATIVE mg/dL (NEGATIVE) 02/24/18 02:42 Urine Ketones NEGATIVE mg/dL (NEGATIVE) 02/24/18 02:42 Urine Occult Blood TRACE-LYSE (NEGATIVE) 02/24/18 02:42 Urine Nitrite NEGATIVE (NEGATIVE) 02/24/18 02:42 Urine Bilirubin NEGATIVE (NEGATIVE) 02/24/18 02:42 Urine Urobilinogen 0.2 (NORMAL) E.U./dL (NORMAL) 02/24/18 02:42 Ur Leukocyte Esterase MODERATE (NEGATIVE) H 02/24/18 02:42 Urine RBC 0-5 /HPF (0-5) 02/24/18 02:42 Urine WBC 6-10 /HPF (0-5) H 02/24/18 02:42 Ur Squamous Epith Cells MANY Squamous (<= Few) H 02/24/18 02:42 Urine Bacteria None Seen /HPF (None Seen) 02/24/18 02:42 Urine Mucus Marked Strands 02/24/18 02:42 Ur Microscopic Review INDICATED 02/24/18 02:42 Urine Culture Comments NOT INDICATED 02/24/18 02:42 Fluid Source PERITONEAL 02/19/18 18:10 Fluid Color YELLOW 02/19/18 18:10 Fluid Clarity CLEAR 02/19/18 18:10 Fluid WBC 48 /mm^3 02/19/18 18:10 Fluid RBC 114 /mm^3 02/19/18 18:10 Fluid Neutrophils % 12.0 % 02/19/18 18:10 Fluid Lymphocytes % 13.0 02/19/18 18:10 Fluid Monocytes % 8.0 % 02/19/18 18:10 Fluid Macrophages % 53.0 % 02/19/18 18:10 Fld Mesothelial Cell % 14.0 % 02/19/18 18:10 Urine Opiates Screen NEGATIVE (NEGATIVE) 02/18/18 20:25 Ur Oxycodone Screen NEGATIVE (NEGATIVE) 02/18/18 20:25 Urine Methadone Screen NEGATIVE (NEGATIVE) 02/18/18 20:25 Ur Propoxyphene Screen NEGATIVE (NEGATIVE) 02/18/18 20:25 Ur Barbiturates Screen NEGATIVE (NEGATIVE) 02/18/18 20:25 Ur Tricyclics Screen NEGATIVE (NEGATIVE) 02/18/18 20:25 Ur Phencyclidine Scrn NEGATIVE (NEGATIVE) 02/18/18 20:25 Ur Amphetamine Screen NEGATIVE (NEGATIVE) 02/18/18 20:25 U Methamphetamines Scrn NEGATIVE (NEGATIVE) 02/18/18 20:25 U Benzodiazepines Scrn NEGATIVE (NEGATIVE) 02/18/18 20:25 Urine Cocaine Screen NEGATIVE (NEGATIVE) 02/18/18 20:25 U Cannabinoids Screen NEGATIVE (NEGATIVE) 02/18/18 20:25 Blood Type O POSITIVE 02/20/18 11:05 Blood Type Recheck O POSITIVE 02/20/18 05:00 Antibody Screen NEGATIVE 02/20/18 11:05 - Procedures Procedures: Procedures DRAINAGE OF PERITONEAL CAVITY, PERCUTANEOUS APPROACH (01/08/18) ABX Reporting Has patient been on IV antibiotics over the past 48 hours?: No Current Medications - Current Medications Current Medications: Active Medications Generic Name Dose Route Start Last Admin Trade Name Freq PRN Reason Stop Dose Admin Acetaminophen 500 mg 02/22/18 21:52 02/22/18 22:37 Tylenol PO 500 mg Q4HR PRN Administration Pain or Fever > 38C (100.4F) Albuterol 2.5 mg 02/18/18 18:23 02/21/18 21:39 INH 2.5 mg RTQ4H PRN Administration Shortness of Air/Wheezing Albuterol/Ipratropium 3 ml 02/19/18 14:00 02/23/18 19:14 Duoneb INH 3 ml RTQID PRN Administration Shortness of Air/Wheezing Benzonatate 100 mg 02/18/18 14:26 Tessalon PO TID PRN Cough Cholecalciferol 2,000 unit 02/19/18 09:00 02/24/18 09:15 Vitamin D3 PO 2,000 unit DAILY PERICO Administration Cyanocobalamin 500 mcg 02/19/18 09:00 02/24/18 09:16 Vitamin B-12 PO 500 mcg DAILY PERICO Administration Diphenhydramine HCl 25 mg 02/19/18 00:46 02/23/18 11:15 Benadryl PO 25 mg Q4HR PRN Administration Allergy Symptoms Famotidine 20 mg 02/19/18 09:00 02/24/18 09:15 Pepcid PO 20 mg DAILY PERICO Administration Ferrous Sulfate 325 mg 02/19/18 08:00 02/24/18 08:07 Feosol PO 325 mg DAILYWM PERICO Administration Furosemide 20 mg 02/23/18 12:00 02/24/18 12:37 Lasix Inj 20mg Vial IVP Not Given BIDDIURETIC PERICO Ceftriaxone Sodium 1 gm/ 100 mls @ 200 mls/hr 02/22/18 22:00 02/24/18 09:25 Sodium Chloride IV Infused DAILY PERICO Infusion Ketorolac Tromethamine 15 mg 02/24/18 04:05 02/24/18 08:58 Toradol Inj (15mg) IVP 03/01/18 04:04 15 mg Q6HR PRN Administration PAIN Lactulose 30 gm 02/22/18 12:00 02/24/18 12:38 Lactulose PO 30 gm TIDWM PERICO Administration Levothyroxine Sodium 112 mcg 02/19/18 07:00 02/24/18 06:17 Synthroid PO 112 mcg QDAC PERICO Administration Multivitamins/Minerals 1 tab 02/19/18 09:00 02/24/18 09:15 Theragran M PO 1 tab DAILY PERICO Administration Ondansetron HCl 4 mg 02/18/18 14:22 02/22/18 12:28 Zofran Inj IVP 4 mg Q6HR PRN Administration Nausea / Vomiting Polyethylene Glycol 17 gm 02/19/18 09:00 02/24/18 09:16 Miralax PO Not Given DAILY PERICO Rifaximin 550 mg 02/19/18 08:00 02/24/18 09:16 Xifaxan PO 550 mg BID PERICO Administration Sodium Chloride 10 ml 02/18/18 14:22 02/24/18 09:16 Normal Saline Flush 0.9% IVP 20 ml PRN PRN Administration NEEDED PER PROVIDER ORDERS Sodium Chloride 10 ml 02/18/18 17:00 02/24/18 09:16 Normal Saline Flush 0.9% IVP 10 ml 0100,0900,1700 PERICO Administration Thiamine HCl 100 mg 02/20/18 13:00 02/24/18 09:15 Vitamin B-1 PO 100 mg DAILY PERICO Administration Cyanocobalamin (Vitamin B-12) [Vitamin B-12 (100mcg tab)] 500 mcg PO DAILY 01/08 Pantoprazole [Protonix] 40 mg PO QDAC 01/08/18 Benzonatate 100 - 200 mg PO TID PRN 02/03/18 Levothyroxine Sodium 112 mcg PO QDAC 02/03/18 Multivitamin W/Minerals [Theragran M] 1 tab PO DAILY 02/03/18 Spironolactone 50 mg PO BID 02/03/18 Albuterol Sulf [Ventolin Hfa Inhaler] 1 - 2 puffs INH Q6HR PRN 02/06/18 Lactulose 30 ml PO TID MDD hold 3rd dose if >3 BMs 02/07/18 Cholecalciferol (Vitamin D3) [Vitamin D] 2,000 unit PO DAILY 02/18/18 Potassium Chloride 20 meq PO DAILY 02/18/18
[2018-02-24] MEDS ORDERED: traMADol 50 MG TABLET PO PRN (16:54)
[2018-02-24] MEDS: diphenhydrAMINE 25 MG CAPSULE PO PRN ×2 (17:58→21:51)
[2018-02-24] MEDS: IPRATROPIUM/ALBUTEROL 3 ML NEB INH PRN (21:07)
[2018-02-25] MEDS: SODIUM CHLORIDE FLUSH 0.9% 10 ML SYRINGE IVP SCH ×3 (04:57→16:29)
[2018-02-25] MEDS: LEVOTHYROXINE 112 MCG TABLET PO SCH (05:48)
[2018-02-25 06:06] LABS: BASOPHILS # (AUTO) 0.1 10^3/uL (0.0-0.1); BASOPHILS % (AUTO) 1.1 %; EOSINOPHILS # (AUTO) 0.3 10^3/uL (0.0-0.7); EOSINOPHILS % (AUTO) 3.1 %; HGB - HEMOGLOBIN 10.5 g/dL (12.0-16.0); LYMPHOCYTES # (AUTO) 1.7 10^3/uL (1.5-3.5); MEAN CORPUSCULAR HEMOGLOBIN 32.9 pg (27.0-31.0); MEAN CORPUSCULAR HGB CONC 33.1 g/dL (32.0-36.0); MEAN CORPUSCULAR VOLUME 99.4 fL (81.0-99.0); MEAN PLATELET VOLUME 7.9 fL (7.9-10.8); MONOCYTES # (AUTO) 0.6 10^3/uL (0.0-1.0); MONOCYTES % (AUTO) 5.5 %; NEUTROPHILS # (AUTO) 8.3 10^3/uL (1.5-6.6); NEUTROPHILS % (AUTO) 75.3 %; PLT - PLATELET COUNT 227 10^3/uL (130-450); RED BLOOD COUNT 3.19 10^6/uL (4.20-5.40); RED CELL DISTRIBUTION WIDTH 18.3 % (12.0-15.0)
[2018-02-25 06:15] LABS: ALBUMIN 2.2 g/dL (3.2-5.5); ALBUMIN/GLOBULIN RATIO 1.1 (1.0-2.2); ALKALINE PHOSPHATASE 209 IU/L (42-121); ALT ALANINE AMINOTRANSFERASE 27 IU/L (10-60); AST ASPARTATE AMINOTRANSFERASE 98 IU/L (10-42); BILIRUBIN,TOTAL 2.2 mg/dL (0.2-1.0); BUN - BLOOD UREA NITROGEN 23 mg/dL (6-20); CALCIUM 7.8 mg/dL (8.5-10.3); CARBON DIOXIDE - CO2 21 mmol/L (21-32); CHLORIDE 104 mmol/L (101-111); CREATININE 0.7 mg/dL (0.4-1.0); GFR - MDRD 91 (>89); GLUCOSE 114 mg/dL (70-100); SODIUM 134 mmol/L (135-145); TOTAL PROTEIN 4.2 g/dL (6.7-8.2)
[2018-02-25 06:18] LABS: INR 1.8 (0.8-1.2); PT - PROTHROMBIN TIME 20.3 secs (9.9-12.6)
[2018-02-25 06:28] LABS: VBG PH 7.306 (7.31-7.41)
[2018-02-25] MEDS: CYANOCOBALAMIN 500 MCG TABLET PO SCH (08:47)
[2018-02-25] MEDS: MULTIVITAMIN W/MINERALS TABLET PO SCH (08:47)
[2018-02-25] MEDS: THIAMINE 100 MG TABLET PO SCH (08:47)
[2018-02-25] MEDS: rifAXIMin 550 MG TABLET PO SCH ×2 (08:47→21:23)
[2018-02-25] MEDS: CHOLECALCIFEROL 1,000 UNIT TABLET PO SCH (08:47)
[2018-02-25] MEDS: FAMOTIDINE 20 MG TABLET PO SCH (08:47)
[2018-02-25] MEDS: FERROUS SULFATE 325 MG TABLET PO SCH (08:48)
[2018-02-25] MEDS: ALBUMIN 25% 12.5 GM/50 ML VIAL IV SCH ×4 (08:48→11:20)
[2018-02-25] MEDS: FUROSEMIDE 20 MG/2 ML VIAL IVP SCH ×2 (09:42→14:10)
[2018-02-25] MEDS: FUROSEMIDE 40 MG TABLET PO SCH ×2 (09:54→14:25)
[2018-02-25] MEDS: SPIRONOLACTONE 25 MG TABLET PO SCH (09:54)
[2018-02-25] MEDS: POLYETHYLENE GLYCOL 3350 17 GM PACKET PO SCH (09:54)
[2018-02-25] MEDS: LACTULOSE 10 GM/15 ML BOTTLE PO SCH ×3 (09:54→16:29)
--- NOTE | 2018-02-25 13:08 | PROVIDER PROGRESS NOTE ---
Assessment/Plan - Problem List (1) Severe sepsis Assessment/Plan: Patient had persistent hypotension for two days and was found to have an elevated lactic acid of 3.1, she spiked a fever of 38.4, was tachycardic 110, tachypnic with RR of 30. CXR and CTA of lungs showed pulmonary edema but no evidence of pneumonia Started having increasing abdominal pain and tenderness on 02/24/[address] of her abdomen was performed with no acute findings to explain the pain Blood cultures are negative Peritoneal fluid cx is negative from 02/19/18 UA is negative MRSA PCR negative LIkely source is SBP given that patient had paracentesis during hospitalization and symptoms started right after paracentesis Continue Ceftriaxone day 3 as most likely source of infection is still SBP despite negative paracentesis She has had no fevers since starting ceftriaxone therefore we will continue treatment for SBP for 7 days regardless of cultures will switch to PO cipro at discharge lactate is now normal BP continues to be low therefore will give albumin again today Patient is clinically looking better but with hypotension and tachycardia she is not ready for discharge at this point (2) Hypotension Assessment/Plan: Started after her large volume paracentesis of 6.3 L Patient has been given albumin 100 grams, will receive another 50 grams today as she continues to be hypotensive Likely secondary to severe sepsis and large volume paracentesis She had an echo less than a month ago that showed a normal EF We expect her to be relatively hypotensive secondary to splanchnic dilatation from her cirrhosis but this is more than normal After patient is given albumin will restart PO lasix and aldactone as I am concerned she may start to develop worsening edema (3) Anasarca Assessment/Plan: Secondary to non compliance with medication as patient stopped taking her lasix and aldactone Initially given aldactone and IV lasix with fluid restriction and Na restriction Improved with treatment and down to 1L of O2 LE edema is much improved but pulmonary edema persists SHe is hypotensive therefore will give albumin and then restart PO lasix and aldactone (4) Pulmonary edema Qualifiers: Chronicity: acute Qualified Code(s): J81.0 - Acute pulmonary edema Assessment/Plan: Secondary to non compliance with medication and fluid overload secondary to liver failure with cirrhosis CXR continues to show pulmonary edema and CTA lungs also shows pulmonary edema Echo done last month showed normal EF Down to 1L of O2 Will give albumin and then start PO lasix and aldactone (5) Non compliance w medication regimen Assessment/Plan: Patient counselled about need for compliance with medications She seems to understand and is willing to take lasix and aldactone She needs to show ability to be complaint in order to get transplant of her liver (6) Hypoxia Assessment/Plan: Secondary to pulmonary edema in setting of long standing COPD Patient down to 1L of O2 Restart PO lasix and aldactone after albumin today Weaning O2 but may need home O2 at discharge (7) Hyperkalemia Assessment/Plan: Resolved (8) Hyponatremia Assessment/Plan: Stable - hypervolemic hyponatremia (9) Alcoholic cirrhosis of liver with ascites Assessment/Plan: Patients MELD score is 20 which gives her a 3 month mortality of 19.6% She has history of ascites and encephalopathy On lactulose and rifaximin for hepatic encephalopathy she appears stable Paracentesis performed with 6.3 L removed Patient needs further outpatient follow up and eventual transplant (10) Moderate COPD (chronic obstructive pulmonary disease) Assessment/Plan: Patient has history of COPD and has quit smoking Does not appear to be in exacerbation Placed on duonebs prn Supplemental O2 - Current Meds Current Meds: Current Medications Generic Name Dose Route Start Last Admin Trade Name Freq PRN Reason Stop Dose Admin Albuterol 2.5 mg 02/18/18 18:23 02/21/18 21:39 INH 2.5 mg RTQ4H PRN Administration Shortness of Air/Wheezing Albuterol/Ipratropium 3 ml 02/19/18 14:00 02/24/18 21:07 Duoneb INH 3 ml RTQID PRN Administration Shortness of Air/Wheezing Cholecalciferol 2,000 unit 02/19/18 09:00 02/25/18 08:47 Vitamin D3 PO 2,000 unit DAILY PERICO Administration Cyanocobalamin 500 mcg 02/19/18 09:00 02/25/18 08:47 Vitamin B-12 PO 500 mcg DAILY PERICO Administration Diphenhydramine HCl 25 mg 02/19/18 00:46 02/24/18 21:51 Benadryl PO 25 mg Q4HR PRN Administration Allergy Symptoms Famotidine 20 mg 02/19/18 09:00 02/25/18 08:47 Pepcid PO 20 mg DAILY PERICO Administration Ferrous Sulfate 325 mg 02/19/18 08:00 02/25/18 08:48 Feosol PO 325 mg DAILYWM PERICO Administration Furosemide 20 mg 02/23/18 12:00 02/25/18 09:42 Lasix Inj 20mg Vial IVP Not Given BIDDIURETIC PERICO Furosemide 40 mg 02/25/18 08:00 02/25/18 09:54 Lasix PO 40 mg BIDDIURETIC PERICO Administration Ceftriaxone Sodium 1 gm/ 100 mls @ 200 mls/hr 02/22/18 22:00 02/24/18 09:25 Sodium Chloride IV Infused DAILY PERICO Infusion Albumin Human 12.5 gm in 50 mls @ 50 mls/hr 02/25/18 08:00 02/25/18 11:20 Albuminar-25 IV 02/25/18 20:59 50 mls/hr Q4H PERICO Administration Ketorolac Tromethamine 15 mg 02/24/18 04:05 02/24/18 16:36 Toradol Inj (15mg) IVP 03/01/18 04:04 15 mg Q6HR PRN Administration PAIN Lactulose 30 gm 02/22/18 12:00 02/25/18 09:54 Lactulose PO 30 gm TIDWM PERICO Administration Levothyroxine Sodium 112 mcg 02/19/18 07:00 02/25/18 05:48 Synthroid PO 112 mcg QDAC PERICO Administration Multivitamins/Minerals 1 tab 02/19/18 09:00 02/25/18 08:47 Theragran M PO 1 tab DAILY PERICO Administration Ondansetron HCl 4 mg 02/18/18 14:22 02/22/18 12:28 Zofran Inj IVP 4 mg Q6HR PRN Administration Nausea / Vomiting Polyethylene Glycol 17 gm 02/19/18 09:00 02/25/18 09:54 Miralax PO Not Given DAILY PERICO Rifaximin 550 mg 02/19/18 08:00 02/25/18 08:47 Xifaxan PO 550 mg BID PERICO Administration Sodium Chloride 10 ml 02/18/18 14:22 02/24/18 09:16 Normal Saline Flush 0.9% IVP 20 ml PRN PRN Administration NEEDED PER PROVIDER ORDERS Sodium Chloride 10 ml 02/18/18 17:00 02/25/18 09:54 Normal Saline Flush 0.9% IVP 10 ml 0100,[id number],1700 PERICO Administration Spironolactone 25 mg 02/25/18 09:00 02/25/18 09:54 Aldactone PO 25 mg DAILY PERICO Administration Thiamine HCl 100 mg 02/20/18 13:00 02/25/18 08:47 Vitamin B-1 PO 100 mg DAILY PERICO Administration - Lab Result Lab results reviewed: Yes Fish Bone Diagrams: 02/25/18 05:28 02/25/18 05:28 - Diagnostic Imaging Results Diagnostic Imaging Results: Final report reviewed - Additional Planning Condition/Complexity: Guarded My Orders: My Active Orders 02/24/18 16:54 traMADol [Ultram] 50 mg PO Q4HR PRN 02/25/18 08:00 Albumin 25% [Albuminar-25] 12.5 gm in 50 ml IV Q4H Furosemide [Lasix] 40 mg PO BIDDIURETIC 02/25/18 09:00 Spironolactone [Aldactone] 25 mg PO DAILY Plan Discussed with:: Patient Time Spent: 31-60 minutes Subjective - Subjective Patient Reports: Feeling Better, Resting Comfortably, Abdominal Pain (Improving) , Dizzines (Resolved), Other (LE swelling has improved. She states that she feels like her abdomen is getting more distended. She denies any fevers or chills. She states she is getting around the room with her walker and feels her strength is good.) Nursing Reports: No Complaints Objective Vital Signs: Vital Signs - 24 hr 02/24/18 02/24/18 02/24/18 15:21 18:42 19:12 Temperature 36.4 C L Heart Rate Heart Rate [ 117 H 106 H Brachial] Respiratory 20 Rate Blood Pressure [Left Brachial artery] Blood Pressure 86/50 L [Right Brachial artery] O2 Saturation 100 100 96 02/24/18 02/24/18 02/24/18 20:27 20:31 21:08 Temperature 36.8 C Heart Rate 108 H Heart Rate [ 109 H Brachial] Respiratory 18 18 Rate Blood Pressure [Left Brachial artery] Blood Pressure 83/43 L [Right Brachial artery] O2 Saturation 88 L 98 02/25/18 02/25/18 02/25/18 00:44 05:00 07:51 Temperature 36.7 C 36.9 C 36.4 C L Heart Rate Heart Rate [ 121 H 114 H 111 H Brachial] Respiratory 18 20 18 Rate Blood Pressure 80/48 L [Left Brachial artery] Blood Pressure 79/46 L 78/42 L [Right Brachial artery] O2 Saturation 97 98 98 Oxygen O2 Source Nasal cannula I&O (Last 24 Hrs): Intake and Output Totals x24h 02/23/18 02/24/18 02/25/18 23:59 23:59 23:59 Intake Total 1620 1472 395 Balance 1620 1472 395 General: Alert, Oriented x3, Cooperative, Other (Jaundiced) HEENT: Atraumatic, PERRLA, EOMI, Mucous membr. moist/pink Neck: Supple, No JVD, No thyromegaly, +2 carotid pulse wo bruit, No LAD Lymphatic: no adenopathy Neuro: Alert, Non Focal, CN 2-12 Grossly Intact, Oriented Times 3 Cardiovascular: Normal S1, Normal S2, No murmurs, Other (Tachycardic) Respiratory: Chest non-tender, Rales (Bases, improved) Abdomen: Normal bowel sounds, Soft, Other (Abdomen distended, mild tenderness improved from yesterday) Extremities: No clubbing, No cyanosis, Normal pulses, Other (Bilateral LE edema 2+ improved) Skin: No rashes, No breakdown Comments/Notes: Jaundiced - Results Results: Laboratory Results WBC 11.0 x10^3/uL (4.8-10.8) H 02/25/18 05:28 RBC 3.19 10^6/uL (4.20-5.40) L 02/25/18 05:28 Hgb 10.5 g/dL (12.0-16.0) L 02/25/18 05:28 Hct 31.7 % (37.0-47.0) L 02/25/18 05:28 MCV 99.4 fL (81.0-99.0) H 02/25/18 05:28 MCH 32.9 pg (27.0-31.0) H 02/25/18 05:28 MCHC 33.1 g/dL (32.0-36.0) 02/25/18 05:28 RDW 18.3 % (12.0-15.0) H 02/25/18 05:28 Plt Count 227 10^3/uL (130-450) 02/25/18 05:28 MPV 7.9 fL (7.9-10.8) 02/25/18 05:28 Neut # (Auto) 8.3 10^3/uL (1.5-6.6) H 02/25/18 05:28 Lymph # (Auto) 1.7 10^3/uL (1.5-3.5) 02/25/18 05:28 Pepin # (Auto) 0.6 10^3/uL (0.0-1.0) 02/25/18 05:28 Eos # (Auto) 0.3 10^3/uL (0.0-0.7) 02/25/18 05:28 Baso # (Auto) 0.1 10^3/uL (0.0-0.1) 02/25/18 05:28 Absolute Nucleated RBC 0.00 x10^3/uL 02/25/18 05:28 Nucleated RBC % 0.0 /100WBC 02/25/18 05:28 PT 20.3 secs (9.9-12.6) H 02/25/18 05:28 INR 1.8 (0.8-1.2) H 02/25/18 05:28 Whole Blood INR 1.6 (0.8-1.2) H 02/20/18 14:30 APTT 30.1 secs (24.9-33.3) 02/18/18 12:45 VBG pH 7.306 (7.31-7.41) L 02/25/18 05:28 Ionized Calcium 1.09 mmol/L (1.15-1.33) L 02/25/18 05:28 Sodium 134 mmol/L (135-145) L 02/25/18 05:28 Potassium 4.1 mmol/L (3.5-5.0) 02/25/18 05:28 Chloride 104 mmol/L (101-111) 02/25/18 05:28 Carbon Dioxide 21 mmol/L (21-32) 02/25/18 05:28 Anion Gap 9.0 (6-13) 02/25/18 05:28 BUN 23 mg/dL (6-20) H 02/25/18 05:28 Creatinine 0.7 mg/dL (0.4-1.0) 02/25/18 05:28 Estimated GFR (MDRD) 91 (>89) 02/25/18 05:28 Glucose 114 mg/dL (70-100) H 02/25/18 05:28 Lactic Acid 2.0 mmol/L (0.5-2.2) 02/23/18 05:00 Calcium 7.8 mg/dL (8.5-10.3) L 02/25/18 05:28 Ionized Calcium YES 02/25/18 05:28 Phosphorus 2.9 mg/dL (2.5-4.6) 02/23/18 05:00 Magnesium 1.8 mg/dL (1.7-2.8) 02/23/18 05:00 Iron 22 ug/dL (28-170) L 02/19/18 05:31 TIBC 164 ug/dL (250-450) L 02/19/18 05:31 % Saturation 13 % (20-50) L 02/19/18 05:31 Transferrin 117 mg/dL (192-382) L 02/19/18 05:31 Total Bilirubin 2.2 mg/dL (0.2-1.0) H 02/25/18 05:28 AST 98 IU/L (10-42) H 02/25/18 05:28 ALT 27 IU/L (10-60) 02/25/18 05:28 Alkaline Phosphatase 209 IU/L (42-121) H 02/25/18 05:28 Ammonia 22.6 umol/L (7-35) 02/25/18 05:28 Troponin I < 0.04 ng/mL (<0.49) 02/22/18 14:29 B-Natriuretic Peptide 25 pg/mL (5-100) 02/25/18 05:28 Total Protein 4.2 g/dL (6.7-8.2) L 02/25/18 05:28 Albumin 2.2 g/dL (3.2-5.5) L 02/25/18 05:28 Globulin 2.0 g/dL (2.1-4.2) L 02/25/18 05:28 Albumin/Globulin Ratio 1.1 (1.0-2.2) 02/25/18 05:28 Lipase 49 U/L (22-51) 02/18/18 12:45 TSH 3.03 uIU/mL (0.34-5.60) 02/19/18 05:31 Urine Color ORANGE 02/24/18 02:42 Urine Clarity SL. CLOUDY (CLEAR) 02/24/18 02:42 Urine pH 5.5 PH (5.0-7.5) 02/24/18 02:42 Ur Specific [place] 1.025 (1.002-1.030) 02/24/18 02:42 Urine Protein TRACE mg/dL (NEGATIVE) 02/24/18 02:42 Urine Glucose (UA) NEGATIVE mg/dL (NEGATIVE) 02/24/18 02:42 Urine Ketones NEGATIVE mg/dL (NEGATIVE) 02/24/18 02:42 Urine Occult Blood TRACE-LYSE (NEGATIVE) 02/24/18 02:42 Urine Nitrite NEGATIVE (NEGATIVE) 02/24/18 02:42 Urine Bilirubin NEGATIVE (NEGATIVE) 02/24/18 02:42 Urine Urobilinogen 0.2 (NORMAL) E.U./dL (NORMAL) 02/24/18 02:42 Ur Leukocyte Esterase MODERATE (NEGATIVE) H 02/24/18 02:42 Urine RBC 0-5 /HPF (0-5) 02/24/18 02:42 Urine WBC 6-10 /HPF (0-5) H 02/24/18 02:42 Ur Squamous Epith Cells MANY Squamous (<= Few) H 02/24/18 02:42 Urine Bacteria None Seen /HPF (None Seen) 02/24/18 02:42 Urine Mucus Marked Strands 02/24/18 02:42 Ur Microscopic Review INDICATED 02/24/18 02:42 Urine Culture Comments NOT INDICATED 02/24/18 02:42 Fluid Source PERITONEAL 02/19/18 18:10 Fluid Color YELLOW 02/19/18 18:10 Fluid Clarity CLEAR 02/19/18 18:10 Fluid WBC 48 /mm^3 02/19/18 18:10 Fluid RBC 114 /mm^3 02/19/18 18:10 Fluid Neutrophils % 12.0 % 02/19/18 18:10 Fluid Lymphocytes % 13.0 02/19/18 18:10 Fluid Monocytes % 8.0 % 02/19/18 18:10 Fluid Macrophages % 53.0 % 02/19/18 18:10 Fld Mesothelial Cell % 14.0 % 02/19/18 18:10 Urine Opiates Screen NEGATIVE (NEGATIVE) 02/18/18 20:25 Ur Oxycodone Screen NEGATIVE (NEGATIVE) 02/18/18 20:25 Urine Methadone Screen NEGATIVE (NEGATIVE) 02/18/18 20:25 Ur Propoxyphene Screen NEGATIVE (NEGATIVE) 02/18/18 20:25 Ur Barbiturates Screen NEGATIVE (NEGATIVE) 02/18/18 20:25 Ur Tricyclics Screen NEGATIVE (NEGATIVE) 02/18/18 20:25 Ur Phencyclidine Scrn NEGATIVE (NEGATIVE) 02/18/18 20:25 Ur Amphetamine Screen NEGATIVE (NEGATIVE) 02/18/18 20:25 U Methamphetamines Scrn NEGATIVE (NEGATIVE) 02/18/18 20:25 U Benzodiazepines Scrn NEGATIVE (NEGATIVE) 02/18/18 20:25 Urine Cocaine Screen NEGATIVE (NEGATIVE) 02/18/18 20:25 U Cannabinoids Screen NEGATIVE (NEGATIVE) 02/18/18 20:25 Blood Type O POSITIVE 02/20/18 11:05 Blood Type Recheck O POSITIVE 02/20/18 05:00 Antibody Screen NEGATIVE 02/20/18 11:05 - Procedures Procedures: Procedures DRAINAGE OF PERITONEAL CAVITY, PERCUTANEOUS APPROACH (01/08/18) ABX Reporting Has patient been on IV antibiotics over the past 48 hours?: Yes Current Medications - Current Medications Current Medications: Active Medications Generic Name Dose Route Start Last Admin Trade Name Freq PRN Reason Stop Dose Admin Albuterol 2.5 mg 02/18/18 18:23 02/21/18 21:39 INH 2.5 mg RTQ4H PRN Administration Shortness of Air/Wheezing Albuterol/Ipratropium 3 ml 02/19/18 14:00 02/24/18 21:07 Duoneb INH 3 ml RTQID PRN Administration Shortness of Air/Wheezing Benzonatate 100 mg 02/18/18 14:26 Tessalon PO TID PRN Cough Cholecalciferol 2,000 unit 02/19/18 09:00 02/25/18 08:47 Vitamin D3 PO 2,000 unit DAILY PERICO Administration Cyanocobalamin 500 mcg 02/19/18 09:00 02/25/18 08:47 Vitamin B-12 PO 500 mcg DAILY PERICO Administration Diphenhydramine HCl 25 mg 02/19/18 00:46 02/24/18 21:51 Benadryl PO 25 mg Q4HR PRN Administration Allergy Symptoms Famotidine 20 mg 02/19/18 09:00 02/25/18 08:47 Pepcid PO 20 mg DAILY PERICO Administration Ferrous Sulfate 325 mg 02/19/18 08:00 02/25/18 08:48 Feosol PO 325 mg DAILYWM PERICO Administration Furosemide 20 mg 02/23/18 12:00 02/25/18 09:42 Lasix Inj 20mg Vial IVP Not Given BIDDIURETIC PERICO Furosemide 40 mg 02/25/18 08:00 02/25/18 09:54 Lasix PO 40 mg BIDDIURETIC PERICO Administration Ceftriaxone Sodium 1 gm/ 100 mls @ 200 mls/hr 02/22/18 22:00 02/24/18 09:25 Sodium Chloride IV Infused DAILY PERICO Infusion Albumin Human 12.5 gm in 50 mls @ 50 mls/hr 02/25/18 08:00 02/25/18 11:20 Albuminar-25 IV 02/25/18 20:59 50 mls/hr Q4H PERICO Administration Ketorolac Tromethamine 15 mg 02/24/18 04:05 02/24/18 16:36 Toradol Inj (15mg) IVP 03/01/18 04:04 15 mg Q6HR PRN Administration PAIN Lactulose 30 gm 02/22/18 12:00 02/25/18 09:54 Lactulose PO 30 gm TIDWM PERICO Administration Levothyroxine Sodium 112 mcg 02/19/18 07:00 02/25/18 05:48 Synthroid PO 112 mcg QDAC PERICO Administration Multivitamins/Minerals 1 tab 02/19/18 09:00 02/25/18 08:47 Theragran M PO 1 tab DAILY PERICO Administration Ondansetron HCl 4 mg 02/18/18 14:22 02/22/18 12:28 Zofran Inj IVP 4 mg Q6HR PRN Administration Nausea / Vomiting Polyethylene Glycol 17 gm 02/19/18 09:00 02/25/18 09:54 Miralax PO Not Given DAILY PERICO Rifaximin 550 mg 02/19/18 08:00 02/25/18 08:47 Xifaxan PO 550 mg BID PERICO Administration Sodium Chloride 10 ml 02/18/18 14:22 02/24/18 09:16 Normal Saline Flush 0.9% IVP 20 ml PRN PRN Administration NEEDED PER PROVIDER ORDERS Sodium Chloride 10 ml 02/18/18 17:00 02/25/18 09:54 Normal Saline Flush 0.9% IVP 10 ml 0100,0900,1700 PERICO Administration Spironolactone 25 mg 02/25/18 09:00 02/25/18 09:54 Aldactone PO 25 mg DAILY PERICO Administration Thiamine HCl 100 mg 02/20/18 13:00 02/25/18 08:47 Vitamin B-1 PO 100 mg DAILY PERICO Administration Tramadol HCl 50 mg 02/24/18 16:54 Ultram PO Q4HR PRN PAIN Cyanocobalamin (Vitamin B-12) [Vitamin B-12 (100mcg tab)] 500 mcg PO DAILY 01/08 Pantoprazole [Protonix] 40 mg PO QDAC 01/08/18 Benzonatate 100 - 200 mg PO TID PRN 02/03/18 Levothyroxine Sodium 112 mcg PO QDAC 02/03/18 Multivitamin W/Minerals [Theragran M] 1 tab PO DAILY 02/03/18 Spironolactone 50 mg PO BID 02/03/18 Albuterol Sulf [Ventolin Hfa Inhaler] 1 - 2 puffs INH Q6HR PRN 02/06/18 Lactulose 30 ml PO TID MDD hold 3rd dose if >3 BMs 02/07/18 Cholecalciferol (Vitamin D3) [Vitamin D] 2,000 unit PO DAILY 02/18/18 Potassium Chloride 20 meq PO DAILY 02/18/18
[2018-02-25] MEDS: cefTRIAXone 1 GM in SODIUM CHLORIDE 0.9% MINIBAG 100 ML IV SCH (13:27)
[2018-02-25] MEDS ORDERED: LIDOCAINE VISCOUS 2% 15 ML UDC MM PRN (14:12)
[2018-02-25] MEDS ORDERED: BENZOCAINE SPRAY MM PRN (14:30)
[2018-02-26] MEDS: diphenhydrAMINE 25 MG CAPSULE PO PRN ×2 (01:46→20:40)
[2018-02-26] MEDS: SODIUM CHLORIDE FLUSH 0.9% 10 ML SYRINGE IVP SCH ×3 (05:50→16:21)
[2018-02-26] MEDS: FUROSEMIDE 40 MG TABLET PO SCH ×2 (05:57→13:54)
[2018-02-26] MEDS: LEVOTHYROXINE 112 MCG TABLET PO SCH (05:57)
[2018-02-26] MEDS: CYANOCOBALAMIN 500 MCG TABLET PO SCH (08:22)
[2018-02-26] MEDS: MULTIVITAMIN W/MINERALS TABLET PO SCH (08:22)
[2018-02-26] MEDS: FAMOTIDINE 20 MG TABLET PO SCH (08:22)
[2018-02-26] MEDS: THIAMINE 100 MG TABLET PO SCH (08:22)
[2018-02-26] MEDS: CHOLECALCIFEROL 1,000 UNIT TABLET PO SCH (08:22)
[2018-02-26] MEDS: SPIRONOLACTONE 25 MG TABLET PO SCH (08:22)
[2018-02-26] MEDS: POLYETHYLENE GLYCOL 3350 17 GM PACKET PO SCH (08:22)
[2018-02-26] MEDS: FERROUS SULFATE 325 MG TABLET PO SCH (08:22)
[2018-02-26] MEDS: rifAXIMin 550 MG TABLET PO SCH ×2 (08:22→20:40)
[2018-02-26] MEDS: LACTULOSE 10 GM/15 ML BOTTLE PO SCH ×3 (08:23→16:21)
[2018-02-26] MEDS: cefTRIAXone 1 GM in SODIUM CHLORIDE 0.9% MINIBAG 100 ML IV SCH (08:23)
--- NOTE | 2018-02-26 18:28 | PROVIDER PROGRESS NOTE ---
Assessment/Plan - Problem List (1) Alcoholic cirrhosis of liver with ascites Assessment/Plan: Continue gentle diuresis, after BP not hypotensive. Monitor daily weight. Continue Thiamine. Monitor daily LFTs. (2) Hypotension Assessment/Plan: This was felt to be due to a 6 L paracentesis then fluid shifts and possibly from sepsis, given the fever an elevated lactic acid level. Pt got iv albumen yesterday. Will try to avoid iv hydration, which will add to her ascites, and watch BP. She likely has a chronic low BP. I reviewed old vital signs and she rune 90-100 systolic. (3) Sepsis Assessment/Plan: The source was likely spontaneous (or secondary to tap) bacterial peritonitis. Will continue empiric antibiotics and then a 1 week course of po Bactrim. (4) Hypoxia Assessment/Plan: This may be from hypoventilation secondary to ascites and from prior smoking. Give supplemental O2 and wean to off as tolerated. - Current Meds Current Meds: Current Medications Generic Name Dose Route Start Last Admin Trade Name Freq PRN Reason Stop Dose Admin Albuterol 2.5 mg 02/18/18 18:23 02/21/18 21:39 INH 2.5 mg RTQ4H PRN Administration Shortness of Air/Wheezing Albuterol/Ipratropium 3 ml 02/19/18 14:00 02/24/18 21:07 Duoneb INH 3 ml RTQID PRN Administration Shortness of Air/Wheezing Benzocaine 1 sprays 02/25/18 14:30 02/25/18 14:52 Hurricaine MM 1 spr Q4HR PRN Administration Mouth Sore Pain Cholecalciferol 2,000 unit 02/19/18 09:00 02/26/18 08:22 Vitamin D3 PO 2,000 unit DAILY PERICO Administration Cyanocobalamin 500 mcg 02/19/18 09:00 02/26/18 08:22 Vitamin B-12 PO 500 mcg DAILY PERICO Administration Diphenhydramine HCl 25 mg 02/19/18 00:46 02/26/18 01:46 Benadryl PO 25 mg Q4HR PRN Administration Allergy Symptoms Famotidine 20 mg 02/19/18 09:00 02/26/18 08:22 Pepcid PO 20 mg DAILY PERICO Administration Ferrous Sulfate 325 mg 02/19/18 08:00 02/26/18 08:22 Feosol PO 325 mg DAILYWM PERICO Administration Furosemide 40 mg 02/25/18 08:00 02/26/18 13:54 Lasix PO 40 mg BIDDIURETIC PERICO Administration Ceftriaxone Sodium 1 gm/ 100 mls @ 200 mls/hr 02/22/18 22:00 02/26/18 09:40 Sodium Chloride IV Infused DAILY PERICO Infusion Ketorolac Tromethamine 15 mg 02/24/18 04:05 02/24/18 16:36 Toradol Inj (15mg) IVP 03/01/18 04:04 15 mg Q6HR PRN Administration PAIN Lactulose 30 gm 02/22/18 12:00 02/26/18 16:21 Lactulose PO 30 gm TIDWM PERICO Administration Levothyroxine Sodium 112 mcg 02/19/18 07:00 02/26/18 05:57 Synthroid PO 112 mcg QDAC [place] Administration Multivitamins/Minerals 1 tab 02/19/18 09:00 02/26/18 08:22 Theragran M PO 1 tab DAILY PERICO Administration Ondansetron HCl 4 mg 02/18/18 14:22 02/22/18 12:28 Zofran Inj IVP 4 mg Q6HR PRN Administration Nausea / Vomiting Polyethylene Glycol 17 gm 02/19/18 09:00 02/26/18 08:22 Miralax PO 17 gm DAILY PERICO Administration Rifaximin 550 mg 02/19/18 08:00 02/26/18 08:22 Xifaxan PO 550 mg BID PERICO Administration Sodium Chloride 10 ml 02/18/18 14:22 02/24/18 09:16 Normal Saline Flush 0.9% IVP 20 ml PRN PRN Administration NEEDED PER PROVIDER ORDERS Sodium Chloride 10 ml 02/18/18 17:00 02/26/18 16:21 Normal Saline Flush 0.9% IVP 10 ml 0100,[id number],1700 PERICO Administration Spironolactone 25 mg 02/25/18 09:00 02/26/18 08:22 Aldactone PO 25 mg DAILY PERICO Administration Thiamine HCl 100 mg 02/20/18 13:00 02/26/18 08:22 Vitamin B-1 PO 100 mg DAILY PERICO Administration - Lab Result Fish Bone Diagrams: 02/27/18 09:30 02/28/18 07:12 Subjective - Subjective Patient Reports: Feeling Better, Fatigue, Other (Had loose stool with her urine output) Objective Vital Signs: Vital Signs - 24 hr 02/25/18 02/25/18 02/25/18 21:00 21:17 23:55 Temperature 37.2 C 36.8 C Heart Rate 112 H Heart Rate [ 109 H 67 Brachial] Respiratory 20 20 18 Rate Blood Pressure [Left Brachial artery] Blood Pressure 87/33 L 90/47 L [Right Brachial artery] O2 Saturation 96 99 02/26/18 02/26/18 02/26/18 05:00 07:53 10:30 Temperature 36.9 C 37.0 C Heart Rate 103 H Heart Rate [ 111 H 110 H Brachial] Respiratory 16 16 20 Rate Blood Pressure 89/43 L [Left Brachial artery] Blood Pressure 89/45 L [Right Brachial artery] O2 Saturation 96 99 02/26/18 02/26/18 12:44 16:06 Temperature 37.0 C 37.2 C Heart Rate Heart Rate [ 117 H 114 H Brachial] Respiratory 18 18 Rate Blood Pressure 83/37 L [Left Brachial artery] Blood Pressure 89/49 L [Right Brachial artery] O2 Saturation 91 L 98 Oxygen O2 Source Nasal cannula I&O (Last 24 Hrs): Intake and Output Totals x24h 02/24/18 02/25/18 02/26/18 23:59 23:59 23:59 Intake Total 3757 785 4729 Output Total 100 1550 Balance 1472 585 -480 General: Alert, Oriented x3 HEENT: Mucous membr. moist/pink Neck: Supple, No JVD Neuro: Non Focal Cardiovascular: Regular rate, No murmurs Respiratory: No respiratory distress, Breath sounds nml Abdomen: Soft, Other (Mildly distended, not tense) Extremities: No edema, Other (Trace pretibial edema) - Results Results: Laboratory Results WBC 11.0 x10^3/uL (4.8-10.8) H 02/25/18 05:28 RBC 3.19 10^6/uL (4.20-5.40) L 02/25/18 05:28 Hgb 10.5 g/dL (12.0-16.0) L 02/25/18 05:28 Hct 31.7 % (37.0-47.0) L 02/25/18 05:28 MCV 99.4 fL (81.0-99.0) H 02/25/18 05:28 MCH 32.9 pg (27.0-31.0) H 02/25/18 05:28 MCHC 33.1 g/dL (32.0-36.0) 02/25/18 05:28 RDW 18.3 % (12.0-15.0) H 02/25/18 05:28 Plt Count 227 10^3/uL (130-450) 02/25/18 05:28 MPV 7.9 fL (7.9-10.8) 02/25/18 05:28 Neut # (Auto) 8.3 10^3/uL (1.5-6.6) H 02/25/18 05:28 Lymph # (Auto) 1.7 10^3/uL (1.5-3.5) 02/25/18 05:28 [place] # (Auto) 0.6 10^3/uL (0.0-1.0) 02/25/18 05:28 Eos # (Auto) 0.3 10^3/uL (0.0-0.7) 02/25/18 05:28 Baso # (Auto) 0.1 10^3/uL (0.0-0.1) 02/25/18 05:28 Absolute Nucleated RBC 0.00 x10^3/uL 02/25/18 05:28 Nucleated RBC % 0.0 /100WBC 02/25/18 05:28 PT 20.3 secs (9.9-12.6) H 02/25/18 05:28 INR 1.8 (0.8-1.2) H 02/25/18 05:28 Whole Blood INR 1.6 (0.8-1.2) H 02/20/18 14:30 APTT 30.1 secs (24.9-33.3) 02/18/18 12:45 VBG pH 7.306 (7.31-7.41) L 02/25/18 05:28 Ionized Calcium 1.09 mmol/L (1.15-1.33) L 02/25/18 05:28 Sodium 134 mmol/L (135-145) L 02/25/18 05:28 Potassium 4.1 mmol/L (3.5-5.0) 02/25/18 05:28 Chloride 104 mmol/L (101-111) 02/25/18 05:28 Carbon Dioxide 21 mmol/L (21-32) 02/25/18 05:28 Anion Gap 9.0 (6-13) 02/25/18 05:28 BUN 23 mg/dL (6-20) H 02/25/18 05:28 Creatinine 0.7 mg/dL (0.4-1.0) 02/25/18 05:28 Estimated GFR (MDRD) 91 (>89) 02/25/18 05:28 Glucose 114 mg/dL (70-100) H 02/25/18 05:28 Lactic Acid 2.0 mmol/L (0.5-2.2) 02/23/18 05:00 Calcium 7.8 mg/dL (8.5-10.3) L 02/25/18 05:28 Ionized Calcium YES 02/25/18 05:28 Phosphorus 2.9 mg/dL (2.5-4.6) 02/23/18 05:00 Magnesium 1.8 mg/dL (1.7-2.8) 02/23/18 05:00 Iron 22 ug/dL (28-170) L 02/19/18 05:31 TIBC 164 ug/dL (250-450) L 02/19/18 05:31 % Saturation 13 % (20-50) L 02/19/18 05:31 Transferrin 117 mg/dL (192-382) L 02/19/18 05:31 Total Bilirubin 2.2 mg/dL (0.2-1.0) H 02/25/18 05:28 AST 98 IU/L (10-42) H 02/25/18 05:28 ALT 27 IU/L (10-60) 02/25/18 05:28 Alkaline Phosphatase 209 IU/L (42-121) H 02/25/18 05:28 Ammonia 22.6 umol/L (7-35) 02/25/18 05:28 Troponin I < 0.04 ng/mL (<0.49) 02/22/18 14:29 B-Natriuretic Peptide 25 pg/mL (5-100) 02/25/18 05:28 Total Protein 4.2 g/dL (6.7-8.2) L 02/25/18 05:28 Albumin 2.2 g/dL (3.2-5.5) L 02/25/18 05:28 Globulin 2.0 g/dL (2.1-4.2) L 02/25/18 05:28 Albumin/Globulin Ratio 1.1 (1.0-2.2) 02/25/18 05:28 Lipase 49 U/L (22-51) 02/18/18 12:45 TSH 3.03 uIU/mL (0.34-5.60) 02/19/18 05:31 Urine Color ORANGE 02/24/18 02:42 Urine Clarity SL. CLOUDY (CLEAR) 02/24/18 02:42 Urine pH 5.5 PH (5.0-7.5) 02/24/18 02:42 Ur Specific [place] 1.025 (1.002-1.030) 02/24/18 02:42 Urine Protein TRACE mg/dL (NEGATIVE) 02/24/18 02:42 Urine Glucose (UA) NEGATIVE mg/dL (NEGATIVE) 02/24/18 02:42 Urine Ketones NEGATIVE mg/dL (NEGATIVE) 02/24/18 02:42 Urine Occult Blood TRACE-LYSE (NEGATIVE) 02/24/18 02:42 Urine Nitrite NEGATIVE (NEGATIVE) 02/24/18 02:42 Urine Bilirubin NEGATIVE (NEGATIVE) 02/24/18 02:42 Urine Urobilinogen 0.2 (NORMAL) E.U./dL (NORMAL) 02/24/18 02:42 Ur Leukocyte Esterase MODERATE (NEGATIVE) H 02/24/18 02:42 Urine RBC 0-5 /HPF (0-5) 02/24/18 02:42 Urine WBC 6-10 /HPF (0-5) H 02/24/18 02:42 Ur Squamous Epith Cells MANY Squamous (<= Few) H 02/24/18 02:42 Urine Bacteria None Seen /HPF (None Seen) 02/24/18 02:42 Urine Mucus Marked Strands 02/24/18 02:42 Ur Microscopic Review INDICATED 02/24/18 02:42 Urine Culture Comments NOT INDICATED 02/24/18 02:42 Fluid Source PERITONEAL 02/19/18 18:10 Fluid Color YELLOW 02/19/18 18:10 Fluid Clarity CLEAR 02/19/18 18:10 Fluid WBC 48 /mm^3 02/19/18 18:10 Fluid RBC 114 /mm^3 02/19/18 18:10 Fluid Neutrophils % 12.0 % 02/19/18 18:10 Fluid Lymphocytes % 13.0 02/19/18 18:10 Fluid Monocytes % 8.0 % 02/19/18 18:10 Fluid Macrophages % 53.0 % 02/19/18 18:10 Fld Mesothelial Cell % 14.0 % 02/19/18 18:10 Urine Opiates Screen NEGATIVE (NEGATIVE) 02/18/18 20:25 Ur Oxycodone Screen NEGATIVE (NEGATIVE) 02/18/18 20:25 Urine Methadone Screen NEGATIVE (NEGATIVE) 02/18/18 20:25 Ur Propoxyphene Screen NEGATIVE (NEGATIVE) 02/18/18 20:25 Ur Barbiturates Screen NEGATIVE (NEGATIVE) 02/18/18 20:25 Ur Tricyclics Screen NEGATIVE (NEGATIVE) 02/18/18 20:25 Ur Phencyclidine Scrn NEGATIVE (NEGATIVE) 02/18/18 20:25 Ur Amphetamine Screen NEGATIVE (NEGATIVE) 02/18/18 20:25 U Methamphetamines Scrn NEGATIVE (NEGATIVE) 02/18/18 20:25 U Benzodiazepines Scrn NEGATIVE (NEGATIVE) 02/18/18 20:25 Urine Cocaine Screen NEGATIVE (NEGATIVE) 02/18/18 20:25 U Cannabinoids Screen NEGATIVE (NEGATIVE) 02/18/18 20:25 Blood Type O POSITIVE 02/20/18 11:05 Blood Type Recheck O POSITIVE 02/20/18 05:00 Antibody Screen NEGATIVE 02/20/18 11:05 - Procedures Procedures: Procedures DRAINAGE OF PERITONEAL CAVITY, PERCUTANEOUS APPROACH (01/08/18)
[2018-02-27] MEDS: SODIUM CHLORIDE FLUSH 0.9% 10 ML SYRINGE IVP SCH ×3 (00:47→16:27)
[2018-02-27] MEDS: FUROSEMIDE 40 MG TABLET PO SCH ×2 (06:02→13:21)
[2018-02-27] MEDS: LEVOTHYROXINE 112 MCG TABLET PO SCH (06:02)
[2018-02-27] MEDS: CHOLECALCIFEROL 1,000 UNIT TABLET PO SCH (08:28)
[2018-02-27] MEDS: rifAXIMin 550 MG TABLET PO SCH ×2 (08:28→21:29)
[2018-02-27] MEDS: cefTRIAXone 1 GM in SODIUM CHLORIDE 0.9% MINIBAG 100 ML IV SCH (08:28)
[2018-02-27] MEDS: MULTIVITAMIN W/MINERALS TABLET PO SCH (08:29)
[2018-02-27] MEDS: KETOROLAC 15 MG/ML VIAL IVP PRN (08:29)
[2018-02-27] MEDS: FAMOTIDINE 20 MG TABLET PO SCH (08:29)
[2018-02-27] MEDS: SPIRONOLACTONE 25 MG TABLET PO SCH ×2 (08:29→21:28)
[2018-02-27] MEDS: THIAMINE 100 MG TABLET PO SCH (08:29)
[2018-02-27] MEDS: CYANOCOBALAMIN 500 MCG TABLET PO SCH (08:29)
[2018-02-27] MEDS: FERROUS SULFATE 325 MG TABLET PO SCH (08:29)
[2018-02-27] MEDS: LACTULOSE 10 GM/15 ML BOTTLE PO SCH ×3 (08:30→16:27)
[2018-02-27] MEDS: POLYETHYLENE GLYCOL 3350 17 GM PACKET PO SCH (08:30)
[2018-02-27 09:30] LABS: ALBUMIN 2.5 g/dL (3.2-5.5); ALBUMIN/GLOBULIN RATIO 1.2 (1.0-2.2); BILIRUBIN,TOTAL 3.1 mg/dL (0.2-1.0); CALCIUM 7.5 mg/dL (8.5-10.3); CREATININE 0.5 mg/dL (0.4-1.0); TOTAL PROTEIN 4.6 g/dL (6.7-8.2)
[2018-02-27 09:54] LABS: BASOPHILS # (AUTO) 0.1 10^3/uL (0.0-0.1); BASOPHILS % (AUTO) 0.9 %; EOSINOPHILS # (AUTO) 0.2 10^3/uL (0.0-0.7); EOSINOPHILS % (AUTO) 2.3 %; HGB - HEMOGLOBIN 9.1 g/dL (12.0-16.0); LYMPHOCYTES # (AUTO) 1.4 10^3/uL (1.5-3.5); LYMPHOCYTES % (AUTO) 17.9 %; MEAN CORPUSCULAR HEMOGLOBIN 32.2 pg (27.0-31.0); MEAN CORPUSCULAR HGB CONC 33.5 g/dL (32.0-36.0); MEAN CORPUSCULAR VOLUME 96.1 fL (81.0-99.0); MEAN PLATELET VOLUME 7.5 fL (7.9-10.8); MONOCYTES # (AUTO) 0.7 10^3/uL (0.0-1.0); MONOCYTES % (AUTO) 8.8 %; NEUTROPHILS # (AUTO) 5.4 10^3/uL (1.5-6.6); NEUTROPHILS % (AUTO) 70.1 %; PLT - PLATELET COUNT 231 10^3/uL (130-450); RED BLOOD COUNT 2.84 10^6/uL (4.20-5.40); WHITE BLOOD COUNT 7.7 x10^3/uL (4.8-10.8)
[2018-02-27] MEDS ORDERED: SODIUM CHLORIDE 0.9% 500 ML IV ONE (17:25)
[2018-02-27] MEDS: POTASSIUM CHLOR 10 MEQ/100 ML 10 MEQ/100 ML BAG IV SCH ×3 (17:37→21:28)
--- NOTE | 2018-02-27 19:15 | PROVIDER PROGRESS NOTE ---
Assessment/Plan - Problem List (1) Alcoholic cirrhosis of liver with ascites Assessment/Plan: BP has stabilized, therefore continue Lasix and spironolactone for ascites. Continue vitamins and Thiamine. Monitor LFTs daily. No signs of asterixis or confusion to check an ammonia level. Continue tid Lactulose, which is giving her loose BMs. (2) Hypotension Assessment/Plan: Resolved. Will restart diuretics. Pt needs to increase activity for assessment for a safe DCh to home, hopefully soon. (3) Sepsis Assessment/Plan: Continue empiric iv antibiotics til change to po Bactrim for a 1 week course ( per [employer]). (4) Hypokalemia Assessment/Plan: Replace. Monitor electrolytes daily. - Current Meds Current Meds: Current Medications Generic Name Dose Route Start Last Admin Trade Name Freq PRN Reason Stop Dose Admin Albuterol 2.5 mg 02/18/18 18:23 02/21/18 21:39 INH 2.5 mg RTQ4H PRN Administration Shortness of Air/Wheezing Albuterol/Ipratropium 3 ml 02/19/18 14:00 02/24/18 21:07 Duoneb INH 3 ml RTQID PRN Administration Shortness of Air/Wheezing Benzocaine 1 sprays 02/25/18 14:30 02/25/18 14:52 Hurricaine MM 1 spr Q4HR PRN Administration Mouth Sore Pain Cholecalciferol 2,000 unit 02/19/18 09:00 02/27/18 08:28 Vitamin D3 PO 2,000 unit DAILY PERICO Administration Cyanocobalamin 500 mcg 02/19/18 09:00 02/27/18 08:29 Vitamin B-12 PO 500 mcg DAILY PERICO Administration Diphenhydramine HCl 25 mg 02/19/18 00:46 02/26/18 20:40 Benadryl PO 25 mg Q4HR PRN Administration Allergy Symptoms Famotidine 20 mg 02/19/18 09:00 02/27/18 08:29 Pepcid PO 20 mg DAILY PERICO Administration Ferrous Sulfate 325 mg 02/19/18 08:00 02/27/18 08:29 Feosol PO 325 mg DAILYWM PERICO Administration Furosemide 40 mg 02/25/18 08:00 02/27/18 13:21 Lasix PO 40 mg BIDDIURETIC PERICO Administration Ceftriaxone Sodium 1 gm/ 100 mls @ 200 mls/hr 02/22/18 22:00 02/27/18 09:39 Sodium Chloride IV Infused DAILY PERICO Infusion Potassium Chloride 10 meq in 100 mls @ 100 mls/hr 02/27/18 17:00 02/27/18 18: 59 Potassium Chloride IV 02/27/18 19:59 60 mls/hr Q1H PERICO Administration Lactulose 30 gm 02/22/18 12:00 02/27/18 16:27 Lactulose PO 30 gm TIDWM PERICO Administration Levothyroxine Sodium 112 mcg 02/19/18 07:00 02/27/18 06:02 Synthroid PO 112 mcg QDAC PERICO Administration Multivitamins/Minerals 1 tab 02/19/18 09:00 02/27/18 08:29 Theragran M PO 1 tab DAILY PERICO Administration Ondansetron HCl 4 mg 02/18/18 14:22 02/22/18 12:28 Zofran Inj IVP 4 mg Q6HR PRN Administration Nausea / Vomiting Polyethylene Glycol 17 gm 02/19/18 09:00 02/27/18 08:30 Miralax PO Not Given DAILY PERICO Rifaximin 550 mg 02/19/18 08:00 02/27/18 08:28 Xifaxan PO 550 mg BID PERICO Administration Sodium Chloride 10 ml 02/18/18 14:22 02/24/18 09:16 Normal Saline Flush 0.9% IVP 20 ml PRN PRN Administration NEEDED PER PROVIDER ORDERS Sodium Chloride 10 ml 02/18/18 17:00 02/27/18 16:27 Normal Saline Flush 0.9% IVP 10 ml 0100,0900,1700 PERIOC Administration Thiamine HCl 100 mg 02/20/18 13:00 02/27/18 08:29 Vitamin B-1 PO 100 mg DAILY PERICO Administration - Lab Result Fish Bone Diagrams: 02/27/18 09:30 02/28/18 07:12 - Additional Planning My Orders: My Active Orders 02/27/18 12:16 SCDs [RC] QSHIFT 02/27/18 17:00 Potassium Chlor 10 Meq/100 ml [Potassium Chloride] 10 meq in 100 ml IV Q1H 02/27/18 21:00 Spironolactone [Aldactone] 25 mg PO BID Subjective - Subjective Patient Reports: Fatigue, Other (Feels more bloated with worse leg edema) Objective Vital Signs: Vital Signs - 24 hr 02/26/18 02/26/18 02/27/18 20:10 20:16 00:15 Temperature 37.3 C 37.0 C Heart Rate 109 H Heart Rate [ 109 H 115 H Brachial] Respiratory 18 18 16 Rate Blood Pressure 85/45 L 86/45 L [Right Brachial artery] O2 Saturation 96 94 02/27/18 02/27/18 02/27/18 04:10 07:50 13:20 Temperature 36.9 C 36.9 C 36.5 C Heart Rate Heart Rate [ 103 H 109 H 108 H Brachial] Respiratory 16 24 22 Rate Blood Pressure 87/49 L 88/53 L 88/58 L [Right Brachial artery] O2 Saturation 95 96 97 02/27/18 15:43 Temperature 36.9 C Heart Rate Heart Rate [ 107 H Brachial] Respiratory 24 Rate Blood Pressure 79/44 L [Right Brachial artery] O2 Saturation 95 Oxygen O2 Source Room air I&O (Last 24 Hrs): Intake and Output Totals x24h 02/25/18 02/26/18 02/27/18 23:59 23:59 23:59 Intake Total 685 1418 740 Output Total 100 1550 750 Balance 585 -132 -10 General: Alert, Oriented x3 HEENT: Mucous membr. moist/pink Neck: Supple Neuro: Non Focal Cardiovascular: Regular rate, No murmurs Respiratory: No respiratory distress, Breath sounds nml Abdomen: Soft, Other (Distended, fluid wave present) Extremities: Other (1+ edema) - Results Results: Laboratory Results WBC 7.7 x10^3/uL (4.8-10.8) 02/27/18 09:30 RBC 2.84 10^6/uL (4.20-5.40) L 02/27/18 09:30 Hgb 9.1 g/dL (12.0-16.0) L 02/27/18 09:30 Hct 27.3 % (37.0-47.0) L 02/27/18 09:30 MCV 96.1 fL (81.0-99.0) 02/27/18 09:30 MCH 32.2 pg (27.0-31.0) H 02/27/18 09:30 MCHC 33.5 g/dL (32.0-36.0) 02/27/18 09:30 RDW 18.0 % (12.0-15.0) H 02/27/18 09:30 Plt Count 231 10^3/uL (130-450) 02/27/18 09:30 MPV 7.5 fL (7.9-10.8) L 02/27/18 09:30 Neut # (Auto) 5.4 10^3/uL (1.5-6.6) 02/27/18 09:30 Lymph # (Auto) 1.4 10^3/uL (1.5-3.5) L 02/27/18 09:30 [place] # (Auto) 0.7 10^3/uL (0.0-1.0) 02/27/18 09:30 Eos # (Auto) 0.2 10^3/uL (0.0-0.7) 02/27/18 09:30 Baso # (Auto) 0.1 10^3/uL (0.0-0.1) 02/27/18 09:30 Absolute Nucleated RBC 0.00 x10^3/uL 02/27/18 09:30 Nucleated RBC % 0.0 /100WBC 02/27/18 09:30 PT 20.3 secs (9.9-12.6) H 02/25/18 05:28 INR 1.8 (0.8-1.2) H 02/25/18 05:28 Whole Blood INR 1.6 (0.8-1.2) H 02/20/18 14:30 APTT 30.1 secs (24.9-33.3) 02/18/18 12:45 VBG pH 7.306 (7.31-7.41) L 02/25/18 05:28 Ionized Calcium 1.09 mmol/L (1.15-1.33) L 02/25/18 05:28 Sodium 132 mmol/L (135-145) L 02/27/18 09:10 Potassium 2.6 mmol/L (3.5-5.0) L 02/27/18 09:10 Chloride 102 mmol/L (101-111) 02/27/18 09:10 Carbon Dioxide 21 mmol/L (21-32) 02/27/18 09:10 Anion Gap 9.0 (6-13) 02/27/18 09:10 BUN 14 mg/dL (6-20) 02/27/18 09:10 Creatinine 0.5 mg/dL (0.4-1.0) 02/27/18 09:10 Estimated GFR (MDRD) 134 (>89) 02/27/18 09:10 Glucose 151 mg/dL (70-100) H 02/27/18 09:10 Lactic Acid 2.0 mmol/L (0.5-2.2) 02/23/18 05:00 Calcium 7.5 mg/dL (8.5-10.3) L 02/27/18 09:10 Ionized Calcium YES 02/25/18 05:28 Phosphorus 2.9 mg/dL (2.5-4.6) 02/23/18 05:00 Magnesium 1.8 mg/dL (1.7-2.8) 02/23/18 05:00 Iron 22 ug/dL (28-170) L 02/19/18 05:31 TIBC 164 ug/dL (250-450) L 02/19/18 05:31 % Saturation 13 % (20-50) L 02/19/18 05:31 Transferrin 117 mg/dL (192-382) L 02/19/18 05:31 Total Bilirubin 3.1 mg/dL (0.2-1.0) H 02/27/18 09:10 AST 109 IU/L (10-42) H 02/27/18 09:10 ALT 31 IU/L (10-60) 02/27/18 09:10 Alkaline Phosphatase 222 IU/L (42-121) H 02/27/18 09:10 Ammonia 22.6 umol/L (7-35) 02/25/18 05:28 Troponin I < 0.04 ng/mL (<0.49) 02/22/18 14:29 B-Natriuretic Peptide 25 pg/mL (5-100) 02/25/18 05:28 Total Protein 4.6 g/dL (6.7-8.2) L 02/27/18 09:10 Albumin 2.5 g/dL (3.2-5.5) L 02/27/18 09:10 Globulin 2.1 g/dL (2.1-4.2) 02/27/18 09:10 Albumin/Globulin Ratio 1.2 (1.0-2.2) 02/27/18 09:10 Lipase 49 U/L (22-51) 02/18/18 12:45 TSH 3.03 uIU/mL (0.34-5.60) 02/19/18 05:31 Urine Color ORANGE 02/24/18 02:42 Urine Clarity SL. CLOUDY (CLEAR) 02/24/18 02:42 Urine pH 5.5 PH (5.0-7.5) 02/24/18 02:42 Ur Specific [place] 1.025 (1.002-1.030) 02/24/18 02:42 Urine Protein TRACE mg/dL (NEGATIVE) 02/24/18 02:42 Urine Glucose (UA) NEGATIVE mg/dL (NEGATIVE) 02/24/18 02:42 Urine Ketones NEGATIVE mg/dL (NEGATIVE) 02/24/18 02:42 Urine Occult Blood TRACE-LYSE (NEGATIVE) 02/24/18 02:42 Urine Nitrite NEGATIVE (NEGATIVE) 02/24/18 02:42 Urine Bilirubin NEGATIVE (NEGATIVE) 02/24/18 02:42 Urine Urobilinogen 0.2 (NORMAL) E.U./dL (NORMAL) 02/24/18 02:42 Ur Leukocyte Esterase MODERATE (NEGATIVE) H 02/24/18 02:42 Urine RBC 0-5 /HPF (0-5) 02/24/18 02:42 Urine WBC 6-10 /HPF (0-5) H 02/24/18 02:42 Ur Squamous Epith Cells MANY Squamous (<= Few) H 02/24/18 02:42 Urine Bacteria None Seen /HPF (None Seen) 02/24/18 02:42 Urine Mucus Marked Strands 02/24/18 02:42 Ur Microscopic Review INDICATED 02/24/18 02:42 Urine Culture Comments NOT INDICATED 02/24/18 02:42 Fluid Source PERITONEAL 02/19/18 18:10 Fluid Color YELLOW 02/19/18 18:10 Fluid Clarity CLEAR 02/19/18 18:10 Fluid WBC 48 /mm^3 02/19/18 18:10 Fluid RBC 114 /mm^3 02/19/18 18:10 Fluid Neutrophils % 12.0 % 02/19/18 18:10 Fluid Lymphocytes % 13.0 02/19/18 18:10 Fluid Monocytes % 8.0 % 02/19/18 18:10 Fluid Macrophages % 53.0 % 02/19/18 18:10 Fld Mesothelial Cell % 14.0 % 02/19/18 18:10 Urine Opiates Screen NEGATIVE (NEGATIVE) 02/18/18 20:25 Ur Oxycodone Screen NEGATIVE (NEGATIVE) 02/18/18 20:25 Urine Methadone Screen NEGATIVE (NEGATIVE) 02/18/18 20:25 Ur Propoxyphene Screen NEGATIVE (NEGATIVE) 02/18/18 20:25 Ur Barbiturates Screen NEGATIVE (NEGATIVE) 02/18/18 20:25 Ur Tricyclics Screen NEGATIVE (NEGATIVE) 02/18/18 20:25 Ur Phencyclidine Scrn NEGATIVE (NEGATIVE) 02/18/18 20:25 Ur Amphetamine Screen NEGATIVE (NEGATIVE) 02/18/18 20:25 U Methamphetamines Scrn NEGATIVE (NEGATIVE) 02/18/18 20:25 U Benzodiazepines Scrn NEGATIVE (NEGATIVE) 02/18/18 20:25 Urine Cocaine Screen NEGATIVE (NEGATIVE) 02/18/18 20:25 U Cannabinoids Screen NEGATIVE (NEGATIVE) 02/18/18 20:25 Blood Type O POSITIVE 02/20/18 11:05 Blood Type Recheck O POSITIVE 02/20/18 05:00 Antibody Screen NEGATIVE 02/20/18 11:05 - Procedures Procedures: Procedures DRAINAGE OF PERITONEAL CAVITY, PERCUTANEOUS APPROACH (01/08/18)
[2018-02-27] MEDS: diphenhydrAMINE 25 MG CAPSULE PO PRN (21:28)
[2018-02-28] MEDS: SODIUM CHLORIDE FLUSH 0.9% 10 ML SYRINGE IVP SCH ×2 (03:43→08:25)
[2018-02-28] MEDS: FUROSEMIDE 40 MG TABLET PO SCH ×2 (06:48→15:30)
[2018-02-28] MEDS: LEVOTHYROXINE 112 MCG TABLET PO SCH (06:48)
[2018-02-28 07:46] VITALS: BP 95/58
[2018-02-28 07:47] LABS: CALCIUM 7.6 mg/dL (8.5-10.3); CREATININE 0.4 mg/dL (0.4-1.0)
[2018-02-28] MEDS: FERROUS SULFATE 325 MG TABLET PO SCH (08:17)
[2018-02-28] MEDS: CYANOCOBALAMIN 500 MCG TABLET PO SCH (08:17)
[2018-02-28] MEDS: SPIRONOLACTONE 25 MG TABLET PO SCH (08:17)
[2018-02-28] MEDS: MULTIVITAMIN W/MINERALS TABLET PO SCH (08:17)
[2018-02-28] MEDS: rifAXIMin 550 MG TABLET PO SCH (08:17)
[2018-02-28] MEDS: CHOLECALCIFEROL 1,000 UNIT TABLET PO SCH (08:17)
[2018-02-28] MEDS: THIAMINE 100 MG TABLET PO SCH (08:18)
[2018-02-28] MEDS: FAMOTIDINE 20 MG TABLET PO SCH (08:23)
[2018-02-28] MEDS: LACTULOSE 10 GM/15 ML BOTTLE PO SCH ×2 (08:23→13:06)
[2018-02-28] MEDS: cefTRIAXone 1 GM in SODIUM CHLORIDE 0.9% MINIBAG 100 ML IV SCH (08:24)
[2018-02-28] MEDS: POLYETHYLENE GLYCOL 3350 17 GM PACKET PO SCH (08:25)
[2018-02-28] MEDS ORDERED: POTASSIUM CHLORIDE 20 MEQ TABLET PO SCH (09:00)
[2018-02-28 09:14] LABS: ALBUMIN 2.5 g/dL (3.2-5.5); BILIRUBIN,DIRECT 1.3 mg/dL (0.1-0.5); BILIRUBIN,TOTAL 3.4 mg/dL (0.2-1.0); TOTAL PROTEIN 4.7 g/dL (6.7-8.2)
[2018-02-28] MEDS: diphenhydrAMINE 25 MG CAPSULE PO PRN (13:05)
--- NOTE | 2018-02-28 13:27 | Discharge Plan ---
Discharge Plan Disposition: Home, Self Care Condition: Poor Prescriptions: Albuterol Sulf [Ventolin Hfa Inhaler] 2 puffs INH Q6HR PRN #1 inhaler PRN Reason: Shortness Of Air/Wheezing Benzonatate 100 mg PO TID PRN #90 capsule PRN Reason: Cough Cyanocobalamin (Vitamin B-12) [Vitamin B-12 (100mcg tab)] 500 mcg PO DAILY #30 tablet Furosemide 40 mg PO DAILY #60 tablet Lactulose 30 gm PO TIDWM #3 bottle Levothyroxine Sodium 112 mcg PO QDAC #30 tablet Multivitamin W/Minerals [Theragran M] 1 tab PO DAILY #30 tablet Pantoprazole [Protonix] 40 mg PO QDAC #30 tablet Potassium Chloride 20 meq PO DAILY #30 tablet.er Spironolactone 50 mg PO BID #120 tablet Sulfamethox/Trimeth 800/160 [Bactrim Ds 800/160] 1 tab PO BID #14 Thiamine [Vitamin B-1] 100 mg PO DAILY #30 tablet Diet: Low Sodium Activity Restrictions: Activity as Tolerated Shower Restrictions: No Driving Restrictions: Yes Weight Bearing: Full Weight Instruction Topics: ED Ascites Additional Instructions or Follow Up instructions: Restart taking your pre-hospital medications. They have all been refilled, since you had said you ran out of them, and also new Thiamine vitamin also prescribed. An antibiotic prescription has been ordered for you to take for 1 week more. See your Liver Specialist and/or Primary Care Provider in the next 7-10 days for follow-up. Stay on your 1000 ml per day fluid restriction and a low salt diet. If you have new or worsening symptoms, come back to the ER. No Smoking: If you smoke, Please STOP! Call for help. Follow-up with: Raquel Garcia ARNP [Primary Care Provider] -
--- NOTE | 2018-03-04 12:06 | DISCHARGE SUMMARY ---
Physician: Francy Dotson MD DATE OF ADMISSION: 02/18/2018 DATE OF DISCHARGE: 02/28/2018 HISTORY OF PRESENT ILLNESS: This is a 42-year-old white female with a history of heavy alcohol abuse, liver cirrhosis with ascites, prior admissions requiring paracenteses. She presented now because "the pharmacy did not have her medications, and she had run out." She was found to have anasarca, pulmonary edema, elevated bilirubin of 4.3, ammonia level of 17.5, sodium 131, potassium 3.3. She was admitted for diuresis and management of the above problems. HOSPITAL COURSE/DISCHARGE DIAGNOSES 1. Alcoholic cirrhosis of the liver with ascites. This patient's MELD score = 20, which equates to a three-month mortality of 19.6%. The patient reported that she was compliant with medications including lactulose, specialist office visits, and was indeed thinking about a liver transplant. The patient was restarted on all her medications including diuretics, Lasix given IV. She also required a paracentesis when she developed discomfort from very tense ascites; 6 liters was removed. She had a weight loss of approximately 14 pounds while here. She was discharged to resume the same medications. 2. Hypotension. After the paracentesis, the following day, she had hypotension with systolic blood pressures of 70. This was felt to be from fluid shifts from her intravascular space to the peritoneum. On this day, however, she also spiked a fever and was obtunded. She required saline as well as IV albumin 150 mL x3 for resuscitation. At the time of discharge, her blood pressures appeared to normally run 88 to 95 systolic. 3. Severe sepsis. The patient was fully cultured but had no positive results. The source of the fever and severe sepsis was felt to be bacterial peritonitis. She was put on IV antibiotics using Ceftriaxone. Her lactate level was elevated at 3.1. This returned to normal on the following day at 2.0. The patient was discharged with Bactrim DS for a one-week additional course. 4. Non-compliance with medical management. The patient has had a history of this. The reason she had stopped all her medications currently was described as having run out and the pharmacy did not have the supply yet. She was instructed in the importance of taking her medications and being compliant. There had been episodes on prior admissions where she refused lactulose. If the patient is planning on being a liver transplant candidate, compliance with medical instructions will be very important. 5. Chronic obstructive pulmonary disease. The patient did not have an exacerbation during this admission. She has a history of COPD from heavy smoking. She just quit cigarette smoking two months previously. ALLERGIES 1. AMOXICILLIN. 2. AMPICILLIN. 3. OXYCODONE. DISCHARGE MEDICATIONS: 1. Ventolin inhaler 2 puffs q.6 hours p.r.n. wheezing. 2. Benzonatate 100 mg t.i.d. p.r.n. cough. 3. Vitamin B12 at 500 mcg daily. 4. Lasix 40 mg daily. 5. Lactulose 30 grams t.i.d. 6. Levothyroxine 112 mcg daily 7. Multivitamins with minerals 1 tablet daily. 8. Protonix 40 mg daily. 9. Potassium chloride 20 mEq daily. 10. Spironolactone 50 mg b.i.d. 11. Thiamine 100 mg daily. 12. Bactrim DS 1 tablet b.i.d. for 7 more days. LABORATORY DATA/IMAGING: Reviewed and summarized above. CONDITION AT DISCHARGE: Poor. VITALS: Blood pressure 95/58, heart rate 112 in sinus tachycardia, afebrile, room air saturation 94%. HEENT: Mild icterus of the skin, moist oral mucosa. NECK: Without JVD. CHEST: Clear, heart sounds normal. ABDOMEN: Distended but soft, not tense, decreased bowel sounds; the liver edge is palpable and enlarged. EXTREMITIES: Legs - no ankle edema. NEUROLOGIC: Intact. No asterixis, no abnormal eye movements. FOLLOWUP: The patient was advised to see her liver specialist as previously arranged for her, and her PCP, in the next seven to ten days. She was advised to stay on the 1000 mL per day fluid restriction and a low-salt diet as previously advised by her liver specialist. CODE STATUS: FULL CODE. TIME REQUIRED TO COMPLETE THIS ENTIRE DISCHARGE, CHART REVIEW, MEDICATION ORDERS , PATIENT EDUCATION, AND DICTATION: 60 minutes. cc: BENTLEY Gambino TD: 03/04/2018 08:09 BARBY
== END 2018-02-28 15:35 | disposition home or self-care (01) | DRG 432 ==
LOC: EDUNIT# → SUPCPDRO 12:22 → ED 12:22 → MS2 14:22
PROVIDERS: ADMIT Internal Medicine; ATTEND Internal Medicine
PROC: 0W9G3ZZ Drainage of Peritoneal Cavity, Percutaneous Approach (ICD-10-PCS; principal; 2018-02-20)
DX: K70.31 Alcoholic cirrhosis of liver with ascites (principal); A41.9 Sepsis, unspecified organism; K65.8 Other peritonitis; R65.20 Severe sepsis without septic shock; J81.0 Acute pulmonary edema; J44.1 Chronic obstructive pulmonary disease with (acute) exacerbation; E87.1 Hypo-osmolality and hyponatremia; E87.6 Hypokalemia; K72.90 Hepatic failure, unspecified without coma; I95.9 Hypotension, unspecified; F10.11 Alcohol abuse, in remission; E03.9 Hypothyroidism, unspecified; H54.7 Unspecified visual loss; Z79.51 Long term (current) use of inhaled steroids; Z79.899 Other long term (current) drug therapy; Z91.14 Patient's other noncompliance with medication regimen; Z87.891 Personal history of nicotine dependence; Z87.01 Personal history of pneumonia (recurrent)
CPT/HCPCS: 36415; 49083; 71045; 71275; 74177; 80048; 80053; 80076; 80306; 81001; 81003; 82140; 82330; 83540; 83605; 83690; 83735; 83880; 84100; 84443; 84466; 84484; 85025; 85610; 85730; 86850; 86900; 86901; 87040; 87086; 87640; 89051; 94640; 96374; 99284

== ENCOUNTER 2018-03-04 20:42 | Outpatient (CLI) | payer MEDICAID | END 2018-03-04 20:43 | disposition critical access hospital (66) | LOC: EMS 20:42 | PROVIDERS: ATTEND Surgery | DX: R06.00 Dyspnea, unspecified (principal); R18.8 Other ascites ==

== ENCOUNTER 2018-03-04 21:05 | Emergency (ER) | payer MEDICAID ==
--- NOTE | 2018-03-04 21:10 | ED Physician Documentation ---
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 HEENT: Myringotomy (tubes) - Social History Does the pt smoke?: No Smoking Status: Never smoker Does the pt drink ETOH?: Yes Does the pt have substance abuse?: No - Immunizations Immunizations are current?: Yes - POLST Patient has POLST: Yes POLST Status: Full Code - Present Medications Home Medications: Ambulatory Orders Medication Instructions Recorded Confirmed Lactulose 30 ml PO TID MDD hold 3rd dose if 02/07/18 02/18/18 >3 BMs Albuterol Sulf [Ventolin Hfa 2 puffs INH Q6HR PRN #1 inhaler 02/28/18 Inhaler] Benzonatate 100 mg PO TID PRN #90 capsule 02/28/18 Cyanocobalamin (Vitamin B-12) 500 mcg PO DAILY #30 tablet 02/28/18 [Vitamin B-12 (100mcg tab)] Furosemide 40 mg PO DAILY #60 tablet 02/28/18 Lactulose 30 gm PO TIDWM #3 bottle 02/28/18 Levothyroxine Sodium 112 mcg PO QDAC #30 tablet 02/28/18 Multivitamin W/Minerals [Theragran 1 tab PO DAILY #30 tablet 02/28/18 M] Pantoprazole [Protonix] 40 mg PO QDAC #30 tablet 02/28/18 Potassium Chloride 20 meq PO DAILY #30 tablet.er 02/28/18 Spironolactone 50 mg PO BID #120 tablet 02/28/18 Sulfamethox/Trimeth 800/160 1 tab PO BID #14 02/28/18 [Bactrim Ds 800/160] Thiamine [Vitamin B-1] 100 mg PO DAILY #30 tablet 02/28/18 diphenhydrAMINE [Benadryl] 25 mg PO Q4HR PRN capsule 02/28/18 - Allergies Allergies/Adverse Reactions: Allergies Allergy/AdvReac Type Severity Reaction Status Date / Time amoxicillin Allergy Unknown Verified 03/04/18 21:14 ampicillin Allergy Unknown Verified 03/04/18 21:14 oxycodone Allergy Rash Verified 03/04/18 21:14 - Vitals Vitals: Vital Signs - 24 hr 03/04/18 03/04/18 03/04/18 21:09 21:56 22:26 Temperature 37 C Heart Rate 114 H 109 H 114 H Respiratory 20 22 18 Rate Blood Pressure 90/57 L 95/60 90/57 L O2 Saturation 96 98 98 03/05/18 03/05/18 03/05/18 00:10 02:22 03:43 Temperature 37 C Heart Rate 119 H 117 H 115 H Respiratory 30 H 40 H 23 Rate Blood Pressure 106/63 102/60 101/52 L O2 Saturation 94 92 93 03/05/18 03/05/18 03/05/18 05:03 08:17 10:08 Temperature Heart Rate 120 H 106 H 114 H Respiratory 30 H 22 18 Rate Blood Pressure 94/47 L 107/70 95/57 L O2 Saturation 93 94 96 Oxygen O2 Source Room air - Labs Labs: Microbiology 03/05/18 09:25 Body Fluid Culture - Preliminary Peritoneal Fluid Laboratory Tests 03/04/18 03/04/18 03/04/18 22:10 22:10 22:10 WBC 12.3 H RBC 2.81 L Hgb 8.8 L Hct 27.0 L MCV 96.2 MCH 31.4 H MCHC 32.7 RDW 20.0 H Plt Count 319 MPV 7.3 L Neut # (Auto) 9.1 H Lymph # (Auto) 1.9 [place] # (Auto) 1.0 Eos # (Auto) 0.2 Baso # (Auto) 0.1 Absolute Nucleated RBC 0.02 Nucleated RBC % 0.2 Sodium 131 L Potassium 4.4 Chloride 102 Carbon Dioxide 22 Anion Gap 7.0 BUN 16 Creatinine 0.9 Estimated GFR (MDRD) 68 L Glucose 87 Calcium 7.8 L Total Bilirubin 2.7 H AST 101 H ALT 35 Alkaline Phosphatase 226 H Ammonia 19.8 B-Natriuretic Peptide Total Protein 5.0 L Albumin 2.6 L Globulin 2.4 Albumin/Globulin Ratio 1.1 Lipase 49 TSH Fluid Source Fluid Color Fluid Clarity Fluid WBC Fluid RBC Fluid Neutrophils % Fluid Lymphocytes % Fluid Monocytes % Fluid Eosinophils % Fluid Basophils % Fluid Macrophages % Fld Mesothelial Cell % Fluid Other Cells % 03/04/18 03/04/18 03/05/18 22:10 22:10 09:25 WBC RBC Hgb Hct MCV MCH MCHC RDW Plt Count MPV Neut # (Auto) Lymph # (Auto) [place] # (Auto) Eos # (Auto) Baso # (Auto) Absolute Nucleated RBC Nucleated RBC % Sodium Potassium Chloride Carbon Dioxide Anion Gap BUN Creatinine Estimated GFR (MDRD) Glucose Calcium Total Bilirubin AST ALT Alkaline Phosphatase Ammonia B-Natriuretic Peptide 62 Total Protein Albumin Globulin Albumin/Globulin Ratio Lipase TSH 5.73 H Fluid Source PERITONEAL Fluid Color STRAW Fluid Clarity CLEAR Fluid WBC 59 Fluid RBC 57 Fluid Neutrophils % 5 Fluid Lymphocytes % 28 Fluid Monocytes % 29 Fluid Eosinophils % 0 Fluid Basophils % 0 Fluid Macrophages % 29 Fld Mesothelial Cell % 4 Fluid Other Cells % 5 - Sepsis Event Vital Signs: Vital Signs - 24 hr 03/04/18 03/04/18 03/04/18 21:09 21:56 22:26 Temperature 37 C Heart Rate 114 H 109 H 114 H Respiratory 20 22 18 Rate Blood Pressure 90/57 L 95/60 90/57 L O2 Saturation 96 98 98 03/05/18 03/05/18 03/05/18 00:10 02:22 03:43 Temperature 37 C Heart Rate 119 H 117 H 115 H Respiratory 30 H 40 H 23 Rate Blood Pressure 106/63 102/60 101/52 L O2 Saturation 94 92 93 03/05/18 03/05/18 03/05/18 05:03 08:17 10:08 Temperature Heart Rate 120 H 106 H 114 H Respiratory 30 H 22 18 Rate Blood Pressure 94/47 L 107/70 95/57 L O2 Saturation 93 94 96 Oxygen O2 Source Room air
--- NOTE | 2018-03-04 22:07 | XRAY Report ---
Reason: dyspnea Procedure Date: 03/04/2018 Accession Number: [id number] / [id number] Procedure: XR - Chest 2 View X-Ray CPT Code: 71538 FULL RESULT: EXAM: CHEST RADIOGRAPHY. EXAM DATE: 03/04/2018 09:57 PM. CLINICAL HISTORY: Dyspnea. COMPARISON: Chest [address] 02/22/2018 12:29 AM. TECHNIQUE: 2 views. FINDINGS: Lungs/Pleura: Persistent small to moderate left pleural effusion with minimal interstitial edema, improved from prior. No gross pneumothorax. Mediastinum: Heart and mediastinal contours are unremarkable. Other: None. IMPRESSION: Persistent small to moderate left pleural effusion with minimal interstitial edema, improved from prior. RADIA
[2018-03-04 22:21] LABS: BASOPHILS # (AUTO) 0.1 10^3/uL (0.0-0.1); EOSINOPHILS # (AUTO) 0.2 10^3/uL (0.0-0.7); EOSINOPHILS % (AUTO) 1.6 %; HGB - HEMOGLOBIN 8.8 g/dL (12.0-16.0); LYMPHOCYTES # (AUTO) 1.9 10^3/uL (1.5-3.5); LYMPHOCYTES % (AUTO) 15.5 %; MEAN CORPUSCULAR HEMOGLOBIN 31.4 pg (27.0-31.0); MEAN CORPUSCULAR HGB CONC 32.7 g/dL (32.0-36.0); MEAN CORPUSCULAR VOLUME 96.2 fL (81.0-99.0); MEAN PLATELET VOLUME 7.3 fL (7.9-10.8); MONOCYTES % (AUTO) 8.1 %; NEUTROPHILS # (AUTO) 9.1 10^3/uL (1.5-6.6); NEUTROPHILS % (AUTO) 73.8 %; PLT - PLATELET COUNT 319 10^3/uL (130-450); RED BLOOD COUNT 2.81 10^6/uL (4.20-5.40); WHITE BLOOD COUNT 12.3 x10^3/uL (4.8-10.8)
[2018-03-04 22:38] LABS: ALBUMIN 2.6 g/dL (3.2-5.5); ALBUMIN/GLOBULIN RATIO 1.1 (1.0-2.2); BILIRUBIN,TOTAL 2.7 mg/dL (0.2-1.0); CALCIUM 7.8 mg/dL (8.5-10.3); CREATININE 0.9 mg/dL (0.4-1.0)
[2018-03-05] MEDS ORDERED: hydrOXYzine PAMOATE 25 MG CAPSULE PO STA (03:16)
[2018-03-05] MEDS ORDERED: ALBUMIN 25% 12.5 GM/50 ML VIAL IV STA (08:24)
[2018-03-05] MEDS ORDERED: LIDOCAINE 1%-EPI 1:100000 30 ML MDV ONE (09:07)
--- NOTE | 2018-03-05 09:35 | ED Physician Documentation ---
ED Addendum - Addendum Addendum: 03/05/18 09:33 Dr. Torres asked me to do a paracentesis in this young lady with a history of liver failure. The indication being ascites with shortness of breath and symptomatic. Written informed consent was obtained and we discussed risks including but not limited to bleeding, infection, or internal organ injury. Using ultrasound guidance the right lower quadrant was marked in an area that was felt to be suitable for paracentesis and then she was sterilely prepped and draped. 10 mL of lidocaine with epinephrine was used for anesthetic and using catheter over needle and Z track technique the peritoneal cavity was accessed and 3.2 L of very light colored clear fluid was returned with symptomatic relief. No immediate complications.
[2018-03-05 10:00] LABS: BF SOURCE PERITONEAL; CC,BF RBC 57 /mm^3
[2018-03-05 10:01] LABS: BF COLOR STRAW
[2018-03-05 10:51] LABS: BASOPHILS %,BODY FLUID 0 %; EOSINOPHILS %,BODY FLUID 0 %; LYMPHOCYTES %,BODY FLUID 28; MACROPHAGES %,BODY FLUID 29 %; MESOTHELIAL %, BF 4 %; MONOCYTES %,BODY FLUID 29 %
--- NOTE | 2018-03-05 11:14 | ED Physician Documentation ---
ED Addendum - Addendum Addendum: Few WBC on peritoneal fluids. Not significant for infection. She is feeling better with much less dyspnea. 03/05/18 11:13 Disposition: discharged home stable condition 03/07/18 07:14
[2018-03-05 11:35] VITALS: BP 99/54
--- NOTE | 2018-03-06 08:20 | ED Physician Documentation ---
PD HPI DYSPNEA - Stated complaint Stated Complaint: SOA - Chief complaint Chief Complaint: Resp - History obtained from History obtained from: Patient - History of Present Illness Timing - onset: How many days ago (3) Timing - duration: Days Timing - details: Gradual onset Pain level now: 4 Improved by: Rest Worsened by: Exertion Associated symptoms: Bilateral edema. No: Fever, Cough, Chest pain / discomfort Similar symptoms before: Diagnosis Recently seen: Admitted - Additional information Additional information: patient has alcoholic cirrhosis, admitted 02/18 to [facility] for complications of this disease, discharged 02/28/18. Treatment during inpatient stay included paracentesis. Presents tonight via ambulance with c/o gradually worsening dyspnea since Sunday (the day after she was discharged). c/o dizziness, generalized CELIS, "tingling in my arms and my legs". Review of Systems Constitutional: denies: Fever, Chills, Sweats Cardiac: reports: Reviewed and negative Respiratory: reports: Dyspnea. denies: Cough GI: reports: Abdominal Swelling. denies: Abdominal Pain (abdomen feels tense due to swelling, but no abdominal pain per se), Nausea, Vomiting, Constipation, Diarrhea : denies: Dysuria, Frequency Musculoskeletal: reports: Back pain Neurologic: reports: Generalized weakness, Headache. 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 HEENT: Myringotomy (tubes) - Present Medications Home Medications: Ambulatory Orders Medication Instructions Recorded Confirmed Lactulose 30 ml PO TID MDD hold 3rd dose if 02/07/18 02/18/18 >3 BMs Albuterol Sulf [Ventolin Hfa 2 puffs INH Q6HR PRN #1 inhaler 02/28/18 Inhaler] Benzonatate 100 mg PO TID PRN #90 capsule 02/28/18 Cyanocobalamin (Vitamin B-12) 500 mcg PO DAILY #30 tablet 02/28/18 [Vitamin B-12 (100mcg tab)] Furosemide 40 mg PO DAILY #60 tablet 02/28/18 Lactulose 30 gm PO TIDWM #3 bottle 02/28/18 Levothyroxine Sodium 112 mcg PO QDAC #30 tablet 02/28/18 Multivitamin W/Minerals [Theragran 1 tab PO DAILY #30 tablet 02/28/18 M] Pantoprazole [Protonix] 40 mg PO QDAC #30 tablet 02/28/18 Potassium Chloride 20 meq PO DAILY #30 tablet.er 02/28/18 Spironolactone 50 mg PO BID #120 tablet 02/28/18 Sulfamethox/Trimeth 800/160 1 tab PO BID #14 02/28/18 [Bactrim Ds 800/160] Thiamine [Vitamin B-1] 100 mg PO DAILY #30 tablet 02/28/18 diphenhydrAMINE [Benadryl] 25 mg PO Q4HR PRN capsule 02/28/18 - Allergies Allergies/Adverse Reactions: Allergies Allergy/AdvReac Type Severity Reaction Status Date / Time amoxicillin Allergy Unknown Verified 03/04/18 21:14 ampicillin Allergy Unknown Verified 03/04/18 21:14 oxycodone Allergy Rash Verified 03/04/18 21:14 - Social History Does the pt smoke?: No Smoking Status: Never smoker Does the pt drink ETOH?: No Does the pt have substance abuse?: No - Immunizations Immunizations are current?: Yes - POLST Patient has POLST: Yes POLST Status: Full Code PD ED PE NORMAL - Vitals Vital signs reviewed: Yes - General General: Alert and oriented X 3, No acute distress, Well developed/nourished - HEENT HEENT: Moist mucous membranes - Neck Neck: Supple, no meningeal sign - Cardiac Cardiac: No murmur - Respiratory Respiratory: No respiratory distress, Other (mild bibasilar rales) - Abdomen Abdomen: Soft, Non tender - Derm Derm: Warm and dry - Neuro Neuro: Alert and oriented X 3 Eye Opening: Spontaneous Motor: Obeys Commands Verbal: Oriented GCS Score: 15 PD ED PE EXPANDED - Cardiac Cardiac: Tachy, Regular Rhythm - Abdomen Abdomen: Distended - Extremities Extremities: Pedal edema bilateral Results - Vitals Vitals: Vital Signs - 24 hr 03/05/18 03/05/18 10:08 11:35 Temperature 36.2 C L Heart Rate 114 H 112 H Respiratory 18 20 Rate Blood Pressure 95/57 L 99/54 L O2 Saturation 96 96 Oxygen O2 Source Room air - Labs Labs: Microbiology 03/05/18 09:25 Body Fluid Culture - Preliminary Peritoneal Fluid Laboratory Tests 03/04/18 03/04/18 03/04/18 22:10 22:10 22:10 WBC 12.3 H RBC 2.81 L Hgb 8.8 L Hct 27.0 L MCV 96.2 MCH 31.4 H MCHC 32.7 RDW 20.0 H Plt Count 319 MPV 7.3 L Neut # (Auto) 9.1 H Lymph # (Auto) 1.9 [place] # (Auto) 1.0 Eos # (Auto) 0.2 Baso # (Auto) 0.1 Absolute Nucleated RBC 0.02 Nucleated RBC % 0.2 Sodium 131 L Potassium 4.4 Chloride 102 Carbon Dioxide 22 Anion Gap 7.0 BUN 16 Creatinine 0.9 Estimated GFR (MDRD) 68 L Glucose 87 Calcium 7.8 L Total Bilirubin 2.7 H AST 101 H ALT 35 Alkaline Phosphatase 226 H Ammonia 19.8 B-Natriuretic Peptide Total Protein 5.0 L Albumin 2.6 L Globulin 2.4 Albumin/Globulin Ratio 1.1 Lipase 49 TSH Fluid Source Fluid Color Fluid Clarity Fluid WBC Fluid RBC Fluid Neutrophils % Fluid Lymphocytes % Fluid Monocytes % Fluid Eosinophils % Fluid Basophils % Fluid Macrophages % Fld Mesothelial Cell % Fluid Other Cells % 03/04/18 03/04/18 03/05/18 22:10 22:10 09:25 WBC RBC Hgb Hct MCV MCH MCHC RDW Plt Count MPV Neut # (Auto) Lymph # (Auto) [place] # (Auto) Eos # (Auto) Baso # (Auto) Absolute Nucleated RBC Nucleated RBC % Sodium Potassium Chloride Carbon Dioxide Anion Gap BUN Creatinine Estimated GFR (MDRD) Glucose Calcium Total Bilirubin AST ALT Alkaline Phosphatase Ammonia B-Natriuretic Peptide 62 Total Protein Albumin Globulin Albumin/Globulin Ratio Lipase TSH 5.73 H Fluid Source PERITONEAL Fluid Color STRAW Fluid Clarity CLEAR Fluid WBC 59 Fluid RBC 57 Fluid Neutrophils % 5 Fluid Lymphocytes % 28 Fluid Monocytes % 29 Fluid Eosinophils % 0 Fluid Basophils % 0 Fluid Macrophages % 29 Fld Mesothelial Cell % 4 Fluid Other Cells % 5 - Rads (name of study) chest xray Radiology: Prelim report reviewed, See rad report PD MEDICAL DECISION MAKING - ED course Complexity details: reviewed old records, reviewed results, re-evaluated patient , considered differential, d/w patient ED course: findings on cxr are improved from previous study. BNP and ammonia levels are within normal limits. Anemia is comparable to recent labs. Normal bun/ creatinine. Both TSH and WBC are insignificantly elevated. Pulse ox is predominantly lower 90s on room air, often to mid-90s. She has a few, brief drops to upper 80's pulse ox when asleep. Her c/o dyspnea is likely a result of compression on diaphragm due to abdominal distention (which is due to ascites). D/W Dr. Harding to consider admission for US-guided paracentesis in the AM. He is familiar with this patient and does not feel she would benefit from, or require , admission to hospital. He evaluated patient in ED and discussed this with patient. Plan is to hold in ED and arrange for IR paracentesis. While working on arrangements for this, Dr. Garcia graciously offered to perform the paracentesis. Please see his procedure note. As Dr. Garcia was preparing for the procedure, I was contacted by Dr. Phillips ( interventional radiology; she has performed paracentesis on this patient 02/20 ( patient's recent [facility] inpatient stay)). She says patient can be put on schedule for paracentesis tomorrow. As Dr. Garcia was going to perform the procedure, I thanked her for working on scheduling this patient with such short notice, but explained this won't be necessary. Dr. Garcia removed over 3 liters of fluid with improvement in her symptoms and she was subsequently discharged home. - Sepsis Event Vital Signs: Vital Signs - 24 hr 03/05/18 03/05/18 10:08 11:35 Temperature 36.2 C L Heart Rate 114 H 112 H Respiratory 18 20 Rate Blood Pressure 95/57 L 99/54 L O2 Saturation 96 96 Oxygen O2 Source Room air Departure - Departure Disposition: 01 Home, Self Care Clinical Impression: Alcoholic cirrhosis of liver with ascites Liver failure Qualifiers: Liver failure chronicity: chronic Hepatic coma status: without hepatic coma Qualified Code(s): K72.10 - Chronic hepatic failure without coma Dyspnea Qualifiers: Dyspnea type: shortness of breath Qualified Code(s): R06.02 - Shortness of breath Condition: Stable Comments: Usual medications. Follow up with PCP/Palliative care providers. Discharge Date/Time: 03/05/18 12:20
== END 2018-03-05 12:20 | disposition home or self-care (01) ==
LOC: EDUNIT# → ED 21:05
DX: K70.31 Alcoholic cirrhosis of liver with ascites (principal); K72.10 Chronic hepatic failure without coma; K75.9 Inflammatory liver disease, unspecified; E03.9 Hypothyroidism, unspecified
CPT/HCPCS: 36415; 49083; 71046; 80053; 82140; 83690; 83880; 84443; 85025; 87070; 87205; 89051; 96365; 99284; A9270; P9047

== ENCOUNTER 2018-03-06 17:55 | Outpatient (CLI) | payer MEDICAID ==
--- NOTE | 2018-03-06 22:00 | CONSULTATION NOTE ---
Palliative Care Follow Up - Referral Referring Provider: BENTLEY Gambino Time of Visit: 03/06/2018. 12:45 -13:15 Referral setting: Home (Patient is seen in home setting due to taxing and considerable effort to leave the home setting due to debility secondary to end- stage liver disease, and the patient has no transportation.) Referral Reason: Post-hospitalization/ED follow up - Information Sources Records reviewed: Previous records reviewed History/Review of Systems obtained from: Patient Exam limitations: No limitations - History of Present Illness Update Brief HPI Update: 42 year old female with multiple significant comorbidities, including liver failure and rrdyn-ms-nliroey COPD exacerbation. Since December 05 she has had numerous ER visits and hospital stays for liver failure, hepatic encephalopathy , COPD exacerbations, pneumonia, electrolyte imbalances. She reports not drinking alcohol or smoking since December 05, 2017. -Medical history: alcoholic cirrhosis, alcoholic hepatitis, ascites, COPD, hypothyroidism, LE edema, open sores on R foot, hypokalemia, recent h/o pneumonia, obesity s/p gastric bypass surgery -She was hospitalized 02/18-02/28 for alcoholic cirrhosis of the liver with ascites, hypotension, severe sepsis felt to be bacterial peritonitis, and non- compliance with medication. -Paracentiesis on 02/20 removed 6 liters of fluid, with a 14 lb weight loss during hospitalization. -She was discharged on diuretics, lactulose, Bactrim. -She returned to the ER on 03/04 with dyspnea due to abdominal distention from ascites, dizziness, headache and tingling in arms and legs. -She had another paracentesis which removed over 3 liters of fluid, and she was discharged home 03/05. -Today at home she reports fatigue and is in bed. She also reports taking her medications as directed, and is "on the toilet a lot" due to diuretics and lactulose. -She reports taking 40mg furosemide twice daily, as instructed verbally, apparently, by Dr Harding who had a discussion with patient in the ED. However, discharge scripts show 40mg daily. -Home Health Nursing and Building And Grounds Supervisor will come tomorrow. Medications/Allergies - Medications Home Medications: Ambulatory Orders Medication Instructions Recorded Confirmed Lactulose 30 ml PO TID MDD hold 3rd dose if 02/07/18 03/06/18 >3 BMs Albuterol Sulf [Ventolin Hfa 2 puffs INH Q6HR PRN #1 inhaler 02/28/18 03/06/18 Inhaler] Benzonatate 100 mg PO TID PRN #90 capsule 02/28/18 03/06/18 Cyanocobalamin (Vitamin B-12) 500 mcg PO DAILY #30 tablet 02/28/18 03/06/18 [Vitamin B-12 (100mcg tab)] Furosemide 40 mg PO DAILY #60 tablet 02/28/18 03/06/18 Levothyroxine Sodium 112 mcg PO QDAC #30 tablet 02/28/18 03/06/18 Multivitamin W/Minerals [Theragran 1 tab PO DAILY #30 tablet 02/28/18 03/06/18 M] Pantoprazole [Protonix] 40 mg PO QDAC #30 tablet 02/28/18 03/06/18 Potassium Chloride 20 meq PO DAILY #30 tablet.er 02/28/18 03/06/18 Spironolactone 50 mg PO BID #120 tablet 02/28/18 03/06/18 Sulfamethox/Trimeth 800/160 1 tab PO BID #14 MDD for 7 more 02/28/18 03/06/18 [Bactrim Ds 800/160] days Thiamine [Vitamin B-1] 100 mg PO DAILY #30 tablet 02/28/18 03/06/18 diphenhydrAMINE [Benadryl] 25 mg PO Q4HR PRN capsule 02/28/18 - Allergies Allergies/Adverse Reactions: Allergies Allergy/AdvReac Type Severity Reaction Status Date / Time amoxicillin Allergy Unknown Verified 03/04/18 21:14 ampicillin Allergy Unknown Verified 03/04/18 21:14 oxycodone Allergy Rash Verified 03/04/18 21:14 Review of Systems - Constitutional Constitutional: reports: Fatigue, Weakness, Weight loss (Due to paracentesis) - Cardiovascular Cardiovascular: reports: Edema, Decr. exercise tolerance - Respiratory Respiratory: denies: SOB at rest - Gastrointestinal Gastrointestinal: reports: Abdominal distention, Change in bowel habits (loose stools secondary to lactulose) - Genitourinary Genitourinary: reports: Frequency - Musculoskeletal Musculoskeletal: reports: Stiffness - Neurological Neurological: reports: General weakness Physical Exam - Vital Signs Temperature: 96.7 F Pulse Rate: 116 O2 Saturation: 96 (room air) Blood Pressure: 87/50 - Physical Exam General Appearance: positive: No acute distress Eyes Bilateral: positive: EOMI, No lid inflammation Cardiovascular: positive: Tachycardia Respiratory: positive: No respiratory distress, Diminished in bases Abdomen: positive: Distended Skin: positive: Bruising Extremities: positive: Pedal edema Neurologic/Psychiatric: positive: Oriented x3, Flat affect Palliative Care - POLST Patient has POLST: Yes POLST Status: Full Code Performance Status: Ambulatory, weak and fatigued. No encephalopathy. - Palliative Care Discussion: When asked if patient has spoken to her family about her illness, she replied "No, we don't talk about things like that." She hasn't spoken to her children - - it wouldn't do any good. With our discussion of what may happen if her health doesn't go as we are hoping, it is not clear she understands the gravity of the disease. She says I am the only one who talks about with her, but she also speaks about reaching the three-month magan in 3 days (03/09) of the life- expectancy someone had spoken to her about on December 07, her original hospitalization date. Her MELD score is 20, equating to a 3-month mortality of 19.6%. What the patient confirms today is that she is not considering Hospice, and she is willing to continue to go to the hospital as needed. 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 She has been unemployed for months now and has very limited income. Home Health nursing and social and human services assistant will be visiting her tomorrow and can update her. The PHILLIP application has been handed off to the appropriate people. A new hand railing has been added to her front doorstep so she can more easily leave the house. When I have asked her about who takes care of the children when she is in the hospital, she has been vague, but does say it is her mother Pat. She has already seen kennel aide Dr Olson, and is scheduled to see him on 03/19/18. I contacted his office and he left me a message saying he is quite against having a standing paracentesis order due to the risk of kidney function decline, and also mortality. He would be happy to see her KEMAR, and states that Dr Antonio comes to [place] monthly and they also have an [place] visit schedule. Dr Antonio has a very long waiting list. The hospitalist recommends patient needs closer out-patient medication management, with regular labs. I will speak with the PCP office tomorrow, and also follow up again with Dr Olson's office. Transportation and getting to medical appointments continues to be a barrier with the patient. Impression and Recommendations - Palliative Care Impression: 42 year old female with multiple significant comorbidities, including liver failure and coigo-br-xebpegn COPD exacerbation. Has had multiple ER visits and hospitalizations since November, most recently discharged on 02/28 from hospital, with a trip to ED on 03/05. She is now back home. Hospitalist recommends increased outpatient medical management to try to keep her out of the ED. Her social situation remains complex and vulnerable, [place] difficulty getting transport. Palliative care will coordinate with PCP and Dr Olson's office. Patient has Home Health nursing for medication management, lab draws when needed, teaching and psychosocial support from / [facility] social and human services assistant. Recommendations/Counseling Done: Liver failure, alcoholic cirrhosis: Patient discharged on spironolactone, furosemide, potassium, lactulose, and bactrim for severe sepsis felt to be bacterial peritonitis. Patient has a history of non-compliance, has received education in hospital, with palliative care and home health nursing regarding necessity of compliance, she reports she is taking the medications. nursing is coming tomorrow. The hospitalist recommends closer out-patient medication management, with regular labs, and advises seeing her liver specialist and/or PCP in the next 7- 10 days. She has an appointment with Dr Olson 03/19. COPD: Reports no SOA currently. Now has nebulizer and medications and Venotlin inhaler, is using as needed. RN provided training on usage and equipment maintenance. Advance care planning: -POLST remains full code, patient has not been receptive to discussions about comfort care or Hospice. She reports having been told early on about a 3-month life expectancy and she is very aware of that date, which is 03/09/18. Palliative care will coordinate with the PCP office and Dr Olson's office as needed. Transportation and getting to medical appointments continues to be a barrier with the patient. [place] and says she has limited/no social support from friends or family, and she is unable to drive. Home Health nursing and social work are coming tomorrow. SW is facilitating SSI and PHILLIP applications. Follow up as needed. Time Spent: 30 minutes spent with more than 50% of the time spent on counseling, education, anticipatory guidance, and coordination of care.
== END 2018-03-06 17:56 | disposition home or self-care (01) ==
LOC: PC 17:55
PROVIDERS: ATTEND Nurse Practitioner
DX: Z51.5 Encounter for palliative care (principal); K70.11 Alcoholic hepatitis with ascites; K70.40 Alcoholic hepatic failure without coma; K70.31 Alcoholic cirrhosis of liver with ascites; J44.1 Chronic obstructive pulmonary disease with (acute) exacerbation; E03.9 Hypothyroidism, unspecified; Z79.51 Long term (current) use of inhaled steroids; Z87.01 Personal history of pneumonia (recurrent); Z98.84 Bariatric surgery status
CPT/HCPCS: 99348

== ENCOUNTER 2018-03-27 14:40 | Outpatient (CLI) | payer MEDICAID ==
[2018-03-27 15:18] LABS: BASOPHILS # (AUTO) 0.1 10^3/uL (0.0-0.1); EOSINOPHILS # (AUTO) 0.1 10^3/uL (0.0-0.7); EOSINOPHILS % (AUTO) 1.7 %; HGB - HEMOGLOBIN 8.1 g/dL (12.0-16.0); LYMPHOCYTES # (AUTO) 1.5 10^3/uL (1.5-3.5); LYMPHOCYTES % (AUTO) 22.3 %; MEAN CORPUSCULAR HGB CONC 33.8 g/dL (32.0-36.0); MEAN CORPUSCULAR VOLUME 88.7 fL (81.0-99.0); MEAN PLATELET VOLUME 6.9 fL (7.9-10.8); MONOCYTES # (AUTO) 0.7 10^3/uL (0.0-1.0); MONOCYTES % (AUTO) 10.3 %; NEUTROPHILS # (AUTO) 4.4 10^3/uL (1.5-6.6); NEUTROPHILS % (AUTO) 64.7 %; PLT - PLATELET COUNT 323 10^3/uL (130-450); RED BLOOD COUNT 2.69 10^6/uL (4.20-5.40); RED CELL DISTRIBUTION WIDTH 18.1 % (12.0-15.0); WHITE BLOOD COUNT 6.8 x10^3/uL (4.8-10.8)
[2018-03-27 15:31] LABS: ALBUMIN 2.4 g/dL (3.2-5.5); ALBUMIN/GLOBULIN RATIO 0.8 (1.0-2.2); BILIRUBIN,TOTAL 1.5 mg/dL (0.2-1.0); CALCIUM 8.2 mg/dL (8.5-10.3); CREATININE 0.5 mg/dL (0.4-1.0); TOTAL PROTEIN 5.6 g/dL (6.7-8.2)
== END 2018-03-27 14:41 | disposition home or self-care (01) ==
LOC: LAB.R 14:40
PROVIDERS: ATTEND Family Medicine
DX: K70.31 Alcoholic cirrhosis of liver with ascites (principal)
CPT/HCPCS: 80053; 82140; 85025

== ENCOUNTER 2018-05-11 01:12 | Outpatient (CLI) | payer MEDICAID | END 2018-05-11 01:13 | disposition critical access hospital (66) | LOC: EMS 01:12 | PROVIDERS: ATTEND Surgery | DX: R06.00 Dyspnea, unspecified (principal); R10.9 Unspecified abdominal pain; R14.0 Abdominal distension (gaseous) | CPT/HCPCS: A0425; A0429; A0999 ==

== ENCOUNTER 2018-05-11 01:35 | Inpatient (IN) | payer MEDICAID ==
[2018-05-11 02:59] LABS: BASOPHILS # (AUTO) 0.1 10^3/uL (0.0-0.1); BASOPHILS % (AUTO) 0.8 %; EOSINOPHILS # (AUTO) 0.1 10^3/uL (0.0-0.7); EOSINOPHILS % (AUTO) 1.8 %; HGB - HEMOGLOBIN 8.2 g/dL (12.0-16.0); LYMPHOCYTES # (AUTO) 1.7 10^3/uL (1.5-3.5); LYMPHOCYTES % (AUTO) 21.3 %; MEAN CORPUSCULAR HEMOGLOBIN 25.2 pg (27.0-31.0); MEAN CORPUSCULAR VOLUME 76.6 fL (81.0-99.0); MEAN PLATELET VOLUME 7.2 fL (7.9-10.8); MONOCYTES # (AUTO) 0.8 10^3/uL (0.0-1.0); MONOCYTES % (AUTO) 9.9 %; NEUTROPHILS # (AUTO) 5.3 10^3/uL (1.5-6.6); NEUTROPHILS % (AUTO) 66.2 %; PLT - PLATELET COUNT 343 10^3/uL (130-450); RED BLOOD COUNT 3.24 10^6/uL (4.20-5.40); RED CELL DISTRIBUTION WIDTH 19.7 % (12.0-15.0); WHITE BLOOD COUNT 8.1 x10^3/uL (4.8-10.8)
[2018-05-11 03:07] LABS: ALBUMIN 2.5 g/dL (3.2-5.5); ALBUMIN/GLOBULIN RATIO 0.7 (1.0-2.2); CALCIUM 7.9 mg/dL (8.5-10.3); CREATININE 0.6 mg/dL (0.4-1.0); TOTAL PROTEIN 5.9 g/dL (6.7-8.2)
[2018-05-11 03:08] LABS: INR 1.5 (0.8-1.2); PT - PROTHROMBIN TIME 17.2 secs (9.9-12.6)
--- NOTE | 2018-05-11 03:32 | ED Physician Documentation ---
History of Present Illness - Stated complaint Stated Complaint: SOA - Chief complaint Chief Complaint: Abd Pain - History obtained from History obtained from: Patient - History of Present Illness Timing: How many weeks ago (3) - Additonal information Additional information: 42-year-old female with history of cirrhosis of liver has history of ascites and she was unable to get her spironolactone last month for about 2 weeks. She reaccumulated some ascites and she is continued to accumulate the ascites and now she has tense ascites to the point where she is short of breath. She has had this happen to her number times previously and she has had a number of paracenteses done. Her last paracentesis done here was on 03-04-18 at which time 3 liters were drained and she went home from the ED. She had 6 liters drained about a week before that and needed a short hospitalization and did demonstrate hypotension with fluid shifts. Review of Systems Constitutional: denies: Fever Eyes: denies: Decreased vision Ears: denies: Ear pain Nose: denies: Rhinorrhea / runny nose, Congestion Throat: denies: Sore throat Cardiac: reports: Pedal edema. denies: Chest pain / pressure, Palpitations Respiratory: reports: Dyspnea, Cough GI: reports: Abdominal Pain, Abdominal Swelling, Nausea. denies: Vomiting : denies: Dysuria, Frequency Skin: denies: Rash Musculoskeletal: denies: Neck pain, Back pain, Extremity pain Neurologic: reports: Generalized weakness. denies: Focal weakness, Numbness PD PAST MEDICAL HISTORY - Past Medical History Respiratory: COPD, Pneumonia, Shortness of breath Neuro: None Endocrine/Autoimmune: HyPOthyroidism GI: Hepatitis, Cirrhosis : None HEENT: Chronic vision loss Psych: None Musculoskeletal: None - Past Surgical History Past Surgical History: Yes General: Gastric surgery Ortho: Arthroscopic surgery /YARD COUPLER: section HEENT: Myringotomy (tubes) - Present Medications Home Medications: Ambulatory Orders Medication Instructions Recorded Confirmed RX: Lactulose 30 ml PO TID MDD hold 3rd dose if 02/07/18 03/06/18 >3 BMs RX: Albuterol Sulf [Ventolin Hfa 2 puffs INH Q6HR PRN #1 inhaler 02/28/18 03/06/18 Inhaler] RX: Benzonatate 100 mg PO TID PRN #90 capsule 02/28/18 03/06/18 RX: Cyanocobalamin (Vitamin B-12) 500 mcg PO DAILY #30 tablet 02/28/18 03/06/18 [Vitamin B-12 (100mcg tab)] RX: Furosemide 40 mg PO DAILY #60 tablet 02/28/18 03/06/18 RX: Levothyroxine Sodium 112 mcg PO QDAC #30 tablet 02/28/18 03/06/18 RX: Multivitamin W/Minerals 1 tab PO DAILY #30 tablet 02/28/18 03/06/18 [Theragran M] RX: Pantoprazole [Protonix] 40 mg PO QDAC #30 tablet 02/28/18 03/06/18 RX: Potassium Chloride 20 meq PO DAILY #30 tablet.er 02/28/18 03/06/18 RX: Spironolactone 50 mg PO BID #120 tablet 02/28/18 03/06/18 RX: Thiamine [Vitamin B-1] 100 mg PO DAILY #30 tablet 02/28/18 03/06/18 RX: diphenhydrAMINE [Benadryl] 25 mg PO Q4HR PRN capsule 02/28/18 Sulfamethox/Trimeth 800/160 1 tab PO BID #14 MDD for 7 more 02/28/18 03/06/18 [Bactrim Ds 800/160] days - Allergies Allergies/Adverse Reactions: Allergies Allergy/AdvReac Type Severity Reaction Status Date / Time amoxicillin Allergy Unknown Verified 03/04/18 21:14 ampicillin Allergy Unknown Verified 03/04/18 21:14 oxycodone Allergy Rash Verified 03/04/18 21:14 - Social History Does the pt smoke?: No Smoking Status: Never smoker Does the pt drink ETOH?: No Does the pt have substance abuse?: No - Immunizations Immunizations are current?: Yes - POLST Patient has POLST: Yes POLST Status: Full Code PD ED PE NORMAL - Vitals Vital signs reviewed: Yes (febrile low grade /tachy ) - General General: Alert and oriented X 3, Well developed/nourished, Other (42 y/o female with massive tense ascites who appears uncomfortable with grunting respirations, solutions architect consultant tone and flat affect. ) - HEENT HEENT: Atraumatic, PERRL, EOMI - Neck Neck: Supple, no meningeal sign, No bony TTP - Cardiac Cardiac: No murmur, Other (tachy to 110) - Respiratory Respiratory: Clear bilaterally, Other (short shallow breaths ) - Abdomen Abdomen: Other (tense distended measured at 50 inches girth generally tender) - Back Back: No CVA TTP, No spinal TTP - Derm Derm: Normal color, Warm and dry, No rash - Extremities Extremities: No deformity, Other (trace edema bilaterally worse on the right ) - Neuro Neuro: Alert and oriented X 3, associate curator 2-12 intact, No motor deficit, No sensory deficit, Normal speech Eye Opening: Spontaneous Motor: Obeys Commands Verbal: Oriented GCS Score: 15 - Psych Psych: Other (mood is miserable and the affect is flat. ) Results - Vitals Vitals: Vital Signs - 24 hr 05/11/18 05/11/18 05/11/18 01:47 04:16 04:33 Temperature 37.7 C H Heart Rate 119 H 115 H 115 H Respiratory 20 20 20 Rate Blood Pressure 100/69 94/57 L 101/68 O2 Saturation 98 98 99 05/11/18 05/11/18 05/11/18 05:04 05:30 05:45 Temperature Heart Rate 120 H 110 H 120 H Respiratory 16 16 14 Rate Blood Pressure 103/88 H 98/67 80/67 L O2 Saturation 100 100 100 05/11/18 05/11/18 05/11/18 05:48 05:55 06:05 Temperature Heart Rate 112 H 110 H 108 H Respiratory 16 20 14 Rate Blood Pressure 99/59 L 104/58 L 93/59 L O2 Saturation 100 100 100 05/11/18 05/11/18 06:10 06:20 Temperature Heart Rate 110 H 110 H Respiratory 16 15 Rate Blood Pressure 91/61 93/51 L O2 Saturation 100 100 Oxygen O2 Source Room air - Labs Labs: Laboratory Tests 05/11/18 05/11/18 05/11/18 02:35 02:35 02:35 WBC 8.1 RBC 3.24 L Hgb 8.2 L Hct 24.8 L MCV 76.6 L MCH 25.2 L MCHC 33.0 RDW 19.7 H Plt Count 343 MPV 7.2 L Neut # (Auto) 5.3 Lymph # (Auto) 1.7 [place] # (Auto) 0.8 Eos # (Auto) 0.1 Baso # (Auto) 0.1 Absolute Nucleated RBC 0.00 Nucleated RBC % 0.0 PT 17.2 H INR 1.5 H Sodium 132 L Potassium 3.2 L Chloride 99 L Carbon Dioxide 25 Anion Gap 8.0 BUN 14 Creatinine 0.6 Estimated GFR (MDRD) 109 Glucose 105 H Calcium 7.9 L Total Bilirubin 1.0 AST 31 ALT 13 Alkaline Phosphatase 127 H Ammonia Troponin I Total Protein 5.9 L Albumin 2.5 L Globulin 3.4 Albumin/Globulin Ratio 0.7 L Lipase 58 H Urine Color Urine Clarity Urine pH Ur Specific [place] Urine Protein Urine Glucose (UA) Urine Ketones Urine Occult Blood Urine Nitrite Urine Bilirubin Urine Urobilinogen Ur Leukocyte Esterase Urine RBC Urine WBC Ur Squamous Epith Cells Urine Crystals Urine Bacteria Urine Mucus Ur Microscopic Review Urine Culture Comments Fluid Color Fluid Clarity Fluid WBC Fluid RBC 05/11/18 05/11/18 05/11/18 02:35 03:20 04:55 WBC RBC Hgb Hct MCV MCH MCHC RDW Plt Count MPV Neut # (Auto) Lymph # (Auto) [place] # (Auto) Eos # (Auto) Baso # (Auto) Absolute Nucleated RBC Nucleated RBC % PT INR Sodium Potassium Chloride Carbon Dioxide Anion Gap BUN Creatinine Estimated GFR (MDRD) Glucose Calcium Total Bilirubin AST ALT Alkaline Phosphatase Ammonia 41.2 H Troponin I < 0.04 Total Protein Albumin Globulin Albumin/Globulin Ratio Lipase Urine Color YELLOW Urine Clarity CLEAR Urine pH 6.0 Ur Specific [place] >=1.030 H Urine Protein NEGATIVE Urine Glucose (UA) NEGATIVE Urine Ketones NEGATIVE Urine Occult Blood MODERATE H Urine Nitrite NEGATIVE Urine Bilirubin NEGATIVE Urine Urobilinogen 1 (NORMAL) Ur Leukocyte Esterase NEGATIVE Urine RBC 0-5 Urine WBC 0-3 Ur Squamous Epith Cells MOD Squamous H Urine Crystals 3-5 Calcium Oxalate Urine Bacteria Moderate H Urine Mucus Moderate Strands Ur Microscopic Review INDICATED Urine Culture Comments NOT INDICATED Fluid Color Fluid Clarity Fluid WBC Fluid RBC 05/11/18 05:35 WBC RBC Hgb Hct MCV MCH MCHC RDW Plt Count MPV Neut # (Auto) Lymph # (Auto) [place] # (Auto) Eos # (Auto) Baso # (Auto) Absolute Nucleated RBC Nucleated RBC % PT INR Sodium Potassium Chloride Carbon Dioxide Anion Gap BUN Creatinine Estimated GFR (MDRD) Glucose Calcium Total Bilirubin AST ALT Alkaline Phosphatase Ammonia Troponin I Total Protein Albumin Globulin Albumin/Globulin Ratio Lipase Urine Color Urine Clarity Urine pH Ur Specific [place] Urine Protein Urine Glucose (UA) Urine Ketones Urine Occult Blood Urine Nitrite Urine Bilirubin Urine Urobilinogen Ur Leukocyte Esterase Urine RBC Urine WBC Ur Squamous Epith Cells Urine Crystals Urine Bacteria Urine Mucus Ur Microscopic Review Urine Culture Comments Fluid Color STRAW Fluid Clarity CLEAR Fluid WBC 98 Fluid RBC 168 Procedures - Paracentesis Preparation: Consent obtained, Ultrasound guidance, Sterile prep and drape, Local anesthesia Location: RLQ Technique: Z-tract, Catheter over needle Fluid: Clear, Sent for cell count, Sent for gram stain, Sent for culture, Volume - enter cc (11 liters) Aftercare: No complications, Patient tolerated well, Dressing applied, Bleeding - comment (no significant bleeding), Fluid leak - comment (fluid leak is present and 2 crossed sutures of 4-0 ethilon were placed with good results) PD MEDICAL DECISION MAKING - ED course Complexity details: reviewed old records, reviewed results, re-evaluated patient, considered differential, d/w patient ED course: 42-year-old female with history of alcoholic cirrhosis who has been stable on her medications for about a month had another issue with compliance when she was unable to obtain her medications through the clinic. She was unable to obtain her spironolactone and she began to accumulate more ascites. She is accumulated a lot of ascites and she comes to the emergency department with tense ascites and some shortness of breath associated with it. She appeared very uncomfortable and requested paracentesis. Paracentesis was achieved with drainage of 11 L of clear yellow fluid and the patient was administered intravenous albumin. She was administered 25 g here in the emergency department and will need additional albumin this morning. She will need admission to the hospital for post large volume paracentesis monitoring for fluid shifts. Departure - Departure Disposition: [facility] DC/Xfer Clinical Impression: Alcoholic cirrhosis of liver with ascites Condition: Fair
[2018-05-11] MEDS ORDERED: ALBUMIN 25% 12.5 GM/50 ML VIAL IV STA ×2 (04:41→05:45)
[2018-05-11 05:05] LABS: BILIRUBIN,URINE NEGATIVE (NEGATIVE); GLUCOSE, URINE (UA) NEGATIVE (NEGATIVE); KETONES,URINE (UA) NEGATIVE (NEGATIVE); LEUKOCYTE ESTERASE, URINE NEGATIVE (NEGATIVE); NITRITE,URINE NEGATIVE (NEGATIVE); OCCULT BLOOD,URINE MODERATE (NEGATIVE); PROTEIN,URINE NEGATIVE (NEGATIVE); UROBILINOGEN,URINE 1 (NORMAL) E.U./dL (NORMAL)
[2018-05-11 05:10] LABS: CLARITY,URINE CLEAR (CLEAR)
[2018-05-11 05:12] LABS: RBC,URINE 0-5 /HPF (0-5); SQUAMOUS EPITHELIAL CELL,UR MOD Squamous (<= Few)
[2018-05-11 05:13] LABS: BACTERIA,URINE Moderate /HPF (None Seen); CRYSTALS,URINE 3-5 Calcium Oxalate /LPF; MUCUS,URINE Moderate Strands
[2018-05-11] MEDS ORDERED: SODIUM CHLORIDE 0.9% 500 ML IV ONE ×2 (05:57→07:32)
[2018-05-11] MEDS ORDERED: PROCHLORPERAZINE 10 MG/2 ML VIAL IVP PRN (06:37)
[2018-05-11] MEDS ORDERED: ACETAMINOPHEN 325 MG TABLET PO PRN (06:37)
[2018-05-11] MEDS ORDERED: SODIUM CHLORIDE FLUSH 0.9% 10 ML SYRINGE IVP PRN (06:37)
[2018-05-11] MEDS ORDERED: ALBUTEROL NEB 2.5 MG/3 ML INH PRN (06:37)
[2018-05-11] MEDS ORDERED: ONDANSETRON 4 MG/2 ML VIAL IVP PRN (06:37)
--- NOTE | 2018-05-11 06:45 | HISTORY & PHYSICAL EXAMINATION ---
Chief Complaint - Chief Complaint Chief Complaint: Abdominal pain and shortness of breath History of Present Illness - Admitted From Admitted From:: Emergency department - History Obtained From Records Reviewed: ED note and previous visits History obtained from: Patient and Dr. 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 Hospital admission for after this she was discharged with spironolactone p.o. however she apparently had some problems obtaining this prescription outpatient and return to the emergency room March 04, 2018 at which 0.3 L of fluid was withdrawn from paracentesis. Discussion has been had regarding possible schedul ed Paracentesis with PCP however this has not occurred yet. In the emergency department this morning patient had a paracentesis with 11 L of fluid withdrawn With resultant large volume fluid shift hypotension, for which Dr. Jesus provided 2 doses of 25 g of albumin.Her blood pressures have remai dnaiel soft in the 90s-100 systolic range however the patient has otherwise remained stable. She is being admitted in the ICU For management of hypotension and fluid status with blood pressure control and eventual discharge with oral diuresis and will likely need scheduled paracentesis outpatient. 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 She was born in [place] but has moved all over due to her 's job in the [employer]. She lived for some time in [place] than in [place] and then in [place]. She is now from her and is battling him for custody of their children. She was a heavy dri nker for at least the past 15 years. She states that she only drank about a box of wine every week but given the severity of her liver failure it was likely more than that. She quit smoking on December 07 along with quitting drinking. She states that she had been smoking about a pack a day for the last 15 years since 2002. She denies any marijuana use or any other illicit drug use. - Substance History Abuse: Recurrent use of substance despite neg consequences: Alcohol Dependence: Experiences withdrawal or developed tolerances: Alcohol - POLST Patient has POLST: Yes POLST Status: Full Code Meds/Allgy - Home Medications Home Medications: Ambulatory Orders Medication Instructions Recorded Confirmed Lactulose 30 ml PO TID MDD hold 3rd dose if 02/07/18 03/06/18 >3 BMs Albuterol Sulf [Ventolin Hfa 2 puffs INH Q6HR PRN #1 inhaler 02/28/18 03/06/18 Inhaler] Benzonatate 100 mg PO TID PRN #90 capsule 02/28/18 03/06/18 Cyanocobalamin (Vitamin B-12) 500 mcg PO DAILY #30 tablet 02/28/18 03/06/18 [Vitamin B-12 (100mcg tab)] Furosemide 40 mg PO DAILY #60 tablet 02/28/18 03/06/18 Levothyroxine Sodium 112 mcg PO QDAC #30 tablet 02/28/18 03/06/18 Multivitamin W/Minerals [Theragran 1 tab PO DAILY #30 tablet 02/28/18 03/06/18 M] Pantoprazole [Protonix] 40 mg PO QDAC #30 tablet 02/28/18 03/06/18 Potassium Chloride 20 meq PO DAILY #30 tablet.er 02/28/18 03/06/18 Spironolactone 50 mg PO BID #120 tablet 02/28/18 03/06/18 Sulfamethox/Trimeth 800/160 1 tab PO BID #14 MDD for 7 more 02/28/18 03/06/18 [Bactrim Ds 800/160] days Thiamine [Vitamin B-1] 100 mg PO DAILY #30 tablet 02/28/18 03/06/18 diphenhydrAMINE [Benadryl] 25 mg PO Q4HR PRN capsule 02/28/18 - Allergies Allergies/Adverse Reactions: Allergies Allergy/AdvReac Type Severity Reaction Status Date / Time amoxicillin Allergy Unknown Verified 03/04/18 21:14 ampicillin Allergy Unknown Verified 03/04/18 21:14 oxycodone Allergy Rash Verified 03/04/18 21:14 Review of Systems - Constitutional Constitutional: reports: Fatigue - Cardiovascular Cariovascular: reports: Lightheadedness. denies: Chest pain - Respiratory Respiratory: reports: Orthopnea, SOB at rest, SOB with exertion. denies: Cough - Gastrointestinal Gastrointestinal: reports: Abdominal pain, Abdominal distention Prior Level of Functionality: Ambulates independently Exam - Vital Signs Reviewed Vital Signs: Yes Vital Signs: Vital Signs x48h Temp Pulse Resp BP Pulse Ox 05/11/18 05:04 120 H 16 103/88 H 100 05/11/18 04:33 115 H 20 101/68 99 05/11/18 04:16 115 H 20 94/57 L 98 05/11/18 01:47 37.7 C H 119 H 20 100/69 98 - Physical Exam General Appearance: positive: No acute distress Eyes Bilateral: positive: Normal inspection ENT: positive: ENT inspection nml Neck: positive: Nml inspection Respiratory: positive: Chest non-tender, No respiratory distress Cardiovascular: positive: Regular rate & rhythm, No murmur, No gallop Peripheral Pulses: positive: 2+ Abdomen: positive: Tenderness (Abdominal distention with ascites) Skin: positive: Color nml Extremities: positive: No pedal edema Neurologic/Psychiatric: positive: Oriented x3, CN's nml (2-12), Motor nml, Sensation nml, Mood/affect nml Conclusion/Plan - Problem List (1) Alcoholic cirrhosis of liver with ascites Conclusion/Plan: Patient is status post paracentesis with 11 L of fluid removal in the emergency department earlier this morning, with resultant hypotension. She will be placed in the ICU with gentle fluid hydration with lactated Ringer's at 100 mL/min, An d albumin IV, while we closely monitor her blood pressure. She will slowly be transitioned to oral diuretics when her blood pressure stabilizes using spironolactone. At this point she does not have any coagulopathy will closely monitor for advancing signs of liver failure blood pressure is stabilized. (2) Liver failure Qualifiers: Liver failure chronicity: chronic Hepatic coma status: without hepatic coma Qualified Code(s): K72.10 - Chronic hepatic failure without coma (3) Hypotension Conclusion/Plan: Secondary to large volume paracentesis, will support with albumin 25 g 3 times daily and monitor closely. Qualifiers: Hypotension type: hypotension due to hypovolemia Qualified Code(s): I95.89 - Other hypotension; E86.1 - Hypovolemia (4) Hyponatremia Conclusion/Plan: Likely secondary to volume loss, will continue to monitor, correction with lactated Ringer's (5) Hypokalemia Conclusion/Plan: Potassium 3.2, likely secondary to GI loss. Replace per protocol in ICU. - Lab Results Lab results reviewed: Yes Ephraim Bones: 05/11/18 02:35 05/11/18 02:35 Core Measures - Anticipated LOS I expect patient to be DC'd or transferred within 96 hours.: Yes - DVT/VTE - Prophylaxis VTE/DVT Device ordered at admit?: Yes
[2018-05-11] MEDS ORDERED: POTASSIUM CHLORIDE 20 MEQ TABLET PO ONE (06:53)
[2018-05-11] MEDS ORDERED: BENZONATATE 100 MG CAPSULE PO PRN (06:54)
[2018-05-11 06:56] LABS: CC,BF RBC 168 /mm^3
[2018-05-11 07:00] LABS: BF COLOR STRAW
[2018-05-11 07:10] LABS: BF SOURCE PERITONEAL
[2018-05-11 07:21] LABS: EOSINOPHILS %,BODY FLUID 0 %; LYMPHOCYTES %,BODY FLUID 58; MONOCYTES %,BODY FLUID 10 %
[2018-05-11 07:22] LABS: MACROPHAGES %,BODY FLUID 24 %
[2018-05-11 07:31] LABS: MESOTHELIAL %, BF 0 %
[2018-05-11] MEDS ORDERED: NON FORMULARY MED (Potassium Chloride [Potassium Chloride] 20 MEQ) PO SCH (09:00)
[2018-05-11] MEDS ORDERED: CYANOCOBALAMIN PO SCH (09:00)
[2018-05-11] MEDS: LACTATED RINGERS 1,000 ML IV SCH ×2 (09:00→18:30)
[2018-05-11] MEDS: PANTOPRAZOLE 40 MG VIAL IVP SCH ×2 (09:26→21:23)
[2018-05-11] MEDS: SODIUM CHLORIDE FLUSH 0.9% 10 ML SYRINGE IVP SCH ×3 (09:36→21:23)
[2018-05-11] MEDS: MULTIVITAMIN W/MINERALS TABLET PO SCH (13:36)
[2018-05-11] MEDS: LEVOTHYROXINE 112 MCG TABLET PO SCH (13:36)
[2018-05-11] MEDS: CYANOCOBALAMIN 500 MCG TABLET PO SCH (13:36)
[2018-05-11] MEDS: THIAMINE 100 MG TABLET PO SCH (13:36)
[2018-05-11] MEDS: POTASSIUM CHLORIDE 20 MEQ TABLET PO SCH (13:37)
[2018-05-11] MEDS: ALBUMIN 25% 12.5 GM/50 ML VIAL IV SCH ×2 (14:30→21:30)
[2018-05-11] MEDS: diphenhydrAMINE INJ 50 MG/ML VIAL IVP PRN ×2 (15:41→21:28)
[2018-05-11] MEDS ORDERED: traMADol 50 MG TABLET PO PRN (21:07)
[2018-05-12] MEDS: diphenhydrAMINE 25 MG CAPSULE PO PRN ×2 (02:31→06:21)
[2018-05-12] MEDS: LACTATED RINGERS 1,000 ML IV SCH (05:01)
[2018-05-12 05:11] LABS: BASOPHILS % (AUTO) 0.6 %; EOSINOPHILS # (AUTO) 0.2 10^3/uL (0.0-0.7); EOSINOPHILS % (AUTO) 2.5 %; HGB - HEMOGLOBIN 8.3 g/dL (12.0-16.0); LYMPHOCYTES # (AUTO) 1.8 10^3/uL (1.5-3.5); LYMPHOCYTES % (AUTO) 28.6 %; MEAN CORPUSCULAR HEMOGLOBIN 24.6 pg (27.0-31.0); MEAN CORPUSCULAR HGB CONC 31.7 g/dL (32.0-36.0); MEAN CORPUSCULAR VOLUME 77.5 fL (81.0-99.0); MEAN PLATELET VOLUME 7.1 fL (7.9-10.8); MONOCYTES # (AUTO) 0.6 10^3/uL (0.0-1.0); MONOCYTES % (AUTO) 9.8 %; NEUTROPHILS # (AUTO) 3.7 10^3/uL (1.5-6.6); NEUTROPHILS % (AUTO) 58.5 %; PLT - PLATELET COUNT 279 10^3/uL (130-450); RED BLOOD COUNT 3.38 10^6/uL (4.20-5.40); RED CELL DISTRIBUTION WIDTH 19.4 % (12.0-15.0); WHITE BLOOD COUNT 6.4 x10^3/uL (4.8-10.8)
[2018-05-12 05:22] LABS: ALBUMIN 2.3 g/dL (3.2-5.5); CALCIUM 7.7 mg/dL (8.5-10.3); CREATININE 0.4 mg/dL (0.4-1.0); MAGNESIUM 1.7 mg/dL (1.7-2.8); PHOSPHORUS 3.1 mg/dL (2.5-4.6); TOTAL PROTEIN 4.7 g/dL (6.7-8.2)
[2018-05-12] MEDS: LEVOTHYROXINE 112 MCG TABLET PO SCH (06:21)
[2018-05-12] MEDS: ALBUMIN 25% 12.5 GM/50 ML VIAL IV SCH (06:24)
[2018-05-12] MEDS: MAGNESIUM OXIDE 400 MG TABLET PO SCH ×2 (07:53→14:45)
[2018-05-12] MEDS: POTASSIUM CHLORIDE 20 MEQ TABLET PO SCH (07:54)
[2018-05-12] MEDS: PANTOPRAZOLE 40 MG VIAL IVP SCH (08:28)
[2018-05-12] MEDS: THIAMINE 100 MG TABLET PO SCH (08:28)
[2018-05-12] MEDS: MULTIVITAMIN W/MINERALS TABLET PO SCH (08:28)
[2018-05-12] MEDS: CYANOCOBALAMIN 500 MCG TABLET PO SCH (08:28)
[2018-05-12] MEDS: SODIUM CHLORIDE FLUSH 0.9% 10 ML SYRINGE IVP SCH (08:31)
[2018-05-12 12:10] VITALS: BP 108/62
--- NOTE | 2018-05-12 14:16 | Discharge Plan ---
Discharge Plan Disposition: 01 Home, Self Care Condition: Fair Diet: Low Sodium Activity Restrictions: Activity as Tolerated Additional Instructions or Follow Up instructions: Resume all your pre-hospital medications. Return to the ER if you have new or worsening symptoms. No Smoking: If you smoke, Please STOP! Call for help.
--- NOTE | 2018-05-19 09:48 | DISCHARGE SUMMARY ---
Physician: Francy Dotson MD DATE OF ADMISSION: 05/11/2018 DATE OF DISCHARGE: 05/12/2018 HISTORY OF PRESENT ILLNESS: This is a 42-year-old white female with a history of alcoholic cirrhosis of the liver with ascites, who has required multiple paracenteses for therapeutic benefit. In January 2018, she had a large volume paracentesis, and developed hypotension due to fluid shift. The patient has been home, compliant with alcohol abstinence, and slowly developing reaccumulation of her ascites, and presented to the emergency room and had paracentesis of 11 liters, resulting in a large volume fluid shift and hypotension. She got two doses of 25 grams of albumin in the emergency room, and was put in the ICU for management of hypotension. HOSPITAL COURSE AND DISCHARGE DIAGNOSES 1. Alcoholic cirrhosis of the liver with ascites. The 11 liter fluid removal resulted in improvement of her tense ascites, abdominal distention and discomfort. Her abdomen was still distended, but soft and nontender at the time of discharge. The patient has normal liver function tests at baseline; however, INR of 1.5. She was discharged with plan for continued use of her spironolactone, abstinence from alcohol, and to continue follow-up with her PCP and Hazardous Materials Analyst. 2. Liver failure. The patient has normal LFTs, but chronic reaccumulation of ascites and has end-stage liver disease. 3. Hypotension. Her blood pressure at admission to the ICU was 94/57, and she was as low as 88/58 in the ICU. She had IV saline given slowly and received several more IV infusions of albumin. Her discharge blood pressure was 108/62. 4. Hyponatremia. Her sodium was 132 and 130 while here. 5. Hypokalemia. Her potassium was 3.2, she did receive replacement, and discharge potassium was 4.0. 6. Anemia. The patient has a hemoglobin of 8.2 with MCV of 76.6. She is on iron replacement therapy and should continue this. LABORATORY AND IMAGING: Reviewed and summarized above. ALLERGIES: AMOXICILLIN, AMPICILLIN AND OXYCODONE. MEDICATIONS AT DISCHARGE 1. Benadryl p.r.n. 2. Spironolactone 75 mg p.o. b.i.d. 3. Ventolin inhaler p.r.n. 4. Levothyroxine 112 mcg daily. 5. Protonix 40 mg daily. 6. Potassium chloride 20 mEq daily. CONDITION AT DISCHARGE: Poor, but stable. PHYSICAL EXAMINATION VITAL SIGNS: Blood pressure 108/62, pulse of 101-106 in sinus rhythm, afebrile, room air saturation 98%. HEENT: Hyperpigmentation of her skin, but no scleral icterus. NECK: Without JVD or carotid bruits. CHEST: Clear. HEART: Sounds normal. ABDOMEN: Distended, soft, nontender. Normal bowel sounds. EXTREMITIES: 1+ pedal and pretibial edema. No clubbing or cyanosis. NEUROLOGIC: Intact. No asterixis. Normal mentation. CODE STATUS: FULL CODE. FOLLOWUP: She was advised to see her PCP and [employer]ard[employer] Materials Analyst in usual followup. Time required to complete this entire discharge, dictation, patient education: 30 minutes. cc: BENTLEY Garcia TD: 05/18/2018 13:50 MTDD
== END 2018-05-12 14:50 | disposition home or self-care (01) | DRG 433 ==
LOC: EDUNIT# → ED 01:35 → ICU 06:37
PROVIDERS: ADMIT Family Medicine Sports Medicine; ATTEND Internal Medicine
DX: K70.31 Alcoholic cirrhosis of liver with ascites (principal); E87.1 Hypo-osmolality and hyponatremia; I95.89 Other hypotension; K72.10 Chronic hepatic failure without coma; E87.6 Hypokalemia; D64.9 Anemia, unspecified; T50.0X6A Underdosing of mineralocorticoids and their antagonists, initial encounter; E86.1 Hypovolemia; F10.20 Alcohol dependence, uncomplicated; J44.9 Chronic obstructive pulmonary disease, unspecified; E03.9 Hypothyroidism, unspecified; Z87.891 Personal history of nicotine dependence; Z79.899 Other long term (current) drug therapy
CPT/HCPCS: 32554; 36415; 49082; 80053; 81001; 81003; 82140; 83690; 83735; 84100; 84443; 84484; 85025; 85610; 87070; 87086; 87150; 87205; 89051; 96365; 99284; 99285

== ENCOUNTER 2018-06-01 20:48 | Outpatient (CLI) | payer MEDICAID | END 2018-06-01 20:49 | disposition critical access hospital (66) | LOC: EMS 20:48 | PROVIDERS: ATTEND Surgery | DX: R14.0 Abdominal distension (gaseous) (principal); R10.12 Left upper quadrant pain | CPT/HCPCS: A0425; A0429; A0999 ==

== ENCOUNTER 2018-06-01 21:10 | Emergency (ER) | payer MEDICAID ==
--- NOTE | 2018-06-01 21:18 | ED Physician Documentation ---
History of Present Illness - Stated complaint Stated Complaint: ASCITES, PAIN - History obtained from History obtained from: Patient - History of Present Illness Timing: How many weeks ago (1) - Additonal information Additional information: 42-year-old female who was admitted into the hospital 3 weeks ago with symptomatic ascites and drainage of 11 liters of ascites has reaccumulated ascites and is uncomfortable with her breathing and work of getting around. She states that she is feeling that she is not in need of her lactulose as she is having to spend a lot of time the bathroom. She has reaccumulated her ascites and she has now been able to get someone to take care of her mother at home, who requires nursing care with administration of insulin and her medications. Patient states that she has contacted the [facility] about transplantation they have called her back she has called them back and a meeting has not been set up as yet. She is looking to the beginning of the year. Review of Systems Constitutional: reports: Fatigue. denies: Fever, Chills Eyes: denies: Decreased vision Ears: denies: Ear pain Nose: denies: Rhinorrhea / runny nose, Congestion Throat: denies: Sore throat Cardiac: reports: Pedal edema. denies: Chest pain / pressure, Palpitations Respiratory: reports: Dyspnea. denies: Cough, Wheezing GI: reports: Abdominal Pain, Diarrhea. denies: Nausea, Vomiting, Constipation : denies: Dysuria, Frequency Skin: denies: Rash Musculoskeletal: reports: Extremity pain. denies: Neck pain, Back pain Neurologic: reports: Generalized weakness. 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 HEENT: Myringotomy (tubes) - Present Medications Home Medications: Ambulatory Orders Medication Instructions Recorded Confirmed Albuterol Sulf [Ventolin Hfa 2 puffs INH Q6HR PRN #1 inhaler 02/28/18 05/11/18 Inhaler] Levothyroxine Sodium 112 mcg PO QDAC #30 tablet 02/28/18 05/11/18 Pantoprazole [Protonix] 40 mg PO QDAC #30 tablet 02/28/18 05/11/18 Potassium Chloride 20 meq PO DAILY #30 tablet.er 02/28/18 05/11/18 Spironolactone 75 mg PO BID 05/11/18 05/11/18 diphenhydrAMINE [Benadryl] 50 mg PO Q4H PRN 05/12/18 05/12/18 - Allergies Allergies/Adverse Reactions: Allergies Allergy/AdvReac Type Severity Reaction Status Date / Time amoxicillin Allergy Unknown Verified 06/01/18 21:16 ampicillin Allergy Unknown Verified 06/01/18 21:16 oxycodone Allergy Rash Verified 06/01/18 21:16 - Social History Does the pt smoke?: No Smoking Status: Former smoker Does the pt drink ETOH?: No Does the pt have substance abuse?: No - Immunizations Immunizations are current?: Yes - POLST Patient has POLST: Yes POLST Status: Full Code PD ED PE NORMAL - Vitals Vital signs reviewed: Yes (tachy and hypertensive diastolic ) - General General: Alert and oriented X 3, No acute distress, Well developed/nourished - HEENT HEENT: Atraumatic, PERRL, EOMI - Neck Neck: Supple, no meningeal sign - Cardiac Cardiac: No murmur, Other (tachy to 110) - Respiratory Respiratory: Other (tachypnic with shallow breaths) - Abdomen Abdomen: Normal bowel sounds, Other (distended with a circumferance of 50 inches. generally tender without gaurding. firm. with fluid wave and no caput. ) - Back Back: No CVA TTP, No spinal TTP - Derm Derm: Normal color, Warm and dry, No rash - Extremities Extremities: No deformity, Other (trace edema bilaterally ) - Neuro Neuro: Alert and oriented X 3, bulb planter 2-12 intact, No motor deficit, No sensory deficit, Normal speech Eye Opening: Spontaneous Motor: Obeys Commands Verbal: Oriented GCS Score: 15 - Psych Psych: Normal mood, Normal affect Results - Vitals Vitals: Oxygen O2 Source Room air - Labs Labs: Microbiology 06/01/18 03:11 Body Fluid Culture - Preliminary Ascities Fluid 06/01/18 03:11 Gram Stain - Final Ascities Fluid Laboratory Tests 06/01/18 06/01/18 06/01/18 21:25 21:25 21:25 WBC 6.9 RBC 3.93 L Hgb 9.4 L Hct 29.6 L MCV 75.4 L MCH 24.0 L MCHC 31.8 L RDW 20.5 H Plt Count 372 MPV 6.9 L Neut # (Auto) 3.9 Lymph # (Auto) 2.0 [place] # (Auto) 0.8 Eos # (Auto) 0.1 Baso # (Auto) 0.1 Absolute Nucleated RBC 0.00 Nucleated RBC % 0.0 Manual Slide Review Indicated PT 14.4 H INR 1.3 H Sodium 134 L Potassium 4.1 Chloride 104 Carbon Dioxide 24 Anion Gap 6.0 BUN 13 Creatinine 0.7 Estimated GFR (MDRD) 91 Glucose 99 Calcium 8.4 L Total Bilirubin 0.7 AST 38 ALT 16 Alkaline Phosphatase 130 H Ammonia Total Protein 6.7 Albumin 2.8 L Globulin 3.9 Albumin/Globulin Ratio 0.7 L Lipase 66 H Urine Color Urine Clarity Urine pH Ur Specific [place] Urine Protein Urine Glucose (UA) Urine Ketones Urine Occult Blood Urine Nitrite Urine Bilirubin Urine Urobilinogen Ur Leukocyte Esterase Ur Microscopic Review Urine Culture Comments Fluid Source Fluid Color Fluid Clarity Fluid WBC Fluid RBC Fluid Neutrophils % CSF Color CSF Clarity Xanthrochromic CSF WBC CSF RBC CSF Cell Count Tube # CSF Neutrophils CSF Lymphocytes CSF Monocytes CSF Eosinophils % CSF Basophils CSF Other Cells Ethyl Alcohol < 5.0 06/01/18 06/02/18 06/02/18 21:25 03:11 03:11 WBC RBC Hgb Hct MCV MCH MCHC RDW Plt Count MPV Neut # (Auto) Lymph # (Auto) [place] # (Auto) Eos # (Auto) Baso # (Auto) Absolute Nucleated RBC Nucleated RBC % Manual Slide Review PT INR Sodium Potassium Chloride Carbon Dioxide Anion Gap BUN Creatinine Estimated GFR (MDRD) Glucose Calcium Total Bilirubin AST ALT Alkaline Phosphatase Ammonia 48.5 H Total Protein Albumin Globulin Albumin/Globulin Ratio Lipase Urine Color Urine Clarity Urine pH Ur Specific [place] Urine Protein Urine Glucose (UA) Urine Ketones Urine Occult Blood Urine Nitrite Urine Bilirubin Urine Urobilinogen Ur Leukocyte Esterase Ur Microscopic Review Urine Culture Comments Fluid Source ASCITES Fluid Color COLORLESS Fluid Clarity CLEAR Fluid WBC 9 Fluid RBC 0 Fluid Neutrophils % SCRAP BUNCH MAKER CSF Color Cancelled CSF Clarity Cancelled Xanthrochromic Cancelled CSF WBC Cancelled CSF RBC Cancelled CSF Cell Count Tube # Cancelled CSF Neutrophils Cancelled CSF Lymphocytes Cancelled CSF Monocytes Cancelled CSF Eosinophils % Cancelled CSF Basophils Cancelled CSF Other Cells Cancelled Ethyl Alcohol 06/02/18 05:24 WBC RBC Hgb Hct MCV MCH MCHC RDW Plt Count MPV Neut # (Auto) Lymph # (Auto) [place] # (Auto) Eos # (Auto) Baso # (Auto) Absolute Nucleated RBC Nucleated RBC % Manual Slide Review PT INR Sodium Potassium Chloride Carbon Dioxide Anion Gap BUN Creatinine Estimated GFR (MDRD) Glucose Calcium Total Bilirubin AST ALT Alkaline Phosphatase Ammonia Total Protein Albumin Globulin Albumin/Globulin Ratio Lipase Urine Color YELLOW Urine Clarity CLEAR Urine pH 6.0 Ur Specific [place] 1.025 Urine Protein NEGATIVE Urine Glucose (UA) NEGATIVE Urine Ketones NEGATIVE Urine Occult Blood NEGATIVE Urine Nitrite NEGATIVE Urine Bilirubin NEGATIVE Urine Urobilinogen 0.2 (NORMAL) Ur Leukocyte Esterase NEGATIVE Ur Microscopic Review NOT INDICATED Urine Culture Comments NOT INDICATED Fluid Source Fluid Color Fluid Clarity Fluid WBC Fluid RBC Fluid Neutrophils % CSF Color CSF Clarity Xanthrochromic CSF WBC CSF RBC CSF Cell Count Tube # CSF Neutrophils CSF Lymphocytes CSF Monocytes CSF Eosinophils % CSF Basophils CSF Other Cells Ethyl Alcohol Procedures - Paracentesis Preparation: Consent obtained, Ultrasound guidance Location: RLQ Technique: Z-tract Fluid: Clear, Sent for cell count, Sent for gram stain, Sent for culture, Volume - enter cc (11,000) Aftercare: Patient tolerated well, Fluid leak - comment (sutured and glued) PD MEDICAL DECISION MAKING - ED course Complexity details: reviewed old records, reviewed results, re-evaluated patient, considered differential, d/w patient ED course: 42 y/o female with end stage liver disease has reaccumulated her ascites and is uncomfortable moving around and breathing. She has had a large volume paracentesis done 3 weeks ago removing 11 liters of ascites and she spent the night in the hospital for more albumin and fluids. She did become hypotensive after this paracentesis and her blood pressure usually is around 90 systolic. Today we have removed another 11 liters of ascites and we have instilled saline and 75gm of albumin. She did not initially require suturing after her procedure, but she subsequently did leak and required suturing and dermabond. Her pressure did improve and she was discharged to home with instructions to ask her PMD about a standing order to have paracentesis done in 2 weeks to achieve this without the hypotensive risks involved in such large volumes. Departure - Departure Disposition: 01 Home, Self Care Clinical Impression: Alcoholic cirrhosis of liver with ascites, S/P abdominal paracentesis Condition: Fair Instructions: Paracentesis Dc, ED Ascites Follow-Up: [facility] [Provider Group] Comments: Today we removed another 11 liters of ascites and this is hard on your body with fluctuations in blood pressure and shifts of fluid. Ask you provider to give a standing order for paracentesis every 2 weeks. This will likely allow removal of 4-5 liters without the dramatic shifts or the need for albumin infusion. Discharge Date/Time: 06/02/18 08:49
[2018-06-01 21:36] LABS: INR 1.3 (0.8-1.2); PT - PROTHROMBIN TIME 14.4 secs (9.9-12.6)
[2018-06-01 21:38] LABS: BASOPHILS # (AUTO) 0.1 10^3/uL (0.0-0.1); BASOPHILS % (AUTO) 1.2 %; EOSINOPHILS # (AUTO) 0.1 10^3/uL (0.0-0.7); EOSINOPHILS % (AUTO) 1.7 %; HGB - HEMOGLOBIN 9.4 g/dL (12.0-16.0); LYMPHOCYTES % (AUTO) 29.5 %; MEAN CORPUSCULAR HGB CONC 31.8 g/dL (32.0-36.0); MEAN CORPUSCULAR VOLUME 75.4 fL (81.0-99.0); MEAN PLATELET VOLUME 6.9 fL (7.9-10.8); MONOCYTES # (AUTO) 0.8 10^3/uL (0.0-1.0); MONOCYTES % (AUTO) 10.9 %; NEUTROPHILS # (AUTO) 3.9 10^3/uL (1.5-6.6); NEUTROPHILS % (AUTO) 56.7 %; PLT - PLATELET COUNT 372 10^3/uL (130-450); RED BLOOD COUNT 3.93 10^6/uL (4.20-5.40); RED CELL DISTRIBUTION WIDTH 20.5 % (12.0-15.0); WHITE BLOOD COUNT 6.9 x10^3/uL (4.8-10.8)
[2018-06-01 21:47] LABS: ALBUMIN 2.8 g/dL (3.2-5.5); ALBUMIN/GLOBULIN RATIO 0.7 (1.0-2.2); ALKALINE PHOSPHATASE 130 IU/L (42-121); ALT ALANINE AMINOTRANSFERASE 16 IU/L (10-60); AST ASPARTATE AMINOTRANSFERASE 38 IU/L (10-42); BILIRUBIN,TOTAL 0.7 mg/dL (0.2-1.0); BUN - BLOOD UREA NITROGEN 13 mg/dL (6-20); CALCIUM 8.4 mg/dL (8.5-10.3); CARBON DIOXIDE - CO2 24 mmol/L (21-32); CHLORIDE 104 mmol/L (101-111); CREATININE 0.7 mg/dL (0.4-1.0); GFR - MDRD 91 (>89); GLUCOSE 99 mg/dL (70-100); LIPASE 66 U/L (22-51); SODIUM 134 mmol/L (135-145); TOTAL PROTEIN 6.7 g/dL (6.7-8.2)
[2018-06-01] MEDS ORDERED: ALBUMIN 25% 12.5 GM/50 ML VIAL IV STA (23:10)
[2018-06-02] MEDS ORDERED: ALBUMIN 25% 12.5 GM/50 ML VIAL IV STA ×4 (00:41→05:21)
[2018-06-02] MEDS ORDERED: SODIUM CHLORIDE 0.9% 1,000 ML IV ONE (00:56)
[2018-06-02] MEDS ORDERED: ALBUMIN IV ONE (01:12)
[2018-06-02] MEDS ORDERED: ALBUMIN 25% 12.5 GM/50 ML VIAL IV ONE (01:14)
[2018-06-02] MEDS ORDERED: SODIUM CHLORIDE 0.9% 500 ML IV ONE (04:26)
[2018-06-02] MEDS ORDERED: BUFFERED LIDOCAINE 10 ML SYRINGE SUBQ STA (04:54)
[2018-06-02] MEDS ORDERED: BUFFERED LIDOCAINE 10 ML SYRINGE ONE (04:58)
[2018-06-02 05:46] LABS: BILIRUBIN,URINE NEGATIVE (NEGATIVE); GLUCOSE, URINE (UA) NEGATIVE (NEGATIVE); KETONES,URINE (UA) NEGATIVE (NEGATIVE); LEUKOCYTE ESTERASE, URINE NEGATIVE (NEGATIVE); NITRITE,URINE NEGATIVE (NEGATIVE); OCCULT BLOOD,URINE NEGATIVE (NEGATIVE); PROTEIN,URINE NEGATIVE (NEGATIVE); UROBILINOGEN,URINE 0.2 (NORMAL) E.U./dL (NORMAL)
[2018-06-02 05:49] LABS: CLARITY,URINE CLEAR (CLEAR)
[2018-06-02 07:03] LABS: CC,BF RBC 0 /mm^3
[2018-06-02 07:04] LABS: BF COLOR COLORLESS; BF SOURCE ASCITES
[2018-06-02 07:59] VITALS: BP 98/67
== END 2018-06-02 08:49 | disposition home or self-care (01) ==
LOC: EDUNIT# → ED 21:10
DX: K70.31 Alcoholic cirrhosis of liver with ascites (principal); K72.90 Hepatic failure, unspecified without coma; E03.9 Hypothyroidism, unspecified; K75.9 Inflammatory liver disease, unspecified; Z87.891 Personal history of nicotine dependence
CPT/HCPCS: 36415; 49082; 80053; 80320; 81003; 82140; 83690; 85025; 85610; 87070; 87205; 89051; 96361; 96365; 96366; 99284; P9047; 81001; 87086

== ENCOUNTER 2018-06-12 21:56 | Outpatient (CLI) | payer MEDICAID | END 2018-06-12 21:57 | disposition critical access hospital (66) | LOC: EMS 21:56 | PROVIDERS: ATTEND Surgery | DX: R06.00 Dyspnea, unspecified (principal); R14.0 Abdominal distension (gaseous); R26.2 Difficulty in walking, not elsewhere classified | CPT/HCPCS: A0425; A0429; A0999 ==

== ENCOUNTER 2018-06-12 22:15 | Emergency (ER) | payer MEDICAID ==
--- NOTE | 2018-06-12 23:24 | ED Physician Documentation ---
PD HPI ABD PAIN - Stated complaint Stated Complaint: ABD PAIN/SOA - Chief complaint Chief Complaint: Abd Pain - History obtained from History obtained from: Patient - History of Present Illness Timing - onset: How many days ago (several) Timing - duration: Days Timing - details: Gradual onset Pain level max: 7 Pain level now: 7 Quality: Aching, Pain Location: All over / everywhere Improved by: Other (paracentesis) Worsened by: Moving Associated symptoms: No: Fever, Nausea, Vomiting, Hematemesis, Diarrhea, Constipation Similar symptoms before: Diagnosis (ascites) Recently seen: Emergency Dept (2 weeks ago for same) - Additional information Additional information: pt requesting paracentesis. 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 HEENT: Myringotomy (tubes) - Present Medications Home Medications: Ambulatory Orders Medication Instructions Recorded Confirmed Albuterol Sulf [Ventolin Hfa 2 puffs INH Q6HR PRN #1 inhaler 02/28/18 05/11/18 Inhaler] Levothyroxine Sodium 112 mcg PO QDAC #30 tablet 02/28/18 05/11/18 Pantoprazole [Protonix] 40 mg PO QDAC #30 tablet 02/28/18 05/11/18 Potassium Chloride 20 meq PO DAILY #30 tablet.er 02/28/18 05/11/18 Spironolactone 75 mg PO BID 05/11/18 05/11/18 diphenhydrAMINE [Benadryl] 50 mg PO Q4H PRN 05/12/18 05/12/18 Furosemide 40 mg PO BID 06/12/18 06/12/18 - Allergies Allergies/Adverse Reactions: Allergies Allergy/AdvReac Type Severity Reaction Status Date / Time amoxicillin Allergy Unknown Verified 06/12/18 22:22 ampicillin Allergy Unknown Verified 06/12/18 22:22 oxycodone Allergy Rash Verified 06/12/18 22:22 - Social History Does the pt smoke?: No Smoking Status: Never smoker Does the pt drink ETOH?: No Does the pt have substance abuse?: No - Immunizations Immunizations are current?: Yes - POLST Patient has POLST: Yes POLST Status: Full Code PD ED PE NORMAL - Vitals Vital signs reviewed: Yes - General General: Alert and oriented X 3, No acute distress - HEENT HEENT: Moist mucous membranes - Neck Neck: Supple, no meningeal sign - Cardiac Cardiac: RRR - Respiratory Respiratory: No respiratory distress, Clear bilaterally - Abdomen Abdomen: Soft, Other (Very distended abdomen, firm) - Back Back: No spinal TTP - Derm Derm: Warm and dry, No rash - Extremities Extremities: Other (1+ bilateral pitting edema) - Neuro Neuro: Alert and oriented X 3 Results - Vitals Vitals: Vital Signs - 24 hr 06/12/18 06/13/18 06/13/18 22:17 00:20 01:05 Temperature 36.3 C L Heart Rate 118 H 115 H 115 H Respiratory 24 20 20 Rate Blood Pressure 111/81 H 114/83 H 112/78 O2 Saturation 100 100 99 Oxygen O2 Source Room air - Labs Labs: Laboratory Tests 06/12/18 06/12/18 06/12/18 23:10 23:31 23:31 WBC 8.3 RBC 4.10 L Hgb 9.6 L Hct 29.9 L MCV 73.0 L MCH 23.5 L MCHC 32.2 RDW 20.4 H Plt Count 424 MPV 7.3 L Neut # (Auto) 5.3 Lymph # (Auto) 1.9 O'Brien # (Auto) 0.8 Eos # (Auto) 0.1 Baso # (Auto) 0.1 Absolute Nucleated RBC 0.00 Nucleated RBC % 0.0 Manual Slide Review Indicated Platelet Estimate NORMAL (130-450,000) RBC Morph Micro Appear 1+ MICROCYTOSIS PT 13.4 H INR 1.2 APTT 20.8 L Sodium 133 L Potassium 4.1 Chloride 104 Carbon Dioxide 23 Anion Gap 6.0 BUN 14 Creatinine 0.6 Estimated GFR (MDRD) 108 Glucose 100 Calcium 8.5 Total Bilirubin 0.6 AST 29 ALT 13 Alkaline Phosphatase 131 H Total Protein 6.1 L Albumin 2.9 L Globulin 3.2 Albumin/Globulin Ratio 0.9 L Lipase 53 H Procedures - Paracentesis Preparation: Consent obtained, Ultrasound guidance, Sterile prep and drape, Loc al anesthesia Location: RLQ Technique: Z-tract, Catheter over needle Fluid: Clear Aftercare: No complications, Patient tolerated well, Dressing applied PD MEDICAL DECISION MAKING - ED course Complexity details: reviewed old records, reviewed results, re-evaluated patient, considered differential, d/w patient ED course: 43-year-old female with alcoholic cirrhosis and ascites. Requesting a paracentesis for abdominal discomfort and difficulty breathing. No fevers. No evidence of spontaneous back serial peritonitis. 4 L of fluid were removed and she feels much better. No complications. Patient counseled regarding signs and symptoms for which I believe and urgent re-evaluation would be necessary. Patient with good understanding of and agreement to plan and is comfortable going home at this time This document was made in part using voice recognition software. While efforts are made to proofread this document, sound alike and grammatical errors may occur. Departure - Departure Disposition: 01 Home, Self Care Clinical Impression: Alcoholic cirrhosis of liver with ascites Condition: Good Instructions: Paracentesis Dc Follow-Up: Raquel Garcia, [facility] [Primary Care Provider] - Within 1 week Comments: Have your doctor call Dr. Mcmahon from radiology to see if they can schedule you sooner than July for your paracentesis. Discharge Date/Time: 06/13/18 01:05
[2018-06-12 23:25] LABS: INR 1.2 (0.8-1.2); PT - PROTHROMBIN TIME 13.4 secs (9.9-12.6)
[2018-06-12 23:26] LABS: EOSINOPHILS % (AUTO) 1.4 %
[2018-06-12 23:41] LABS: BASOPHILS # (AUTO) 0.1 10^3/uL (0.0-0.1); BASOPHILS % (AUTO) 1.2 %; EOSINOPHILS # (AUTO) 0.1 10^3/uL (0.0-0.7); HGB - HEMOGLOBIN 9.6 g/dL (12.0-16.0); LYMPHOCYTES # (AUTO) 1.9 10^3/uL (1.5-3.5); LYMPHOCYTES % (AUTO) 23.5 %; MEAN CORPUSCULAR HEMOGLOBIN 23.5 pg (27.0-31.0); MEAN CORPUSCULAR HGB CONC 32.2 g/dL (32.0-36.0); MEAN PLATELET VOLUME 7.3 fL (7.9-10.8); MONOCYTES # (AUTO) 0.8 10^3/uL (0.0-1.0); MONOCYTES % (AUTO) 9.8 %; NEUTROPHILS # (AUTO) 5.3 10^3/uL (1.5-6.6); NEUTROPHILS % (AUTO) 64.1 %; PLT - PLATELET COUNT 424 10^3/uL (130-450); RED CELL DISTRIBUTION WIDTH 20.4 % (12.0-15.0); WHITE BLOOD COUNT 8.3 x10^3/uL (4.8-10.8)
[2018-06-12 23:50] LABS: ALBUMIN 2.9 g/dL (3.2-5.5); ALBUMIN/GLOBULIN RATIO 0.9 (1.0-2.2); BILIRUBIN,TOTAL 0.6 mg/dL (0.2-1.0); CALCIUM 8.5 mg/dL (8.5-10.3); CREATININE 0.6 mg/dL (0.4-1.0); TOTAL PROTEIN 6.1 g/dL (6.7-8.2)
[2018-06-13] LABS: PLATELET ESTIMATE, MANUAL NORMAL (130-450,000) (NORMAL)
[2018-06-13 01:11] VITALS: BP 112/78
== END 2018-06-13 01:05 | disposition home or self-care (01) ==
LOC: EDUNIT# → ED 22:15
DX: K70.31 Alcoholic cirrhosis of liver with ascites (principal); E03.9 Hypothyroidism, unspecified
CPT/HCPCS: 36415; 49082; 49083; 80053; 83690; 85025; 85610; 85730; 99283

== ENCOUNTER 2018-06-18 23:06 | Outpatient (CLI) | payer MEDICAID | END 2018-06-18 23:07 | disposition critical access hospital (66) | LOC: EMS 23:06 | PROVIDERS: ATTEND Surgery | DX: R10.9 Unspecified abdominal pain (principal); R14.0 Abdominal distension (gaseous) | CPT/HCPCS: A0425; A0429; A0999 ==

== ENCOUNTER 2018-06-18 23:29 | Emergency (ER) | payer MEDICAID ==
[2018-06-19 01:38] LABS: ALBUMIN 2.4 g/dL (3.2-5.5); ALBUMIN/GLOBULIN RATIO 0.8 (1.0-2.2); BILIRUBIN,TOTAL 0.5 mg/dL (0.2-1.0); CALCIUM 7.9 mg/dL (8.5-10.3); CREATININE 0.6 mg/dL (0.4-1.0); TOTAL PROTEIN 5.6 g/dL (6.7-8.2)
[2018-06-19] MEDS: SODIUM CHLORIDE 0.9% 1,000 ML IV ONE (01:51)
[2018-06-19] MEDS: ALBUMIN 25% 12.5 GM/50 ML VIAL IV STA (01:55)
--- NOTE | 2018-06-19 01:56 | ED Physician Documentation ---
PD HPI ABD PAIN - Stated complaint Stated Complaint: ABD FLUID - Chief complaint Chief Complaint: Abd Pain - History obtained from History obtained from: Patient - History of Present Illness Timing - onset: How many days ago (has been increasing over several days.) Timing - duration: Days Timing - details: Gradual onset, Still present Quality: Fullness/distended Location: All over / everywhere Radiation: No: Chest Improved by: Position (lying flat affects breathing) Worsened by: Breathing Associated symptoms: No: Fever, Nausea, Vomiting, Diarrhea, Constipation Similar symptoms before: Diagnosis (liver failure with ascites) Recently seen: Emergency Dept Review of Systems Constitutional: denies: Fever, Chills Nose: denies: Rhinorrhea / runny nose, Congestion Throat: denies: Sore throat Cardiac: denies: Chest pain / pressure Respiratory: reports: Dyspnea (due to volume of abdomen). denies: Cough GI: reports: Abdominal Pain, Abdominal Swelling. 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 HEENT: Myringotomy (tubes) - Present Medications Home Medications: Ambulatory Orders Medication Instructions Recorded Confirmed Albuterol Sulf [Ventolin Hfa 2 puffs INH Q6HR PRN #1 inhaler 02/28/18 05/11/18 Inhaler] Levothyroxine Sodium 112 mcg PO QDAC #30 tablet 02/28/18 05/11/18 Pantoprazole [Protonix] 40 mg PO QDAC #30 tablet 02/28/18 05/11/18 Potassium Chloride 20 meq PO DAILY #30 tablet.er 02/28/18 05/11/18 Spironolactone 75 mg PO BID 05/11/18 05/11/18 diphenhydrAMINE [Benadryl] 50 mg PO Q4H PRN 05/12/18 05/12/18 Furosemide 40 mg PO BID 06/12/18 06/12/18 - Allergies Allergies/Adverse Reactions: Allergies Allergy/AdvReac Type Severity Reaction Status Date / Time amoxicillin Allergy Unknown Verified 06/12/18 22:22 ampicillin Allergy Unknown Verified 06/12/18 22:22 oxycodone Allergy Rash Verified 06/12/18 22:22 - Social History Does the pt smoke?: No Smoking Status: Never smoker Does the pt drink ETOH?: No Does the pt have substance abuse?: No - Immunizations Immunizations are current?: Yes - POLST Patient has POLST: Yes POLST Status: Full Code PD ED PE NORMAL - Vitals Vital signs reviewed: Yes - General General: Alert and oriented X 3, No acute distress, Well developed/nourished - HEENT HEENT: Pharynx benign - Neck Neck: Supple, no meningeal sign, No adenopathy, No JVD - Cardiac Cardiac: RRR, No murmur - Respiratory Respiratory: Clear bilaterally - Abdomen Abdomen: Soft, Other (very distended and tense abd with dullness to percussion. c/w ascites.). No: Normal bowel sounds (diminished) - Back Back: No CVA TTP - Derm Derm: Normal color, Warm and dry - Extremities Extremities: No deformity, No tenderness to palpate - Neuro Neuro: Alert and oriented X 3, No motor deficit, Normal speech Results - Vitals Vitals: Oxygen O2 Source Room air - Labs Labs: Microbiology 06/19/18 01:45 Body Fluid Culture - Preliminary Ascities Fluid 06/19/18 01:45 Gram Stain - Final Ascities Fluid Laboratory Tests 06/19/18 06/19/18 01:10 01:45 Sodium 134 L Potassium 3.8 Chloride 104 Carbon Dioxide 25 Anion Gap 5.0 L BUN 15 Creatinine 0.6 Estimated GFR (MDRD) 108 Glucose 101 H Calcium 7.9 L Magnesium 2.0 Total Bilirubin 0.5 AST 27 ALT 12 Alkaline Phosphatase 115 Total Protein 5.6 L Albumin 2.4 L Globulin 3.2 Albumin/Globulin Ratio 0.8 L Lipase 41 Fluid Source PERITONEAL Fluid Color STRAW Fluid Clarity CLEAR Fluid WBC 124 Fluid RBC 214 Fluid Neutrophils % 24 Fluid Lymphocytes % 48 Fluid Monocytes % 4 Fluid Eosinophils % 0 Fluid Basophils % 0 Fluid Macrophages % 24 Fld Mesothelial Cell % 0 Procedures - Paracentesis Preparation: Consent obtained, Ultrasound guidance, Sterile prep and drape, Local anesthesia Location: LLQ Technique: Z-tract, Catheter over needle Fluid: Clear, Sent for cell count, Sent for gram stain, Sent for culture, Volume - enter cc (5800) Aftercare: No complications, Patient tolerated well, Dressing applied. No: Fluid leak - comment PD MEDICAL DECISION MAKING - ED course Complexity details: re-evaluated patient (feeling better after fluid withdrawn. BP good. ), considered differential, d/w patient Departure - Departure Disposition: 01 Home, Self Care Clinical Impression: S/P abdominal paracentesis Liver failure Qualifiers: Liver failure chronicity: chronic Hepatic coma status: without hepatic coma Qualified Code(s): K72.10 - Chronic hepatic failure without coma Abdominal pain Qualifiers: Abdominal location: generalized Qualified Code(s): R10.84 - Generalized abdominal pain Ascites Qualifiers: Ascites type: due to alcoholic cirrhosis Qualified Code(s): K70.31 - Alcoholic cirrhosis of liver with ascites Condition: Stable Record reviewed to determine appropriate education?: Yes Instructions: ED Ascites Follow-Up: Raquel Garcia ARNP [Primary Care Provider] - Comments: Continue usual meds and treatments. Discharge Date/Time: 06/19/18 05:18
[2018-06-19 02:31] LABS: CC,BF RBC 214 /mm^3
[2018-06-19 02:33] LABS: BF SOURCE PERITONEAL
[2018-06-19 02:34] LABS: BF COLOR STRAW
[2018-06-19 02:53] LABS: LYMPHOCYTES %,BODY FLUID 48; MONOCYTES %,BODY FLUID 4 %
[2018-06-19 02:54] LABS: BASOPHILS %,BODY FLUID 0 %; EOSINOPHILS %,BODY FLUID 0 %; MACROPHAGES %,BODY FLUID 24 %; MESOTHELIAL %, BF 0 %
[2018-06-19 04:00] VITALS: BP 108/61
--- NOTE | 2018-06-20 01:30 | ED Physician Documentation ---
ED Addendum - Addendum Addendum: 06/20/18 01:[address] Morfin, received sign out after he performed abdominal paracentesis. On reevaluation, she is asleep, easily awoken to voice. she reports feeling significant improvement and is comfortable with discharge home. denies any pain or dyspnea. VSS.
== END 2018-06-19 05:18 | disposition home or self-care (01) ==
LOC: EDUNIT# → ED 23:29
DX: K72.10 Chronic hepatic failure without coma (principal); K70.31 Alcoholic cirrhosis of liver with ascites; R10.84 Generalized abdominal pain; E03.9 Hypothyroidism, unspecified
CPT/HCPCS: 36415; 49082; 80053; 83690; 83735; 87070; 87205; 89051; 96365; 99283; 99284; P9047; 49083

== ENCOUNTER 2018-07-03 08:30 | Outpatient (CLI) | payer MEDICAID ==
[2018-07-03] MEDS ORDERED: BUFFERED LIDOCAINE 10 ML SYRINGE ONE ×2 (08:51→09:53)
--- NOTE | 2018-07-03 12:17 | Ultrasound Report ---
Reason: LIVER FAILURE,ALCOHOLIC HEPATITIS,ACURE,ASCITES,DI Procedure Date: 07/03/2018 Accession Number: [id number] / [id number] Procedure: US - Abdominal Paracentesis CPT Code: FULL RESULT: EXAM: ULTRASOUND-GUIDED PARACENTESIS EXAM DATE: 07/03/2018 09:32 AM. CLINICAL HISTORY: Liver failure, alcoholic hepatitis, ascites. COMPARISON: None. TECHNIQUE: Risks, benefits, and alternatives to the procedure were discussed with the patient. All questions answered. Written and verbal consent obtained. Patient was placed in the supine position and the skin overlying the ascites marked with sonographic guidance. The skin was sterilely prepped and draped, and 1% buffered lidocaine was used for local anesthesia. An 6-Swiss catheter needle combination was advanced into the peritoneal ascites and fluid aspirated. Upon completion, the catheter was removed. FINDINGS: A total of 7500 mL of fluid was removed without immediate complication. Patient tolerated procedure well. IMPRESSION: Ultrasound-guided paracentesis without immediate complications. RADIA
[2018-07-03] MEDS ORDERED: BUFFERED LIDOCAINE 10 ML SYRINGE IU ONE (12:30)
== END 2018-07-03 08:31 | disposition home or self-care (01) ==
LOC: DI 08:30
PROVIDERS: ATTEND Nurse Practitioner Gerontology
DX: K70.11 Alcoholic hepatitis with ascites (principal); K70.40 Alcoholic hepatic failure without coma; F10.20 Alcohol dependence, uncomplicated; R06.00 Dyspnea, unspecified
CPT/HCPCS: 49083

== ENCOUNTER 2018-07-17 08:37 | Outpatient (CLI) | payer MEDICAID ==
[~2018-07-17 08:37] MED LIST: BUFFERED LIDOCAINE 10 ML SYRINGE ONE
[2018-07-17] MEDS ORDERED: BUFFERED LIDOCAINE 10 ML SYRINGE ONE (09:22)
[2018-07-17] MEDS: BUFFERED LIDOCAINE 10 ML SYRINGE IU ONE (11:04)
--- NOTE | 2018-07-17 15:19 | Ultrasound Report ---
Reason: LIVER FAILURE,ALCOHOLIC HEPATITIS,ACURE,ASCITES,DI Procedure Date: 07/17/2018 Accession Number: [id number] / [id number] Procedure: US - Abdominal Paracentesis CPT Code: FULL RESULT: EXAM: ULTRASOUND-GUIDED PARACENTESIS EXAM DATE: 07/17/2018 09:04 AM. CLINICAL HISTORY: LIVER FAILURE,ALCOHOLIC HEPATITIS,ACURE,ASCITES,DI. COMPARISON: 07/03/2018 TECHNIQUE: Risks, benefits, and alternatives to the procedure were discussed with the patient. All questions answered. Written and verbal consent obtained. Patient was placed in the supine position and the skin overlying the right ascites marked with sonographic guidance. The skin was sterilely prepped and draped, and 1% buffered lidocaine was used for local anesthesia. A Wgpe-A-Rvataoyx catheter was advanced into the peritoneal ascites and fluid aspirated. Upon completion, the catheter was removed. FINDINGS: A total of 9.5 liters of fluid was removed without immediate complication. Patient tolerated procedure well. IMPRESSION: Ultrasound-guided paracentesis without immediate complications. RADIA
== END 2018-07-17 08:38 | disposition home or self-care (01) ==
LOC: DI 08:37
PROVIDERS: ATTEND Nurse Practitioner Gerontology
DX: K70.11 Alcoholic hepatitis with ascites (principal); K72.90 Hepatic failure, unspecified without coma; R06.00 Dyspnea, unspecified
CPT/HCPCS: 49083

== ENCOUNTER 2018-07-28 20:53 | Outpatient (CLI) | payer MEDICAID | END 2018-07-28 20:54 | disposition critical access hospital (66) | LOC: EMS 20:53 | PROVIDERS: ATTEND Surgery | DX: R06.00 Dyspnea, unspecified (principal); R18.8 Other ascites; M25.511 Pain in right shoulder | CPT/HCPCS: A0425; A0429; A0999 ==

== ENCOUNTER 2018-07-28 21:13 | Emergency (ER) | payer MEDICAID ==
[2018-07-28] MEDS ORDERED: LIDOCAINE 1%-EPI 1:100000 30 ML MDV SUBQ STA (21:19)
--- NOTE | 2018-07-28 21:21 | ED Physician Documentation ---
PD HPI ABD PAIN - Stated complaint Stated Complaint: SOA, ASCITES - Chief complaint Chief Complaint: Abd Pain - History obtained from History obtained from: Patient, EMS - History of Present Illness Timing - onset: Other (This is a 43-year-old woman with alcoholic cirrhosis who requires serial paracenteses. She has abdominal pressure without significant pain and shortness of breath similar to prior episodes of tense ascites. There is no fever or abdominal pain. She not been vomiting. Labs reviewed, she has not recently been coagulopathic nor thrombocytopenic.) Review of Systems Constitutional: denies: Fever, Chills Throat: reports: Reviewed and negative Cardiac: reports: Reviewed and negative GI: reports: Abdominal Swelling. 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 LASTER: section HEENT: Myringotomy (tubes) - Present Medications Home Medications: Ambulatory Orders Medication Instructions Recorded Confirmed Albuterol Sulf [Ventolin Hfa 2 puffs INH Q6HR PRN #1 inhaler 02/28/18 05/11/18 Inhaler] Levothyroxine Sodium 112 mcg PO QDAC #30 tablet 02/28/18 05/11/18 Pantoprazole [Protonix] 40 mg PO QDAC #30 tablet 02/28/18 05/11/18 Potassium Chloride 20 meq PO DAILY #30 tablet.er 02/28/18 05/11/18 Spironolactone 75 mg PO BID 05/11/18 05/11/18 diphenhydrAMINE [Benadryl] 50 mg PO Q4H PRN 05/12/18 05/12/18 Furosemide 40 mg PO BID 06/12/18 06/12/18 - Allergies Allergies/Adverse Reactions: Allergies Allergy/AdvReac Type Severity Reaction Status Date / Time amoxicillin Allergy Unknown Verified 07/28/18 21:20 ampicillin Allergy Unknown Verified 07/28/18 21:20 - Social History Does the pt smoke?: No Smoking Status: Never smoker Does the pt drink ETOH?: No Does the pt have substance abuse?: No - Immunizations Immunizations are current?: Yes - POLST Patient has POLST: Yes POLST Status: Full Code PD ED PE NORMAL - Vitals Vital signs reviewed: Yes - General General: Alert and oriented X 3, No acute distress - Abdomen Abdomen: Other (Distended with tense ascites NTTP) - Neuro Neuro: Alert and oriented X 3, Normal speech - Psych Psych: Normal mood, Normal affect Results - Vitals Vitals: Vital Signs - 24 hr 07/28/18 07/28/18 07/28/18 21:14 21:30 21:42 Temperature 37.4 C Heart Rate 120 H 118 H 112 H Respiratory 20 21 Rate Blood Pressure 123/85 H 123/85 H 113/79 O2 Saturation 100 95 07/28/18 21:55 Temperature Heart Rate 103 H Respiratory 20 Rate Blood Pressure 101/72 O2 Saturation Oxygen O2 Source Room air Procedures - Paracentesis Preparation: Consent obtained, Ultrasound guidance, Sterile prep and drape, Local anesthesia (10ml lidocaine with epi) Location: LLQ Technique: Z-tract, Catheter over needle Fluid: Clear, Volume - enter cc (10liters) Aftercare: No complications Departure - Departure Disposition: 01 Home, Self Care Clinical Impression: Alcoholic cirrhosis of liver with ascites Liver failure Qualifiers: Liver failure chronicity: chronic Hepatic coma status: without hepatic coma Qualified Code(s): K72.10 - Chronic hepatic failure without coma Ascites Qualifiers: Ascites type: due to alcoholic cirrhosis Qualified Code(s): K70.31 - Alcoholic cirrhosis of liver with ascites Condition: Good Record reviewed to determine appropriate education?: Yes Instructions: Paracentesis Dc
[2018-07-28 22:26] VITALS: BP 106/60
== END 2018-07-28 22:48 | disposition home or self-care (01) ==
LOC: EDUNIT# → ED 21:13
DX: K70.31 Alcoholic cirrhosis of liver with ascites (principal); K72.10 Chronic hepatic failure without coma; F10.20 Alcohol dependence, uncomplicated
CPT/HCPCS: 49082; 99283

== ENCOUNTER 2018-07-31 08:45 | Outpatient (CLI) | payer MEDICAID ==
[2018-07-31] MEDS ORDERED: BUFFERED LIDOCAINE 10 ML SYRINGE ONE (08:56)
--- NOTE | 2018-07-31 13:56 | Ultrasound Report ---
Reason: LIVER FAILURE, ASCITES Procedure Date: 07/31/2018 Accession Number: [id number] / [id number] Procedure: US - Abdomen Limited CPT Code: FULL RESULT: EXAM: ABDOMEN ULTRASOUND LIMITED EXAM DATE: 07/31/2018 10:00 AM. CLINICAL HISTORY: Liver failure, ascites. COMPARISON: ABDOMEN LIMITED 12/08/2017 12:51 PM. TECHNIQUE: Real-time scanning was performed with static images obtained. FINDINGS: Images were acquired as part of planning for a scheduled ultrasound-guided paracentesis. Interrogation of all 4 quadrants of the abdomen demonstrate a small quantity of ascites. Clinically the patient received a therapeutic paracentesis on 07/28/2018 with removal of 10 L of fluid and ongoing leakage from the puncture site. Superficial abdominal soft tissues demonstrate edema. The decision was made to address the previous puncture site and defer paracentesis until further accumulation of fluid. IMPRESSION: Small volume ascites and superficial abdominal wall edema. RADIA
== END 2018-07-31 08:46 | disposition home or self-care (01) ==
LOC: DI 08:45
PROVIDERS: ATTEND Nurse Practitioner Gerontology
DX: K72.90 Hepatic failure, unspecified without coma (principal); K70.11 Alcoholic hepatitis with ascites; R06.00 Dyspnea, unspecified; R60.0 Localized edema
CPT/HCPCS: 76705

== ENCOUNTER 2018-08-14 08:42 | Outpatient (CLI) | payer MEDICAID ==
[2018-08-14] MEDS ORDERED: BUFFERED LIDOCAINE 10 ML SYRINGE ONE (09:04)
[2018-08-14] MEDS ORDERED: BUPIVACAINE 0.5%-EPI 1:200000 PF 10 ML VIAL ONE (09:33)
[2018-08-14] MEDS ORDERED: BUPIVACAINE 0.5%-EPI 1:200000 PF 10 ML VIAL SUBQ ONE (12:08)
[2018-08-14] MEDS: BUFFERED LIDOCAINE 10 ML SYRINGE IU ONE ×2 (12:08→12:09)
--- NOTE | 2018-08-14 12:45 | Ultrasound Report ---
Reason: LIVER FAILURE,ALCOHOLIC HEPATITIS,ACURE,ASCITES,DI Procedure Date: 08/14/2018 Accession Number: [id number] / [id number] Procedure: US - Abdominal Paracentesis CPT Code: FULL RESULT: EXAM: ULTRASOUND-GUIDED PARACENTESIS EXAM DATE: 08/14/2018 09:22 AM. CLINICAL HISTORY: LIVER FAILURE,ALCOHOLIC HEPATITIS,SCITES,DI. COMPARISON: 07/17/2018 TECHNIQUE: Risks, benefits, and alternatives to the procedure were discussed with the patient. All questions answered. Written and verbal consent obtained. Patient was placed in the supine position and the skin overlying the right lower quadrant ascites marked with sonographic guidance. The skin was sterilely prepped and draped, and 20 cc 1% buffered lidocaine and 10 cc of Sensorcaine 5% were used for local anesthesia. An 18-gauge Sjhc-P-Plmtsssg catheter was advanced into the peritoneal ascites and fluid aspirated. Upon completion, the catheter was removed. FINDINGS: A total of 12.1 liters of fluid was removed without immediate complication. Patient tolerated procedure well. IMPRESSION: Ultrasound-guided paracentesis without immediate complications. RADIA
== END 2018-08-14 08:43 | disposition home or self-care (01) ==
LOC: DI 08:42
PROVIDERS: ATTEND Nurse Practitioner Gerontology
DX: K70.11 Alcoholic hepatitis with ascites (principal); K72.90 Hepatic failure, unspecified without coma; R06.00 Dyspnea, unspecified
CPT/HCPCS: 49083

== ENCOUNTER 2018-08-27 20:28 | Outpatient (CLI) | payer MEDICAID | END 2018-08-27 20:29 | disposition critical access hospital (66) | LOC: EMS 20:28 | PROVIDERS: ATTEND Surgery | DX: R14.0 Abdominal distension (gaseous) (principal) ==

== ENCOUNTER 2018-08-27 20:52 | Emergency (ER) | payer MEDICAID ==
--- NOTE | 2018-08-27 21:07 | ED Physician Documentation ---
History of Present Illness - Stated complaint Stated Complaint: ASCITIES/CP - Chief complaint Chief Complaint: General - History obtained from History obtained from: Patient - History of Present Illness Timing: Chronic Pain level max: 3 Pain level now: 3 Severity Comments: mild Quality: Dull Radiates to: none Improved by: paracentesis Worsened by: nothing Associated symptoms: none Review of Systems Ten Systems: 10 systems reviewed and negative Constitutional: reports: Reviewed and negative Eyes: reports: Reviewed and negative Ears: reports: Reviewed and negative Nose: reports: Reviewed and negative Throat: reports: Reviewed and negative Cardiac: reports: Reviewed and negative Respiratory: reports: Reviewed and negative GI: reports: Reviewed and negative : reports: Reviewed and negative Skin: reports: Reviewed and negative Musculoskeletal: reports: Reviewed and negative Neurologic: reports: Reviewed and negative Psychiatric: reports: Reviewed and negative Endocrine: reports: Reviewed and negative Immunocompromised: reports: Reviewed and negative PD PAST MEDICAL HISTORY - Past Medical History Respiratory: COPD, Pneumonia, Shortness of breath Neuro: None Endocrine/Autoimmune: HyPOthyroidism GI: Hepatitis, Cirrhosis : None HEENT: Chronic vision loss Psych: None Musculoskeletal: None - Past Surgical History Past Surgical History: Yes General: Gastric surgery 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: 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 HEENT: Myringotomy (tubes) - Present Medications Home Medications: Ambulatory Orders Medication Instructions Recorded Confirmed Albuterol Sulf [Ventolin Hfa 2 puffs INH Q6HR PRN #1 inhaler 02/28/18 08/27/18 Inhaler] Levothyroxine Sodium 112 mcg PO QDAC #30 tablet 02/28/18 08/27/18 Pantoprazole [Protonix] 40 mg PO QDAC #30 tablet 02/28/18 08/27/18 Potassium Chloride 20 meq PO DAILY #30 tablet.er 02/28/18 08/27/18 Spironolactone 75 mg PO BID 05/11/18 08/27/18 diphenhydrAMINE [Benadryl] 50 mg PO Q4H PRN 05/12/18 08/27/18 Furosemide 40 mg PO BID 06/12/18 08/27/18 - Allergies Allergies/Adverse Reactions: Allergies Allergy/AdvReac Type Severity Reaction Status Date / Time amoxicillin Allergy Unknown Verified 08/27/18 20:57 ampicillin Allergy Unknown Verified 08/27/18 20:57 - Social History Does the pt smoke?: No Smoking Status: Never smoker Does the pt drink ETOH?: No Does the pt have substance abuse?: No - Immunizations Immunizations are current?: Yes - POLST Patient has POLST: Yes POLST Status: Full Code PD ED PE NORMAL - Vitals Vital signs reviewed: Yes - General General: Alert and oriented X 3, No acute distress - HEENT HEENT: PERRL - Neck Neck: Supple, no meningeal sign - Cardiac Cardiac: RRR, No murmur - Respiratory Respiratory: Clear bilaterally, Other (No tachypnea) - Abdomen Abdomen: Normal bowel sounds, Soft, Non tender, Other (moderate ascites, no tenderness) - Derm Derm: Warm and dry - Extremities Extremities: No deformity - Neuro Neuro: Alert and oriented X 3 - Psych Psych: Normal mood, Normal affect Results - Vitals Vitals: Vital Signs - 24 hr 08/27/18 20:53 Temperature 37.3 C Heart Rate 108 H Respiratory 16 Rate Blood Pressure 127/86 H O2 Saturation 100 Oxygen O2 Source Room air PD MEDICAL DECISION MAKING - ED course Complexity details: re-evaluated patient, considered differential, d/w patient ED course: 43-year-old female with chronic ascites and appointment for paracentesis tomorrow morning at 9 AM presents with request for paracentesis. Patient complains of abdominal distention and does not Want to wait until tomorrow morning. She states that she often comes to the emergency department for paracentesis. Patient informed that although paracentesis may be done in rare circumstances as a courtesy to the patient if the department is extremely slow that it is not possible for the procedure to be done tonight without any emergent indication. Patient has no abdominal pain and no abdominal tenderness. Patient has no difficulty breathing. Patient encouraged to follow-up with her radiology appointment in the morning. Patient asked if a different physician is available to perform paracentesis at this time and is informed that the other physician on duty is performing critical procedures with a critical patient. Return precautions reviewed. Departure - Departure Disposition: 01 Home, Self Care Clinical Impression: Ascites Qualifiers: Ascites type: other type Qualified Code(s): R18.8 - Other ascites Condition: Stable Instructions: ED Ascites Follow-Up: your, pcp [Other] Comments: Follow up with your paracentesis appointment tomorrow. Return with worsening symptoms.
[2018-08-27 21:22] VITALS: BP 145/78
== END 2018-08-27 21:38 | disposition home or self-care (01) ==
LOC: EDUNIT# → ED 20:52
DX: R18.8 Other ascites (principal); K74.60 Unspecified cirrhosis of liver; K75.9 Inflammatory liver disease, unspecified
CPT/HCPCS: 99283

== ENCOUNTER 2018-08-28 08:59 | Outpatient (CLI) | payer MEDICAID ==
--- NOTE | 2018-08-28 13:18 | Ultrasound Report ---
Reason: LIVER FAILURE,ALCOHOLIC HEPATITIS,ACURE,ASCITES,DI Procedure Date: 08/28/2018 Accession Number: [id number] / [id number] Procedure: US - Abdominal Paracentesis CPT Code: FULL RESULT: EXAM: ULTRASOUND-GUIDED PARACENTESIS EXAM DATE: 08/28/2018 09:29 AM. CLINICAL HISTORY: Liver failure, alcoholic hepatitis, ascites, DI. COMPARISON: Abdominal paracentesis 08/14/2018 9:22 AM. TECHNIQUE: Risks, benefits, and alternatives to the procedure were discussed with the patient. All questions answered. Written and verbal consent obtained. Patient was placed in the supine position and the skin overlying the ascites marked with sonographic guidance. The skin was sterilely prepped and draped, and 1% buffered lidocaine was used for local anesthesia. An 18-gauge catheter needle combination was advanced into the peritoneal ascites and fluid aspirated. Upon completion, the catheter was removed. FINDINGS: A total of 12,000 mL of fluid was removed without immediate complication. Patient tolerated procedure well. IMPRESSION: Ultrasound-guided paracentesis without immediate complications. [facility]
[2018-08-28] MEDS ORDERED: BUPIVACAINE 0.5%-EPI 1:200000 PF 10 ML VIAL SUBQ ONE (16:12)
[2018-08-28] MEDS ORDERED: BUFFERED LIDOCAINE 10 ML SYRINGE IU ONE (16:12)
== END 2018-08-28 09:00 | disposition home or self-care (01) ==
LOC: DI 08:59
PROVIDERS: ATTEND Nurse Practitioner Gerontology
DX: K70.31 Alcoholic cirrhosis of liver with ascites (principal); K76.6 Portal hypertension; K70.11 Alcoholic hepatitis with ascites; K72.90 Hepatic failure, unspecified without coma; R06.00 Dyspnea, unspecified; K80.20 Calculus of gallbladder without cholecystitis without obstruction
CPT/HCPCS: 49083; 76700; 93975

== ENCOUNTER 2018-08-28 09:09 | Outpatient (CLI) | payer MEDICAID ==
[~2018-08-28 09:09] MED LIST changes: +BUPIVACAINE 0.5%-EPI 1:200000 PF 10 ML VIAL ONE
--- NOTE | 2018-08-28 13:54 | Ultrasound Report ---
Reason: ALCOHOLIC CIRRHOSIS OF LIVER WITH ASCITES,PORTAL H Procedure Date: 08/28/2018 Accession Number: [id number] / [id number] Procedure: US - Abdomen Complete CPT Code: FULL RESULT: EXAM: ABDOMEN ULTRASOUND EXAM DATE: 08/28/2018 12:52 PM. CLINICAL HISTORY: Alcoholic cirrhosis of liver with ascites,portal hepatis. COMPARISON: None. TECHNIQUE: Real-time scanning was performed with static images obtained. FINDINGS: Liver: Nodular contour and increased echogenicity of parenchyma with the right lobe of the liver measuring at least 20 cm. Main portal vein flow: Hepatopetal. The main, right and left portal vein is sampled by color Doppler and spectral Doppler and demonstrate normal venous waveform with preserved blood flow directed towards the liver. No portal venous thrombus is detected. The splenic venous system sampled at the proximal, mid and distal portions is similarly directed towards the liver and shows no evidence of thrombosis by spectral and color Doppler respectively. The right, middle and left hepatic veins are sampled and patent by color Doppler with hepatofugal flow, normal direction on spectral Doppler. Spectral waveform is normal without increased pulsatility. The hepatic arterial system is sampled in the common hepatic, proper hepatic, right and left hepatic arteries. There are preserved systolic upstrokes and arterial waveforms by spectral Doppler with patency by color Doppler. The following peak systolic velocities were obtained in centimeters per second: Aorta: 108 Common hepatic artery: 150-186 Proper hepatic artery: 186 Left hepatic artery: 123 Right hepatic artery: 57 Gallbladder: Cholelithiasis without tenderness over the gallbladder. Biliary System: Common bile duct measures 5 mm. No intrahepatic or extrahepatic ductal dilatation. Pancreas: Visualized portion is unremarkable. Kidneys: Right: 10.2 cm longitudinally. Normal. No contour-deforming mass, stones, or hydronephrosis. Left: 10.9 cm longitudinally. Normal. No contour-deforming mass, stones, or hydronephrosis. Spleen: 13 cm. Normal in size and echotexture. IVC is patent. Other: Ascites. IMPRESSION: Cirrhotic liver without evidence of portal vein thrombosis or reversal of portal venous flow. Cholelithiasis. Ascites. RAD[facility]
== END 2018-08-28 09:10 | disposition home or self-care (01) ==
LOC: DI 09:09
PROVIDERS: ATTEND Internal Medicine
DX: K70.31 Alcoholic cirrhosis of liver with ascites (principal); K76.6 Portal hypertension; K80.20 Calculus of gallbladder without cholecystitis without obstruction
CPT/HCPCS: 76700; 93975

== ENCOUNTER 2018-09-11 08:51 | Outpatient (CLI) | payer MEDICAID ==
[2018-09-11] MEDS ORDERED: BUFFERED LIDOCAINE 10 ML SYRINGE ONE (09:08)
[2018-09-11] MEDS ORDERED: SODIUM CHLORIDE FLUSH 0.9% 10 ML SYRINGE ONE (10:49)
[2018-09-11] MEDS ORDERED: BUFFERED LIDOCAINE 10 ML SYRINGE IU ONE (13:03)
--- NOTE | 2018-09-11 13:42 | Ultrasound Report ---
Reason: LIVER FAILURE,ALCOHOLIC HEPATITIS,CAURE, ASCITES,D Procedure Date: 09/11/2018 Accession Number: [id number] / [id number] Procedure: US - Abdominal Paracentesis CPT Code: FULL RESULT: EXAM: ULTRASOUND-GUIDED PARACENTESIS EXAM DATE: 09/11/2018 09:15 AM. CLINICAL HISTORY: LIVER FAILURE, ALCOHOLIC HEPATITIS, ASCITES. COMPARISON: ABDOMINAL PARACENTESIS 08/28/2018 9:29 AM. TECHNIQUE: Risks, benefits, and alternatives to the procedure were discussed with the patient. All questions answered. Written and verbal consent obtained. Patient was placed in the supine position and the skin overlying the ascites marked with sonographic guidance. The skin was sterilely prepped and draped, and 1% buffered lidocaine was used for local anesthesia. An 18-gauge Yueh needle was advanced into the peritoneal ascites and fluid aspirated. Upon completion, the catheter was removed. FINDINGS: A total of 6500 mL of fluid was removed without immediate complication. Patient tolerated procedure well. Patient was subsequently sent for albumin infusion. IMPRESSION: Ultrasound-guided paracentesis without immediate complications. [facility]
== END 2018-09-11 08:52 | disposition home or self-care (01) ==
LOC: DI 08:51
PROVIDERS: ATTEND Nurse Practitioner Gerontology
DX: K72.90 Hepatic failure, unspecified without coma (principal); K70.10 Alcoholic hepatitis without ascites; R18.8 Other ascites; R06.00 Dyspnea, unspecified
CPT/HCPCS: 49083

== ENCOUNTER 2018-09-19 09:47 | Outpatient (CLI) | payer MEDICAID ==
[2018-09-19] MEDS ORDERED: BUFFERED LIDOCAINE 10 ML SYRINGE ONE (09:59)
[2018-09-19] MEDS ORDERED: BUFFERED LIDOCAINE 10 ML SYRINGE IU ONE (12:13)
--- NOTE | 2018-09-19 12:39 | Ultrasound Report ---
Reason: LIVER FAILURE, ASCITES, ALCOHOLIC HEPATITIS Procedure Date: 09/19/2018 Accession Number: [id number] / [id number] Procedure: US - Abdominal Paracentesis CPT Code: FULL RESULT: EXAM: ULTRASOUND-GUIDED PARACENTESIS EXAM DATE: 09/19/2018 10:07 AM. CLINICAL HISTORY: LIVER FAILURE, ASCITES, ALCOHOLIC HEPATITIS. COMPARISON: ABDOMINAL PARACENTESIS 09/11/2018 9:15 AM. TECHNIQUE: Risks, benefits, and alternatives to the procedure were discussed with the patient. All questions answered. Written and verbal consent obtained. Patient was placed in the supine position and the skin overlying the ascites marked with sonographic guidance. The skin was sterilely prepped and draped, and 1% buffered lidocaine was used for local anesthesia. An 18-gauge [place] catheter was advanced into the peritoneal ascites and fluid aspirated. Upon completion, the catheter was removed. FINDINGS: A total of 10 L of fluid was removed without immediate complication. Patient tolerated procedure well. Patient was immediately taken for scheduled albumin infusion to follow paracentesis. IMPRESSION: Ultrasound-guided paracentesis without immediate complications. [facility]
== END 2018-09-19 09:48 | disposition home or self-care (01) ==
LOC: DI 09:47
PROVIDERS: ATTEND Nurse Practitioner Gerontology
DX: K72.90 Hepatic failure, unspecified without coma (principal); K70.11 Alcoholic hepatitis with ascites; R06.00 Dyspnea, unspecified
CPT/HCPCS: 49083

== ENCOUNTER 2018-09-25 13:18 | Outpatient (CLI) | payer MEDICAID ==
[2018-09-25] MEDS ORDERED: BUFFERED LIDOCAINE 10 ML SYRINGE IU ONE (15:22)
--- NOTE | 2018-09-26 10:19 | Ultrasound Report ---
Reason: LIVER FAILURE,ALCOHOLIC HEPATITIS,CAURE, ASCITES,D Procedure Date: 09/25/2018 Accession Number: [id number] / [id number] Procedure: US - Abdominal Paracentesis CPT Code: FULL RESULT: EXAM: ULTRASOUND-GUIDED PARACENTESIS EXAM DATE: 09/25/2018 01:49 PM. CLINICAL HISTORY: Liver failure, alcoholic hepatitis, ascites. COMPARISON: ABDOMINAL PARACENTESIS 09/19/2018 10:07 AM. TECHNIQUE: Risks, benefits, and alternatives to the procedure were discussed with the patient. All questions answered. Written and verbal consent obtained. Patient was placed in the supine position and the skin overlying the ascites marked with sonographic guidance. The skin was sterilely prepped and draped, and 1% buffered lidocaine was used for local anesthesia. An 17-gauge valved catheter needle combination was advanced into the peritoneal ascites and fluid aspirated. Upon completion, the catheter was removed. FINDINGS: A total of 10,000 mL of fluid was removed without immediate complication. Patient tolerated procedure well. IMPRESSION: Ultrasound-guided paracentesis without immediate complications. [facility]
== END 2018-09-25 13:19 | disposition home or self-care (01) ==
LOC: DI 13:18
PROVIDERS: ATTEND Nurse Practitioner Gerontology
DX: K72.90 Hepatic failure, unspecified without coma (principal); K70.11 Alcoholic hepatitis with ascites; R06.00 Dyspnea, unspecified
CPT/HCPCS: 49083

== ENCOUNTER 2018-10-09 13:39 | Outpatient (CLI) | payer MEDICAID ==
[2018-10-09] MEDS ORDERED: BUFFERED LIDOCAINE 10 ML SYRINGE IU ONE (16:06)
--- NOTE | 2018-10-10 09:14 | Ultrasound Report ---
Reason: LIVER FAILURE,ALCOHOLIC HEPATITIS,CAURE, ASCITES,D Procedure Date: 10/09/2018 Accession Number: [id number] / [id number] Procedure: US - Abdominal Paracentesis CPT Code: FULL RESULT: EXAM: ULTRASOUND-GUIDED PARACENTESIS EXAM DATE: 10/09/2018 02:16 PM. CLINICAL HISTORY: Liver failure ,alcoholic hepatitis, ascites. Difficulty breathing. COMPARISON: ABDOMINAL PARACENTESIS 09/25/2018 1:49 PM. TECHNIQUE: Risks, benefits, and alternatives to the procedure were discussed with the patient. All questions answered. Written and verbal consent obtained. Patient was placed in the supine position and the skin overlying the ascites marked with sonographic guidance. The skin was sterilely prepped and draped, and 1% buffered lidocaine was used for local anesthesia. A Yueh type valve catheter needle combination was advanced into the peritoneal ascites and fluid aspirated. Upon completion, the catheter was removed. FINDINGS: A total of 14.6 L of fluid was removed without immediate complication. Patient tolerated procedure well. IMPRESSION: Ultrasound-guided paracentesis without immediate complications. [facility]
== END 2018-10-09 13:40 | disposition home or self-care (01) ==
LOC: DI 13:39
PROVIDERS: ATTEND Nurse Practitioner Gerontology
DX: K72.90 Hepatic failure, unspecified without coma (principal); K70.11 Alcoholic hepatitis with ascites; R06.00 Dyspnea, unspecified
CPT/HCPCS: 49083

== ENCOUNTER 2018-10-23 13:39 | Outpatient (CLI) | payer MEDICAID ==
[2018-10-23] MEDS ORDERED: BUFFERED LIDOCAINE 10 ML SYRINGE ONE (13:50)
[2018-10-23] MEDS ORDERED: BUFFERED LIDOCAINE 10 ML SYRINGE IU ONE (15:32)
--- NOTE | 2018-10-23 15:44 | Ultrasound Report ---
Reason: LIVER FAILURE,ALCOHOLIC HEPATITIS,CAURE, ASCITES,D Procedure Date: 10/23/2018 Accession Number: [id number] / [id number] Procedure: US - Abdominal Paracentesis CPT Code: FULL RESULT: EXAM: ULTRASOUND-GUIDED PARACENTESIS EXAM DATE: 10/23/2018 01:59 PM. CLINICAL HISTORY: Liver failure, alcoholic hepatitis, ascites. COMPARISON: ABDOMINAL PARACENTESIS 10/09/2018 2:16 PM. TECHNIQUE: Risks, benefits, and alternatives to the procedure were discussed with the patient. All questions answered. Written and verbal consent obtained. Patient was placed in the supine position and the skin overlying the ascites marked with sonographic guidance. The skin was sterilely prepped and draped, and 1% buffered lidocaine was used for local anesthesia. An 18-gauge catheter needle combination with valve was advanced into the peritoneal ascites and fluid aspirated. Upon completion, the catheter was removed. FINDINGS: A total of 12,000 mL of fluid was removed without immediate complication. Patient tolerated procedure well. IMPRESSION: Ultrasound-guided paracentesis without immediate complications. [facility]
== END 2018-10-23 13:40 | disposition home or self-care (01) ==
LOC: DI 13:39
PROVIDERS: ATTEND Nurse Practitioner Gerontology
DX: K70.11 Alcoholic hepatitis with ascites (principal); R06.00 Dyspnea, unspecified; K72.90 Hepatic failure, unspecified without coma
CPT/HCPCS: 49083

== ENCOUNTER 2018-11-06 13:42 | Outpatient (CLI) | payer MEDICAID ==
[~2018-11-06 13:42] MED LIST changes: -BUPIVACAINE 0.5%-EPI 1:200000 PF 10 ML VIAL ONE
--- NOTE | 2018-11-06 16:02 | Ultrasound Report ---
Reason: LIVER FAILURE,ALCOHOLIC HEPATITIS,CAURE, ASCITES,D Procedure Date: 11/06/2018 Accession Number: [id number] / [id number] Procedure: US - Abdominal Paracentesis CPT Code: FULL RESULT: EXAM: ULTRASOUND-GUIDED PARACENTESIS EXAM DATE: 11/06/2018 01:46 PM. CLINICAL HISTORY: LIVER FAILURE, ALCOHOLIC HEPATITIS, ASCITES, COMPARISON: ABDOMINAL PARACENTESIS 10/23/2018 1:58 PM. TECHNIQUE: Risks, benefits, and alternatives to the procedure were discussed with the patient. All questions answered. Written and verbal consent obtained. Patient was placed in the supine position and the skin overlying the ascites marked with sonographic guidance. The skin was sterilely prepped and draped, and 1% buffered lidocaine was used for local anesthesia. An 17-gauge catheter needle was advanced into the peritoneal ascites and fluid aspirated. Upon completion, the catheter was removed. FINDINGS: A total of 14,000 mL of fluid was removed without immediate complication. Patient tolerated procedure well. IMPRESSION: Ultrasound-guided paracentesis without immediate complications. [facility]
[2018-11-06] MEDS ORDERED: BUFFERED LIDOCAINE 10 ML SYRINGE IU ONE (17:34)
== END 2018-11-06 13:43 | disposition home or self-care (01) ==
LOC: DI 13:42
PROVIDERS: ATTEND Nurse Practitioner Gerontology
DX: K70.11 Alcoholic hepatitis with ascites (principal); K72.90 Hepatic failure, unspecified without coma
CPT/HCPCS: 49083

== ENCOUNTER 2018-11-20 13:43 | Outpatient (CLI) | payer MEDICAID ==
[2018-11-20] MEDS ORDERED: BUFFERED LIDOCAINE 10 ML SYRINGE ONE (13:53)
[2018-11-20] MEDS ORDERED: SODIUM CHLORIDE FLUSH 0.9% 10 ML SYRINGE ONE ×2 (14:42→16:29)
[2018-11-20] MEDS ORDERED: BUFFERED LIDOCAINE 10 ML SYRINGE IU ONE (16:05)
--- NOTE | 2018-11-21 10:20 | Ultrasound Report ---
Reason: LIVER FAILURE,ALCOHOLIC HEPATITIS,CAURE, ASCITES,D Procedure Date: 11/20/2018 Accession Number: [id number] / [id number] Procedure: US - Abdominal Paracentesis CPT Code: FULL RESULT: EXAM: ULTRASOUND-GUIDED PARACENTESIS EXAM DATE: 11/20/2018 02:08 PM. CLINICAL HISTORY: Liver failure, alcoholic hepatitis, caure, ascites. COMPARISON: ABDOMINAL PARACENTESIS 11/06/2018 1:46 PM. TECHNIQUE: Risks, benefits, and alternatives to the procedure were discussed with the patient. All questions answered. Written and verbal consent obtained. Patient was placed in the supine position and the skin overlying the ascites marked with sonographic guidance. The skin was sterilely prepped and draped, and 1% buffered lidocaine was used for local anesthesia. A catheter needle combination was advanced into the peritoneal ascites and fluid aspirated. Upon completion, the catheter was removed. FINDINGS: A total of 12,300 mL of fluid was removed without immediate complication. Patient tolerated procedure well. IMPRESSION: Ultrasound-guided paracentesis without immediate complications. [facility]
== END 2018-11-20 13:44 | disposition home or self-care (01) ==
LOC: DI 13:43
PROVIDERS: ATTEND Nurse Practitioner Gerontology
DX: K70.11 Alcoholic hepatitis with ascites (principal); K72.90 Hepatic failure, unspecified without coma; R06.00 Dyspnea, unspecified
CPT/HCPCS: 49083

== ENCOUNTER 2018-12-04 13:48 | Outpatient (CLI) | payer MEDICAID ==
[2018-12-04] MEDS ORDERED: BUFFERED LIDOCAINE 10 ML SYRINGE IU ONE (15:28)
--- NOTE | 2018-12-05 15:52 | Ultrasound Report ---
Reason: LIVER FAILURE,ALCOHOLIC HEPATITIS,CAURE, ASCITES,D Procedure Date: 12/04/2018 Accession Number: [id number] / [id number] Procedure: US - Abdominal Paracentesis CPT Code: FULL RESULT: EXAM: ULTRASOUND-GUIDED PARACENTESIS EXAM DATE: 12/04/2018 03:29 PM. CLINICAL HISTORY: Liver failure, alcoholic hepatitis, ascites. COMPARISON: None. TECHNIQUE: Risks, benefits, and alternatives to the procedure were discussed with the patient. All questions answered. Written and verbal consent obtained. Patient was placed in the supine position and the skin overlying the ascites marked with sonographic guidance. The skin was sterilely prepped and draped, and 1% buffered lidocaine was used for local anesthesia. A catheter-needle combination was advanced into the peritoneal ascites and fluid aspirated. Upon completion, the catheter was removed. FINDINGS: A total of 9000 mL of fluid was removed without immediate complication. Patient tolerated procedure well. IMPRESSION: Ultrasound-guided paracentesis without immediate complications. [facility]
== END 2018-12-04 13:49 | disposition home or self-care (01) ==
LOC: DI 13:48
PROVIDERS: ATTEND Nurse Practitioner Gerontology
DX: K70.11 Alcoholic hepatitis with ascites (principal); K72.90 Hepatic failure, unspecified without coma; R06.00 Dyspnea, unspecified
CPT/HCPCS: 49083

== ENCOUNTER 2018-12-18 13:28 | Outpatient (CLI) | payer MEDICAID ==
[2018-12-18] MEDS ORDERED: BUFFERED LIDOCAINE 10 ML SYRINGE ONE (13:55)
--- NOTE | 2018-12-18 16:24 | Ultrasound Report ---
Reason: LIVER FAILURE,ALCOHOLIC HEPATITIS,CAURE, ASCITES,D Procedure Date: 12/18/2018 Accession Number: [id number] / [id number] Procedure: US - Abdominal Paracentesis CPT Code: FULL RESULT: EXAM: ULTRASOUND-GUIDED PARACENTESIS EXAM DATE: 12/18/2018 02:34 PM. CLINICAL HISTORY: LIVER Failure, alcoholic HEPATITIS,CAURE, ASCITES,D. COMPARISON: ABDOMINAL PARACENTESIS 11/20/2018 2:08 PM. TECHNIQUE: Risks, benefits, and alternatives to the procedure were discussed with the patient. All questions answered. Written and verbal consent obtained. Patient was placed in the supine position and the skin overlying the ascites marked with sonographic guidance. The skin was sterilely prepped and draped, and 1% buffered lidocaine was used for local anesthesia. An 18-gauge catheter needle combination with a valve was advanced into the peritoneal ascites and fluid aspirated. Upon completion, the catheter was removed. FINDINGS: A total of 9500 mL of fluid was removed without immediate complication. Patient tolerated procedure well. IMPRESSION: Ultrasound-guided paracentesis without immediate complications. [facility]
[2018-12-18] MEDS ORDERED: BUFFERED LIDOCAINE 10 ML SYRINGE IU ONE (17:26)
== END 2018-12-18 13:29 | disposition home or self-care (01) ==
LOC: DI 13:28
PROVIDERS: ATTEND Nurse Practitioner Gerontology
DX: K70.11 Alcoholic hepatitis with ascites (principal); K72.90 Hepatic failure, unspecified without coma; R06.00 Dyspnea, unspecified
CPT/HCPCS: 49083

== ENCOUNTER 2018-12-31 09:42 | Outpatient (CLI) | payer MEDICAID ==
[2018-12-31] MEDS ORDERED: BUFFERED LIDOCAINE 10 ML SYRINGE ONE (09:57)
[2018-12-31] MEDS ORDERED: BUPIVACAINE 0.5%-EPI 1:200000 PF 10 ML VIAL ONE ×2 (11:00→11:01)
--- NOTE | 2018-12-31 14:57 | Ultrasound Report ---
Reason: LIVER FAILURE,ALCOHOLIC HEPATITIS,CAURE, ASCITES,D Procedure Date: 12/31/2018 Accession Number: [id number] / [id number] Procedure: US - Abdominal Paracentesis CPT Code: FULL RESULT: EXAM: ULTRASOUND-GUIDED PARACENTESIS EXAM DATE: 12/31/2018 12:00 PM. CLINICAL HISTORY: LIVER FAILURE,ALCOHOLIC HEPATITIS, ASCITES. COMPARISON: 12/04/2018 and 12/18/2018. TECHNIQUE: Risks, benefits, and alternatives to the procedure were discussed with the patient. All questions answered. Written and verbal consent obtained. Patient was placed in the supine position and the skin overlying the right lower quadrant ascites marked with sonographic guidance. The skin was sterilely prepped and draped, and 1% buffered lidocaine was used for local anesthesia. An 18-gauge Angiocath was advanced into the peritoneal ascites and fluid aspirated. Upon completion, the catheter was removed. FINDINGS: A total of 7 liters of fluid was removed without immediate complication. Patient tolerated procedure well. IMPRESSION: Ultrasound-guided paracentesis without immediate complications. [facility]
[2018-12-31] MEDS ORDERED: BUPIVACAINE 0.5%-EPI 1:200000 PF 10 ML VIAL SUBQ ONE (16:54)
[2018-12-31] MEDS ORDERED: BUFFERED LIDOCAINE 10 ML SYRINGE IU ONE (16:54)
== END 2018-12-31 09:43 | disposition home or self-care (01) ==
LOC: DI 09:42
PROVIDERS: ATTEND Nurse Practitioner Gerontology
DX: K70.31 Alcoholic cirrhosis of liver with ascites (principal)
CPT/HCPCS: 49083

== ENCOUNTER 2019-01-15 09:12 | Outpatient (CLI) | payer MEDICAID ==
[2019-01-15] MEDS ORDERED: BUFFERED LIDOCAINE 10 ML SYRINGE ONE (09:25)
[2019-01-15] MEDS ORDERED: BUFFERED LIDOCAINE 10 ML SYRINGE IU ONE (11:24)
--- NOTE | 2019-01-15 15:17 | Ultrasound Report ---
Reason: LIVER FAILURE,ALCOHOLIC HEPATITIS,CAURE, ASCITES,D Procedure Date: 01/15/2019 Accession Number: [id number] / [id number] Procedure: US - Abdominal Paracentesis CPT Code: FULL RESULT: EXAM: ULTRASOUND-GUIDED PARACENTESIS EXAM DATE: 01/15/2019 10:52 AM. CLINICAL HISTORY: Liver failure, alcoholic hepatitis, ascites. COMPARISON: Abdominal paracentesis 12/31/2018. TECHNIQUE: Risks, benefits, and alternatives to the procedure were discussed with the patient. All questions answered. Written and verbal consent obtained. Patient was placed in the supine position and the skin overlying the ascites marked with sonographic guidance. The skin was sterilely prepped and draped, and 1% buffered lidocaine was used for local anesthesia. An 18-gauge wnkbn-wlfuwgrn-ratxko combination was advanced into the peritoneal ascites and fluid aspirated. Upon completion, the catheter was removed. FINDINGS: A total of approximately 7500 mL of fluid was removed without immediate complication. Patient tolerated procedure well. IMPRESSION: Ultrasound-guided paracentesis without immediate complications. [facility]
== END 2019-01-15 09:13 | disposition home or self-care (01) ==
LOC: DI 09:12
PROVIDERS: ATTEND Nurse Practitioner Gerontology
DX: K70.31 Alcoholic cirrhosis of liver with ascites (principal)
CPT/HCPCS: 49083

== ENCOUNTER 2019-01-29 09:15 | Outpatient (CLI) | payer MEDICAID ==
[2019-01-29] MEDS ORDERED: BUFFERED LIDOCAINE 10 ML SYRINGE IU ONE (14:27)
--- NOTE | 2019-01-30 14:27 | Ultrasound Report ---
Reason: LIVER FAILURE,ALCOHOLIC HEPATITIS,CAURE, ASCITES,D Procedure Date: 01/29/2019 Accession Number: [id number] / [id number] Procedure: US - Abdominal Paracentesis CPT Code: FULL RESULT: EXAM: ULTRASOUND-GUIDED PARACENTESIS EXAM DATE: 01/29/2019 10:45 AM. CLINICAL HISTORY: LIVER FAILURE, ALCOHOLIC HEPATITIS, ASCITES. COMPARISON: ABDOMINAL PARACENTESIS 01/15/2019 9:27 AM. TECHNIQUE: Risks, benefits, and alternatives to the procedure were discussed with the patient. All questions answered. Written and verbal consent obtained. Patient was placed in the supine position and the skin overlying the ascites marked with sonographic guidance. The skin was sterilely prepped and draped, and 1% buffered lidocaine was used for local anesthesia. An 18-gauge catheter needle combination was advanced into the peritoneal ascites and fluid aspirated. Upon completion, the catheter was removed. FINDINGS: A total of 5900 mL of fluid was removed without immediate complication. Patient tolerated procedure well. IMPRESSION: Ultrasound-guided paracentesis without immediate complications. [facility]
== END 2019-01-29 09:16 | disposition home or self-care (01) ==
LOC: DI 09:15
PROVIDERS: ATTEND Nurse Practitioner Gerontology
DX: K70.31 Alcoholic cirrhosis of liver with ascites (principal)
CPT/HCPCS: 49083; 76705

== ENCOUNTER 2019-01-29 10:21 | Outpatient (CLI) | payer MEDICAID ==
[2019-01-29] MEDS ORDERED: SODIUM CHLORIDE FLUSH 0.9% 10 ML SYRINGE ONE (11:42)
--- NOTE | 2019-01-30 16:04 | Ultrasound Report ---
Reason: ALCOHOLIC CIRRHOSIS OF LIVER WITH ASCITES Procedure Date: 01/29/2019 Accession Number: [id number] / [id number] Procedure: US - Abdomen Limited CPT Code: FULL RESULT: EXAM: ABDOMEN ULTRASOUND LIMITED, RUQ EXAM DATE: 01/29/2019 11:12 AM. CLINICAL HISTORY: Alcoholic cirrhosis of liver with ascites. COMPARISON: ABDOMEN LIMITED 07/31/2018 9:04 AM. TECHNIQUE: Real-time scanning was performed with static images obtained. FINDINGS: Liver: Hepatic parenchyma appears relatively preserved with only minimal surface nodularity and mildly increased echogenicity. No hepatic mass is detected within these limitations. The liver appears subjectively enlarged measuring at least 19.1 cm. Main portal vein flow: Hepatopetal, patent by color Doppler at the clover hepatis. Gallbladder: Gallbladder contains numerous mobile calculi. Biliary System: CBD measures 5 mm. No intrahepatic or extrahepatic ductal dilatation. Other: Ascites is noted. Right kidney measures up to 11.4 cm and appears grossly unremarkable. IMPRESSION: Hepatomegaly with relative preservation of parenchymal echotexture. [facility]
== END 2019-01-29 10:22 | disposition home or self-care (01) ==
LOC: DI 10:21
PROVIDERS: ATTEND Internal Medicine
DX: K70.31 Alcoholic cirrhosis of liver with ascites (principal)
CPT/HCPCS: 76705

== ENCOUNTER 2019-02-12 09:19 | Outpatient (CLI) | payer MEDICAID ==
[2019-02-12 09:32] LABS: ALBUMIN 3.1 g/dL (3.2-5.5); ALBUMIN/GLOBULIN RATIO 0.9 (1.0-2.2); BILIRUBIN,TOTAL 0.3 mg/dL (0.2-1.0); CREATININE 0.5 mg/dL (0.4-1.0); TOTAL PROTEIN 6.4 g/dL (6.7-8.2)
[2019-02-12] MEDS ORDERED: BUFFERED LIDOCAINE 10 ML SYRINGE ONE (09:34)
[2019-02-12 09:42] LABS: BASOPHILS # (AUTO) 0.1 10^3/uL (0.0-0.1); BASOPHILS % (AUTO) 1.1 %; EOSINOPHILS # (AUTO) 0.4 10^3/uL (0.0-0.7); HGB - HEMOGLOBIN 10.4 g/dL (12.0-16.0); LYMPHOCYTES # (AUTO) 2.4 10^3/uL (1.5-3.5); LYMPHOCYTES % (AUTO) 33.9 %; MEAN CORPUSCULAR HEMOGLOBIN 21.4 pg (27.0-31.0); MEAN CORPUSCULAR HGB CONC 29.5 g/dL (32.0-36.0); MEAN CORPUSCULAR VOLUME 72.4 fL (81.0-99.0); MEAN PLATELET VOLUME 9.5 fL (7.9-10.8); MONOCYTES # (AUTO) 0.5 10^3/uL (0.0-1.0); MONOCYTES % (AUTO) 7.1 %; NEUTROPHILS # (AUTO) 3.7 10^3/uL (1.5-6.6); NEUTROPHILS % (AUTO) 52.6 %; PLT - PLATELET COUNT 392 10^3/uL (130-450); RED BLOOD COUNT 4.86 10^6/uL (4.20-5.40); RED CELL DISTRIBUTION WIDTH 19.7 % (12.0-15.0)
[2019-02-12 09:46] LABS: INR 1.1 (0.8-1.2); PT - PROTHROMBIN TIME 12.4 secs (9.9-12.6)
[2019-02-12] MEDS ORDERED: BUFFERED LIDOCAINE 10 ML SYRINGE IU ONE (12:24)
--- NOTE | 2019-02-13 16:04 | Ultrasound Report ---
Reason: LIVER FAILURE,ALCOHOLIC HEPATITIS,CAURE, ASCITES,D Procedure Date: 02/12/2019 Accession Number: [id number] / [id number] Procedure: US - Abdominal Paracentesis CPT Code: FULL RESULT: EXAM: ULTRASOUND-GUIDED PARACENTESIS EXAM DATE: 02/12/2019 09:52 AM. CLINICAL HISTORY: LIVER FAILURE. ALCOHOLIC HEPATITIS. ASCITES. COMPARISON: ABDOMINAL PARACENTESIS 01/29/2019 9:12 AM. TECHNIQUE: Risks, benefits, and alternatives to the procedure were discussed with the patient. All questions answered. Written and verbal consent obtained. Patient was placed in the supine position and the skin overlying the ascites marked with sonographic guidance. The skin was sterilely prepped and draped, and 1% buffered lidocaine was used for local anesthesia. An 18-gauge Yueh was advanced into the peritoneal ascites and fluid aspirated. Upon completion, the catheter was removed. FINDINGS: A total of 5500 mL of fluid was removed without immediate complication. Patient tolerated procedure well. IMPRESSION: Ultrasound-guided paracentesis without immediate complications. [facility]
== END 2019-02-12 09:20 | disposition home or self-care (01) ==
LOC: DI 09:19
PROVIDERS: ATTEND Nurse Practitioner Gerontology
DX: K70.31 Alcoholic cirrhosis of liver with ascites (principal)
CPT/HCPCS: 36415; 49083; 80053; 85025; 85610

== ENCOUNTER 2019-02-26 09:21 | Outpatient (CLI) | payer MEDICAID ==
[2019-02-26] MEDS ORDERED: BUFFERED LIDOCAINE 10 ML SYRINGE IU ONE (11:29)
--- NOTE | 2019-02-26 15:21 | Ultrasound Report ---
Reason: LIVER FAILURE,ALCOHOLIC HEPATITIS,CAURE, ASCITES,D Procedure Date: 02/26/2019 Accession Number: [id number] / [id number] Procedure: US - Abdominal Paracentesis CPT Code: FULL RESULT: EXAM: ULTRASOUND-GUIDED PARACENTESIS EXAM DATE: 02/26/2019 11:13 AM. CLINICAL HISTORY: Liver failure, alcoholic hepatitis, ascites. COMPARISON: ABDOMINAL PARACENTESIS 02/12/2019 9:52 AM. TECHNIQUE: Risks, benefits, and alternatives to the procedure were discussed with the patient. All questions answered. Written and verbal consent obtained. Patient was placed in the supine position and the skin overlying the ascites marked with sonographic guidance. The skin was sterilely prepped and draped, and 1% buffered lidocaine was used for local anesthesia. A Thew-S-Lpwnymsj catheter was advanced into the peritoneal ascites and fluid aspirated. Upon completion, the catheter was removed. FINDINGS: A total of 4200 mL of fluid was removed without immediate complication. Patient tolerated procedure well. IMPRESSION: Ultrasound-guided paracentesis without immediate complications. [facility]
== END 2019-02-26 09:22 | disposition home or self-care (01) ==
LOC: DI 09:21
PROVIDERS: ATTEND Nurse Practitioner Gerontology
DX: K70.31 Alcoholic cirrhosis of liver with ascites (principal)
CPT/HCPCS: 49083

== ENCOUNTER 2019-03-12 08:38 | Outpatient (CLI) | payer MEDICAID ==
[2019-03-12] MEDS ORDERED: BUPIVACAINE 0.5%-EPI 1:200000 PF 10 ML VIAL ONE (09:19)
[2019-03-12 11:46] LABS: ALBUMIN 3.5 g/dL (3.2-5.5); BILIRUBIN,TOTAL 0.5 mg/dL (0.2-1.0); CALCIUM 8.7 mg/dL (8.5-10.3); CREATININE 0.5 mg/dL (0.4-1.0)
--- NOTE | 2019-03-12 12:07 | Ultrasound Report ---
Reason: ALCOHOLIC CIRRHOSIS OF LIVER WITH ASCITES Procedure Date: 03/12/2019 Accession Number: [id number] / [id number] Procedure: US - Abdominal Paracentesis CPT Code: FULL RESULT: EXAM: ULTRASOUND-GUIDED PARACENTESIS EXAM DATE: 03/12/2019 08:44 AM. CLINICAL HISTORY: ALCOHOLIC CIRRHOSIS OF LIVER WITH ASCITES. COMPARISON: ABDOMINAL PARACENTESIS 02/26/2019 9:58 AM. TECHNIQUE: Risks, benefits, and alternatives to the procedure were discussed with the patient. All questions answered. Written and verbal consent obtained. Patient was placed in the supine position and the skin overlying the ascites marked with sonographic guidance. The skin was sterilely prepped and draped, and 1% buffered lidocaine was used for local anesthesia. An 18-gauge gbwc-D-Lihxxifd catheter was advanced into the peritoneal ascites and fluid aspirated. Upon completion, the catheter was removed. FINDINGS: A total of 4100 mL of fluid was removed without immediate complication. Patient tolerated procedure well. IMPRESSION: Ultrasound-guided paracentesis without immediate complications. [facility]
[2019-03-12] MEDS ORDERED: BUPIVACAINE 0.5%-EPI 1:200000 PF 10 ML VIAL SUBQ ONE (14:59)
[2019-03-12] MEDS ORDERED: BUFFERED LIDOCAINE 10 ML SYRINGE IU ONE (14:59)
[2019-03-15 19:26] LABS: ANA SCREEN NEGATIVE (NEGATIVE)
== END 2019-03-12 08:39 | disposition home or self-care (01) ==
LOC: DI 08:38
PROVIDERS: ATTEND Internal Medicine
DX: K70.31 Alcoholic cirrhosis of liver with ascites (principal); D64.9 Anemia, unspecified
CPT/HCPCS: 36415; 49083; 80053; 81599; 82728; 82977; 83516; 83540; 84466; 86038

== ENCOUNTER 2019-03-26 08:33 | Outpatient (CLI) | payer MEDICAID ==
[2019-03-26] MEDS ORDERED: BUFFERED LIDOCAINE 10 ML SYRINGE IU ONE (11:38)
--- NOTE | 2019-03-28 16:53 | Ultrasound Report ---
Reason: ALCOHOLIC CIRRHOSIS OF LIVER WITH ASCITES Procedure Date: 03/26/2019 Accession Number: [id number] / [id number] Procedure: US - Abdominal Paracentesis CPT Code: FULL RESULT: EXAM: ULTRASOUND-GUIDED PARACENTESIS EXAM DATE: 03/26/2019 10:20 AM. CLINICAL HISTORY: ALCOHOLIC CIRRHOSIS OF LIVER WITH ASCITES. COMPARISON: ABDOMINAL PARACENTESIS 03/12/2019 8:44 AM. TECHNIQUE: Risks, benefits, and alternatives to the procedure were discussed with the patient. All questions answered. Written and verbal consent obtained. Patient was placed in the supine position and the skin overlying the ascites marked with sonographic guidance. The skin was sterilely prepped and draped, and 1% buffered lidocaine was used for local anesthesia. A 6 Kisw[place]ili safety centesis was advanced into the peritoneal ascites and fluid aspirated. Upon completion, the catheter was removed. FINDINGS: A total of 3000 mL of fluid was removed without immediate complication. Patient tolerated procedure well. IMPRESSION: Ultrasound-guided paracentesis without immediate complications. [facility]
== END 2019-03-26 08:34 | disposition home or self-care (01) ==
LOC: DI 08:33
PROVIDERS: ATTEND Internal Medicine
DX: K70.31 Alcoholic cirrhosis of liver with ascites (principal)
CPT/HCPCS: 49083

== ENCOUNTER 2019-03-28 10:38 | Outpatient (CLI) | payer MEDICAID ==
[2019-03-28 11:39] LABS: ALBUMIN 3.6 g/dL (3.2-5.5); ALBUMIN/GLOBULIN RATIO 1.2 (1.0-2.2); BILIRUBIN,TOTAL 0.2 mg/dL (0.2-1.0); CALCIUM 8.4 mg/dL (8.5-10.3); CREATININE 0.5 mg/dL (0.4-1.0); TOTAL PROTEIN 6.5 g/dL (6.7-8.2)
[2019-04-01 15:20] LABS: ANA SCREEN NEGATIVE (NEGATIVE)
== END 2019-03-28 10:39 | disposition home or self-care (01) ==
LOC: LAB 10:38
PROVIDERS: ATTEND Internal Medicine
DX: D64.9 Anemia, unspecified (principal); K70.31 Alcoholic cirrhosis of liver with ascites
CPT/HCPCS: 36415; 80053; 81599; 82728; 82977; 83516; 83520; 83540; 84466; 86038

== ENCOUNTER 2019-04-11 10:20 | Outpatient (CLI) | payer MEDICAID ==
[2019-05-12 15:50] LABS: BF COLOR YELLOW; BF SOURCE PERITONEAL; CC,BF RBC < 3000 /mm^3
[2019-05-12 16:22] LABS: LYMPHOCYTES %,BODY FLUID 48; MONOCYTES %,BODY FLUID 8 %
[2019-05-12 16:23] LABS: MACROPHAGES %,BODY FLUID 42 %; MESOTHELIAL %, BF 0 %
== END 2019-04-11 23:59 | disposition home or self-care (01) ==
LOC: LAB.R 10:20
PROVIDERS: ATTEND Radiology Diagnostic Radiology
DX: K70.31 Alcoholic cirrhosis of liver with ascites (principal)
CPT/HCPCS: 89051

== ENCOUNTER 2019-04-16 07:00 | Outpatient (CLI) | payer MEDICAID ==
[2019-04-16 11:35] LABS: CC,BF RBC < 3000 /mm^3
[2019-04-16 11:36] LABS: BF COLOR YELLOW; BF SOURCE PLEURAL
[2019-04-16 11:43] LABS: LYMPHOCYTES %,BODY FLUID 9; MACROPHAGES %,BODY FLUID 63 %; MONOCYTES %,BODY FLUID 21 %
== END 2019-04-16 23:59 | disposition home or self-care (01) ==
LOC: LAB.R 07:00
PROVIDERS: ATTEND Internal Medicine
DX: K70.31 Alcoholic cirrhosis of liver with ascites (principal)
CPT/HCPCS: 81599; 82042; 82378; 84157; 89051

== ENCOUNTER 2019-04-16 08:31 | Outpatient (CLI) | payer MEDICAID ==
[2019-04-16] MEDS ORDERED: BUFFERED LIDOCAINE 10 ML SYRINGE ONE (09:01)
--- NOTE | 2019-04-16 11:30 | Ultrasound Report ---
Reason: ALCOHOLIC CIRRHOSIS OF LIVER WITH ASCITES Procedure Date: 04/16/2019 Accession Number: [id number] / [id number] Procedure: US - Abdominal Paracentesis CPT Code: FULL RESULT: EXAM: ULTRASOUND-GUIDED PARACENTESIS EXAM DATE: 04/16/2019 10:00 AM. CLINICAL HISTORY: Alcoholic cirrhosis of liver with ascites. COMPARISON: ABDOMINAL PARACENTESIS 03/26/2019 9:03 AM. TECHNIQUE: Risks, benefits, and alternatives to the procedure were discussed with the patient. All questions answered. Written and verbal consent obtained. Patient was placed in the supine position and the skin overlying the ascites marked with sonographic guidance. The skin was sterilely prepped and draped, and 1% buffered lidocaine was used for local anesthesia. A 6 Urdu drain or cath and needle combination was advanced into the peritoneal ascites and fluid aspirated. Upon completion, the catheter was removed. FINDINGS: A total of 3900 mL of fluid was removed without immediate complication. Patient tolerated procedure well. IMPRESSION: Ultrasound-guided paracentesis without immediate complications. RADIA
[2019-04-16] MEDS ORDERED: BUFFERED LIDOCAINE 10 ML SYRINGE IU ONE (14:30)
== END 2019-04-16 08:32 | disposition home or self-care (01) ==
LOC: DI 08:31
PROVIDERS: ATTEND Internal Medicine
DX: K70.31 Alcoholic cirrhosis of liver with ascites (principal)
CPT/HCPCS: 36415; 49083; 80048; 80076

== ENCOUNTER 2019-04-16 08:46 | Outpatient (CLI) | payer MEDICAID ==
[2019-04-16 10:26] LABS: CALCIUM 9.1 mg/dL (8.5-10.3); CREATININE 0.4 mg/dL (0.4-1.0)
[2019-04-17 16:24] LABS: ALBUMIN 3.9 g/dL (3.2-5.5); BILIRUBIN,DIRECT 0.1 mg/dL (0.1-0.5); BILIRUBIN,TOTAL 0.4 mg/dL (0.2-1.0); TOTAL PROTEIN 7.4 g/dL (6.7-8.2)
== END 2019-04-16 08:47 | disposition home or self-care (01) ==
LOC: LAB 08:46
PROVIDERS: ATTEND Internal Medicine
DX: K70.31 Alcoholic cirrhosis of liver with ascites (principal)
CPT/HCPCS: 36415; 80048; 80076

== ENCOUNTER 2019-05-12 13:15 | Outpatient (CLI) | payer MEDICAID ==
--- NOTE | 2019-05-12 16:31 | Ultrasound Report ---
Reason: ALCOHOLIC CIRRHOSIS OF LIVER WITH ASCITES Procedure Date: 05/12/2019 Accession Number: [id number] / [id number] Procedure: US - Abdominal Paracentesis CPT Code: Final Report FULL RESULT: EXAM: ULTRASOUND-GUIDED PARACENTESIS. EXAM DATE: 05/12/2019 03:40 PM. CLINICAL HISTORY: Alcoholic cirrhosis of liver with ascites. COMPARISON: ABDOMINAL PARACENTESIS 04/16/2019 8:53 AM. TECHNIQUE: Risks, benefits, and alternatives to the procedure were discussed with the patient. All questions answered. Written and verbal consent obtained. Patient was placed in the supine position and the skin overlying the ascites marked with sonographic guidance. The skin was sterilely prepped and draped, and 1% buffered lidocaine was used for local anesthesia. An 18-gauge Angiocath was advanced into the peritoneal ascites and fluid aspirated. Due to patient discomfort at this site with suction Vacutainer, a second adjacent site was prepped and draped in the usual fashion. Again 1% buffered lidocaine was used for local anesthesia and an 18-gauge [employer] catheter was advanced and the peroneal ascites and fluid aspirated. Upon completion, the catheter was removed. FINDINGS: A total of 4160 mL of fluid was removed without immediate complication. Patient tolerated procedure well. IMPRESSION: Ultrasound-guided paracentesis without immediate complications. RADIA
[2019-05-12] MEDS ORDERED: BUFFERED LIDOCAINE 10 ML SYRINGE IU ONE (16:39)
== END 2019-05-12 13:16 | disposition home or self-care (01) ==
LOC: DI 13:15
PROVIDERS: ATTEND Internal Medicine
DX: K70.31 Alcoholic cirrhosis of liver with ascites (principal)
CPT/HCPCS: 49083

== ENCOUNTER 2019-06-11 08:30 | Outpatient (CLI) | payer MEDICAID ==
[2019-06-11] MEDS ORDERED: ALBUMIN 25% 12.5 GM/50 ML VIAL IV SCH (09:45)
--- NOTE | 2019-06-11 09:54 | Ultrasound Report ---
Reason: ABDOMINAL ASCITES, ALCOHOLIC CIRRHOSIS OF LIVER WITH ASCITES Procedure Date: 06/11/2019 Accession Number: [id number] / [id number] Procedure: US - Abdomen Limited CPT Code: Final Report FULL RESULT: EXAM: ABDOMEN ULTRASOUND LIMITED EXAM DATE: 06/11/2019 09:44 AM. CLINICAL HISTORY: Abdominal ascites, alcoholic cirrhosis of liver with ascites. COMPARISON: ABDOMINAL PARACENTESIS 05/12/2019 1:35 PM. TECHNIQUE: Real-time scanning was performed with static images obtained. Limited evaluation of the abdomen was performed in anticipation of a scheduled paracentesis procedure. FINDINGS: Only a small amount of ascites was detected. The patient related that she was essentially asymptomatic from the abdominal fluid at this time, consistent with detected quantity. While access of a small quantity of fluid for diagnostic purposes would be technically feasible, based on the risk-benefit ratio at hand, absence of clinical symptoms therapeutic paracentesis for symptom relief is no longer indicated at this time. The decision was made to abort the procedure. IMPRESSION: Very small quantity ascites, paracentesis is not performed. RADIA
== END 2019-06-11 08:31 | disposition home or self-care (01) ==
LOC: DI 08:30
PROVIDERS: ATTEND Internal Medicine
DX: K70.31 Alcoholic cirrhosis of liver with ascites (principal)
CPT/HCPCS: 36415; 76705; 80048

== ENCOUNTER 2019-06-11 09:21 | Outpatient (CLI) | payer MEDICAID ==
[2019-06-11 09:47] LABS: CALCIUM 9.4 mg/dL (8.5-10.3); CREATININE 0.5 mg/dL (0.4-1.0)
== END 2019-06-11 09:22 | disposition home or self-care (01) ==
LOC: LAB 09:21
PROVIDERS: ATTEND Internal Medicine
DX: K70.31 Alcoholic cirrhosis of liver with ascites (principal)
CPT/HCPCS: 36415; 80048

== ENCOUNTER 2019-07-11 08:35 | Outpatient (CLI) | payer MEDICAID ==
--- NOTE | 2019-07-11 10:23 | Ultrasound Report ---
Reason: ALCOHOLIC CIRRHOSIS OF LIVER WITH ASCITES Procedure Date: 07/11/2019 Accession Number: [id number] / [id number] Procedure: US - Abdomen Limited CPT Code: Final Report FULL RESULT: EXAM: ABDOMEN ULTRASOUND LIMITED, RUQ EXAM DATE: 07/11/2019 09:57 AM. CLINICAL HISTORY: ALCOHOLIC CIRRHOSIS OF LIVER WITH ASCITES. COMPARISON: ABDOMINAL PARACENTESIS 06/11/2019 8:38 AM. TECHNIQUE: Real-time scanning was performed with static images obtained. FINDINGS IMPRESSION: The four quadrants of the abdomen were evaluated sonographically. No free fluid identified. Paracentesis not performed. RADIA
== END 2019-07-11 08:36 | disposition home or self-care (01) ==
LOC: LAB 08:35
PROVIDERS: ATTEND Internal Medicine
DX: K70.31 Alcoholic cirrhosis of liver with ascites (principal)
CPT/HCPCS: 76705

== ENCOUNTER 2019-08-04 09:51 | Outpatient (CLI) | payer MEDICAID ==
--- NOTE | 2019-08-04 17:01 | Ultrasound Report ---
Reason: ALCOHOLIC CIRRHOSIS OF LIVER WITH ASCITES Procedure Date: 08/04/2019 Accession Number: [id number] / [id number] Procedure: US - Abdomen Limited CPT Code: Final Report FULL RESULT: EXAM: ABDOMEN LIMITED EXAM DATE: 08/04/2019 10:39 AM INDICATION: Alcoholic cirrhosis of liver with ascites. COMPARISONS: ABDOMEN LIMITED 12/08/2017 12:51 PM. TECHNIQUE: Real-time scanning was performed with static images obtained. FINDINGS: Liver: Coarse liver parenchyma. Liver parenchyma is mildly hyperechoic. Capsule is mildly irregular and nodular. No liver mass or intrahepatic bile duct dilation. Right liver measures 15.4 cm. Main portal vein flow: Hepatopetal. Gallbladder: Gallstones are noted. No pericholecystic fluid or gallbladder wall thickening. Negative sonographic Guadalupe's sign. Biliary System: CBD measures 5.5 mm. No intrahepatic or extrahepatic ductal dilatation. Pancreas: Normal. Right kidney: 10.6 cm. No hydronephrosis. Abdominal aorta and IVC: Normal. Other: No significant ascites noted on the current study. IMPRESSION: 1. Cirrhotic liver. No mass or intrahepatic bile duct dilation. 2. Gallstones. No sonographic findings concerning for acute cholecystitis. 3. Normal pancreas. No biliary dilation. RADIA
== END 2019-08-04 09:52 | disposition home or self-care (01) ==
LOC: DI 09:51
PROVIDERS: ATTEND Internal Medicine
DX: K70.31 Alcoholic cirrhosis of liver with ascites (principal); K80.20 Calculus of gallbladder without cholecystitis without obstruction
CPT/HCPCS: 76705

== ENCOUNTER 2019-08-22 11:43 | Outpatient (CLI) | payer MEDICAID | END 2019-08-22 11:44 | disposition home or self-care (01) | LOC: LAB 11:43 | PROVIDERS: ATTEND Internal Medicine | DX: D50.9 Iron deficiency anemia, unspecified (principal) | CPT/HCPCS: 36415; 80048 ==

== ENCOUNTER 2019-08-25 08:35 | Outpatient (CLI) | payer MEDICAID ==
[2019-08-25 09:18] LABS: CALCIUM 9.1 mg/dL (8.5-10.3); CREATININE 0.6 mg/dL (0.4-1.0)
== END 2019-08-25 08:36 | disposition home or self-care (01) ==
LOC: LAB 08:35
PROVIDERS: ATTEND Internal Medicine
DX: D50.9 Iron deficiency anemia, unspecified (principal)
CPT/HCPCS: 36415; 80048

== ENCOUNTER 2019-11-05 12:33 | Outpatient (CLI) | payer MEDICAID ==
[2019-11-05 13:00] LABS: BASOPHILS # (AUTO) 0.1 10^3/uL (0.0-0.1); BASOPHILS % (AUTO) 0.7 %; EOSINOPHILS # (AUTO) 0.2 10^3/uL (0.0-0.7); HGB - HEMOGLOBIN 15.4 g/dL (12.0-16.0); LYMPHOCYTES # (AUTO) 3.3 10^3/uL (1.5-3.5); LYMPHOCYTES % (AUTO) 35.9 %; MONOCYTES # (AUTO) 0.5 10^3/uL (0.0-1.0); MONOCYTES % (AUTO) 5.4 %; NEUTROPHILS # (AUTO) 5.1 10^3/uL (1.5-6.6); NEUTROPHILS % (AUTO) 55.5 %; PLT - PLATELET COUNT 228 10^3/uL (130-450); RED BLOOD COUNT 4.82 10^6/uL (4.20-5.40); RED CELL DISTRIBUTION WIDTH 13.8 % (12.0-15.0); WHITE BLOOD COUNT 9.1 x10^3/uL (4.8-10.8)
[2019-11-05 13:20] LABS: ALBUMIN 4.7 g/dL (3.2-5.5); ALBUMIN/GLOBULIN RATIO 1.6 (1.0-2.2); BILIRUBIN,TOTAL 0.6 mg/dL (0.2-1.0); CALCIUM 9.3 mg/dL (8.5-10.3); CREATININE 0.6 mg/dL (0.4-1.0); TOTAL PROTEIN 7.7 g/dL (6.7-8.2)
== END 2019-11-05 12:34 | disposition home or self-care (01) ==
LOC: LAB 12:33
PROVIDERS: ATTEND Internal Medicine
DX: D50.9 Iron deficiency anemia, unspecified (principal); K70.31 Alcoholic cirrhosis of liver with ascites
CPT/HCPCS: 36415; 80053; 83540; 84466; 85025

== ENCOUNTER 2019-12-15 15:36 | Outpatient (CLI) | payer MEDICAID ==
[2019-12-15 18:34] LABS: BASOPHILS # (AUTO) 0.1 10^3/uL (0.0-0.1); BASOPHILS % (AUTO) 0.9 %; EOSINOPHILS # (AUTO) 0.2 10^3/uL (0.0-0.7); EOSINOPHILS % (AUTO) 2.4 %; HGB - HEMOGLOBIN 15.3 g/dL (12.0-16.0); MEAN CORPUSCULAR HEMOGLOBIN 32.4 pg (27.0-31.0); MEAN CORPUSCULAR HGB CONC 32.9 g/dL (32.0-36.0); MEAN CORPUSCULAR VOLUME 98.5 fL (81.0-99.0); MEAN PLATELET VOLUME 10.6 fL (7.9-10.8); MONOCYTES # (AUTO) 0.5 10^3/uL (0.0-1.0); MONOCYTES % (AUTO) 5.7 %; NEUTROPHILS # (AUTO) 4.2 10^3/uL (1.5-6.6); NEUTROPHILS % (AUTO) 52.7 %; PLT - PLATELET COUNT 229 10^3/uL (130-450); RED BLOOD COUNT 4.72 10^6/uL (4.20-5.40); RED CELL DISTRIBUTION WIDTH 13.5 % (12.0-15.0); WHITE BLOOD COUNT 7.9 x10^3/uL (4.8-10.8)
[2019-12-15 18:40] LABS: % IRON SATURATION 16 % (20-50); ALBUMIN 4.3 g/dL (3.2-5.5); ALBUMIN/GLOBULIN RATIO 1.5 (1.0-2.2); ALKALINE PHOSPHATASE 122 IU/L (42-121); ALT ALANINE AMINOTRANSFERASE 18 IU/L (10-60); AST ASPARTATE AMINOTRANSFERASE 19 IU/L (10-42); BILIRUBIN,TOTAL 0.3 mg/dL (0.2-1.0); BUN - BLOOD UREA NITROGEN 15 mg/dL (6-20); CARBON DIOXIDE - CO2 27 mmol/L (21-32); CHLORIDE 104 mmol/L (101-111); CHOL/HDL RATIO 3.9 (<4.4); CHOLESTEROL 163 mg/dL; CREATININE 0.5 mg/dL (0.4-1.0); GLUCOSE 81 mg/dL (70-100); HDL CHOLESTEROL 42 mg/dL; IRON 66 ug/dL (28-170); LDL CHOLESTEROL,CALCULATED 88 mg/dL; LDL/HDL RATIO 2.1 (<4.4); SODIUM 139 mmol/L (135-145); TOTAL IRON BINDING CAPACITY 416 ug/dL (250-450); TOTAL PROTEIN 7.2 g/dL (6.7-8.2); TRANSFERRIN 297 mg/dL (192-382); VLDL CHOLESTEROL 33 mg/dL
[2019-12-15 19:00] LABS: FERRITIN 39.1 ng/mL (11.0-306.8)
[2019-12-15 19:23] LABS: FREE T4 (FREE THYROXINE) 0.53 ng/dL (0.58-1.64)
== END 2019-12-15 23:59 | disposition home or self-care (01) ==
LOC: LAB.WCP 15:36
PROVIDERS: ATTEND Physician Assistant
DX: Z00.00 Encounter for general adult medical examination without abnormal findings (principal); E03.9 Hypothyroidism, unspecified; Z98.84 Bariatric surgery status
CPT/HCPCS: 36415; 80053; 80061; 82607; 82728; 82746; 83540; 83721; 84439; 84443; 84466; 85025

== ENCOUNTER 2020-02-14 17:59 | Outpatient (CLI) | payer MEDICAID ==
--- NOTE | 2020-02-14 21:13 | Ultrasound Report ---
PROCEDURE: Abdomen Limited INDICATIONS: CIRRHOSIS OF LIVER TECHNIQUE: Real-time focused scanning was performed of the abdomen, with image documentation. COMPARISON: 08/04/2019 FINDINGS: The liver demonstrates increased echogenicity, with a lobular contour. Mobile gallstones are again seen. There is a 4 mm gallbladder wall polyp seen. The gallbladder wall i s minimally thickened at 3.5 mm. No pericholecystic fluid is seen. The sonographic Guadalupe's sign is n egative. No biliary ductal dilatation is seen. The common bile duct measures 5 mm. The visualized pancreas is unremarkable. The right kidney is within normal limits. IMPRESSION: A cirrhotic liver is again seen. Multiple gallstones are seen, with a normally thickened gallbladder wall. A gallbladder wall polyp is again seen. No additional sonographic signs of cholecystitis are seen. No biliary dilatation. Reviewed by: Mark Jennings MD on 02/14/2020 8:11 PM [facility] Approved by: Mark Jennings MD on 02/14/2020 8:11 PM [facility] Station ID: [id number]
== END 2020-02-14 18:00 | disposition home or self-care (01) ==
LOC: DI 17:59
PROVIDERS: ATTEND Internal Medicine
DX: K70.31 Alcoholic cirrhosis of liver with ascites (principal); K80.20 Calculus of gallbladder without cholecystitis without obstruction; K82.4 Cholesterolosis of gallbladder
CPT/HCPCS: 76705

== ENCOUNTER 2020-02-25 08:40 | Outpatient (CLI) | payer MEDICAID ==
[2020-02-25] MEDS ORDERED: SINCALIDE 5 MCG VIAL ONE (10:29)
[2020-02-25] MEDS ORDERED: SINCALIDE 1.1 MCG in SODIUM CHLORIDE 0.9% 50 ML IV ONE (12:23)
--- NOTE | 2020-02-25 12:28 | Nuclear Medicine Report ---
PROCEDURE: Hepatobiliary HIDA w/ Rx INDICATIONS: ABDOMINAL PAIN RADIOPHARMACEUTICAL: 5.1 mCi Tc-99m mebrofenin i.v. and 1.14 ?g sincalide i.v. TECHNIQUE: Following intravenous administration of Tc-99m meprofenin, sequential anterior abdominal images were obtained through 60 minutes. To evaluate the contractile response of the gallbladder in response to Cholecystokinin (CCK), 1.4 microgram sincalide (0.02 ?g/kg) was administered by slow intr avenous infusion. Sequential imaging was continued for 50 minutes after the start of CCK infusion. G allbladder ejection fraction was calculated. COMPARISON: None. FINDINGS: Biliary scan: There is normal tracer uptake and excretion by the liver. There is normal visualizati on of the intrahepatic ducts, common bile duct, and gallbladder. There is normal tracer transit into the duodenum. CCK stimulation: There is normal contractile response of the gallbladder to CCK infusion. The calcu lated gallbladder ejection fraction is 61%; normal values are above 35%. IMPRESSION: 1. Normal biliary imaging study. 2. Normal contractile response of gallbladder to CCK infusion.. Reviewed by: Mau Castorena MD on 02/25/2020 12:27 PM PDT Approved by: Mau Castorena MD on 02/25/2020 12:27 PM PDT Station ID: [id number]
== END 2020-02-25 08:41 | disposition home or self-care (01) ==
LOC: DI 08:40
PROVIDERS: ATTEND Internal Medicine
DX: R10.9 Unspecified abdominal pain (principal)
CPT/HCPCS: 78227; J7040

== ENCOUNTER 2021-09-26 09:07 | Outpatient (CLI) | payer MEDICAID ==
--- NOTE | 2021-09-26 16:43 | Ultrasound Report ---
PROCEDURE: Abdomen Limited INDICATIONS: ALCOHOLIC CIRRHOSIS OF LIVER WITH ASCITES TECHNIQUE: Real-time focused scanning was performed of the abdomen, with image documentation. COMPARISON: None FINDINGS: Liver is diffusely echogenic compatible with reported history of hepatic cirrhosis. No focal hepatic mass lesions. Multiple gallstones noted. There is a stone of the gallbladder neck measuring 0.9 cm which is nonmobi le. No gallbladder wall thickening with gallbladder wall measuring 1.3 mm. No pericholecystic fluid. No sonographic Guadalupe's sign. Biliary tree is nondilated. Common bile duct measures 5.4 mm. Head and body the pancreas are sonographically normal. Tail is obscured by bowel gas. Right kidney measures 12.3 cm in long axis and is sonographically normal. No ascites identified. IMPRESSION: 1. Echogenic liver compatible with reported history of alcoholic cirrhosis. 2. Cholelithiasis without sonographic evidence of cholecystitis. 3. 9 mm gallstone lodged in the gallbladder neck. Reviewed by: Bebe Enrique MD, PhD on 09/26/2021 4:41 PM PDT Approved by: Bebe Enrique MD, PhD on 09/26/2021 4:41 PM PDT Station ID: [id number]
== END 2021-09-26 09:08 | disposition home or self-care (01) ==
LOC: DI 09:07
PROVIDERS: ATTEND Internal Medicine
DX: K70.31 Alcoholic cirrhosis of liver with ascites (principal); K80.20 Calculus of gallbladder without cholecystitis without obstruction

== ENCOUNTER 2021-10-18 05:45 | Outpatient (CLI) | payer MEDICARE, MEDICAID | END 2021-10-18 05:46 | disposition critical access hospital (66) | LOC: EMS 05:45 | DX: R10.11 Right upper quadrant pain (principal); R11.2 Nausea with vomiting, unspecified; M54.9 Dorsalgia, unspecified | CPT/HCPCS: A0425; A0429 ==

== ENCOUNTER 2021-10-18 06:05 | Emergency (ER) | payer MEDICARE, MEDICAID ==
--- OUTSIDE RECORDS SUMMARY | 2021-10-18 06:25 | EXTERNAL MEDICAL SUMMARY RPT | Continuity of Care Document ---
:1975 Author Organization [place] Address [address] [place] [address] Phone Care Team Providers Name Role Phone Yamilet, Rosa Elena Unavailable Unavailable Elver Antonio Unavailable Unavailable Allergies No information. Encounters No information. Medications No information. Problems date description facility [id number] Esophageal varices without bleeding Is [facility] [id number] Contact with and (suspected) exposure t o [address] Procedures date description facility 20211005 [facility] [id number] [facility] 20211003 [facility] Results No information. Vital Signs date measurement value source 20211005 weight_standard 139.99 lb 20211005 weight_metric 63.5 kg 20211005 temperature_standard 98.5 F 20211005 temperature_metric 36.94 C 20211005 respiration_rate 15 /min 20211005 height_standard 59 in 20211005 height_metric 149.86 cm 20211005 heart_rate 75 /min 20211005 BP_systolic 112 mm[Hg] 20211005 BP_diastolic 72 mm[Hg] 20211005 BMI 28.3 kg/m2
--- NOTE | 2021-10-18 06:56 | ED Physician Documentation ---
PD HPI ABD PAIN - Stated complaint Stated Complaint: ABD PX - Chief complaint Chief Complaint: Abd Pain - History obtained from History obtained from: Patient - History of Present Illness Timing - onset: How many hours ago (5) Timing - duration: Hours (5) Timing - details: Abrupt onset, Still present Quality: Cramping, Aching, Pain Location: RUQ, Epigastric Radiation: Upper back Improved by: No: Laying still, Vomiting Worsened by: Moving, Palpation. No: Breathing Associated symptoms: Nausea, Vomiting (couple of times). No: Fever, Diarrhea, Constipation Similar symptoms before: Diagnosis (has had intermittent pains upper abd with U/S showing gallstones with one near GB neck. Her GI in [place] has discussed with surgery in [place] about surgery (many surgeones have been reluctant due to her liver disease.) Recently seen: Not recently seen Review of Systems Constitutional: denies: Fever, Chills Nose: denies: Rhinorrhea / runny nose, Congestion Throat: denies: Sore throat Cardiac: denies: Chest pain / pressure Respiratory: denies: Cough GI: reports: Abdominal Pain, Nausea, Vomiting. denies: Abdominal Swelling, Constipation, Diarrhea : denies: Dysuria, Frequency Neurologic: reports: Generalized weakness. denies: Focal weakness, Numbness PD PAST MEDICAL HISTORY - Past Medical History Past Medical History: Yes Cardiovascular: None Respiratory: COPD, Pneumonia, Shortness of breath Neuro: None Endocrine/Autoimmune: HyPOthyroidism GI: Hepatitis, Cirrhosis : None HEENT: Chronic vision loss Psych: None Musculoskeletal: None - Past Surgical History Past Surgical History: Yes General: Gastric surgery Ortho: Arthroscopic surgery /SPEECH THERAPY DIRECTOR: section HEENT: Myringotomy (tubes) - Present Medications Home Medications: Ambulatory Orders Medication Instructions Recorded Confirmed Albuterol Sulf [Ventolin Hfa 2 puffs INH Q6HR PRN #1 inhaler 02/28/18 10/18/21 Inhaler] Levothyroxine Sodium 112 mcg PO QDAC #30 tablet 02/28/18 10/18/21 Pantoprazole [Protonix] 40 mg PO QDAC #30 tablet 02/28/18 10/18/21 Potassium Chloride 20 meq PO DAILY #30 tablet.er 02/28/18 10/18/21 Spironolactone 75 mg PO BID 05/11/18 10/18/21 diphenhydrAMINE [Benadryl] 50 mg PO Q4H PRN 05/12/18 10/18/21 Furosemide 40 mg PO BID 06/12/18 10/18/21 Thiamine HCl [Vitamin B-1] 50 mg PO DAILY 09/11/18 10/18/21 Dicyclomine [Bentyl] 10 mg PO QID PRN #15 cap 10/18/21 Ondansetron Odt [Zofran] 4 mg TL Q6H PRN #15 tablet 10/18/21 - Allergies Allergies/Adverse Reactions: Allergies Allergy/AdvReac Type Severity Reaction Status Date / Time amoxicillin Allergy Unknown Verified 10/18/21 06:16 ampicillin Allergy Unknown Verified 10/18/21 06:16 - Social History Does the pt smoke?: No Smoking Status: Never smoker Does the pt drink ETOH?: No Does the pt have substance abuse?: No - Immunizations Immunizations are current?: Yes - POLST Patient has POLST: Yes POLST Status: Full Code PD ED PE NORMAL - Vitals Vital signs reviewed: Yes - General General: Alert and oriented X 3, Well developed/nourished, Other (apppears in pain upper abd.) - HEENT HEENT: PERRL (nonicteric), EOMI - Neck Neck: Supple, no meningeal sign, No adenopathy - Cardiac Cardiac: RRR, No murmur - Respiratory Respiratory: Clear bilaterally - Abdomen Abdomen: Soft, Non distended, No organomegaly, Other (abd tender with local guarding RUQ?epigastric area. NO tenderness diffuse nor lower abd. ) - Female Female : Deferred - Rectal Rectal: Deferred - Back Back: No CVA TTP - Derm Derm: Normal color, Warm and dry - Extremities Extremities: No calf tenderness / cord - Neuro Neuro: Alert and oriented X 3, No motor deficit, Normal speech Results - Vitals Vitals: Vital Signs - 24 hr 10/18/21 10/18/21 10/18/21 06:09 07:50 08:31 Temperature 36.7 C 36.6 C Heart Rate 84 76 71 Respiratory 17 16 17 Rate Blood Pressure 132/83 H 93/71 94/66 O2 Saturation 97 94 95 Oxygen O2 Source Room air - Labs Labs: Laboratory Tests 10/18/21 10/18/21 10/18/21 06:47 06:47 07:35 WBC 9.1 RBC 4.72 Hgb 15.2 Hct 44.4 MCV 94.1 MCH 32.2 H MCHC 34.2 RDW 12.8 Plt Count 215 MPV 10.3 Neut # (Auto) 6.9 H Lymph # (Auto) 1.6 [place] # (Auto) 0.4 Eos # (Auto) 0.1 Baso # (Auto) 0.1 Absolute Nucleated RBC 0.00 Nucleated RBC % 0.0 Sodium 136 Potassium 3.4 L Chloride 97 L Carbon Dioxide 25 Anion Gap 14.0 H BUN 16 Creatinine 0.6 Estimated GFR (MDRD) 107 Glucose 138 H Calcium 9.0 Total Bilirubin 0.5 AST 165 H ALT 96 H Alkaline Phosphatase 136 H Total Protein 7.7 Albumin 4.7 Globulin 3.0 Albumin/Globulin Ratio 1.6 Lipase 47 Urine Color YELLOW Urine Clarity CLEAR Urine pH 5.5 Ur Specific [place] 1.025 Urine Protein NEGATIVE Urine Glucose (UA) NEGATIVE Urine Ketones NEGATIVE Urine Occult Blood NEGATIVE Urine Nitrite NEGATIVE Urine Bilirubin NEGATIVE Urine Urobilinogen 0.2 (NORMAL) Ur Leukocyte Esterase NEGATIVE Ur Microscopic Review NOT INDICATED Urine Culture Comments NOT INDICATED Urine HCG, Qual NEGATIVE PD MEDICAL DECISION MAKING - ED course Complexity details: reviewed results (labs show mild elevation liver markers but bilirubin is okay. PResume gallbladder spasm. Pain is much improved after meds, so doubt persistent biliary obstruction nor acute cholecystitis. Can send home with meds and see how does. Patient okay with that. ), considered differential (upper abd pain with history of gallstones. Can give meds and get labs. ), d/w patient Departure - Departure Disposition: 01 Home, Self Care Clinical Impression: Right upper quadrant abdominal pain, Biliary colic Condition: Stable Record reviewed to determine appropriate education?: Yes Instructions: ED Gallstone W Biliary Colic Follow-Up: Rosa Elena Vazquez PA-C [Primary Care Provider] - Elver Antonio MD [Provider Admit Priv/Credential] - Prescriptions: Dicyclomine [Bentyl] 10 mg PO QID PRN #15 cap PRN Reason: Abdominal Pain Ondansetron Odt [Zofran] 4 mg TL Q6H PRN #15 tablet PRN Reason: Nausea / Vomiting Comments: Your AST/ALT liver enzymes are slightly elevated. Your bilirubin is normal. Alkaline phosphatase was slightly elevated at 156. This would suggest you had gallbladder spasm causing your pain and possibly some small stone or sludge temporarily blocked your bile duct. It does not suggest a ongoing blockage of the bile duct in particular with your pain improved. I would talk with your roundsman. With the gallbladder spasm ("gallbladder attack") episode more prolonged like this, it is suggestive that the stones you have are more likely to cause blockage of the outlet from the gallbladder. It may be getting time to consider the surgery for gallbladder removal. For subsequent episodes or pain, you can try dicyclomine antispasmodic along with ondansetron nausea medicine and see if it helps for those. Return to the ER if needed for worse pain episode again. Or if any fever vomiting bloody stool or other concerns. I transmitted your prescriptions to [facility] in [place]. Discharge Date/Time: 10/18/21 08:57
[2021-10-18] MEDS ORDERED: KETOROLAC 30 MG/ML VIAL IVP STA (07:08)
[2021-10-18 07:09] LABS: ALBUMIN 4.7 g/dL (3.2-5.5); ALBUMIN/GLOBULIN RATIO 1.6 (1.0-2.2); BILIRUBIN,TOTAL 0.5 mg/dL (0.2-1.0); CREATININE 0.6 mg/dL (0.4-1.0); POTASSIUM 3.4 mmol/L (3.5-5.0); TOTAL PROTEIN 7.7 g/dL (6.7-8.2)
[2021-10-18 07:18] LABS: BASOPHILS # (AUTO) 0.1 10^3/uL (0.0-0.1); BASOPHILS % (AUTO) 0.6 %; EOSINOPHILS # (AUTO) 0.1 10^3/uL (0.0-0.7); HCT - HEMATOCRIT 44.4 % (37.0-47.0); HGB - HEMOGLOBIN 15.2 g/dL (12.0-16.0); LYMPHOCYTES # (AUTO) 1.6 10^3/uL (1.5-3.5); LYMPHOCYTES % (AUTO) 17.8 %; MEAN CORPUSCULAR HEMOGLOBIN 32.2 pg (27.0-31.0); MEAN CORPUSCULAR HGB CONC 34.2 g/dL (32.0-36.0); MEAN CORPUSCULAR VOLUME 94.1 fL (81.0-99.0); MEAN PLATELET VOLUME 10.3 fL (7.9-10.8); MONOCYTES # (AUTO) 0.4 10^3/uL (0.0-1.0); MONOCYTES % (AUTO) 4.3 %; NEUTROPHILS # (AUTO) 6.9 10^3/uL (1.5-6.6); NEUTROPHILS % (AUTO) 76.1 %; PLT - PLATELET COUNT 215 10^3/uL (130-450); RED BLOOD COUNT 4.72 10^6/uL (4.20-5.40); RED CELL DISTRIBUTION WIDTH 12.8 % (12.0-15.0); WHITE BLOOD COUNT 9.1 x10^3/uL (4.8-10.8)
[2021-10-18 07:41] LABS: BILIRUBIN,URINE NEGATIVE (NEGATIVE); CLARITY,URINE CLEAR (CLEAR); GLUCOSE, URINE (UA) NEGATIVE (NEGATIVE); KETONES,URINE (UA) NEGATIVE (NEGATIVE); LEUKOCYTE ESTERASE, URINE NEGATIVE (NEGATIVE); NITRITE,URINE NEGATIVE (NEGATIVE); OCCULT BLOOD,URINE NEGATIVE (NEGATIVE); PH,URINE 5.5 PH (5.0-7.5); PROTEIN,URINE NEGATIVE (NEGATIVE); UROBILINOGEN,URINE 0.2 (NORMAL) E.U./dL (NORMAL)
[2021-10-18 07:42] LABS: HCG UR QUAL NEGATIVE
[2021-10-18 08:33] VITALS: BP 94/66
== END 2021-10-18 08:57 | disposition home or self-care (01) ==
LOC: EDUNIT# → ED 06:05
DX: K80.50 Calculus of bile duct without cholangitis or cholecystitis without obstruction (principal)
CPT/HCPCS: 36415; 80053; 81001; 81003; 81025; 83690; 85025; 87086; 96374; 99284

== ENCOUNTER 2021-10-21 14:19 | Outpatient (CLI) | payer MEDICARE, MEDICAID ==
[2021-10-21 18:17] LABS: BASOPHILS # (AUTO) 0.1 10^3/uL (0.0-0.1); BASOPHILS % (AUTO) 0.9 %; EOSINOPHILS # (AUTO) 0.2 10^3/uL (0.0-0.7); EOSINOPHILS % (AUTO) 2.1 %; HCT - HEMATOCRIT 44.5 % (37.0-47.0); HGB - HEMOGLOBIN 14.8 g/dL (12.0-16.0); LYMPHOCYTES # (AUTO) 2.8 10^3/uL (1.5-3.5); LYMPHOCYTES % (AUTO) 36.5 %; MEAN CORPUSCULAR HEMOGLOBIN 31.6 pg (27.0-31.0); MEAN CORPUSCULAR HGB CONC 33.3 g/dL (32.0-36.0); MEAN CORPUSCULAR VOLUME 95.1 fL (81.0-99.0); MEAN PLATELET VOLUME 11.1 fL (7.9-10.8); MONOCYTES # (AUTO) 0.4 10^3/uL (0.0-1.0); MONOCYTES % (AUTO) 5.5 %; NEUTROPHILS # (AUTO) 4.2 10^3/uL (1.5-6.6); NEUTROPHILS % (AUTO) 54.9 %; PLT - PLATELET COUNT 232 10^3/uL (130-450); RED BLOOD COUNT 4.68 10^6/uL (4.20-5.40); RED CELL DISTRIBUTION WIDTH 12.7 % (12.0-15.0); WHITE BLOOD COUNT 7.6 x10^3/uL (4.8-10.8)
[2021-10-21 18:38] LABS: ALBUMIN 4.5 g/dL (3.2-5.5); ALBUMIN/GLOBULIN RATIO 1.4 (1.0-2.2); ALKALINE PHOSPHATASE 129 IU/L (42-121); ALT ALANINE AMINOTRANSFERASE 53 IU/L (10-60); AST ASPARTATE AMINOTRANSFERASE 28 IU/L (10-42); BILIRUBIN,TOTAL 0.6 mg/dL (0.2-1.0); BUN - BLOOD UREA NITROGEN 17 mg/dL (6-20); CALCIUM 9.4 mg/dL (8.5-10.3); CARBON DIOXIDE - CO2 31 mmol/L (21-32); CHLORIDE 96 mmol/L (101-111); CHOL/HDL RATIO 3.1 (<4.4); CHOLESTEROL 157 mg/dL; CREATININE 0.7 mg/dL (0.4-1.0); GFR - MDRD 89 (>89); GLUCOSE 95 mg/dL (70-100); HDL CHOLESTEROL 51 mg/dL; LDL CHOLESTEROL,CALCULATED 91 mg/dL; LDL/HDL RATIO 1.8 (<4.4); POTASSIUM 3.8 mmol/L (3.5-5.0); SODIUM 138 mmol/L (135-145); TOTAL PROTEIN 7.8 g/dL (6.7-8.2); TRIGLYCERIDES 73 mg/dL; VLDL CHOLESTEROL 15 mg/dL
[2021-10-21 18:45] LABS: THYROID STIMULATING HORMONE 14.99 uIU/mL (0.34-5.60)
[2021-10-21 19:24] LABS: FREE T4 (FREE THYROXINE) 0.6 ng/dL (0.58-1.64)
== END 2021-10-21 14:20 | disposition home or self-care (01) ==
LOC: LAB.N 14:19
PROVIDERS: ATTEND Physician Assistant Medical
DX: K72.90 Hepatic failure, unspecified without coma (principal); E03.9 Hypothyroidism, unspecified; Z13.220 Encounter for screening for lipoid disorders
CPT/HCPCS: 36415; 80053; 80061; 83721; 84439; 84443; 85025

== ENCOUNTER 2022-04-26 10:49 | Outpatient (CLI) | payer MEDICARE, MEDICAID ==
[2022-04-26 12:32] LABS: THYROID STIMULATING HORMONE 18.88 uIU/mL (0.34-5.60)
[2022-04-26 12:39] LABS: FERRITIN 23.5 ng/mL (11.0-306.8)
[2022-04-26 14:15] LABS: FREE T4 (FREE THYROXINE) 0.57 ng/dL (0.58-1.64)
== END 2022-04-26 10:50 | disposition home or self-care (01) ==
LOC: LAB.N 10:49
PROVIDERS: ATTEND Physician Assistant Medical
DX: E03.9 Hypothyroidism, unspecified (principal); K70.30 Alcoholic cirrhosis of liver without ascites; Z98.84 Bariatric surgery status
CPT/HCPCS: 36415; 82607; 82728; 82746; 84439; 84443

== ENCOUNTER 2022-05-08 15:07 | Outpatient (CLI) | payer MEDICARE, MEDICAID ==
--- NOTE | 2022-05-09 12:12 | XRAY Report ---
PROCEDURE: Hips 2V BILAT INDICATIONS: BILATERAL HIP PX TECHNIQUE: 2 views of the hip were acquired. COMPARISON: None FINDINGS: Bones: No fractures or dislocations. No suspicious bony lesions. The visualized pelvic ring appear s intact. Soft tissues: No suspicious soft tissue calcifications or masses. IMPRESSION: Unremarkable exam. Reviewed by: Lindsay Lee MD on 05/09/2022 12:11 PM PST Approved by: Lindsay Lee MD on 05/09/2022 12:11 PM [facility] Station ID: [id number]
--- NOTE | 2022-05-09 12:13 | XRAY Report ---
PROCEDURE: Knee 3 View BILAT INDICATIONS: BILATERAL KNEE PX TECHNIQUE: 3 views of the bilateral knee(s) were acquired. COMPARISON: None. FINDINGS: Bones: No fractures or dislocations. No suspicious bony lesions. There is bilateral mild to modera te medial and mild lateral compartment narrowing. Bilateral mild patellofemoral compartment narrowing is present. No erosions. Soft tissues: No joint effusion. No suspicious soft tissue calcifications. IMPRESSION: Tricompartmental arthritic change bilaterally slightly more prominent on the left as abo ve. Reviewed by: Lindsay Lee MD on 05/09/2022 12:12 PM PST Approved by: Lindsay Lee MD on 05/09/2022 12:12 PM PST Station ID: [id number]
== END 2022-05-08 15:08 | disposition home or self-care (01) ==
LOC: DI.N 15:07
PROVIDERS: ATTEND Physician Assistant Medical
DX: M17.0 Bilateral primary osteoarthritis of knee (principal); M25.552 Pain in left hip; M25.551 Pain in right hip

== ENCOUNTER 2022-06-30 11:34 | Outpatient (CLI) | payer MEDICARE, MEDICAID ==
[2022-06-30 19:01] LABS: ALBUMIN 4.1 g/dL (3.2-5.5); ALBUMIN/GLOBULIN RATIO 1.5 (1.0-2.2); BILIRUBIN,TOTAL 0.4 mg/dL (0.2-1.0); CALCIUM 9.5 mg/dL (8.5-10.3); CREATININE 0.6 mg/dL (0.4-1.0); POTASSIUM 4.1 mmol/L (3.5-5.0); TOTAL PROTEIN 6.8 g/dL (6.7-8.2)
[2022-06-30 19:02] LABS: THYROID STIMULATING HORMONE 12.18 uIU/mL (0.34-5.60)
[2022-06-30 19:45] LABS: FREE T4 (FREE THYROXINE) 0.67 ng/dL (0.58-1.64)
== END 2022-06-30 11:35 | disposition home or self-care (01) ==
LOC: LAB.N 11:34
PROVIDERS: ATTEND Physician Assistant Medical
DX: E03.9 Hypothyroidism, unspecified (principal)
CPT/HCPCS: 36415; 80053; 84439; 84443

== ENCOUNTER 2022-08-23 08:00 | Outpatient (CLI) | payer MEDICARE, MEDICAID | END 2022-08-23 23:59 | disposition home or self-care (01) | LOC: LAB.WC 08:00 | PROVIDERS: ATTEND Obstetrics & Gynecology | DX: R87.4 Abnormal immunological findings in specimens from female genital organs (principal); Z32.00 Encounter for pregnancy test, result unknown ==